=== PATIENT | male | born 1940 | race African-American/Black ===

== ENCOUNTER 2017-12-04 20:51 | Inpatient (IN) | payer MEDICARE, MEDICAID ==
[~2017-12-04] VITALS: Ht 182.9 cm; Wt 87.0 kg
[2017-12-04 20:51] VITALS: O2SAT 97
[~2017-12-04 20:51] MED LIST: ASPI1TAB7 PO; ATOR40TA PO; DILT120C9 PO; FURO20 PO; GLUC1KIT IM; GLUC40GE PO; HUMSS SQ; METO25 PO; QUET100 PO; SERT-132 PO; TAMS0.4C67 PO; TRAZ50TA4 PO; TYLE500T PO
[2017-12-04 20:57] VITALS: PULSE 81
[2017-12-04 21:03] VITALS: BP 143/67; PULSE 69; RESP 26; TEMP 97.8; O2SAT 98
[2017-12-04] MEDS ORDERED: SODIUM CHLORIDE 0.9% FLUSH 10 ML FLUSH IVF PRN (21:15)
--- NOTE | 2017-12-04 21:24 | RADRPT ---
EXAM DATE/TIME: 12/04/2017 21:19 [place] COMPARISON: No previous studies available for comparison. INDICATIONS : Short of breath MEDICAL HISTORY : Hypertension. Dementia. CVA. SURGICAL HISTORY : CABG. ENCOUNTER: Initial ACUITY: 1 day PAIN SCORE: 0/10 LOCATION: chest FINDINGS: Mild bibasilar consolidation and small effusions noted. No pneumothorax. Heart size stable, upper [place] its of normal. Median sternotomy and CABG changes are again noted. CONCLUSION: Mild consolidation and small effusions of both bases. Alexander Bundy MD on December 04, 2017 at 21:21 Board Certified Radiologist. This report was verified electronically.
[2017-12-04] MEDS ORDERED: LANTUS2P SQ (21:30)
[2017-12-04] MEDS ORDERED: SERT-132 PO (21:30)
[2017-12-04] MEDS ORDERED: OMEP40CA2 PO (21:30)
[2017-12-04] MEDS ORDERED: BISC10SU RECTAL (21:30)
[2017-12-04] MEDS ORDERED: MILKSUS PO (21:30)
[2017-12-04] MEDS ORDERED: TRAM50TA PO (21:30)
[2017-12-04] MEDS ORDERED: TAMS0.4C4 PO (21:30)
[2017-12-04] MEDS ORDERED: GLUC1KIT IM (21:30)
[2017-12-04] MEDS ORDERED: SENN8.6T8 PO (21:30)
[2017-12-04] MEDS ORDERED: FERR325T18 PO (21:30)
[2017-12-04] MEDS ORDERED: D 101000 PO (21:30)
[2017-12-04] MEDS ORDERED: IPRASOL INH ×2 (21:30)
[2017-12-04] MEDS ORDERED: CYAN100025 SL (21:30)
[2017-12-04] MEDS ORDERED: VITA500T83 PO (21:30)
[2017-12-04] MEDS ORDERED: TYLE325T PO (21:30)
[2017-12-04] MEDS ORDERED: CALCIUM TABLET PO (21:30)
[2017-12-04] MEDS ORDERED: AMLO10TA2 PO (21:30)
[2017-12-04] MEDS ORDERED: LISI10TA3 PO (21:30)
[2017-12-04] MEDS ORDERED: ATOR40TA16 PO (21:30)
[2017-12-04] MEDS ORDERED: POTA10CA PO (21:30)
[2017-12-04] MEDS ORDERED: MEMA1TAB2 PO (21:30)
[2017-12-04] MEDS ORDERED: NITR1SUB3 SL (21:30)
[2017-12-04] MEDS ORDERED: CALC0.25 PO (21:30)
[2017-12-04] MEDS ORDERED: GLUC40GE PO (21:30)
[2017-12-04] MEDS ORDERED: LEVEMIR SQ (21:30)
[2017-12-04] MEDS ORDERED: NITROGLYCERIN 2% OINT 1 GM PACKET TOPICAL ONE (21:30)
[2017-12-04] MEDS ORDERED: ASPI81CH6 CHEW (21:30)
[2017-12-04] MEDS ORDERED: [UNRECOGNIZED DRUG - CODE] SQ (21:30)
[2017-12-04] MEDS ORDERED: ONDA4SYR IM (21:30)
[2017-12-04] MEDS ORDERED: METO25TA3 PO (21:30)
[2017-12-04] MEDS ORDERED: FURO1TAB60 PO (21:30)
[2017-12-04 22:28] LABS: AUTOMATED NEUTROPHIL # 3.6 TH/MM3 (1.8-7.7); BASOPHIL % 0.8 % (0.0-2.0); EOSINOPHIL # 0.1 TH/MM3 (0-0.4); EOSINOPHIL % 2.3 % (0.0-4.0); HEMATOCRIT 25.5 % (39.0-51.0); HEMOGLOBIN 8.1 GM/DL (13.0-17.0); LYMPH % 17.7 % (9.0-44.0); LYMPHOCYTE # 0.9 TH/MM3 (1.0-4.8); MEAN CELL VOLUME 100.1 FL (80.0-100.0); MEAN PLATELET VOLUME 9.7 FL (7.0-11.0); MONO % 8.9 % (0.0-8.0); MONOCYTE # 0.5 TH/MM3 (0-0.9); NEUT % 70.3 % (16.0-70.0); PLATELET COUNT 127 TH/MM3 (150-450); RED BLOOD COUNT 2.54 MIL/MM3 (4.50-5.90); RED CELL DISTRIBUTION WIDTH 18.3 % (11.6-17.2); WHITE BLOOD COUNT 5.1 TH/MM3 (4.0-11.0)
[2017-12-04 22:31] LABS: ALBUMIN 3.1 GM/DL (3.4-5.0); ALT (GPT) 46 U/L (12-78); AST (GOT) 32 U/L (15-37); BICARBONATE 26.9 MEQ/L (21.0-32.0); BLOOD UREA NITROGEN 54 MG/DL (7-18); CALCIUM 8.3 MG/DL (8.5-10.1); CHLORIDE 111 MEQ/L (98-107); CREATININE 2.66 MG/DL (0.60-1.30); GLOMERULAR FILTRATION RATE 29 ML/MIN (>89); GLUCOSE,RANDOM 216 MG/DL (74-106); SODIUM (NA) 145 MEQ/L (136-145)
[2017-12-04 22:34] LABS: INTERNATIONAL NORMALIZED RATIO 1.3 RATIO; PROTHROMBIN TIME - PATIENT 12.9 SEC (9.8-11.6)
[2017-12-04 22:35] LABS: ALKALINE PHOSPHATASE 205 U/L (45-117); TOTAL BILIRUBIN ADULT 0.3 MG/DL (0.2-1.0); TOTAL PROTEIN 7.1 GM/DL (6.4-8.2); TROPONIN I 0.03 NG/ML (0.02-0.05)
[2017-12-04 23:00] VITALS: BP 155/70; PULSE 66; RESP 16; O2SAT 96
--- NOTE | 2017-12-04 23:17 | PD ---
HPI . Respiratory symptoms Chief Complaint: Respiratory Distress Time Seen by Provider: 21:09 Travel History International Travel<30 days: No Contact w/Intl Traveler<30days: No Traveled to known affect area: No History of Present Illness HPI 77-year-old male history of CHF presents via EMS secondary to complaints of severe shortness of breath, dyspnea, orthopnea with markedly peripheral edema and upper and lower extremities. Patient received nitroglycerin sublingual spray, Lasix 100 mg IV push, and CPAP assisted respiratory device en route. Patient had oxygen saturation approximately 86-80% on room air at household, patient 96% at presentation and much more comfortable as per EMS. Patient currently has no complaints. Limited historian. History of chronic renal insufficiency PFSH Past Medical History Narrative Medical Past medical history reviewed Hx Anticoagulant Therapy: Yes Arthritis: Yes (BACK) Asthma: No Autoimmune Disease: No Blood Disorders: Yes Anxiety: No Depression: Yes Heart Rhythm Problems: No Cancer: Yes (prostate cancer) Cardiac Catheterization: Yes Cardiovascular Problems: Yes High Cholesterol: Yes Chemotherapy: No Chest Pain: Yes Congestive Heart Failure: No COPD: No Cerebrovascular Accident: Yes Coronary Artery Disease: Yes Diabetes: Yes Diminished Hearing: Yes (GLASSES) Endocrine: Yes GERD: No Glaucoma: No Genitourinary: No Headaches: No Hepatitis: No Hiatal Hernia: No Hypertension: Yes Immune Disorder: No Implanted Vascular Access Dvce: No Kidney Stones: Yes Neurologic: Yes (stroke, unsure of when) Psychiatric: No Reproductive: No Respiratory: No Integumentary: Yes (MULTIPLE ABRASIONS FROM FREQ FALLS) Immunizations Current: Yes Migraines: No Myocardial Infarction: Yes Radiation Therapy: No Renal Failure: No Seizures: No Sickle Cell Disease: No Sleep Apnea: No Thyroid Disease: No Ulcer: Yes (BLEEDING GASTRIC ULCER) PNEUMOCCOCAL Vaccine (Year): 1 Past Surgical History Abdominal Surgery: No AICD: No Appendectomy: No Arteriovenous Shunt: No Cardiac Surgery: No Cholecystectomy: No Coronary Artery Bypass Graft: Yes (5 VESSELS 2006) Ear Surgery: No Endocrine Surgery: No Eye Surgery: Yes (CATARACTS) Genitourinary Surgery: No Gynecologic Surgery: No Insulin Pump: No Joint Replacement: No Neurologic Surgery: No Oral Surgery: No Pacemaker: No Thoracic Surgery: Yes (CABG 2006) Social History Alcohol Use: No (UNABLE TO ASSESS) Tobacco Use: Yes ( 1/2 PPD) Substance Use: No Allergies-Medications (Allergen,Severity, Reaction): Coded Allergies: No Known Allergies (Verified , 06/14/16) Reported Meds & Prescriptions Reported Meds & Active Scripts Active Reported Ondansetron 4 mg/2 ml Isecure (Ondansetron HCl/Pf) 4 Mg/2 Ml Syringe 4 Mg IM Q8HR PRN D 1000 (Cholecalciferol) 1,000 Unit Cap 1,000 Unit PO DAILY Vitamin C ER (Ascorbic Acid) 500 Mg Brooks 500 Mg PO DAILY Tramadol (Tramadol HCl) 50 Mg Tab 50 Mg PO Q4H PRN Tamsulosin (Tamsulosin HCl) 0.4 Mg Cap 0.4 Mg PO HS Sertraline (Sertraline HCl) 50 Mg Tab 50 Mg PO DAILY Senna S (Sennosides-Docusate Sodium) 8.6-50 Mg Tab 2 Tab PO BID PRN Potassium Chloride ER (Potassium Chloride) 10 Meq Cap 10 Meq PO DAILY Omeprazole 40 Mg Cap 40 Mg PO DAILY Nitroglycerin SL (Nitroglycerin) 0.4 Mg Subl 0.4 Mg SL DIRECTED PRN ONE TABLET UNDER THE TONGUE NEEDED FOR CHEST PAIN, MAY REPEAT EVERY FIVE MINUTES FOR A TOTAL OF 3 DOSES OR CALL 911 IF NO RELIEF Milk of Magnesia Liq (Magnesium Hydroxide) 400 Mg/5 Ml Susp 30 Ml PO Q6H PRN Metoprolol Tartrate 25 Mg Tab 25 Mg PO BID Memantine 10 Mg Tab 10 Mg PO BID Lisinopril 10 Mg Tab 10 Mg PO DAILY Levemir Inj (Insulin Detemir) 1,000 unit/ 10 ML Vial 15 Units SQ DAILY Do not mix with any other Insulin. Lasix (Furosemide) 40 Mg Tab 40 Mg PO DAILY Lantus Inj (Insulin Glargine) 1,000 Unit/10 Ml Vial 8 Units SQ HS Glucose Gel (Dextrose) 40 % Gel 1 Tube PO DIRECTED PRN Glucagon Emergency Inj Kit (Glucagon (Rdna) Inj Kit) 1 Mg Kit 1 Mg IM ONCE PRN Ferrous Sulfate 325 Mg (65 Mg Iron) Tablet 325 Mg PO DAILY Duoneb (Ipratropium-Albuterol Neb) 0.5-2.5 Mg/3 Ml Neb 1 Nebule INH HS Duoneb (Ipratropium-Albuterol Neb) 0.5-2.5 Mg/3 Ml Neb 1 Nebule INH Q6HR NEB PRN [Calcium Tablet] 1,200 Mg PO DAILY Calcitriol 0.25 Mcg Cap 0.25 Mcg PO MWF Biscolax Supp (Bisacodyl) 10 Mg Supp 10 Mg RECTAL DAILY PRN B-12 (Cyanocobalamin) 1,000 Mcg Subl 1,000 Mcg SL DAILY Atorvastatin (Atorvastatin Calcium) 40 Mg Tab 40 Mg PO HS Aspirin Low Dose (Aspirin) 81 Mg Chew 81 Mg CHEW DAILY Aranesp (Albumin Free) Inj (Darbepoetin Xavier Inj) 40 Mcg/0.4 Ml Inj 40 Mcg SQ MONTHLY Amlodipine (Amlodipine Besylate) 10 Mg Tab 10 Mg PO DAILY Tylenol (Acetaminophen) 325 Mg Tab 650 Mg PO Q4H PRN Narrative Medication Allergies and medications reviewed Review of Systems Except as stated in HPI: all other systems reviewed are Neg General / Constitutional: No: Fever Eyes: No: Visual changes HENT: No: Headaches Cardiovascular: No: Chest Pain or Discomfort Respiratory: Positive: Shortness of Breath, Orthopnea Gastrointestinal: No: Abdominal Pain Genitourinary: No: Dysuria Musculoskeletal: Positive: Edema, No: Pain Skin: No Rash Neurologic: No: Weakness Psychiatric: No: Depression Endocrine: No: Polydipsia Hematologic/Lymphatic: No: Easy Bruising Physical Exam Narrative GENERAL: Awake alert oriented 3 no acute distress color is normal no diaphoresis cyanosis or pallor. Patient currently with CPAP device tolerating well SKIN: Warm and dry. Color is normal no diaphoresis cyanosis or pallor HEAD: Atraumatic. Normocephalic. EYES: Pupils equal and round. No scleral icterus. No injection or drainage. ENT: No nasal bleeding or discharge. Mucous membranes pink and moist. NECK: Trachea midline. No JVD. Supple full range of motion CARDIOVASCULAR: Regular rate and rhythm. No murmurs or gallops. Distant heart sounds secondary to body habitus RESPIRATORY: No accessory muscle use. Clear to auscultation. Breath sounds equal bilaterally. GASTROINTESTINAL: Abdomen soft, non-tender, nondistended. Hepatic and splenic margins not palpable. MUSCULOSKELETAL: Extremities without clubbing, cyanosis. Marked peripheral edema upper and lower extremities. No obvious deformities. NEUROLOGICAL: Awake and alert. No obvious focal deficits PSYCHIATRIC: Appropriate mood and affect; insight and judgment normal. Data Data Last Documented VS Vital Signs Date Time Temp Pulse Resp B/P (MAP) Pulse Ox O2 Delivery O2 Flow Rate FiO2 2/8/18 21:42 99 BiPAP 12/04/17 21:03 97.8 69 26 143/67 (92) 12/04/17 20:51 35 Orders Orders Complete Blood Count With Diff (12/04/17 21:09) Comprehensive Metabolic Panel (12/04/17 21:09) B-Type Natriuretic Peptide (12/04/17 21:09) Act Partial Throm Time (Ptt) (12/04/17 21:09) Prothrombin Time / Inr (Pt) (12/04/17 21:09) Magnesium (Mg) (12/04/17 21:09) Troponin I (12/04/17 21:09) Urinalysis - C+S If Indicated (12/04/17 21:09) Influenzae A/B Antigen (12/04/17 21:09) Iv Access Insert/Monitor (12/04/17 21:09) Electrocardiogram (12/04/17 21:09) Ecg Monitoring (12/04/17 21:09) Oximetry (12/04/17 21:09) Oxygen Administration (12/04/17 21:09) Chest, Single Ap (12/04/17 21:09) Sodium Chloride 0.9% Flush (Ns Flush) (12/04/17 21:15) Nitroglycerin 2% Oint (Nitroglycerin 2% (12/04/17 21:30) Resp Bipap / Cpap Non Invas Vt (12/04/17 ) (Hub Use Only)Inp Phy Cons/Ref (12/04/17 ) Arterial Blood Gas (Abg) (12/04/17 ) Labs Laboratory Tests Test 12/04/17 21:30 12/04/17 23:59 White Blood Count 5.1 TH/MM3 Red Blood Count 2.54 MIL/MM3 Hemoglobin 8.1 GM/DL Hematocrit 25.5 % Mean Corpuscular Volume 100.1 FL Mean Corpuscular Hemoglobin 32.0 PG Mean Corpuscular Hemoglobin Concent 32.0 % Red Cell Distribution Width 18.3 % Platelet Count 127 TH/MM3 Mean Platelet Volume 9.7 FL Neutrophils (%) (Auto) 70.3 % Lymphocytes (%) (Auto) 17.7 % Monocytes (%) (Auto) 8.9 % Eosinophils (%) (Auto) 2.3 % Basophils (%) (Auto) 0.8 % Neutrophils # (Auto) 3.6 TH/MM3 Lymphocytes # (Auto) 0.9 TH/MM3 Monocytes # (Auto) 0.5 TH/MM3 Eosinophils # (Auto) 0.1 TH/MM3 Basophils # (Auto) 0.0 TH/MM3 CBC Comment DIFF FINAL Differential Comment Prothrombin Time 12.9 SEC Prothromb Time International Ratio 1.3 RATIO Activated Partial Thromboplast Time 26.6 SEC Blood Urea Nitrogen 54 MG/DL Creatinine 2.66 MG/DL Random Glucose 216 MG/DL Total Protein 7.1 GM/DL Albumin 3.1 GM/DL Calcium Level 8.3 MG/DL Magnesium Level 2.0 MG/DL Alkaline Phosphatase 205 U/L Aspartate Amino Transf (AST/SGOT) 32 U/L Alanine Aminotransferase (ALT/SGPT) 46 U/L Total Bilirubin 0.3 MG/DL Sodium Level 145 MEQ/L Potassium Level 4.6 MEQ/L Chloride Level 111 MEQ/L Carbon Dioxide Level 26.9 MEQ/L Anion Gap 7 MEQ/L Estimat Glomerular Filtration Rate 29 ML/MIN Troponin I 0.03 NG/ML B-Type Natriuretic Peptide 601 PG/ML Blood Gas Puncture Site RT RADIAL Blood Gas Patient Temperature 98.6 Blood Gas HCO3 24 mmol/L Blood Gas Base Excess -0.9 mmol/L Blood Gas Oxygen Saturation 90 % Arterial Blood pH 7.35 Arterial Blood Partial Pressure CO2 45 mmHg Arterial Blood Partial Pressure O2 63 mmHG Arterial Blood Oxygen Content 9.7 Vol % Arterial Blood Carboxyhemoglobin 2.1 % Arterial Blood Methemoglobin 0.6 % Blood Gas Hemoglobin 7.6 G/DL Oxygen Delivery Device NASAL CANNULA Blood Gas Liter Flow 2 L/M [facility] Medical Decision Making Medical Screen Exam Complete: Yes Emergency Medical Condition: Yes Medical Record Reviewed: Yes Differential Diagnosis CHF, peripheral edema, acute pulmonary edema Narrative Course Patient has marked improvement from presentation. EKG sinus rhythm 68 bpm, T-wave inversions in limb leads 1 to aVL flattening in limb leads 3 and aVF. T-wave inversions in V4 5 and 6 precordium Chest x-ray bilateral pleural effusions right worse versus left, mild cardiomegaly Laboratory examinations reviewed, patient has normal troponin, moderately elevated BNP consistent with patient's presentation. History of chronic renal insufficiency, with slightly elevated creatinine over baseline at 2.66 Diagnosis Primary Impression: Congestive heart failure Qualified Codes: I50.9 - Heart failure, unspecified Additional Impression: Renal insufficiency Admitting Information Admitting Physician Requests: Observation Germán Barajas MD Dec 04, 2017 23:17
[2017-12-05] VITALS (10 sets, daily range): BP systolic 118–187; BP diastolic 55–81; PULSE 62–85; RESP 16–18; TEMP 97.7–98.1; O2SAT 93–98
[2017-12-05] MEDS ORDERED: GLUCAGON 1 MG/ML VIAL OTHER PRN (01:00)
[2017-12-05] MEDS ORDERED: MAGNESIUM HYDROXIDE SUSP 30 ML CUP PO PRN (01:00)
[2017-12-05] MEDS ORDERED: NALOXONE HCL 0.4 MG/ML AMP IV PUSH PRN (01:00)
[2017-12-05] MEDS ORDERED: LACTULOSE SYRUP 20 GM/30 ML CUP PO PRN (01:00)
[2017-12-05] MEDS ORDERED: ACETAMINOPHEN 325 MG TAB PO PRN (01:00)
[2017-12-05] MEDS ORDERED: ONDANSETRON HCL 4 MG/2 ML VIAL IVP PRN (01:00)
[2017-12-05] MEDS ORDERED: BISACODYL 10 MG SUPP RECTAL PRN (01:00)
[2017-12-05] MEDS ORDERED: DEXTROSE 50% IN WATER 50 ML VIAL(D50) IV PUSH PRN (01:00)
[2017-12-05] MEDS ORDERED: SENNOSIDES 8.6 MG TAB PO PRN (01:00)
--- NOTE | 2017-12-05 02:37 | HHI.HP ---
HPI Service [facility] Primary Care Physician Mervin Verde M.D. Admission Diagnosis CHF Diagnoses: (1) Congestive heart failure Chief Complaint: shortness of breath Travel History International Travel<30 Days: No Contact w/Intl Traveler <30 Da: No Traveled to Known Affected Are: No History of Present Illness Mr. Diego is a 77 year-old male resident of [facility] with a history of Type 2 DM, COPD, CHF, CVA, dementia, [place], CAD, Hyperlipidemia, Hypertension, bleeding gastric ulcer, prostate CA, nephrolithiasis, and arthritis who presented to the ER on 12/04/17 for evaluation of severe shortness of breath and edema. CXR in ED confirmed CHF and the patient is admitted for management. The patient is seen in the ER. He is extremely hard of hearing. He states he had severe shortness of breath that is now relieved since receiving treatment in the ER. CXR shows mild consolidation and small effusions of both bases. BNP 601. He was initially treated with Bi-Pap and now has oxygen saturation of 96% on 3 liters of supplemental oxygen via nasal cannula. Review of Systems Except as stated in HPI: all other systems reviewed are Neg Past Family Social History Past Medical History Type 2 DM COPD CHF CVA Dementia [place] CAD Hyperlipidemia Hypertension bleeding gastric ulcer prostate CA nephrolithiasis arthritis . Past Surgical History CABG x 5 2006 Back surgery Cataracts Left shoulder surgery . Reported Medications Reported Meds & Active Scripts Active Reported Ondansetron 4 mg/2 ml Isecure (Ondansetron HCl/Pf) 4 Mg/2 Ml Syringe 4 Mg IM Q8HR PRN D 1000 (Cholecalciferol) 1,000 Unit Cap 1,000 Unit PO DAILY Vitamin C ER (Ascorbic Acid) 500 Mg Brooks 500 Mg PO DAILY Tramadol (Tramadol HCl) 50 Mg Tab 50 Mg PO Q4H PRN Tamsulosin (Tamsulosin HCl) 0.4 Mg Cap 0.4 Mg PO HS Sertraline (Sertraline HCl) 50 Mg Tab 50 Mg PO DAILY Senna S (Sennosides-Docusate Sodium) 8.6-50 Mg Tab 2 Tab PO BID PRN Potassium Chloride ER (Potassium Chloride) 10 Meq Cap 10 Meq PO DAILY Omeprazole 40 Mg Cap 40 Mg PO DAILY Nitroglycerin SL (Nitroglycerin) 0.4 Mg Subl 0.4 Mg SL DIRECTED PRN ONE TABLET UNDER THE TONGUE NEEDED FOR CHEST PAIN, MAY REPEAT EVERY FIVE MINUTES FOR A TOTAL OF 3 DOSES OR CALL 911 IF NO RELIEF Milk of Magnesia Liq (Magnesium Hydroxide) 400 Mg/5 Ml Susp 30 Ml PO Q6H PRN Metoprolol Tartrate 25 Mg Tab 25 Mg PO BID Memantine 10 Mg Tab 10 Mg PO BID Lisinopril 10 Mg Tab 10 Mg PO DAILY Levemir Inj (Insulin Detemir) 1,000 unit/ 10 ML Vial 15 Units SQ DAILY Do not mix with any other Insulin. Lasix (Furosemide) 40 Mg Tab 40 Mg PO DAILY Lantus Inj (Insulin Glargine) 1,000 Unit/10 Ml Vial 8 Units SQ HS Glucose Gel (Dextrose) 40 % Gel 1 Tube PO DIRECTED PRN Glucagon Emergency Inj Kit (Glucagon (Rdna) Inj Kit) 1 Mg Kit 1 Mg IM ONCE PRN Ferrous Sulfate 325 Mg (65 Mg Iron) Tablet 325 Mg PO DAILY Duoneb (Ipratropium-Albuterol Neb) 0.5-2.5 Mg/3 Ml Neb 1 Nebule INH HS Duoneb (Ipratropium-Albuterol Neb) 0.5-2.5 Mg/3 Ml Neb 1 Nebule INH Q6HR NEB PRN [Calcium Tablet] 1,200 Mg PO DAILY Calcitriol 0.25 Mcg Cap 0.25 Mcg PO MWF Biscolax Supp (Bisacodyl) 10 Mg Supp 10 Mg RECTAL DAILY PRN B-12 (Cyanocobalamin) 1,000 Mcg Subl 1,000 Mcg SL DAILY Atorvastatin (Atorvastatin Calcium) 40 Mg Tab 40 Mg PO HS Aspirin Low Dose (Aspirin) 81 Mg Chew 81 Mg CHEW DAILY Aranesp (Albumin Free) Inj (Darbepoetin Xavier Inj) 40 Mcg/0.4 Ml Inj 40 Mcg SQ MONTHLY Amlodipine (Amlodipine Besylate) 10 Mg Tab 10 Mg PO DAILY Tylenol (Acetaminophen) 325 Mg Tab 650 Mg PO Q4H PRN . Allergies: Coded Allergies: No Known Allergies (Verified , 06/14/16) Family History Family history is positive for DM, HTN and heart disease. . Social History Tobacco: Previous smoker Alcohol: None known Illicit Drugs: None known . Physical Exam Vital Signs Vital Signs Date Time Temp Pulse Resp B/P (MAP) Pulse Ox O2 Delivery O2 Flow Rate FiO2 12/05/17 02:11 Nasal Cannula 3.00 12/05/17 01:48 97.9 68 17 165/72 (103) 96 12/05/17 01:40 12/05/17 00:49 65 18 157/73 (101) 97 Nasal Cannula 2.00 12/04/17 23:00 66 16 155/70 (98) 96 Nasal Cannula 2.00 12/04/17 21:42 99 BiPAP 12/04/17 21:03 97.8 69 26 143/67 (92) 98 BiPAP 12/04/17 21:01 70 26 95 BiPAP 12/04/17 20:57 81 12/04/17 20:51 97 35 Physical Exam GENERAL: This is an extremely ute elderly male patient, in no apparent distress. SKIN: No rashes. Cool and dry. HEAD: Atraumatic. Normocephalic. EYES: No injection or drainage. ENT: Nose without bleeding, purulent drainage. NECK: Trachea midline. No JVD. CARDIOVASCULAR: Regular rate and rhythm without murmurs, gallops, or rubs. RESPIRATORY: Breath sounds equal bilaterally; diminished at bilateral bases. No wheezes, rales, or rhonchi. GASTROINTESTINAL: Abdomen soft, non-tender, nondistended. No guarding. MUSCULOSKELETAL: Extremities without clubbing or cyanosis. +2 peripheral edema. No calf tenderness. NEUROLOGICAL: Awake and alert. Motor and sensory grossly within normal limits. Normal speech. . Laboratory Laboratory Tests Test 12/04/17 21:30 12/04/17 23:59 White Blood Count 5.1 Red Blood Count 2.54 Hemoglobin 8.1 Hematocrit 25.5 Mean Corpuscular Volume 100.1 Mean Corpuscular Hemoglobin 32.0 Mean Corpuscular Hemoglobin Concent 32.0 Red Cell Distribution Width 18.3 Platelet Count 127 Mean Platelet Volume 9.7 Neutrophils (%) (Auto) 70.3 Lymphocytes (%) (Auto) 17.7 Monocytes (%) (Auto) 8.9 Eosinophils (%) (Auto) 2.3 Basophils (%) (Auto) 0.8 Neutrophils # (Auto) 3.6 Lymphocytes # (Auto) 0.9 Monocytes # (Auto) 0.5 Eosinophils # (Auto) 0.1 Basophils # (Auto) 0.0 CBC Comment DIFF FINAL Differential Comment Prothrombin Time 12.9 Prothromb Time International Ratio 1.3 Activated Partial Thromboplast Time 26.6 Blood Urea Nitrogen 54 Creatinine 2.66 Random Glucose 216 Total Protein 7.1 Albumin 3.1 Calcium Level 8.3 Magnesium Level 2.0 Alkaline Phosphatase 205 Aspartate Amino Transf (AST/SGOT) 32 Alanine Aminotransferase (ALT/SGPT) 46 Total Bilirubin 0.3 Sodium Level 145 Potassium Level 4.6 Chloride Level 111 Carbon Dioxide Level 26.9 Anion Gap 7 Estimat Glomerular Filtration Rate 29 Troponin I 0.03 B-Type Natriuretic Peptide 601 Blood Gas Puncture Site RT RADIAL Blood Gas Patient Temperature 98.6 Blood Gas HCO3 24 Blood Gas Base Excess -0.9 Blood Gas Oxygen Saturation 90 Arterial Blood pH 7.35 Arterial Blood Partial Pressure CO2 45 Arterial Blood Partial Pressure O2 63 Arterial Blood Oxygen Content 9.7 Arterial Blood Carboxyhemoglobin 2.1 Arterial Blood Methemoglobin 0.6 Blood Gas Hemoglobin 7.6 Oxygen Delivery Device NASAL CANNULA Blood Gas Liter Flow 2 Date/Time Source Procedure Growth Status 12/04/17 21:30 Nasal Washing Influenza Types A,B Antigen (LUIS) - Final NEGATIVE FOR FLU A AND B ANTIGEN.... Complete Result Diagram: 12/04/17212912/04/172129 Imaging Last Impressions Chest X-Ray 12/04/172108 Signed Impressions: Service Date/Time: November 21:19 - CONCLUSION: Mild consolidation and small effusions of both bases. MD Jose Zhangi VTE Risk Assessment Caprini VTE Risk Assessment: Mod/High Risk (score >= 2) Caprini Risk Assessment Model Point Value = 1 Point Value = 2 Point Value = 3 Point Value = 5 Age 41-60 Minor surgery BMI > 25 kg/m2 Swollen legs Varicose veins or History of unexplained or recurrent spontaneous Oral contraceptives or hormone replacement Sepsis (< 1 month) Serious lung disease, including pneumonia (< 1 month) Abnormal pulmonary function Acute myocardial infarction Congestive heart failure (< 1 month) History of inflammatory bowel disease Medical patient at bed rest Age 61-74 Arthroscopic surgery Major open surgery (> 45 min) Laparoscopic surgery (> 45 min) Malignancy Confined to bed (> 72 hours) Immobilizing plaster cast Central venous access Age >= 75 History of VTE Family history of VTE Factor V Leiden Prothrombin [id number] Lupus anticoagulant Anticardiolipin antibodies Elevated serum homocysteine Heparin-induced thrombocytopenia Other congenital or acquired thrombophilia Stroke (< 1 month) Elective arthroplasty Hip, pelvis, or leg fracture Acute spinal cord injury (< 1 month) Prophylaxis Regimen Total Risk Factor Score Risk Level Prophylaxis Regimen 0-1 Low Early ambulation 2 Moderate Order ONE of the following: *Sequential Compression Device (SCD) *Heparin 5000 units SQ BID 3-4 Higher Order ONE of the following medications: *Heparin 5000 units SQ TID *Enoxaparin/Lovenox 40 mg SQ daily (WT < 150 kg, CrCl > 30 mL/min) *Enoxaparin/Lovenox 30 mg SQ daily (WT < 150 kg, CrCl > 10-29 mL/min) *Enoxaparin/Lovenox 30 mg SQ BID (WT < 150 kg, CrCl > 30 mL/min) AND/OR *Sequential Compression Device (SCD) 5 or more Highest Order ONE of the following medications: *Heparin 5000 units SQ TID (Preferred with Epidurals) *Enoxaparin/Lovenox 40 mg SQ daily (WT < 150 kg, CrCl > 30 mL/min) *Enoxaparin/Lovenox 30 mg SQ daily (WT < 150 kg, CrCl > 10-29 mL/min) *Enoxaparin/Lovenox 30 mg SQ BID (WT < 150 kg, CrCl > 30 mL/min) AND *Sequential Compression Device (SCD) Assessment and Plan Problem List: (1) Congestive heart failure ICD Code: I50.9 - Heart failure, unspecified Status: Acute Assessment and Plan Mr. Diego is a 77 year-old male resident of [facility] who presented to the ER on 12/04/17 for evaluation of severe shortness of breath and edema. CXR in ED confirmed CHF and the patient is admitted for management. Acute CHF - CXR shows mild consolidation and small effusions of both bases; BNP 601. - Lasix 40 mg IV BID - continuous cardiac telemetry to monitor for arrhythmia - initially required BiPap - now on 3 liters nasal cannula and pulse oximetry 96 % - supplemental oxygen titrated to maintain oxygen saturation > 92% Acute on chronic renal insufficiency - BUN 54, Creatinine 2.66, and eGFR 29 on admission (was BUN 21, Creatinine 1.62 , and egfr 51 on 07/03/16) - repeat labs in a.m. and follow trends - avoid nephrotoxins - consider nephrology consultation COPD - Duonebulizer q6h ATC and q4h PRN shortness of breath/wheezing - supplemental oxygen as above Type 2 diabetes mellitus - accuchecks AC and HS with low dose Novolog sliding scale coverage - monitor trends in blood glucose and adjust treatment accordingly - hold home basal insulin; resume pending blood glucose trends - PRN hypoglycemia treatment protocol ordered Hypertension - resume home antihypertensives - monitor blood pressure readings and adjust treatment if indicated Anemia and thrombocytopenia - no recent labs for comparison (was 11.2 and 204, 000 respectively on 07/01/16) - Hemoglobin 8.1 and platelet count 127,000 on admission; will repeat in a.m. and transfuse if needed - consider hematology consultation pending repeat blood work results DVT prophylaxis - Heparin 5000 units subq q8h Discussed Condition With RN and Dr. Moreno . Problem Qualifiers (1) Congestive heart failure: Qualified Codes: I50.9 - Heart failure, unspecified Julissa Pruitt Dec 05, 2017 02:37
[2017-12-05] MEDS: RESP: ALBUTEROL 2.5 MG/IPRATROPIUM 0.5 MG NEB (SCH) NEB ×4 (02:43→20:58)
[2017-12-05] MEDS: HEPARIN SODIUM - SQ 10,000 UNITS/ML VIAL SQ SCH ×4 (05:50→21:59)
[2017-12-05] MEDS: INSULIN ASPART SUPPLEMENTAL SCALE SQ SCH ×4 (08:21→21:52)
[2017-12-05] MEDS: MEMANTINE HCL 10 MG TAB PO SCH ×2 (09:27→21:41)
[2017-12-05] MEDS: SERTRALINE HCL 50 MG TAB PO SCH (09:27)
[2017-12-05] MEDS: PANTOPRAZOLE SOD 40 MG DELAYED RELEASE TAB PO SCH (09:27)
[2017-12-05] MEDS: ASPIRIN 81 MG CHEW TAB CHEW SCH (09:27)
[2017-12-05] MEDS: LISINOPRIL 10 MG TAB PO SCH (09:27)
[2017-12-05] MEDS: DOCUSATE SODIUM 50 MG/SENNA 8.6 MG TAB PO SCH ×2 (09:27→21:41)
[2017-12-05] MEDS: METOPROLOL TARTRATE 25 MG TAB PO SCH ×2 (09:27→21:40)
[2017-12-05] MEDS: SODIUM CHLORIDE 0.9% FLUSH 10 ML FLUSH IV FLUSH SCH ×2 (09:27→21:41)
[2017-12-05] MEDS: FUROSEMIDE 40 MG/4 ML VIAL IV PUSH SCH ×2 (09:28→17:41)
--- NOTE | 2017-12-05 14:13 | HHI.PR ---
Subjective Remarks Mr. Diego is a 77 year-old male resident of [facility] with a history of Type 2 DM, COPD, CHF, CVA, dementia, [place], CAD, Hyperlipidemia, Hypertension, bleeding gastric ulcer, prostate CA, nephrolithiasis, and arthritis who presented to the ER on 12/04/17 for evaluation of severe shortness of breath and edema. CXR in ED confirmed CHF and the patient is admitted for management. The patient is seen in the ER. He is extremely hard of hearing. He states he had severe shortness of breath that is now relieved since receiving treatment in the ER. CXR shows mild consolidation and small effusions of both bases. BNP 601. He was initially treated with Bi-Pap and now has oxygen saturation of 96% on 3 liters of supplemental oxygen via nasal cannula. NO CURRENT COMPLAINTS DW RN AND PT CONTINUE TO DIURESE AM LABS NEEDS PT AND OT Objective Vitals Vital Signs Date Time Temp Pulse Resp B/P (MAP) Pulse Ox O2 Delivery O2 Flow Rate FiO2 12/05/17 13:35 97.7 67 18 118/55 (76) 94 12/05/17 11:42 62 12/05/17 10:33 98 Nasal Cannula 3.00 12/05/17 08:34 97.9 73 16 153/71 (98) 98 12/05/17 07:52 Nasal Cannula 3.00 12/05/17 07:39 73 12/05/17 02:45 Nasal Cannula 3.00 12/05/17 02:11 Nasal Cannula 3.00 12/05/17 01:48 97.9 68 17 165/72 (103) 96 12/05/17 01:40 12/05/17 00:49 65 18 157/73 (101) 97 Nasal Cannula 2.00 12/04/17 23:00 66 16 155/70 (98) 96 Nasal Cannula 2.00 12/04/17 21:42 99 BiPAP 12/04/17 21:03 97.8 69 26 143/67 (92) 98 BiPAP 12/04/17 21:01 70 26 95 BiPAP 12/04/17 20:57 81 12/04/17 20:51 97 35 I/O 12/04/17 12/04/17 12/04/17 12/05/17 12/05/17 12/05/17 07:00 15:00 23:00 07:00 15:00 23:00 Intake Total 480 ml Balance 480 ml Intake Oral 480 ml # Voids 1 Result Diagram: 12/04/17212912/04/172129 Other Results Laboratory Tests Test 12/04/17 21:30 12/04/17 23:59 White Blood Count 5.1 TH/MM3 Red Blood Count 2.54 MIL/MM3 Hemoglobin 8.1 GM/DL Hematocrit 25.5 % Mean Corpuscular Volume 100.1 FL Mean Corpuscular Hemoglobin 32.0 PG Mean Corpuscular Hemoglobin Concent 32.0 % Red Cell Distribution Width 18.3 % Platelet Count 127 TH/MM3 Mean Platelet Volume 9.7 FL Neutrophils (%) (Auto) 70.3 % Lymphocytes (%) (Auto) 17.7 % Monocytes (%) (Auto) 8.9 % Eosinophils (%) (Auto) 2.3 % Basophils (%) (Auto) 0.8 % Neutrophils # (Auto) 3.6 TH/MM3 Lymphocytes # (Auto) 0.9 TH/MM3 Monocytes # (Auto) 0.5 TH/MM3 Eosinophils # (Auto) 0.1 TH/MM3 Basophils # (Auto) 0.0 TH/MM3 CBC Comment DIFF FINAL Differential Comment Prothrombin Time 12.9 SEC Prothromb Time International Ratio 1.3 RATIO Activated Partial Thromboplast Time 26.6 SEC Blood Urea Nitrogen 54 MG/DL Creatinine 2.66 MG/DL Random Glucose 216 MG/DL Total Protein 7.1 GM/DL Albumin 3.1 GM/DL Calcium Level 8.3 MG/DL Magnesium Level 2.0 MG/DL Alkaline Phosphatase 205 U/L Aspartate Amino Transf (AST/SGOT) 32 U/L Alanine Aminotransferase (ALT/SGPT) 46 U/L Total Bilirubin 0.3 MG/DL Sodium Level 145 MEQ/L Potassium Level 4.6 MEQ/L Chloride Level 111 MEQ/L Carbon Dioxide Level 26.9 MEQ/L Anion Gap 7 MEQ/L Estimat Glomerular Filtration Rate 29 ML/MIN Troponin I 0.03 NG/ML B-Type Natriuretic Peptide 601 PG/ML Blood Gas Puncture Site RT RADIAL Blood Gas Patient Temperature 98.6 Blood Gas HCO3 24 mmol/L Blood Gas Base Excess -0.9 mmol/L Blood Gas Oxygen Saturation 90 % Arterial Blood pH 7.35 Arterial Blood Partial Pressure CO2 45 mmHg Arterial Blood Partial Pressure O2 63 mmHG Arterial Blood Oxygen Content 9.7 Vol % Arterial Blood Carboxyhemoglobin 2.1 % Arterial Blood Methemoglobin 0.6 % Blood Gas Hemoglobin 7.6 G/DL Oxygen Delivery Device NASAL CANNULA Blood Gas Liter Flow 2 L/M Imaging Last Impressions Chest X-Ray 12/04/172108 Signed Impressions: Service Date/Time: November 21:19 - CONCLUSION: Mild consolidation and small effusions of both bases. Alexander Bundy MD Objective Remarks GENERAL: Arousable talkative and somewhat cooperative SKIN: Warm and dry. HEAD: Atraumatic. Normocephalic. EYES: Pupils equal and round. No scleral icterus. No injection or drainage. EOMI ENT: No nasal bleeding or discharge. Mucous membranes pink and moist. Tongue is midline NECK: Trachea midline. No JVD. Supple CARDIOVASCULAR: Regular rate and rhythm. S1 and S2 no S3 or S4 RESPIRATORY: No accessory muscle use. Clear to auscultation. Breath sounds equal bilaterally. GASTROINTESTINAL: Abdomen soft, non-tender, nondistended. Hepatic and splenic margins not palpable. MUSCULOSKELETAL: Extremities without clubbing, cyanosis No obvious deformities. Swelling and edema bilateral lower extremities +2 NEUROLOGICAL: Awake and alert. No obvious cranial nerve deficits. Motor grossly within normal limits. 4 out of 5 muscle strength in the arms and legs. Normal speech. PSYCHIATRIC: INAppropriate mood and affect; insight and judgment ABnormal. Procedures NONE Medications and IVs Current Medications Sodium Chloride (NS Flush) 2 ml UNSCH PRN IVF FLUSH AFTER USING IV ACCESS; Start 12/04/17 at 21:15 Nitroglycerin (Nitroglycerin 2% Oint) 1 inch ONCE ONCE TOPICAL Last administered on 12/04/17at 21:41; Start 12/04/17 at 21:30; Stop 12/04/17 at 21:31; Status DC Sodium Chloride (NS Flush) 2 ml UNSCH PRN IV FLUSH FLUSH AFTER USING IV ACCESS ; Start 12/05/17 at 01:00 Sodium Chloride (NS Flush) 2 ml BID IV FLUSH Last administered on 12/05/17at 09: 27; Start 12/05/17 at 09:00 Acetaminophen (Tylenol) 650 mg Q4H PRN PO TEMP > 100.4; Start 12/05/17 at 01:00 Ondansetron HCl (Zofran Inj) 4 mg Q6H PRN IVP NAUSEA OR VOMITING; Start at 01:00 Heparin Sodium (Porcine) (Heparin Inj) 5,000 units Q8H SQ Last administered on 12/05/17at 14:02; Start 12/05/17 at 06:00 Naloxone HCl (Narcan Inj) 0.4 mg UNSCH PRN IV PUSH SEE LABEL COMMENTS; Start at 01:00 Senna/Docusate Sodium (Rebeca-Colace) 1 tab BID PO Last administered on 12/05/17at 09:27; Start 12/05/17 at 09:00 Magnesium Hydroxide (Milk Of Magnesia Liq) 30 ml Q12H PRN PO Mild constipation ; Start 12/05/17 at 01:00 Sennosides (Senokot) 17.2 mg Q12H PRN PO Moderate constipation; Start 12/05/17 at 01:00 Bisacodyl (Dulcolax Supp) 10 mg DAILY PRN RECTAL SEVERE CONSITIPATION; Start at 01:00 Lactulose (Lactulose Liq) 30 ml DAILY PRN PO SEVERE CONSITIPATION; Start at 01:00 Furosemide (Lasix Inj) 40 mg BID@18 IV PUSH Last administered on 12/05/17at 09 :28; Start 12/05/17 at 09:00 Amlodipine Besylate (Norvasc) 10 mg DAILY PO Last administered on 12/05/17 09: 27; Start 12/05/17 at 09:00 Aspirin (Aspirin Chew) 81 mg DAILY CHEW Last administered on 12/05/17at 09:27; Start 12/05/17 at 09:00 Atorvastatin Calcium (Lipitor) 40 mg HS PO ; Start 12/05/17 at 21:00 Lisinopril (Prinivil) 10 mg DAILY PO Last administered on 12/05/17 09:27; Start 12/05/17 at 09:00 Memantine (Namenda) 10 mg BID PO Last administered on 12/05/17 09:27; Start 12/05/17 at 09:00 Metoprolol Tartrate (Lopressor) 25 mg BID PO Last administered on 12/05/17at 09: 27; Start 12/05/17 at 09:00 Sertraline HCl (Zoloft) 50 mg DAILY PO Last administered on 12/05/17at 09:27; Start 12/05/17 at 09:00 Tamsulosin HCl (Flomax) 0.4 mg HS PO ; Start 12/05/17 at 21:00 Pantoprazole Sodium (Protonix) 40 mg DAILY PO Last administered on 12/05/17at 09: 27; Start 12/05/17 at 09:00 Dextrose (D50w (Vial) Inj) 50 ml UNSCH PRN IV PUSH HYPOGLYCEMIA-SEE COMMENTS; Start 12/05/17 at 01:00 Glucagon (Glucagon Inj) 1 mg UNSCH PRN OTHER HYPOGLYCEMIA-SEE COMMENTS; Start 12/05/17 at 01:00 Insulin Aspart (NovoLOG SUPPLEMENTAL SCALE) 1 ACHS SLIDING SCALE SQ ; Start 12/05/17 at 08:00 Albuterol/ Ipratropium (Duoneb Neb) 1 ampule Q6HR NEB NEB Last administered on 12/05/17at 10:31; Start 12/05/17 at 04:00 Albuterol/ Ipratropium (Duoneb Neb) 1 ampule Q4HR NEB PRN NEB SOB/WHEEZING; Start 12/05/17 at 01:00 A/P Problem List: (1) Congestive heart failure ICD Code: I50.9 - Heart failure, unspecified Status: Acute Assessment and Plan Mr. Diego is a 77 year-old male resident of [facility] who presented to the ER on 12/04/17 for evaluation of severe shortness of breath and edema. CXR in ED confirmed CHF and the patient is admitted for management. Acute CHF - CXR shows mild consolidation and small effusions of both bases; BNP 601. - Lasix 40 mg IV BID - continuous cardiac telemetry to monitor for arrhythmia - initially required BiPap - now on 3 liters nasal cannula and pulse oximetry 96 % - supplemental oxygen titrated to maintain oxygen saturation > 92% Acute on chronic renal insufficiency - BUN 54, Creatinine 2.66, and eGFR 29 on admission (was BUN 21, Creatinine 1.62 , and egfr 51 on 07/03/16) - repeat labs in a.m. and follow trends - avoid nephrotoxins - consider nephrology consultation COPD - Duonebulizer q6h ATC and q4h PRN shortness of breath/wheezing - supplemental oxygen as above Type 2 diabetes mellitus - accuchecks AC and HS with low dose Novolog sliding scale coverage - monitor trends in blood glucose and adjust treatment accordingly - hold home basal insulin; resume pending blood glucose trends - PRN hypoglycemia treatment protocol ordered Hypertension - resume home antihypertensives - monitor blood pressure readings and adjust treatment if indicated Anemia and thrombocytopenia - no recent labs for comparison (was 11.2 and 204, 000 respectively on 07/01/16) - Hemoglobin 8.1 and platelet count 127,000 on admission; will repeat in a.m. and transfuse if needed - consider hematology consultation pending repeat blood work results CHECK BLOOD WORK DVT prophylaxis - Heparin 5000 units subq q8h CONTINUE TO DIURESE ALEKS RN AND PATIENT AM LABS PT AND OT Discharge Planning CONTINUE TO DIURESE Problem Qualifiers (1) Congestive heart failure: Qualified Codes: I50.9 - Heart failure, unspecified Mukund Ford DO Dec 05, 2017 14:13
--- NOTE | 2017-12-05 14:28 | EKG ---
Date Performed: 12/04/2017 Time Performed: 21:02:58 PTAGE: 77 years EKG: Sinus rhythm ST DEVIATION AND MODERATE T-WAVE ABNORMALITY, CONSIDER LATERAL ISCHEMIA ST DEVIATION AND MODERATE T- WAVE ABNORMALITY, CONSIDER INFERIOR ISCHEMIA ABNORMAL ECG Compared to PREVIOUS TRACING , the patient no longer meets selected cardiographic criteria for LVH. T here has been some variation in the diffuse T-wave changes but no other significant serial change. [place] EVIOUS TRACIN06/16/2016 16.00 DOCTOR: Margaret Frederick Interpretating Date/Time 12/05/2017 14:26:15
[2017-12-05] MEDS: SODIUM CHLORIDE 0.9% FLUSH 10 ML FLUSH IV FLUSH PRN (17:41)
[2017-12-05] MEDS: TAMSULOSIN HCL 0.4 MG CAP PO SCH (21:40)
[2017-12-05] MEDS: ATORVASTATIN 40 MG TAB PO SCH (21:41)
[2017-12-06] VITALS (13 sets, daily range): BP systolic 140–173; BP diastolic 60–87; PULSE 56–89; RESP 18–20; TEMP 96.7–99.2; O2SAT 91–100
[2017-12-06] MEDS: RESP: ALBUTEROL 2.5 MG/IPRATROPIUM 0.5 MG NEB (SCH) NEB ×4 (03:07→20:20)
[2017-12-06] MEDS: HEPARIN SODIUM - SQ 10,000 UNITS/ML VIAL SQ SCH ×3 (06:00→23:08)
[2017-12-06] MEDS: INSULIN ASPART SUPPLEMENTAL SCALE SQ SCH ×4 (08:00→21:00)
[2017-12-06 08:22] LABS: AUTOMATED NEUTROPHIL # 3.3 TH/MM3 (1.8-7.7); BASOPHIL % 0.8 % (0.0-2.0); EOSINOPHIL # 0.1 TH/MM3 (0-0.4); EOSINOPHIL % 2.6 % (0.0-4.0); HEMATOCRIT 25.6 % (39.0-51.0); HEMOGLOBIN 8.2 GM/DL (13.0-17.0); LYMPH % 17.9 % (9.0-44.0); LYMPHOCYTE # 0.8 TH/MM3 (1.0-4.8); MEAN CELL VOLUME 98.6 FL (80.0-100.0); MEAN CORPUSCULAR HEMOGLOBIN 31.5 PG (27.0-34.0); MEAN PLATELET VOLUME 9.9 FL (7.0-11.0); MONO % 9.3 % (0.0-8.0); MONOCYTE # 0.4 TH/MM3 (0-0.9); NEUT % 69.4 % (16.0-70.0); PLATELET COUNT 135 TH/MM3 (150-450); RED CELL DISTRIBUTION WIDTH 17.7 % (11.6-17.2); WHITE BLOOD COUNT 4.7 TH/MM3 (4.0-11.0)
[2017-12-06 08:39] LABS: ALBUMIN 3.2 GM/DL (3.4-5.0); ALT (GPT) 38 U/L (12-78); AST (GOT) 21 U/L (15-37); BICARBONATE 26.2 MEQ/L (21.0-32.0); BLOOD UREA NITROGEN 54 MG/DL (7-18); CALCIUM 8.9 MG/DL (8.5-10.1); CHLORIDE 107 MEQ/L (98-107); CREATININE 2.58 MG/DL (0.60-1.30); GLOMERULAR FILTRATION RATE 30 ML/MIN (>89); GLUCOSE,RANDOM 98 MG/DL (74-106); MAGNESIUM 1.8 MG/DL (1.5-2.5); PHOSPHORUS 2.9 MG/DL (2.5-4.9); SODIUM (NA) 141 MEQ/L (136-145)
[2017-12-06 08:47] LABS: ALKALINE PHOSPHATASE 198 U/L (45-117); TOTAL BILIRUBIN ADULT 0.5 MG/DL (0.2-1.0); TOTAL PROTEIN 7.2 GM/DL (6.4-8.2)
[2017-12-06] MEDS: FERROUS SULFATE 325 MG (65 MG ELEMENTAL IRON) TAB PO SCH (09:00)
[2017-12-06] MEDS: LISINOPRIL 10 MG TAB PO SCH (09:00)
[2017-12-06] MEDS: METOPROLOL TARTRATE 25 MG TAB PO SCH ×2 (09:00→23:07)
[2017-12-06] MEDS: SERTRALINE HCL 50 MG TAB PO SCH (09:00)
[2017-12-06] MEDS: PANTOPRAZOLE SOD 40 MG DELAYED RELEASE TAB PO SCH (09:00)
[2017-12-06] MEDS: MEMANTINE HCL 10 MG TAB PO SCH ×2 (09:00→23:07)
[2017-12-06] MEDS: DOCUSATE SODIUM 50 MG/SENNA 8.6 MG TAB PO SCH ×2 (09:00→23:07)
[2017-12-06] MEDS: ASPIRIN 81 MG CHEW TAB CHEW SCH (09:00)
[2017-12-06] MEDS: FUROSEMIDE 40 MG/4 ML VIAL IV PUSH SCH ×2 (10:11→17:30)
[2017-12-06] MEDS: SODIUM CHLORIDE 0.9% FLUSH 10 ML FLUSH IV FLUSH SCH ×2 (10:15→23:06)
--- NOTE | 2017-12-06 14:41 | HHI.PR ---
Subjective Remarks Mr. Diego is a 77 year-old male resident of [facility] with a history of Type 2 DM, COPD, CHF, CVA, dementia, [place], CAD, Hyperlipidemia, Hypertension, bleeding gastric ulcer, prostate CA, nephrolithiasis, and arthritis who presented to the ER on 12/04/17 for evaluation of severe shortness of breath and edema. CXR in ED confirmed CHF and the patient is admitted for management. The patient is seen in the ER. He is extremely hard of hearing. He states he had severe shortness of breath that is now relieved since receiving treatment in the ER. CXR shows mild consolidation and small effusions of both bases. BNP 601. He was initially treated with Bi-Pap and now has oxygen saturation of 96% on 3 liters of supplemental oxygen via nasal cannula. NO CURRENT COMPLAINTS DW RN AND PT CONTINUE TO DIURESE AM LABS NEEDS PT AND OT 2-10 PATIENT NOT WANTING TO EAT MUCH PER SISTER HE DOES THIS HE WILL TAKE VANILLA GLUCERNA PER HER DW RN PATIENT NOT TALKATIVE AT THIS TIME NONVERBAL FAMILY STATES HE DOES THIS- NOT ABNORMAL FOR HIM Objective Vitals Vital Signs Date Time Temp Pulse Resp B/P (MAP) Pulse Ox O2 Delivery O2 Flow Rate FiO2 12/06/17 12:18 99.2 68 20 148/68 (94) 98 12/06/17 10:03 100 Nasal Cannula 3.00 12/06/17 09:01 98.9 78 20 143/76 (98) 100 12/06/17 07:46 97 Nasal Cannula 3.00 12/06/17 04:00 98.9 89 18 164/87 (112) 96 12/06/17 04:00 62 12/06/17 00:10 56 12/05/17 21:00 Nasal Cannula 3.00 12/05/17 20:00 Nasal Cannula 3.00 12/05/17 20:00 64 12/05/17 20:00 98.0 85 18 187/81 (116) 95 12/05/17 17:31 98.1 65 18 130/66 (87) 94 12/05/17 16:30 66 I/O 12/05/17 12/05/17 12/05/17 12/06/17 12/06/17 12/06/17 07:00 15:00 23:00 07:00 15:00 23:00 Intake Total 480 ml Balance 480 ml Intake Oral 480 ml # Voids 1 1 Result Diagram: 12/06/17 0736 12/06/17 0756 Other Results Laboratory Tests Test 12/04/17 21:30 12/04/17 23:59 12/06/17 07:36 12/06/17 07:56 White Blood Count 5.1 TH/MM3 4.7 TH/MM3 Red Blood Count 2.54 MIL/MM3 2.60 MIL/MM3 Hemoglobin 8.1 GM/DL 8.2 GM/DL Hematocrit 25.5 % 25.6 % Mean Corpuscular Volume 100.1 FL 98.6 FL Mean Corpuscular Hemoglobin 32.0 PG 31.5 PG Mean Corpuscular Hemoglobin Concent 32.0 % 32.0 % Red Cell Distribution Width 18.3 % 17.7 % Platelet Count 127 TH/MM3 135 TH/MM3 Mean Platelet Volume 9.7 FL 9.9 FL Neutrophils (%) (Auto) 70.3 % 69.4 % Lymphocytes (%) (Auto) 17.7 % 17.9 % Monocytes (%) (Auto) 8.9 % 9.3 % Eosinophils (%) (Auto) 2.3 % 2.6 % Basophils (%) (Auto) 0.8 % 0.8 % Neutrophils # (Auto) 3.6 TH/MM3 3.3 TH/MM3 Lymphocytes # (Auto) 0.9 TH/MM3 0.8 TH/MM3 Monocytes # (Auto) 0.5 TH/MM3 0.4 TH/MM3 Eosinophils # (Auto) 0.1 TH/MM3 0.1 TH/MM3 Basophils # (Auto) 0.0 TH/MM3 0.0 TH/MM3 CBC Comment DIFF FINAL DIFF FINAL Differential Comment Prothrombin Time 12.9 SEC Prothromb Time International Ratio 1.3 RATIO Activated Partial Thromboplast Time 26.6 SEC Blood Urea Nitrogen 54 MG/DL 54 MG/DL Creatinine 2.66 MG/DL 2.58 MG/DL Random Glucose 216 MG/DL 98 MG/DL Total Protein 7.1 GM/DL 7.2 GM/DL Albumin 3.1 GM/DL 3.2 GM/DL Calcium Level 8.3 MG/DL 8.9 MG/DL Magnesium Level 2.0 MG/DL 1.8 MG/DL Alkaline Phosphatase 205 U/L 198 U/L Aspartate Amino Transf (AST/SGOT) 32 U/L 21 U/L Alanine Aminotransferase (ALT/SGPT) 46 U/L 38 U/L Total Bilirubin 0.3 MG/DL 0.5 MG/DL Sodium Level 145 MEQ/L 141 MEQ/L Potassium Level 4.6 MEQ/L 4.0 MEQ/L Chloride Level 111 MEQ/L 107 MEQ/L Carbon Dioxide Level 26.9 MEQ/L 26.2 MEQ/L Anion Gap 7 MEQ/L 8 MEQ/L Estimat Glomerular Filtration Rate 29 ML/MIN 30 ML/MIN Troponin I 0.03 NG/ML B-Type Natriuretic Peptide 601 PG/ML Blood Gas Puncture Site RT RADIAL Blood Gas Patient Temperature 98.6 Blood Gas HCO3 24 mmol/L Blood Gas Base Excess -0.9 mmol/L Blood Gas Oxygen Saturation 90 % Arterial Blood pH 7.35 Arterial Blood Partial Pressure CO2 45 mmHg Arterial Blood Partial Pressure O2 63 mmHG Arterial Blood Oxygen Content 9.7 Vol % Arterial Blood Carboxyhemoglobin 2.1 % Arterial Blood Methemoglobin 0.6 % Blood Gas Hemoglobin 7.6 G/DL Oxygen Delivery Device NASAL CANNULA Blood Gas Liter Flow 2 L/M Phosphorus Level 2.9 MG/DL Free Thyroxine 0.90 NG/DL Thyroid Stimulating Hormone 3rd Gen 1.330 uIU/ML Imaging Last Impressions Chest X-Ray 12/04/172108 Signed Impressions: Service Date/Time: November 21:19 - CONCLUSION: Mild consolidation and small effusions of both bases. Alexander Bundy MD Objective Remarks GENERAL: Arousable talkative and somewhat cooperative SKIN: Warm and dry. HEAD: Atraumatic. Normocephalic. EYES: Pupils equal and round. No scleral icterus. No injection or drainage. EOMI ENT: No nasal bleeding or discharge. Mucous membranes pink and moist. Tongue is midline NECK: Trachea midline. No JVD. Supple CARDIOVASCULAR: Regular rate and rhythm. S1 and S2 no S3 or S4 RESPIRATORY: No accessory muscle use. Clear to auscultation. Breath sounds equal bilaterally. GASTROINTESTINAL: Abdomen soft, non-tender, nondistended. Hepatic and splenic margins not palpable. MUSCULOSKELETAL: Extremities without clubbing, cyanosis No obvious deformities. Swelling and edema bilateral lower extremities +2 NEUROLOGICAL: Awake and alert. No obvious cranial nerve deficits. Motor grossly within normal limits. 4 out of 5 muscle strength in the arms and legs. Normal speech. PSYCHIATRIC: INAppropriate mood and affect; insight and judgment ABnormal. Procedures NONE Medications and IVs Current Medications Sodium Chloride (NS Flush) 2 ml UNSCH PRN IVF FLUSH AFTER USING IV ACCESS; Start 12/04/17 at 21:15; Stop 12/05/17 at 14:21; Status DC Nitroglycerin (Nitroglycerin 2% Oint) 1 inch ONCE ONCE TOPICAL Last administered on 12/04/17at 21:41; Start 12/04/17 at 21:30; Stop 12/04/17 at 21:31; Status DC Sodium Chloride (NS Flush) 2 ml UNSCH PRN IV FLUSH FLUSH AFTER USING IV ACCESS Last administered on 12/05/17at 17:41; Start 12/05/17 at 01:00 Sodium Chloride (NS Flush) 2 ml BID IV FLUSH Last administered on 12/06/17at 10: 15; Start 12/05/17 at 09:00 Acetaminophen (Tylenol) 650 mg Q4H PRN PO TEMP > 100.4; Start 12/05/17 at 01:00 Ondansetron HCl (Zofran Inj) 4 mg Q6H PRN IVP NAUSEA OR VOMITING; Start at 01:00 Heparin Sodium (Porcine) (Heparin Inj) 5,000 units Q8H SQ Last administered on 12/05/17at 14:02; Start 12/05/17 at 06:00 Naloxone HCl (Narcan Inj) 0.4 mg UNSCH PRN IV PUSH SEE LABEL COMMENTS; Start at 01:00 Senna/Docusate Sodium (Rebeca-Colace) 1 tab BID PO Last administered on 12/05/17at 21:41; Start 12/05/17 at 09:00 Magnesium Hydroxide (Milk Of Magnesia Liq) 30 ml Q12H PRN PO Mild constipation ; Start 12/05/17 at 01:00 Sennosides (Senokot) 17.2 mg Q12H PRN PO Moderate constipation; Start 12/05/17 at 01:00 Bisacodyl (Dulcolax Supp) 10 mg DAILY PRN RECTAL SEVERE CONSITIPATION; Start at 01:00 Lactulose (Lactulose Liq) 30 ml DAILY PRN PO SEVERE CONSITIPATION; Start at 01:00 Furosemide (Lasix Inj) 40 mg BID@18 IV PUSH Last administered on 12/06/17 10:11; Start 12/05/17 at 09:00 Amlodipine Besylate (Norvasc) 10 mg DAILY PO Last administered on 12/05/17at 09: 27; Start 12/05/17 at 09:00 Aspirin (Aspirin Chew) 81 mg DAILY CHEW Last administered on 12/05/17 09:27; Start 12/05/17 at 09:00 Atorvastatin Calcium (Lipitor) 40 mg HS PO Last administered on 12/05/17 21:41 ; Start 12/05/17 at 21:00 Lisinopril (Prinivil) 10 mg DAILY PO Last administered on 12/05/17 09:27; Start 12/05/17 at 09:00 Memantine (Namenda) 10 mg BID PO Last administered on 12/05/17 21:41; Start 12/05/17 at 09:00 Metoprolol Tartrate (Lopressor) 25 mg BID PO Last administered on 12/05/17 21: 40; Start 12/05/17 at 09:00 Sertraline HCl (Zoloft) 50 mg DAILY PO Last administered on 12/05/17 09:27; Start 12/05/17 at 09:00 Tamsulosin HCl (Flomax) 0.4 mg HS PO Last administered on 12/05/17 21:40; Start 12/05/17 at 21:00 Pantoprazole Sodium (Protonix) 40 mg DAILY PO Last administered on 12/05/17 09: 27; Start 12/05/17 at 09:00 Dextrose (D50w (Vial) Inj) 50 ml UNSCH PRN IV PUSH HYPOGLYCEMIA-SEE COMMENTS; Start 12/05/17 at 01:00 Glucagon (Glucagon Inj) 1 mg UNSCH PRN OTHER HYPOGLYCEMIA-SEE COMMENTS; Start 12/05/17 at 01:00 Insulin Aspart (NovoLOG SUPPLEMENTAL SCALE) 1 ACHS SLIDING SCALE SQ Last administered on 12/05/17at 21:52; Start 12/05/17 at 08:00 Albuterol/ Ipratropium (Duoneb Neb) 1 ampule Q6HR NEB NEB Last administered on 12/06/17at 07:44; Start 12/05/17 at 04:00 Albuterol/ Ipratropium (Duoneb Neb) 1 ampule Q4HR NEB PRN NEB SOB/WHEEZING; Start 12/05/17 at 01:00 Ferrous Sulfate (Ferrous Sulfate) 325 mg DAILY PO ; Start 12/06/17 at 09:00 A/P Problem List: (1) Congestive heart failure ICD Code: I50.9 - Heart failure, unspecified Status: Acute Assessment and Plan Mr. Diego is a 77 year-old male resident of [facility] who presented to the ER on 12/04/17 for evaluation of severe shortness of breath and edema. CXR in ED confirmed CHF and the patient is admitted for management. Acute CHF - CXR shows mild consolidation and small effusions of both bases; BNP 601. - Lasix 40 mg IV BID - continuous cardiac telemetry to monitor for arrhythmia - initially required BiPap - now on 3 liters nasal cannula and pulse oximetry 96 % - supplemental oxygen titrated to maintain oxygen saturation > 92% Acute on chronic renal insufficiency - BUN 54, Creatinine 2.66, and eGFR 29 on admission (was BUN 21, Creatinine 1.62 , and egfr 51 on 07/03/16) - repeat labs in a.m. and follow trends - avoid nephrotoxins - consider nephrology consultation COPD - Duonebulizer q6h ATC and q4h PRN shortness of breath/wheezing - supplemental oxygen as above Type 2 diabetes mellitus - accuchecks AC and HS with low dose Novolog sliding scale coverage - monitor trends in blood glucose and adjust treatment accordingly - hold home basal insulin; resume pending blood glucose trends - PRN hypoglycemia treatment protocol ordered Hypertension - resume home antihypertensives - monitor blood pressure readings and adjust treatment if indicated Anemia and thrombocytopenia - no recent labs for comparison (was 11.2 and 204, 000 respectively on 07/01/16) - Hemoglobin 8.1 and platelet count 127,000 on admission; will repeat in a.m. and transfuse if needed - consider hematology consultation pending repeat blood work results CHECK BLOOD WORK CHRONIC DEMENTIA- MONITOR PCM- POOR ORAL INTAKE GIVE GLUCERNA DVT prophylaxis - Heparin 5000 units subq q8h CONTINUE TO DIURESE ALEKS RN AND PATIENT AM LABS PT AND OT GLUCERNA 1 BOTTLE TID Discharge Planning CONTINUE TO DIURESE Problem Qualifiers (1) Congestive heart failure: Qualified Codes: I50.9 - Heart failure, unspecified Mukund Ford DO Dec 06, 2017 14:41
[2017-12-06] MEDS: TAMSULOSIN HCL 0.4 MG CAP PO SCH (23:07)
[2017-12-06] MEDS: ATORVASTATIN 40 MG TAB PO SCH (23:08)
[2017-12-07] VITALS (16 sets, daily range): BP systolic 137–190; BP diastolic 65–82; PULSE 63–87; RESP 18–20; TEMP 97.2–99.8; O2SAT 87–99
[2017-12-07] MEDS ORDERED: FUROSEMIDE 40 MG/4 ML VIAL IV PUSH ONE (00:30)
[2017-12-07] MEDS: RESP: ALBUTEROL 2.5 MG/IPRATROPIUM 0.5 MG NEB (PRN) NEB (00:32)
--- NOTE | 2017-12-07 01:04 | RADRPT ---
EXAM DATE/TIME: 12/07/2017 00:37 [place] COMPARISON: No previous studies available for comparison. INDICATIONS : Low O2 Sats, Shortness of breath MEDICAL HISTORY : Hypertension. Dementia. CVA. SURGICAL HISTORY : CABG. ENCOUNTER: Subsequent ACUITY: 3 days PAIN SCORE: Non-responsive. LOCATION: Bilateral chest FINDINGS: A single view of the chest demonstrates cardiomegaly. Mild edema pattern. Elevated right hemidiaphrag m. Previous sternotomy and CABG. No pneumothorax. CONCLUSION: 1. Cardiomegaly with mild pulmonary edema pattern most characteristic of mild congestive heart failtony Caputo MD on December 07, 2017 at 1:01 Board Certified Radiologist. This report was verified electronically.
[2017-12-07] MEDS: RESP: ALBUTEROL 2.5 MG/IPRATROPIUM 0.5 MG NEB (SCH) NEB ×4 (03:43→19:45)
[2017-12-07] MEDS: HEPARIN SODIUM - SQ 10,000 UNITS/ML VIAL SQ SCH ×3 (05:37→21:50)
[2017-12-07] MEDS: INSULIN ASPART SUPPLEMENTAL SCALE SQ SCH ×4 (08:00→21:50)
[2017-12-07 08:59] LABS: AUTOMATED NEUTROPHIL # 3.3 TH/MM3 (1.8-7.7); BASOPHIL % 0.9 % (0.0-2.0); EOSINOPHIL # 0.1 TH/MM3 (0-0.4); EOSINOPHIL % 2.1 % (0.0-4.0); HEMATOCRIT 25.1 % (39.0-51.0); HEMOGLOBIN 8.1 GM/DL (13.0-17.0); LYMPHOCYTE # 0.7 TH/MM3 (1.0-4.8); MEAN CELL VOLUME 98.8 FL (80.0-100.0); MEAN CORPUSCULAR HEMOGLOBIN 31.9 PG (27.0-34.0); MEAN CORPUSCULAR HGB CONC 32.3 % (32.0-36.0); MEAN PLATELET VOLUME 9.6 FL (7.0-11.0); MONO % 7.8 % (0.0-8.0); MONOCYTE # 0.3 TH/MM3 (0-0.9); NEUT % 74.2 % (16.0-70.0); PLATELET COUNT 118 TH/MM3 (150-450); RED BLOOD COUNT 2.53 MIL/MM3 (4.50-5.90); RED CELL DISTRIBUTION WIDTH 17.7 % (11.6-17.2); WHITE BLOOD COUNT 4.4 TH/MM3 (4.0-11.0)
[2017-12-07 09:18] LABS: ALBUMIN 3.1 GM/DL (3.4-5.0); AST (GOT) 17 U/L (15-37); BICARBONATE 27.1 MEQ/L (21.0-32.0); BLOOD UREA NITROGEN 53 MG/DL (7-18); CALCIUM 8.9 MG/DL (8.5-10.1); CHLORIDE 106 MEQ/L (98-107); CREATININE 2.42 MG/DL (0.60-1.30); GLOMERULAR FILTRATION RATE 32 ML/MIN (>89); GLUCOSE,RANDOM 106 MG/DL (74-106); MAGNESIUM 1.8 MG/DL (1.5-2.5); SODIUM (NA) 141 MEQ/L (136-145)
[2017-12-07 09:22] LABS: ALKALINE PHOSPHATASE 187 U/L (45-117); ALT (GPT) 29 U/L (12-78); PHOSPHORUS 3.4 MG/DL (2.5-4.9); TOTAL BILIRUBIN ADULT 0.5 MG/DL (0.2-1.0); TOTAL PROTEIN 6.8 GM/DL (6.4-8.2)
[2017-12-07] MEDS: PANTOPRAZOLE SOD 40 MG DELAYED RELEASE TAB PO SCH (10:32)
[2017-12-07] MEDS: ASPIRIN 81 MG CHEW TAB CHEW SCH (10:32)
[2017-12-07] MEDS: DOCUSATE SODIUM 50 MG/SENNA 8.6 MG TAB PO SCH ×2 (10:33→21:49)
[2017-12-07] MEDS: MEMANTINE HCL 10 MG TAB PO SCH ×2 (10:33→21:49)
[2017-12-07] MEDS: METOPROLOL TARTRATE 25 MG TAB PO SCH ×2 (10:33→21:49)
[2017-12-07] MEDS: LISINOPRIL 10 MG TAB PO SCH (10:33)
[2017-12-07] MEDS: FERROUS SULFATE 325 MG (65 MG ELEMENTAL IRON) TAB PO SCH (10:33)
[2017-12-07] MEDS: SERTRALINE HCL 50 MG TAB PO SCH (10:33)
[2017-12-07] MEDS: SODIUM CHLORIDE 0.9% FLUSH 10 ML FLUSH IV FLUSH SCH ×2 (10:34→21:47)
[2017-12-07] MEDS: FUROSEMIDE 40 MG/4 ML VIAL IV PUSH SCH ×2 (10:34→17:29)
[2017-12-07] MEDS ORDERED: ONDANSETRON HCL 4 MG/2 ML VIAL IVP PRN (11:45)
[2017-12-07] MEDS ORDERED: MORPHINE SULFATE 2 MG/ML INJ IV PUSH PRN (11:45)
[2017-12-07] MEDS ORDERED: SENNOSIDES 8.6 MG TAB PO PRN (11:45)
[2017-12-07] MEDS ORDERED: MORPHINE SULFATE 4 MG/ML INJ IV PUSH PRN (11:45)
[2017-12-07] MEDS ORDERED: LACTULOSE SYRUP 20 GM/30 ML CUP PO PRN (11:45)
[2017-12-07] MEDS ORDERED: ACETAMINOPHEN 325 MG TAB PO PRN ×2 (11:45)
[2017-12-07] MEDS ORDERED: oxyCODONE/ACETAMINOPHEN 10 MG/325 MG TAB PO PRN (11:45)
[2017-12-07] MEDS ORDERED: BISACODYL 10 MG SUPP RECTAL PRN (11:45)
[2017-12-07] MEDS ORDERED: NALOXONE HCL 0.4 MG/ML AMP IV PUSH PRN (11:45)
[2017-12-07] MEDS ORDERED: MAGNESIUM HYDROXIDE SUSP 30 ML CUP PO PRN (11:45)
[2017-12-07 13:04] LABS: HEMOGLOBIN A1C 6.4 % (4.3-6.0)
--- NOTE | 2017-12-07 14:17 | HHI.PR ---
Subjective Remarks Mr. Diego is a 77 year-old male resident of [facility] with a history of Type 2 DM, COPD, CHF, CVA, dementia, CT, CAD, Hyperlipidemia, Hypertension, bleeding gastric ulcer, prostate CA, nephrolithiasis, and arthritis who presented to the ER on 12/04/17 for evaluation of severe shortness of breath and edema. CXR in ED confirmed CHF and the patient is admitted for management. The patient is seen in the ER. He is extremely hard of hearing. He states he had severe shortness of breath that is now relieved since receiving treatment in the ER. CXR shows mild consolidation and small effusions of both bases. BNP 601. He was initially treated with Bi-Pap and now has oxygen saturation of 96% on 3 liters of supplemental oxygen via nasal cannula. NO CURRENT COMPLAINTS DW RN AND PT CONTINUE TO DIURESE AM LABS NEEDS PT AND OT 2-10 PATIENT NOT WANTING TO EAT MUCH PER SISTER HE DOES THIS HE WILL TAKE VANILLA GLUCERNA PER HER DW RN PATIENT NOT TALKATIVE AT THIS TIME NONVERBAL FAMILY STATES HE DOES THIS- NOT ABNORMAL FOR HIM 2-11 MORE ALERT TODAY EVEN TALKED TO ME BUT STILL WITH POOR ORAL INTAKE NO CURRENT COMPLAINTS WILL GO BACK TO SNF [facility] [place] [facility] IN NEXT 24-48 HOURS Objective Vitals Vital Signs Date Time Temp Pulse Resp B/P (MAP) Pulse Ox O2 Delivery O2 Flow Rate FiO2 12/07/17 12:10 98.2 72 20 176/80 (112) 98 12/07/17 11:31 99 Simple Mask 6.00 12/07/17 08:24 99.8 70 20 190/82 (118) 95 12/07/17 04:09 97.2 67 18 137/65 (89) 94 12/07/17 04:01 69 12/07/17 04:00 66 12/07/17 01:51 99 Nasal Cannula 6.00 12/07/17 01:19 156/73 (100) 12/07/17 00:30 18 92 12/07/17 00:20 18 87 12/07/17 00:20 92 Nasal Cannula 4.00 12/07/17 00:20 87 12/07/17 00:05 63 12/06/17 23:37 96.7 72 18 173/78 (109) 91 12/06/17 23:07 72 12/06/17 20:25 97.0 69 18 171/78 (109) 99 12/06/17 20:23 96 Nasal Cannula 3.00 12/06/17 20:09 65 12/06/17 18:30 98 Nasal Cannula 3.00 12/06/17 15:57 98.6 62 18 140/60 (86) 98 I/O 12/06/17 12/06/17 12/06/17 12/07/17 12/07/17 12/07/17 07:00 15:00 23:00 07:00 15:00 23:00 Intake Total 250 ml Balance 250 ml Intake Oral 250 ml # Voids 6 Result Diagram: 12/07/17 0820 12/07/17 0820 Other Results Laboratory Tests Test 12/04/17 21:30 12/04/17 23:59 12/06/17 07:36 12/06/17 07:56 White Blood Count 5.1 TH/MM3 4.7 TH/MM3 Red Blood Count 2.54 MIL/MM3 2.60 MIL/MM3 Hemoglobin 8.1 GM/DL 8.2 GM/DL Hematocrit 25.5 % 25.6 % Mean Corpuscular Volume 100.1 FL 98.6 FL Mean Corpuscular Hemoglobin 32.0 PG 31.5 PG Mean Corpuscular Hemoglobin Concent 32.0 % 32.0 % Red Cell Distribution Width 18.3 % 17.7 % Platelet Count 127 TH/MM3 135 TH/MM3 Mean Platelet Volume 9.7 FL 9.9 FL Neutrophils (%) (Auto) 70.3 % 69.4 % Lymphocytes (%) (Auto) 17.7 % 17.9 % Monocytes (%) (Auto) 8.9 % 9.3 % Eosinophils (%) (Auto) 2.3 % 2.6 % Basophils (%) (Auto) 0.8 % 0.8 % Neutrophils # (Auto) 3.6 TH/MM3 3.3 TH/MM3 Lymphocytes # (Auto) 0.9 TH/MM3 0.8 TH/MM3 Monocytes # (Auto) 0.5 TH/MM3 0.4 TH/MM3 Eosinophils # (Auto) 0.1 TH/MM3 0.1 TH/MM3 Basophils # (Auto) 0.0 TH/MM3 0.0 TH/MM3 CBC Comment DIFF FINAL DIFF FINAL Differential Comment Prothrombin Time 12.9 SEC Prothromb Time International Ratio 1.3 RATIO Activated Partial Thromboplast Time 26.6 SEC Blood Urea Nitrogen 54 MG/DL 54 MG/DL Creatinine 2.66 MG/DL 2.58 MG/DL Random Glucose 216 MG/DL 98 MG/DL Total Protein 7.1 GM/DL 7.2 GM/DL Albumin 3.1 GM/DL 3.2 GM/DL Calcium Level 8.3 MG/DL 8.9 MG/DL Magnesium Level 2.0 MG/DL 1.8 MG/DL Alkaline Phosphatase 205 U/L 198 U/L Aspartate Amino Transf (AST/SGOT) 32 U/L 21 U/L Alanine Aminotransferase (ALT/SGPT) 46 U/L 38 U/L Total Bilirubin 0.3 MG/DL 0.5 MG/DL Sodium Level 145 MEQ/L 141 MEQ/L Potassium Level 4.6 MEQ/L 4.0 MEQ/L Chloride Level 111 MEQ/L 107 MEQ/L Carbon Dioxide Level 26.9 MEQ/L 26.2 MEQ/L Anion Gap 7 MEQ/L 8 MEQ/L Estimat Glomerular Filtration Rate 29 ML/MIN 30 ML/MIN Troponin I 0.03 NG/ML B-Type Natriuretic Peptide 601 PG/ML 288 PG/ML Blood Gas Puncture Site RT RADIAL Blood Gas Patient Temperature 98.6 Blood Gas HCO3 24 mmol/L Blood Gas Base Excess -0.9 mmol/L Blood Gas Oxygen Saturation 90 % Arterial Blood pH 7.35 Arterial Blood Partial Pressure CO2 45 mmHg Arterial Blood Partial Pressure O2 63 mmHG Arterial Blood Oxygen Content 9.7 Vol % Arterial Blood Carboxyhemoglobin 2.1 % Arterial Blood Methemoglobin 0.6 % Blood Gas Hemoglobin 7.6 G/DL Oxygen Delivery Device NASAL CANNULA Blood Gas Liter Flow 2 L/M Phosphorus Level 2.9 MG/DL Free Thyroxine 0.90 NG/DL Thyroid Stimulating Hormone 3rd Gen 1.330 uIU/ML Test 12/07/17 00:43 12/07/17 08:20 Blood Gas Puncture Site RT RADIAL Blood Gas Patient Temperature 98.6 Blood Gas HCO3 26 mmol/L Blood Gas Base Excess 1.6 mmol/L Blood Gas Oxygen Saturation 86 % Arterial Blood pH 7.38 Arterial Blood Partial Pressure CO2 45 mmHg Arterial Blood Partial Pressure O2 53 mmHG Arterial Blood Oxygen Content 9.2 Vol % Arterial Blood Carboxyhemoglobin 2.2 % Arterial Blood Methemoglobin 0.6 % Blood Gas Hemoglobin 7.6 G/DL Oxygen Delivery Device NASAL CANNULA Blood Gas Liter Flow 4 L/M White Blood Count 4.4 TH/MM3 Red Blood Count 2.53 MIL/MM3 Hemoglobin 8.1 GM/DL Hematocrit 25.1 % Mean Corpuscular Volume 98.8 FL Mean Corpuscular Hemoglobin 31.9 PG Mean Corpuscular Hemoglobin Concent 32.3 % Red Cell Distribution Width 17.7 % Platelet Count 118 TH/MM3 Mean Platelet Volume 9.6 FL Neutrophils (%) (Auto) 74.2 % Lymphocytes (%) (Auto) 15.0 % Monocytes (%) (Auto) 7.8 % Eosinophils (%) (Auto) 2.1 % Basophils (%) (Auto) 0.9 % Neutrophils # (Auto) 3.3 TH/MM3 Lymphocytes # (Auto) 0.7 TH/MM3 Monocytes # (Auto) 0.3 TH/MM3 Eosinophils # (Auto) 0.1 TH/MM3 Basophils # (Auto) 0.0 TH/MM3 CBC Comment DIFF FINAL Differential Comment Blood Urea Nitrogen 53 MG/DL Creatinine 2.42 MG/DL Random Glucose 106 MG/DL Total Protein 6.8 GM/DL Albumin 3.1 GM/DL Calcium Level 8.9 MG/DL Phosphorus Level 3.4 MG/DL Magnesium Level 1.8 MG/DL Alkaline Phosphatase 187 U/L Aspartate Amino Transf (AST/SGOT) 17 U/L Alanine Aminotransferase (ALT/SGPT) 29 U/L Total Bilirubin 0.5 MG/DL Sodium Level 141 MEQ/L Potassium Level 4.0 MEQ/L Chloride Level 106 MEQ/L Carbon Dioxide Level 27.1 MEQ/L Anion Gap 8 MEQ/L Estimat Glomerular Filtration Rate 32 ML/MIN Hemoglobin A1c 6.4 % Imaging Last Impressions Chest X-Ray 12/07/17 0000 Signed Impressions: Service Date/Time: Thursday, December 07, 2017 00:37 - CONCLUSION: 1. Cardiomegaly with mild pulmonary edema pattern most characteristic of mild congestive heart failure. Tay Caputo MD Objective Remarks GENERAL: Arousable talkative and somewhat cooperative SKIN: Warm and dry. HEAD: Atraumatic. Normocephalic. EYES: Pupils equal and round. No scleral icterus. No injection or drainage. EOMI ENT: No nasal bleeding or discharge. Mucous membranes pink and moist. Tongue is midline VERY HARD OF HEARING NECK: Trachea midline. No JVD. Supple CARDIOVASCULAR: Regular rate and rhythm. S1 and S2 no S3 or S4 RESPIRATORY: No accessory muscle use. Clear to auscultation. Breath sounds equal bilaterally. GASTROINTESTINAL: Abdomen soft, non-tender, nondistended. Hepatic and splenic margins not palpable. MUSCULOSKELETAL: Extremities without clubbing, cyanosis No obvious deformities. Swelling and edema bilateral lower extremities +2 NEUROLOGICAL: Awake and alert. No obvious cranial nerve deficits. Motor grossly within normal limits. 4 out of 5 muscle strength in the arms and legs. Normal speech. PSYCHIATRIC: INAppropriate mood and affect; insight and judgment ABnormal. Procedures NONE Medications and IVs Current Medications Sodium Chloride (NS Flush) 2 ml UNSCH PRN IVF FLUSH AFTER USING IV ACCESS; Start 12/04/17 at 21:15; Stop 12/05/17 at 14:21; Status DC Nitroglycerin (Nitroglycerin 2% Oint) 1 inch ONCE ONCE TOPICAL Last administered on 12/04/17at 21:41; Start 12/04/17 at 21:30; Stop 12/04/17 at 21:31; Status DC Sodium Chloride (NS Flush) 2 ml UNSCH PRN IV FLUSH FLUSH AFTER USING IV ACCESS Last administered on 12/05/17at 17:41; Start 12/05/17 at 01:00 Sodium Chloride (NS Flush) 2 ml BID IV FLUSH Last administered on 12/07/17at 10: 34; Start 12/05/17 at 09:00 Acetaminophen (Tylenol) 650 mg Q4H PRN PO TEMP > 100.4; Start 12/05/17 at 01:00 ; Stop 12/07/17 at 11:53; Status DC Ondansetron HCl (Zofran Inj) 4 mg Q6H PRN IVP NAUSEA OR VOMITING; Start at 01:00; Stop 12/07/17 at 11:52; Status DC Heparin Sodium (Porcine) (Heparin Inj) 5,000 units Q8H SQ Last administered on 12/07/17at 05:37; Start 12/05/17 at 06:00 Naloxone HCl (Narcan Inj) 0.4 mg UNSCH PRN IV PUSH SEE LABEL COMMENTS; Start at 01:00; Stop 12/07/17 at 11:52; Status DC Senna/Docusate Sodium (Rebeca-Colace) 1 tab BID PO Last administered on at 10:33; Start 12/05/17 at 09:00; Stop 12/07/17 at 11:52; Status DC Magnesium Hydroxide (Milk Of Magnesia Liq) 30 ml Q12H PRN PO Mild constipation ; Start 12/05/17 at 01:00; Stop 12/07/17 at 11:52; Status DC Sennosides (Senokot) 17.2 mg Q12H PRN PO Moderate constipation; Start 12/05/17 at 01:00; Stop 12/07/17 at 11:52; Status DC Bisacodyl (Dulcolax Supp) 10 mg DAILY PRN RECTAL SEVERE CONSITIPATION; Start at 01:00; Stop 12/07/17 at 11:52; Status DC Lactulose (Lactulose Liq) 30 ml DAILY PRN PO SEVERE CONSITIPATION; Start at 01:00; Stop 12/07/17 at 11:52; Status DC Furosemide (Lasix Inj) 40 mg BID@ IV PUSH Last administered on 12/07/17at 10:34; Start 12/05/17 at 09:00 Amlodipine Besylate (Norvasc) 10 mg DAILY PO Last administered on 12/07/17at 10: 33; Start 12/05/17 at 09:00 Aspirin (Aspirin Chew) 81 mg DAILY CHEW Last administered on 12/07/17at 10:32; Start 12/05/17 at 09:00 Atorvastatin Calcium (Lipitor) 40 mg HS PO Last administered on 12/06/17at 23:08 ; Start 12/05/17 at 21:00 Lisinopril (Prinivil) 10 mg DAILY PO Last administered on 12/07/17at 10:33; Start 12/05/17 at 09:00 Memantine (Namenda) 10 mg BID PO Last administered on 12/07/17at 10:33; Start at 09:00 Metoprolol Tartrate (Lopressor) 25 mg BID PO Last administered on 12/07/17at 10: 33; Start 12/05/17 at 09:00 Sertraline HCl (Zoloft) 50 mg DAILY PO Last administered on 12/07/17at 10:33; Start 12/05/17 at 09:00 Tamsulosin HCl (Flomax) 0.4 mg HS PO Last administered on 12/06/17at 23:07; Start 12/05/17 at 21:00 Pantoprazole Sodium (Protonix) 40 mg DAILY PO Last administered on 12/07/17at 10 :32; Start 12/05/17 at 09:00 Dextrose (D50w (Vial) Inj) 50 ml UNSCH PRN IV PUSH HYPOGLYCEMIA-SEE COMMENTS; Start 12/05/17 at 01:00 Glucagon (Glucagon Inj) 1 mg UNSCH PRN OTHER HYPOGLYCEMIA-SEE COMMENTS; Start 12/05/17 at 01:00 Insulin Aspart (NovoLOG SUPPLEMENTAL SCALE) 1 ACHS SLIDING SCALE SQ Last administered on 12/07/17at 13:25; Start 12/05/17 at 08:00 Albuterol/ Ipratropium (Duoneb Neb) 1 ampule Q6HR NEB NEB Last administered on 12/07/17at 10:17; Start 12/05/17 at 04:00 Albuterol/ Ipratropium (Duoneb Neb) 1 ampule Q4HR NEB PRN NEB SOB/WHEEZING Last administered on 12/07/17at 00:32; Start 12/05/17 at 01:00 Ferrous Sulfate (Ferrous Sulfate) 325 mg DAILY PO Last administered on at 10:33; Start 12/06/17 at 09:00 Furosemide (Lasix Inj) 40 mg ONCE ONCE IV PUSH Last administered on 12/07/17at 00:45; Start 12/07/17 at 00:30; Stop 12/07/17 at 00:31; Status DC Acetaminophen (Tylenol) 650 mg Q4H PRN PO TEMP > 100.4; Start 12/07/17 at 11:45 Ondansetron HCl (Zofran Inj) 4 mg Q6H PRN IVP NAUSEA OR VOMITING; Start at 11:45 Acetaminophen (Tylenol) 650 mg Q6H PRN PO PAIN SCALE 1 TO 2 Last administered on 12/07/17at 11:50; Start 12/07/17 at 11:45 Oxycodone/ Acetaminophen (Percocet 5-325 Mg) 1 tab Q6H PRN PO PAIN SCALE 3 TO 5; Start 12/07/17 at 11:45 Oxycodone/ Acetaminophen (Percocet 10-325 Mg) 1 tab Q6H PRN PO PAIN SCALE 6 TO 10; Start 12/07/17 at 11:45 Morphine Sulfate (Morphine Inj) 2 mg Q3H PRN IV PUSH Pain 3-5; if unable to take PO; Start 12/07/17 at 11:45 Morphine Sulfate (Morphine Inj) 4 mg Q3H PRN IV PUSH Pain 6-10;if unable to take PO; Start 12/07/17 at 11:45 Naloxone HCl (Narcan Inj) 0.4 mg UNSCH PRN IV PUSH SEE LABEL COMMENTS; Start at 11:45 Senna/Docusate Sodium (Rebeca-Colace) 1 tab BID PO ; Start 12/07/17 at 21:00 Magnesium Hydroxide (Milk Of Magnesia Liq) 30 ml Q12H PRN PO Mild constipation ; Start 12/07/17 at 11:45 Sennosides (Senokot) 17.2 mg Q12H PRN PO Moderate constipation; Start 12/07/17 at 11:45 Bisacodyl (Dulcolax Supp) 10 mg DAILY PRN RECTAL SEVERE CONSITIPATION; Start at 11:45 Lactulose (Lactulose Liq) 30 ml DAILY PRN PO SEVERE CONSITIPATION; Start at 11:45 A/P Problem List: (1) Congestive heart failure ICD Code: I50.9 - Heart failure, unspecified Status: Acute Assessment and Plan Mr. Diego is a 77 year-old male resident of [facility] who presented to the ER on 12/04/17 for evaluation of severe shortness of breath and edema. CXR in ED confirmed CHF and the patient is admitted for management. Acute CHF - CXR shows mild consolidation and small effusions of both bases; BNP 601. - Lasix 40 mg IV BID - continuous cardiac telemetry to monitor for arrhythmia - initially required BiPap - now on 3 liters nasal cannula and pulse oximetry 96 % - supplemental oxygen titrated to maintain oxygen saturation > 92% Acute on chronic renal insufficiency - Creatinine 2.42 - repeat labs in a.m. and follow trends - avoid nephrotoxins - ON IV LASIX COPD - Duonebulizer q6h ATC and q4h PRN shortness of breath/wheezing - supplemental oxygen as above Type 2 diabetes mellitus - accuchecks AC and HS with low dose Novolog sliding scale coverage - monitor trends in blood glucose and adjust treatment accordingly - hold home basal insulin; resume pending blood glucose trends - PRN hypoglycemia treatment protocol ordered Hypertension - resume home antihypertensives - monitor blood pressure readings and adjust treatment if indicated Anemia and thrombocytopenia - no recent labs for comparison (was 11.2 and 204, 000 respectively on 07/01/16) - Hemoglobin 8.1 and platelet count 127,000 on admission; will repeat in a.m. and transfuse if needed - consider hematology consultation pending repeat blood work results CHECK BLOOD WORK CHRONIC DEMENTIA- MONITOR PCM- POOR ORAL INTAKE GIVE GLUCERNA DVT prophylaxis - Heparin 5000 units subq q8h CONTINUE TO DIURESE ALEKS RN AND PATIENT AM LABS PT AND OT GLUCERNA 1 BOTTLE TID Discharge Planning CONTINUE TO DIURESE AM LABS Problem Qualifiers (1) Congestive heart failure: Qualified Codes: I50.9 - Heart failure, unspecified Mukund Ford DO Dec 07, 2017 14:17
[2017-12-07] MEDS: TAMSULOSIN HCL 0.4 MG CAP PO SCH (21:48)
[2017-12-07] MEDS: ATORVASTATIN 40 MG TAB PO SCH (22:35)
[2017-12-08] VITALS (11 sets, daily range): BP systolic 129–180; BP diastolic 62–79; PULSE 63–73; RESP 16–20; TEMP 96.1–98.2; O2SAT 92–100
[2017-12-08] MEDS: RESP: ALBUTEROL 2.5 MG/IPRATROPIUM 0.5 MG NEB (SCH) NEB ×3 (03:06→21:06)
[2017-12-08] MEDS: HEPARIN SODIUM - SQ 10,000 UNITS/ML VIAL SQ SCH ×3 (07:06→21:27)
[2017-12-08] MEDS: INSULIN ASPART SUPPLEMENTAL SCALE SQ SCH ×4 (08:00→21:35)
[2017-12-08] MEDS: DOCUSATE SODIUM 50 MG/SENNA 8.6 MG TAB PO SCH ×2 (08:03→21:27)
[2017-12-08] MEDS: MEMANTINE HCL 10 MG TAB PO SCH ×2 (08:03→21:27)
[2017-12-08] MEDS: LISINOPRIL 10 MG TAB PO SCH (08:03)
[2017-12-08] MEDS: METOPROLOL TARTRATE 25 MG TAB PO SCH ×2 (08:04→21:27)
[2017-12-08] MEDS: ASPIRIN 81 MG CHEW TAB CHEW SCH (08:04)
[2017-12-08] MEDS: PANTOPRAZOLE SOD 40 MG DELAYED RELEASE TAB PO SCH (08:04)
[2017-12-08] MEDS: FUROSEMIDE 40 MG/4 ML VIAL IV PUSH SCH ×2 (08:04→17:52)
[2017-12-08] MEDS: SODIUM CHLORIDE 0.9% FLUSH 10 ML FLUSH IV FLUSH SCH ×2 (08:04→21:27)
[2017-12-08] MEDS: FERROUS SULFATE 325 MG (65 MG ELEMENTAL IRON) TAB PO SCH (08:04)
[2017-12-08] MEDS: SERTRALINE HCL 50 MG TAB PO SCH (08:04)
[2017-12-08] MEDS ORDERED: CALCTAB94 PO (11:06)
[2017-12-08 12:22] LABS: AUTOMATED NEUTROPHIL # 3.8 TH/MM3 (1.8-7.7); BASOPHIL % 0.8 % (0.0-2.0); EOSINOPHIL # 0.1 TH/MM3 (0-0.4); EOSINOPHIL % 2.3 % (0.0-4.0); HEMATOCRIT 25.5 % (39.0-51.0); HEMOGLOBIN 8.2 GM/DL (13.0-17.0); LYMPHOCYTE # 0.8 TH/MM3 (1.0-4.8); MEAN CELL VOLUME 98.6 FL (80.0-100.0); MEAN CORPUSCULAR HEMOGLOBIN 31.5 PG (27.0-34.0); MEAN PLATELET VOLUME 9.4 FL (7.0-11.0); MONO % 8.1 % (0.0-8.0); MONOCYTE # 0.4 TH/MM3 (0-0.9); NEUT % 72.8 % (16.0-70.0); PLATELET COUNT 120 TH/MM3 (150-450); RED BLOOD COUNT 2.59 MIL/MM3 (4.50-5.90); RED CELL DISTRIBUTION WIDTH 17.7 % (11.6-17.2); WHITE BLOOD COUNT 5.2 TH/MM3 (4.0-11.0)
[2017-12-08 12:53] LABS: ALBUMIN 3.3 GM/DL (3.4-5.0); ALT (GPT) 37 U/L (12-78); AST (GOT) 25 U/L (15-37); BICARBONATE 29.9 MEQ/L (21.0-32.0); BLOOD UREA NITROGEN 50 MG/DL (7-18); CALCIUM 8.6 MG/DL (8.5-10.1); CHLORIDE 103 MEQ/L (98-107); CREATININE 2.58 MG/DL (0.60-1.30); GLOMERULAR FILTRATION RATE 30 ML/MIN (>89); GLUCOSE,RANDOM 128 MG/DL (74-106); MAGNESIUM 1.9 MG/DL (1.5-2.5); SODIUM (NA) 141 MEQ/L (136-145)
[2017-12-08 12:55] LABS: ALKALINE PHOSPHATASE 202 U/L (45-117); TOTAL BILIRUBIN ADULT 0.5 MG/DL (0.2-1.0); TOTAL PROTEIN 7.3 GM/DL (6.4-8.2)
--- NOTE | 2017-12-08 14:24 | HHI.PR ---
Subjective Remarks Mr. Diego is a 77 year-old male resident of [facility] with a history of Type 2 DM, COPD, CHF, CVA, dementia, NM, CAD, Hyperlipidemia, Hypertension, bleeding gastric ulcer, prostate CA, nephrolithiasis, and arthritis who presented to the ER on 12/04/17 for evaluation of severe shortness of breath and edema. CXR in ED confirmed CHF and the patient is admitted for management. The patient is seen in the ER. He is extremely hard of hearing. He states he had severe shortness of breath that is now relieved since receiving treatment in the ER. CXR shows mild consolidation and small effusions of both bases. BNP 601. He was initially treated with Bi-Pap and now has oxygen saturation of 96% on 3 liters of supplemental oxygen via nasal cannula. NO CURRENT COMPLAINTS DW RN AND PT CONTINUE TO DIURESE AM LABS NEEDS PT AND OT 2-10 PATIENT NOT WANTING TO EAT MUCH PER SISTER HE DOES THIS HE WILL TAKE VANILLA GLUCERNA PER HER DW RN PATIENT NOT TALKATIVE AT THIS TIME NONVERBAL FAMILY STATES HE DOES THIS- NOT ABNORMAL FOR HIM 2- MORE ALERT TODAY EVEN TALKED TO ME BUT STILL WITH POOR ORAL INTAKE NO CURRENT COMPLAINTS WILL GO BACK TO SNF AT [place] [facility] [place] IN NEXT 24-48 HOURS 12/08 discussed with daughter at bedside. Still with confusion, however improving every day. Talks to me, says he feels all right. Objective Vital Signs Date Time Temp Pulse Resp B/P (MAP) Pulse Ox O2 Delivery O2 Flow Rate FiO2 12/08/17 12:00 97.5 69 20 129/62 (84) 92 12/08/17 11:13 98 Nasal Cannula 3.00 12/08/17 08:00 Nasal Cannula 3.00 35 12/08/17 08:00 98.1 72 20 162/72 (102) 94 12/08/17 08:00 66 12/08/17 04:33 97.3 68 18 148/68 (94) 94 12/08/17 04:10 68 12/08/17 00:30 96.1 64 16 136/64 (88) 96 12/08/17 00:05 63 12/07/17 21:46 71 18 94 12/07/17 20:29 98.8 72 18 162/72 (102) 96 12/07/17 20:07 71 12/07/17 19:46 93 Nasal Cannula 3.00 12/07/17 19:30 96 Nasal Cannula 3.00 12/07/17 16:26 98.2 70 18 162/80 (107) 98 I/O 12/07/17 12/07/17 12/07/17 12/08/17 12/08/17 12/08/17 07:00 15:00 23:00 07:00 15:00 23:00 Output Total 475 ml Balance -475 ml Output Urine Total 475 ml # Voids 5 1 # Bowel Movements 1 Result Diagram: 12/08/17 1035 12/08/17 1035 Objective Remarks GENERAL: Patient sitting up in bed. Arousable to tactile stimulation. Disoriented. Answers that he is doing all right SKIN: Warm and dry. HEAD: Normocephalic. EYES: No scleral icterus. No injection or drainage. NECK: Supple, trachea midline. Positive JVD CARDIOVASCULAR: Regular rate and rhythm without murmurs, gallops, or rubs. RESPIRATORY: Breath sounds equal bilaterally. No accessory muscle use. GASTROINTESTINAL: Abdomen soft, non-tender, nondistended. MUSCULOSKELETAL: No cyanosis. [place] edema bilateral hips. BACK: Nontender without obvious deformity. No CVA tenderness. A/P Assessment and Plan Mr. Diego is a 77 year-old male resident of [facility] who presented to the ER on 12/04/17 for evaluation of severe shortness of breath and edema. CXR in ED confirmed CHF and the patient is admitted for management. //Acute CHF - CXR shows mild consolidation and small effusions of both bases; BNP 601. - Lasix 40 mg IV BID - continuous cardiac telemetry to monitor for arrhythmia - initially required BiPap - now on 3 liters nasal cannula and pulse oximetry 96 % - supplemental oxygen titrated to maintain oxygen saturation > 92% = Still with significant 3+ edema in bilateral hips. We will add Diuril, start fluid restrictions. Order workup for acute kidney injury. //Acute on chronic renal insufficiency - Creatinine 2.42 - repeat labs in a.m. and follow trends - avoid nephrotoxins - ON IV LASIX -Creatinine still elevated. Significant bilateral woody dependent edema. Recheck BNP. Check renal ultrasound. Consult nephrology. //COPD - Duonebulizer q6h ATC and q4h PRN shortness of breath/wheezing - supplemental oxygen as above //Type 2 diabetes mellitus - accuchecks AC and HS with low dose Novolog sliding scale coverage - monitor trends in blood glucose and adjust treatment accordingly - hold home basal insulin; resume pending blood glucose trends - PRN hypoglycemia treatment protocol ordered //Hypertension - resume home antihypertensives - monitor blood pressure readings and adjust treatment if indicated //Anemia and thrombocytopenia - no recent labs for comparison (was 11.2 and 204, 000 respectively on 07/01/16) - Hemoglobin 8.1 and platelet count 127,000 on admission; will repeat in a.m. and transfuse if needed - consider hematology consultation pending repeat blood work results = Hemoglobin still 8.1. No signs of bleeding. Continue to monitor. CHRONIC DEMENTIA- MONITOR PCM- POOR ORAL INTAKE GIVE GLUCERNA DVT prophylaxis - Heparin 5000 units subq q8h CONTINUE TO NATACHA FINK RN AND PATIENT AM LABS PT AND OT GLUCERNA 1 BOTTLE TID Discharge Planning Discharge to SNF within the next 24-48 hours pending improvement El Blanca MD Dec 08, 2017 14:24
[2017-12-08] MEDS: CHLOROTHIAZIDE 250 MG TAB PO SCH (15:27)
--- NOTE | 2017-12-08 16:09 | PD.CONS ---
HPI Service Nephrology Consult Requested By Dr Blanca Reason for Consult ALISSON Primary Care Physician Mervin Verde M.D. History of Present Illness Patient is a 77 year-old male resident of [facility] with a history of Type 2 DM, COPD, CHF, CVA, dementia, PR, CAD, Hyperlipidemia, Hypertension, bleeding gastric ulcer, prostate CA, nephrolithiasis, and arthritis who presented to the ER on 12/04/17 for evaluation of severe shortness of breath and edema. Consulted today for ALISSON with creatinine level of 2.58 with a GFR of 30 ml/min. On 07/03/16 GFR was noted to be 51 ml/min. (Madisyn Mehta) Review of Systems ROS Limitations: Unresponsive (Madisyn Mehta) Past Family Social History Allergies: Coded Allergies: No Known Allergies (Verified , 06/14/16) Past Medical History Type 2 DM COPD CHF CVA Dementia PR CAD Hyperlipidemia Hypertension bleeding gastric ulcer prostate CA nephrolithiasis arthritis Past Surgical History CABG x 5 2006 Back surgery Cataracts Left shoulder surgery Active Ordered Medications Current Medications Medications (Trade) Dose Ordered Sig/Martha Route Start Time Stop Time Status Last Admin (NS Flush) 2 ml UNSCH PRN IV FLUSH 12/05/17 01:00 12/05/17 17:41 (NS Flush) 2 ml BID IV FLUSH 12/05/17 09:00 12/08/17 08:04 (Heparin Inj) 5,000 units Q8H SQ 12/05/17 06:00 12/08/17 15:27 (Lasix Inj) 40 mg BID@ IV PUSH 12/05/17 09:00 12/08/17 08:04 (Norvasc) 10 mg DAILY PO 12/05/17 09:00 12/08/17 08:04 (Aspirin Chew) 81 mg DAILY CHEW 12/05/17 09:00 12/08/17 08:04 (Lipitor) 40 mg HS PO 12/05/17 21:00 12/07/17 22:35 (Prinivil) 10 mg DAILY PO 12/05/17 09:00 Future Hold 12/08/17 08:03 (Namenda) 10 mg BID PO 12/05/17 09:00 12/08/17 08:03 (Lopressor) 25 mg BID PO 12/05/17 09:00 12/08/17 08:04 (Zoloft) 50 mg DAILY PO 12/05/17 09:00 12/08/17 08:04 (Flomax) 0.4 mg HS PO 12/05/17 21:00 12/07/17 21:48 (Protonix) 40 mg DAILY PO 12/05/17 09:00 12/08/17 08:04 (D50w (Vial) Inj) 50 ml UNSCH PRN IV PUSH 12/05/17 01:00 (Glucagon Inj) 1 mg UNSCH PRN OTHER 12/05/17 01:00 (NovoLOG SUPPLEMENTAL SCALE) 1 ACHS SLIDING SCALE SQ 12/05/17 08:00 12/08/17 12:00 (Duoneb Neb) 1 ampule Q6HR NEB NEB 12/05/17 04:00 12/08/17 11:11 (Duoneb Neb) 1 ampule Q4HR NEB PRN NEB 12/05/17 01:00 12/07/17 00:32 (Ferrous Sulfate) 325 mg DAILY PO 12/06/17 09:00 12/08/17 08:04 (Tylenol) 650 mg Q4H PRN PO 12/07/17 11:45 (Zofran Inj) 4 mg Q6H PRN IVP 12/07/17 11:45 (Tylenol) 650 mg Q6H PRN PO 12/07/17 11:45 12/07/17 11:50 (Percocet 5-325 Mg) 1 tab Q6H PRN PO 12/07/17 11:45 (Percocet 10-325 Mg) 1 tab Q6H PRN PO 12/07/17 11:45 (Morphine Inj) 2 mg Q3H PRN IV PUSH 12/07/17 11:45 (Morphine Inj) 4 mg Q3H PRN IV PUSH 12/07/17 11:45 (Narcan Inj) 0.4 mg UNSCH PRN IV PUSH 12/07/17 11:45 (Rebeca-Colace) 1 tab BID PO 12/07/17 21:00 12/08/17 08:03 (Milk Of Magnesia Liq) 30 ml Q12H PRN PO 12/07/17 11:45 (Senokot) 17.2 mg Q12H PRN PO 12/07/17 11:45 (Dulcolax Supp) 10 mg DAILY PRN RECTAL 12/07/17 11:45 (Lactulose Liq) 30 ml DAILY PRN PO 12/07/17 11:45 (Diuril) 250 mg DAILY PO 12/08/17 14:00 12/08/17 15:27 Social History Lives at [facility] (Madisyn Mehta [facility]) Physical Exam Vital Signs Vital Signs Date Time Temp Pulse Resp B/P (MAP) Pulse Ox O2 Delivery O2 Flow Rate FiO2 12/08/17 12:00 97.5 69 20 129/62 (84) 92 12/08/17 11:13 98 Nasal Cannula 3.00 12/08/17 08:00 Nasal Cannula 3.00 35 12/08/17 08:00 98.1 72 20 162/72 (102) 94 12/08/17 08:00 66 12/08/17 04:33 97.3 68 18 148/68 (94) 94 12/08/17 04:10 68 12/08/17 00:30 96.1 64 16 136/64 (88) 96 12/08/17 00:05 63 12/07/17 21:46 71 18 94 12/07/17 20:29 98.8 72 18 162/72 (102) 96 12/07/17 20:07 71 12/07/17 19:46 93 Nasal Cannula 3.00 12/07/17 19:30 96 Nasal Cannula 3.00 12/07/17 16:26 98.2 70 18 162/80 (107) 98 Physical Exam GENERAL: This is an extremely [place] elderly male patient, in no apparent distress. SKIN: No rashes. Cool and dry. HEAD: Atraumatic. Normocephalic. EYES: No injection or drainage. ENT: Nose without bleeding, purulent drainage. NECK: Trachea midline. No JVD. CARDIOVASCULAR: Regular rate and rhythm without murmurs, gallops, or rubs. RESPIRATORY: Breath sounds equal bilaterally; diminished at bilateral bases. No wheezes, rales, or rhonchi. GASTROINTESTINAL: Abdomen soft, non-tender, nondistended. No guarding. MUSCULOSKELETAL: Extremities without clubbing or cyanosis. Mild peripheral edema. No calf tenderness. NEUROLOGICAL: Awake and alert. Motor and sensory grossly within normal limits. Normal speech. . Laboratory Laboratory Tests Test 12/08/17 10:35 White Blood Count 5.2 Red Blood Count 2.59 Hemoglobin 8.2 Hematocrit 25.5 Mean Corpuscular Volume 98.6 Mean Corpuscular Hemoglobin 31.5 Mean Corpuscular Hemoglobin Concent 32.0 Red Cell Distribution Width 17.7 Platelet Count 120 Mean Platelet Volume 9.4 Neutrophils (%) (Auto) 72.8 Lymphocytes (%) (Auto) 16.0 Monocytes (%) (Auto) 8.1 Eosinophils (%) (Auto) 2.3 Basophils (%) (Auto) 0.8 Neutrophils # (Auto) 3.8 Lymphocytes # (Auto) 0.8 Monocytes # (Auto) 0.4 Eosinophils # (Auto) 0.1 Basophils # (Auto) 0.0 CBC Comment DIFF FINAL Differential Comment Blood Urea Nitrogen 50 Creatinine 2.58 Random Glucose 128 Total Protein 7.3 Albumin 3.3 Calcium Level 8.6 Phosphorus Level 3.0 Magnesium Level 1.9 Alkaline Phosphatase 202 Aspartate Amino Transf (AST/SGOT) 25 Alanine Aminotransferase (ALT/SGPT) 37 Total Bilirubin 0.5 Sodium Level 141 Potassium Level 4.1 Chloride Level 103 Carbon Dioxide Level 29.9 Anion Gap 8 Estimat Glomerular Filtration Rate 30 B-Type Natriuretic Peptide 712 Date/Time Source Procedure Growth Status 12/04/17 21:30 Nasal Washing Influenza Types A,B Antigen (LUIS) - Final NEGATIVE FOR FLU A AND B ANTIGEN.... Complete (Madisyn Mehta) Result Diagram: 12/08/17 1035 12/08/17 1035 Imaging Last Impressions Chest X-Ray 12/07/17 0000 Signed Impressions: Service Date/Time: Thursday, December 07, 2017 00:37 - CONCLUSION: 1. Cardiomegaly with mild pulmonary edema pattern most characteristic of mild congestive heart failure. Tay Caputo MD (Madisyn Mehta) Assessment and Plan Problem List: (1) ALISSON (acute kidney injury) ICD Codes: N17.9 - Acute kidney failure, unspecified Plan: ALISSON on CKD may be related to poor PO intake. CKD stage 3 with GFR on 07/03/16 51 ml/min most likely related to diabetic nephropathy and HTN Creatinine at 2.58 with a GFR of 30 ml/min Potassium and phosphorus WNL Plan Renal US pending Maintain strict I+O Continue lasix Urinalysis is pending UA sodium and creatinine pending. Anemia most likely chronic disease on Aranesp monthly and iron replacement will order anemia panel (2) Anemia ICD Codes: D64.9 - Anemia, unspecified Plan: HGB 8.2 Continue Aranesp Anemia panel ordered (3) Diabetes Mellitus Plan: Maintain BS between 140mg/dl to 180 mg/dl On insulin (4) Hypertension Plan: Well controlled continue same (5) Congestive heart failure ICD Codes: I50.9 - Heart failure, unspecified Status: Acute (Madisyn Mehta) Problem List: (1) ALISSON (acute kidney injury) ICD Codes: N17.9 - Acute kidney failure, unspecified Plan: ALISSON on CKD may be related to poor PO intake. CKD stage 3 with GFR on 07/03/16 51 ml/min most likely related to diabetic nephropathy and HTN Creatinine at 2.58 with a GFR of 30 ml/min Potassium and phosphorus WNL Plan Renal US pending Maintain strict I+O Continue lasix Urinalysis is pending UA sodium and creatinine pending. Anemia most likely chronic disease on Aranesp monthly and iron replacement will order anemia panel. Patient seen and examined, agree with above. Follow urine out put and BMP. (2) Anemia ICD Codes: D64.9 - Anemia, unspecified Plan: HGB 8.2 Continue Aranesp Anemia panel ordered (3) Diabetes Mellitus Plan: Maintain BS between 140mg/dl to 180 mg/dl On insulin (4) Hypertension Plan: Well controlled continue same (5) Congestive heart failure ICD Codes: I50.9 - Heart failure, unspecified Status: Acute (Olegario Brush MD) Problem Qualifiers (1) Congestive heart failure: Qualified Codes: I50.9 - Heart failure, unspecified Madisyn Mehta Dec 08, 2017 16:09 Olegario Brush MD Dec 08, 2017 19:21
--- NOTE | 2017-12-08 17:18 | RADRPT ---
EXAM DATE/TIME: 12/08/2017 14:50 [place] COMPARISON: No previous studies available for comparison. EXTERNAL COMPARISON : [facility], CT ABDOMEN & PELVIS W/CONTRAST, August 13, 2013 INDICATIONS : Increased BUN/creatinine. MEDICAL HISTORY : Hypercholesterolemia. Myocardial infarction. Carcinoma, prostate. CVA. Dementia. Coronary artery dise ase. Hyperlipidemia. Chest pain. HTN. Bleeding gastric ulcer. Renal calculi. Arthritis. Diabetes. Dep ression. Anticoagulant therapy, Heparin. SURGICAL HISTORY : Cataract surgery. CABG. Cardiac cath. Back surgery. Left shoulder surgery. ENCOUNTER: Initial ACUITY: 1 day PAIN SCORE: Nonresponsive. LOCATION: Bilateral flank MEASUREMENTS: RIGHT KIDNEY: 9.9 x 6.2 x 4.9 cm LEFT KIDNEY: 9.8 x 4.5 x 4.9 cm FINDINGS: RIGHT KIDNEY: Renal cortex is normal in thickness and echotexture. No hydronephrosis, stone, or mass. LEFT KIDNEY: Renal cortex is normal in thickness and echotexture. No hydronephrosis, stone, or mass. BLADDER: Within normal limits given the degree of distension. MISCELLANEOUS: Small amount of ascites along the hepatic convexity. CONCLUSION: 1. Small amount of ascites along the hepatic convexity. 2. Otherwise, kidneys and bladder are sonographically normal. Elia Villafuerte MD on December 08, 2017 at 17:14 Board Certified Radiologist. This report was verified electronically.
[2017-12-08 17:58] LABS: BACTERIA, URINE RARE /hpf; BILIRUBIN, URINE NEG (NEG); BLOOD, URINE LARGE (NEG); GLUCOSE,URINE NEG (NEG); KETONE, URINE NEG (NEG); MUCUS URINE FEW /lpf (OCC); NITRITE,URINE NEG (NEG); SQUAMOUS EPITHELIAL CELL URINE <1 /hpf (0-5); URINE COLOR YELLOW (YELLW/STRAW); URINE LEUKOCYTE ESTERASE LARGE (NEG); WHITE BLOOD CELL CLUMPS FEW
[2017-12-08] MEDS: TAMSULOSIN HCL 0.4 MG CAP PO SCH (21:27)
[2017-12-08] MEDS: ATORVASTATIN 40 MG TAB PO SCH (21:27)
[2017-12-09] VITALS (10 sets, daily range): BP systolic 135–174; BP diastolic 65–87; PULSE 64–77; RESP 18–20; TEMP 97–98.7; O2SAT 92–99
[2017-12-09] MEDS: RESP: ALBUTEROL 2.5 MG/IPRATROPIUM 0.5 MG NEB (SCH) NEB (03:40)
[2017-12-09] MEDS: HEPARIN SODIUM - SQ 10,000 UNITS/ML VIAL SQ SCH ×3 (05:18→22:23)
[2017-12-09] MEDS: INSULIN ASPART SUPPLEMENTAL SCALE SQ SCH ×4 (08:00→22:33)
[2017-12-09] MEDS: PANTOPRAZOLE SOD 40 MG DELAYED RELEASE TAB PO SCH (08:23)
[2017-12-09] MEDS: METOPROLOL TARTRATE 25 MG TAB PO SCH (08:23)
[2017-12-09] MEDS: MEMANTINE HCL 10 MG TAB PO SCH ×2 (08:23→22:19)
[2017-12-09] MEDS: FERROUS SULFATE 325 MG (65 MG ELEMENTAL IRON) TAB PO SCH (08:23)
[2017-12-09] MEDS: ASPIRIN 81 MG CHEW TAB CHEW SCH (08:23)
[2017-12-09] MEDS: SERTRALINE HCL 50 MG TAB PO SCH (08:23)
[2017-12-09] MEDS: DOCUSATE SODIUM 50 MG/SENNA 8.6 MG TAB PO SCH ×2 (08:23→22:19)
[2017-12-09] MEDS: CHLOROTHIAZIDE 250 MG TAB PO SCH (08:23)
[2017-12-09] MEDS: SODIUM CHLORIDE 0.9% FLUSH 10 ML FLUSH IV FLUSH SCH ×2 (08:24→22:33)
[2017-12-09] MEDS: FUROSEMIDE 40 MG/4 ML VIAL IV PUSH SCH ×2 (08:24→17:18)
--- NOTE | 2017-12-09 09:13 | HHI.NPPN ---
Subjective General Problems: Anemia Renal Failure: Chronic, Acute, Stage III History of Present Illness Patient is a 77 year-old male resident of [facility] with a history of Type 2 DM, COPD, CHF, CVA, dementia, SC, CAD, Hyperlipidemia, Hypertension, bleeding gastric ulcer, prostate CA, nephrolithiasis, and arthritis who presented to the ER on 12/04/17 for evaluation of severe shortness of breath and edema. Consulted today for ALISSON with creatinine level of 2.58 with a GFR of 30 ml/min. On 07/03/16 GFR was noted to be 51 ml/min. Additional Remarks Patient is more verbal today however difficult to understand. No SOB noted. Mild lower extremity edema (Madisyn Mehta) Objective Data Data Vital Signs Date Time Temp Pulse Resp B/P (MAP) Pulse Ox O2 Delivery O2 Flow Rate FiO2 12/09/17 08:53 97.0 76 20 174/77 (109) 92 12/09/17 04:03 97.7 69 20 166/74 (104) 99 12/09/17 03:03 77 12/09/17 00:10 98.7 67 20 135/67 (89) 95 12/08/17 21:30 100 Nasal Cannula 3.00 12/08/17 21:12 98.2 73 16 180/79 (112) 100 12/08/17 21:08 92 Nasal Cannula 3.00 12/08/17 16:00 98.1 70 20 142/70 (94) 92 12/08/17 15:00 67 12/08/17 12:00 97.5 69 20 129/62 (84) 92 12/08/17 11:13 98 Nasal Cannula 3.00 (Madisyn Mehta) -: 12/08/17 1035 12/08/17 1035 Microbiology 12/08/17 Urine Culture, Received Pending (Madisyn Mehta) Physical Exam General Appearance: No Acute Distress, Comfortable (Madisyn Mehta) Eyes Eye Exam: Pupils Equal (Madisyn Mehta) Pulmonary Resp Exam: Breath Sounds Equal, No Distress, Decreased Bases (Madisyn Mehta) Cardiology CV Exam: Normal Sinus Rhythm (Madisyn Mehta) Gastrointestinal/Abdomen GI Exam: Soft, Non-Tender, Bowel Sounds Present (Madisyn Mehta) Genitourinary Exam: Flank Non-Tender (Madisyn Mehta) Integumentary Skin Exam: Clear, Warm, Lesion(s) (Madisyn Mehta) Extremeties Extremities Exam: Trace Edema (Madisyn Mehta) Neurologic Neuro Exam: Awake (Madisyn Mehta) Assessment/Plan Problem List: (1) ALISSON (acute kidney injury) ICD Codes: N17.9 - Acute kidney failure, unspecified Plan: ALISSON on CKD may be related to poor PO intake. CKD stage 3 with GFR on 07/03/16 51 ml/min most likely related to diabetic nephropathy and HTN Renal US: . Small amount of ascites along the hepatic convexity otherwise, kidneys and bladder are sonographically normal. Trace proteinuria and blood noted in UA Plan Maintain strict I+O Non oliguric Continue lasix Urinalysis abnormal culture is pending UA sodium and creatinine pending. Anemia most likely chronic disease on Aranesp monthly and iron replacement, anemia panel pending Hypertensive TAM on hold will increase metoprolol Follow urine out put and BMP. (2) Anemia ICD Codes: D64.9 - Anemia, unspecified Plan: Continue Aranesp Anemia panel pending (3) Diabetes Mellitus Plan: Maintain BS between 140mg/dl to 180 mg/dl On insulin (4) Hypertension Plan: Well controlled continue same (5) Congestive heart failure ICD Codes: I50.9 - Heart failure, unspecified Status: Acute (Madisyn Mehta) Problem List: (1) ALISSON (acute kidney injury) ICD Codes: N17.9 - Acute kidney failure, unspecified Plan: ALISSON on CKD may be related to poor PO intake. CKD stage 3 with GFR on 07/03/16 51 ml/min most likely related to diabetic nephropathy and HTN Renal US: . Small amount of ascites along the hepatic convexity otherwise, kidneys and bladder are sonographically normal. Trace proteinuria and blood noted in UA Plan Maintain strict I+O Non oliguric Continue lasix Urinalysis abnormal culture is pending UA sodium and creatinine pending. Anemia most likely chronic disease on Aranesp monthly and iron replacement, anemia panel pending Hypertensive TAM on hold will increase metoprolol Follow urine out put and BMP. Patient seen and examined, agree with above. (2) Anemia ICD Codes: D64.9 - Anemia, unspecified Plan: Continue [facility] Anemia panel pending (3) Diabetes Mellitus Plan: Maintain BS between 140mg/dl to 180 mg/dl On insulin (4) Hypertension Plan: Well controlled continue same (5) Congestive heart failure ICD Codes: I50.9 - Heart failure, unspecified Status: Acute (Olegario Brush MD) Problem Qualifiers (1) Congestive heart failure: Qualified Codes: I50.9 - Heart failure, unspecified Madisyn Mehta Dec 09, 2017 09:13 Olegario Brush MD Dec 09, 2017 19:06
[2017-12-09 09:20] LABS: AUTOMATED NEUTROPHIL # 3.5 TH/MM3 (1.8-7.7); BASOPHIL % 0.6 % (0.0-2.0); EOSINOPHIL # 0.1 TH/MM3 (0-0.4); EOSINOPHIL % 1.5 % (0.0-4.0); HEMOGLOBIN 7.9 GM/DL (13.0-17.0); LYMPHOCYTE # 0.9 TH/MM3 (1.0-4.8); MEAN CELL VOLUME 97.7 FL (80.0-100.0); MEAN CORPUSCULAR HEMOGLOBIN 31.9 PG (27.0-34.0); MEAN CORPUSCULAR HGB CONC 32.7 % (32.0-36.0); MEAN PLATELET VOLUME 9.3 FL (7.0-11.0); MONO % 9.7 % (0.0-8.0); MONOCYTE # 0.5 TH/MM3 (0-0.9); NEUT % 70.2 % (16.0-70.0); PLATELET COUNT 116 TH/MM3 (150-450); RED BLOOD COUNT 2.46 MIL/MM3 (4.50-5.90); RED CELL DISTRIBUTION WIDTH 17.9 % (11.6-17.2)
[2017-12-09 09:54] LABS: ALBUMIN 3.3 GM/DL (3.4-5.0); BICARBONATE 28.6 MEQ/L (21.0-32.0); BLOOD UREA NITROGEN 56 MG/DL (7-18); CALCIUM 8.9 MG/DL (8.5-10.1); CHLORIDE 104 MEQ/L (98-107); CREATININE 2.74 MG/DL (0.60-1.30); GLOMERULAR FILTRATION RATE 28 ML/MIN (>89); GLUCOSE,RANDOM 138 MG/DL (74-106); SODIUM (NA) 140 MEQ/L (136-145)
[2017-12-09 10:00] LABS: % SATURATION IRON PROFILE 15.9 % (20-50); FERRITIN 170 NG/ML (26-388); IRON (FE) 45 MCG/DL (65-175); PHOSPHORUS 2.8 MG/DL (2.5-4.9); TOTAL IRON BINDING CAPACITY 283 MCG/DL (250-450)
--- NOTE | 2017-12-09 13:20 | HHI.PR ---
Subjective Remarks Mr. Diego is a 77 year-old male resident of [facility] [place] with a history of Type 2 DM, COPD, CHF, CVA, dementia, MS, CAD, Hyperlipidemia, Hypertension, bleeding gastric ulcer, prostate CA, nephrolithiasis, and arthritis who presented to the ER on 12/04/17 for evaluation of severe shortness of breath and edema. CXR in ED confirmed CHF and the patient is admitted for management. The patient is seen in the ER. He is extremely hard of hearing. He states he had severe shortness of breath that is now relieved since receiving treatment in the ER. CXR shows mild consolidation and small effusions of both bases. BNP 601. He was initially treated with Bi-Pap and now has oxygen saturation of 96% on 3 liters of supplemental oxygen via nasal cannula. NO CURRENT COMPLAINTS DW RN AND PT CONTINUE TO DIURESE AM LABS NEEDS PT AND OT 2- PATIENT NOT WANTING TO EAT MUCH PER SISTER HE DOES THIS HE WILL TAKE VANILLA GLUCERNA PER HER DW RN PATIENT NOT TALKATIVE AT THIS TIME NONVERBAL FAMILY STATES HE DOES THIS- NOT ABNORMAL FOR HIM 2- MORE ALERT TODAY EVEN TALKED TO ME BUT STILL WITH POOR ORAL INTAKE NO CURRENT COMPLAINTS WILL GO BACK TO SNF [facility] IN NEXT 24-48 HOURS 12/08 discussed with daughter at bedside. Still with confusion, however improving every day. Talks to me, says he feels all right. 12/09: Patient seen this morning around 9:30 AM. Says he is feeling all right. Denies any chest pain or shortness of breath. Discussed with nursing. Still significant edema. Objective Vital Signs Date Time Temp Pulse Resp B/P (MAP) Pulse Ox O2 Delivery O2 Flow Rate FiO2 12/09/17 11:54 97.5 64 20 137/65 (89) 92 12/09/17 08:53 97.0 76 20 174/77 (109) 92 12/09/17 04:03 97.7 69 20 166/74 (104) 99 12/09/17 03:03 77 12/09/17 00:10 98.7 67 20 135/67 (89) 95 12/08/17 21:30 100 Nasal Cannula 3.00 12/08/17 21:12 98.2 73 16 180/79 (112) 100 12/08/17 21:08 92 Nasal Cannula 3.00 12/08/17 16:00 98.1 70 20 142/70 (94) 92 12/08/17 15:00 67 I/O 12/08/17 12/08/17 12/08/17 12/09/17 12/09/17 12/09/17 07:00 15:00 23:00 07:00 15:00 23:00 Intake Total 1350 ml 400 ml Output Total 475 ml 300 ml Balance -475 ml 1050 ml 400 ml Intake Oral 1350 ml 400 ml Output Urine Total 475 ml 300 ml # Voids 1 2 1 Result Diagram: 12/09/17 0800 12/09/17 0800 Objective Remarks GENERAL: Patient sitting up in bed. Arousable to tactile stimulation. Disoriented. Answers that he is doing all right SKIN: Warm and dry. HEAD: Normocephalic. EYES: No scleral icterus. No injection or drainage. NECK: Supple, trachea midline. Positive JVD CARDIOVASCULAR: Regular rate and rhythm without murmurs, gallops, or rubs. RESPIRATORY: Breath sounds equal bilaterally. No accessory muscle use. GASTROINTESTINAL: Abdomen soft, non-tender, nondistended. MUSCULOSKELETAL: No cyanosis. [place] edema bilateral hips. BACK: Nontender without obvious deformity. No CVA tenderness. A/P Assessment and Plan Mr. Diego is a 77 year-old male resident of [facility] who presented to the ER on 12/04/17 for evaluation of severe shortness of breath and edema. CXR in ED confirmed CHF and the patient is admitted for management. //Acute CHF - CXR shows mild consolidation and small effusions of both bases; BNP 601. - Lasix 40 mg IV BID - continuous cardiac telemetry to monitor for arrhythmia - initially required BiPap - now on 3 liters nasal cannula and pulse oximetry 96 % - supplemental oxygen titrated to maintain oxygen saturation > 92% = Still with significant 3+ edema in bilateral hips. We will add Diuril, start fluid restrictions. Order workup for acute kidney injury. = 12/09. Still with significant edema bilateral hips. Continue strict intake and output. Continue diuretics. Follow-up echocardiogram. //Acute on chronic renal insufficiency - Creatinine 2.42 - repeat labs in a.m. and follow trends - avoid nephrotoxins - ON IV LASIX -Creatinine still elevated. Significant bilateral woody dependent edema. Recheck BNP. Check renal ultrasound. Consult nephrology. = 2. Likely cardiorenal syndrome. Follow-up echocardiogram. Continue diuresis. Creatinine 2.7, worsened from 2.6 yesterday. Appreciate nephrology assistance. //COPD - Duonebulizer q6h ATC and q4h PRN shortness of breath/wheezing - supplemental oxygen as above //Type 2 diabetes mellitus - accuchecks AC and HS with low dose Novolog sliding scale coverage - monitor trends in blood glucose and adjust treatment accordingly - hold home basal insulin; resume pending blood glucose trends - PRN hypoglycemia treatment protocol ordered //Hypertension - resume home antihypertensives - monitor blood pressure readings and adjust treatment if indicated //Anemia and thrombocytopenia - no recent labs for comparison (was 11.2 and 204, 000 respectively on 07/01/16) - Hemoglobin 8.1 and platelet count 127,000 on admission; will repeat in a.m. and transfuse if needed - consider hematology consultation pending repeat blood work results = Hemoglobin still 8.1. No signs of bleeding. Continue to monitor. = 12/09. Hemoglobin 7.9. Still no signs of bleeding. Order reticulocyte count , urethral Jeanette level. CHRONIC DEMENTIA- MONITOR PCM- POOR ORAL INTAKE GIVE GLUCERNA DVT prophylaxis - Heparin 5000 units subq q8h CONTINUE TO NATACHA FINK RN AND PATIENT AM LABS PT AND OT GLUCERNA 1 BOTTLE TID Discharge Planning Worsening creatinine. Pending nephrology clearance Hematology consult pending To SNF when stable. El Blanca MD Dec 09, 2017 13:20
--- NOTE | 2017-12-09 14:20 | ECHRPT ---
Indication: cardiomyopathy CONCLUSIONS Normal left ventricular size. Mild concentric left ventricular hypertrophy. The left ventricular systolic function is normal with an estimated ejection fraction in the range of 60-65%. No regional wall motion abnormalities are present. Upper normal right ventricular size with low normal right ventricular systolic function. Structurally normal mitral valve. Trace mitral valve regurgitation. Structurally normal tricuspid valve. There is mild tricuspid valve regurgitation. The estimated pulmonary arterial pressure is 53 mmHg. BP: / HR: Rhythm: MEASUREMENTS (Male / Female) Normal Values Technical Quality:Good 2D ECHO LV Diastolic Diameter PLAX 4.3 cm 4.2 - 5.9 / 3.9 - 5.3 cm LV Systolic Diameter PLAX 3.8 cm IVS Diastolic Thickness 1.8 cm 0.6 - 1.0 / 0.6 - 0.9 cm LVPW Diastolic Thickness 1.4 cm 0.6 - 1.0 / 0.6 - 0.9 cm LV Relative Wall Thickness 0.7 RV Internal Dim ED PLAX 3.4 cm M-MODE Aortic Root Diameter MM 3.8 cm LA Systolic Diameter MM 3.6 cm LA Ao Ratio MM 0.9 AV Cusp Separation MM 2.3 cm DOPPLER LV E' Lateral Velocity 7.4 cm/s LV E' Septal Velocity 6.9 cm/s TR Peak Velocity 328.0 cm/s TR Peak Gradient 43.0 mmHg Right Atrial Pressure 10.0 mmHg Pulmonary Artery Systolic Pressu 53.0 mmHg Right Ventricular Systolic Press 53.0 mmHg FINDINGS LEFT VENTRICLE Normal left ventricular size. Mild concentric left ventricular hypertrophy. The left ventricular systolic function is normal with an estimated ejection fraction in the range of 60-65%. No regional wall motion abnormalities are present. RIGHT VENTRICLE Upper normal right ventricular size with low normal systolic function. LEFT ATRIUM The left atrial size is normal. RIGHT ATRIUM The right atrial size is normal. ATRIAL SEPTUM Normal atrial septal thickness without atrial level shunting by limited color doppler interrogation. AORTA The aortic root and proximal ascending aorta are normal in size on limited imaging. MITRAL VALVE Structurally normal mitral valve. Trace mitral valve regurgitation. AORTIC VALVE Trileaflet aortic valve. No aortic valve stenosis or regurgitation. TRICUSPID VALVE Structurally normal tricuspid valve. There is mild tricuspid valve regurgitation. The estimated pulmonary arterial pressure is 53 mmHg. PULMONARY VALVE No pulmonary valve regurgitation or stenosis. VESSELS The inferior vena cava is normal in size. PERICARDIUM No pericardial effusion. Paxton Amezcua MD (Electronically Signed) Final Date:09 December 2017 14:20
[2017-12-09 15:24] LABS: RETIC # 39.9 MIL/L (20.0-150.0); RETIC % 1.6 % (0.4-3.0)
[2017-12-09] MEDS: METOPROLOL TARTRATE 50 MG TAB PO SCH (22:18)
[2017-12-09] MEDS: TAMSULOSIN HCL 0.4 MG CAP PO SCH (22:19)
[2017-12-09] MEDS: ATORVASTATIN 40 MG TAB PO SCH (22:19)
[2017-12-10] VITALS (15 sets, daily range): BP systolic 113–156; BP diastolic 57–76; PULSE 53–67; RESP 16–21; TEMP 97.3–98.1; O2SAT 91–99
[2017-12-10] MEDS: HEPARIN SODIUM - SQ 10,000 UNITS/ML VIAL SQ SCH ×3 (06:45→21:34)
--- NOTE | 2017-12-10 07:39 | MB ---
cc: EDA JOSEPHIS DATE OF CONSULTATION 12/09/2017 DATE OF 1940 REASON FOR CONSULTATION Patient with anemia, thrombocytopenia and a history of chronic kidney disease. HISTORY OF PRESENT ILLNESS This is a 77-year-old male who lives in a [facility]. He has a complex medical history. He has multiple ongoing medical issues. He has a diagnosis of type 2 diabetes, congestive heart failure, history of dementia, history of stroke, hyperlipidemia, hypertension, gastroesophageal reflux disease. He is unresponsive. I made numerous attempts to speak with the patient, however, he would not open his eyes. He was moaning and according to nurse, the patient is noncommunicative and at his baseline. He was admitted to the emergency room with dyspnea and lower extremity edema. He was found to have acute on chronic CHF and he is currently being medically managed. He has a history of chronic renal insufficiency. Nephrology has been seeing this patient. Per their notes, it appears that he has been receiving Aranesp and has been on iron replacement in the past. On admission, the patient was found to have a platelet count of 127,000. Upon review of records, it appears that the patient has had a history of low grade thrombocytopenia dating back to at least 2012. His platelet count was recorded at 133,000 on 08/16/2013. On this admission, his platelet count has fluctuated between 116,000 and 135,000. I have been consulted to assess anemia in this chronically ill patient. The patient has not had any apparent GI bleeding. He has not had a stool hemoccult on this admission. There is no evidence of any petechiae or bruising. REVIEW OF SYSTEMS A comprehensive review of systems could not be completed due to the patient's mental status. PAST MEDICAL HISTORY 1. Type 2 diabetes 2. COPD 3. CHF 4. Stroke 5. Dementia 6. History of CAD and [place]. 7. Hyperlipidemia 8. Hypertension 9. Gastric ulcers 10. Prostate cancer 11. History of nephrolithiasis. 12. Arthritis PAST SURGICAL HISTORY 1. CABG x5 in 2006. 2. History of back surgery. 3. Cataract 4. Left shoulder surgery. FAMILY HISTORY The family history could not be obtained due to the patient's mental status. SOCIAL HISTORY Review of records shows that he is a past smoker. MEDICATIONS 1. Metoprolol 50 mg p.o. b.i.d. 2. Chlorothiazide 250 mg p.o. daily 3. Zofran 4 mg IV q.6 h p.r.n. 4. Percocet 5/225 p.o. q.6 h p.r.n. 5. Milk of magnesia p.r.n. 6. Bisacodyl p.r.n. 7. Lactulose p.r.n. 8. Ferrous sulfate 325 mg p.o. daily 9. Atorvastatin 40 mg p.o. q.h.s. 10. Flomax 0.4 mg p.o. q.h.s. 11. Lasix 40 mg b.i.d. 12. Norvasc 10 mg p.o. daily 13. Aspirin 81 mg daily 14. Namenda 10 mg p.o. b.i.d. 15. Zoloft 50 mg p.o. daily 16. Pantoprazole 40 mg p.o. daily 17. DuoNebs p.r.n. ALLERGIES NO KNOWN DRUG ALLERGIES. PHYSICAL EXAMINATION VITAL SIGNS: Blood pressure is 138/68, pulse in the 60s, temperature 97.1, O2 sats are 94% on room air. GENERAL: This is a chronically ill-appearing male who is non-communicative. He does not open his eyes. He is asleep. Many attempts to wake him up were unsuccessful. According to the nurse, this is the patient's baseline. He occasionally wakes up, but it is unclear how much verbal he is at baseline. HEENT: Pupils are equal, round, reactive to light. EOMI. No oral thrush. No oral lesions. NECK: Supple. No JVD, no bruits. No lymphadenopathy. CHEST: Clear to auscultation bilaterally. CARDIAC: S1-S2 regular rate and rhythm. ABDOMEN: Soft, distended. Bowel sounds are decreased. No rebound or guarding. EXTREMITIES: Without any edema, erythema or cyanosis. SKIN: Without any petechiae, lesion, or bruising. NEUROLOGIC: No focal deficits. PSYCHIATRIC: Unable to be assessed. SKIN: Without any petechiae, lesion, or bruises. No lymphadenopathy on exam. LABORATORY DATA WBC 5.1, hemoglobin 7.9, MCV 97.7, platelet count is 116. Serum chemistries show a sodium of 140, potassium 4.5, BUN is 56, creatinine 2.74, calcium is 8.9. Iron is 45, TIBC 283, percent saturation is 15.9, ferritin is 170, AST is 25, ALT 37, alk phos is 202. BNP is 712, albumin is 3.3. Coags show a PT of 12.9, INR is 1.3, PTT 26.6. IMAGING STUDIES Ultrasound shows a small amount of ascites along the hepatic convexity. Kidneys and bladder were normal. Chest x-ray was reviewed. There is cardiomegaly with pulmonary edema and findings of mild congestive heart failure. ASSESSMENT/PLAN This is a 77-year-old male who is chronically ill. He is a resident of a [facility]. He has multiple medical problems as stated above, including diabetes, hypertension, chronic kidney disease, coronary artery disease, history of CVA, dementia. I am being asked to evaluate this patient's anemia and thrombocytopenia. 1. Normocytic anemia in a chronically ill patient with a background of chronic kidney disease. He has been receiving Aranesp injections according to a nephrology note. Apparently these have been given to him outpatient. He appears to be iron deficient. His iron levels are not optimized. To maximize the effect of Epogen therapy, I would recommend giving him iron infusions. We need to check B12 and folate lab pulls. Check thyroid functions. I do not see a stool hemoccult. We should obtain this to make sure there is no source of GI bleeding that may be causing anemia. For completeness sake, I will check a serum protein electrophoresis. We will also check a hepatitis panel. Check HIV status. 2. Thrombocytopenia which appears to be chronic at least dating back to 2012. We will complete the workup as stated above. 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 We can check an abdominal ultrasound to evaluate for splenomegaly. Hepatitis panel as stated above. Check B12 and folate levels as stated above. 3. Acute on chronic kidney disease currently being managed by nephrology. Thank you for allowing me to participate in the care of this patient. I will continue to follow this patient along. MD JONATHON La/FALGUNI /11:16 PM /6:55 AM
[2017-12-10 07:58] LABS: AUTOMATED NEUTROPHIL # 3.2 TH/MM3 (1.8-7.7); BASOPHIL % 0.8 % (0.0-2.0); EOSINOPHIL # 0.1 TH/MM3 (0-0.4); EOSINOPHIL % 2.3 % (0.0-4.0); HEMATOCRIT 23.4 % (39.0-51.0); HEMOGLOBIN 7.5 GM/DL (13.0-17.0); LYMPH % 15.7 % (9.0-44.0); LYMPHOCYTE # 0.7 TH/MM3 (1.0-4.8); MEAN CELL VOLUME 97.6 FL (80.0-100.0); MEAN CORPUSCULAR HEMOGLOBIN 31.5 PG (27.0-34.0); MEAN CORPUSCULAR HGB CONC 32.3 % (32.0-36.0); MEAN PLATELET VOLUME 9.4 FL (7.0-11.0); MONO % 8.6 % (0.0-8.0); MONOCYTE # 0.4 TH/MM3 (0-0.9); NEUT % 72.6 % (16.0-70.0); PLATELET COUNT 113 TH/MM3 (150-450); RED CELL DISTRIBUTION WIDTH 17.4 % (11.6-17.2); WHITE BLOOD COUNT 4.4 TH/MM3 (4.0-11.0)
[2017-12-10] MEDS: INSULIN ASPART SUPPLEMENTAL SCALE SQ SCH ×4 (08:00→21:00)
[2017-12-10] MEDS: SODIUM CHLORIDE 0.9% FLUSH 10 ML FLUSH IV FLUSH SCH ×2 (08:19→21:34)
[2017-12-10] MEDS: SERTRALINE HCL 50 MG TAB PO SCH (08:20)
[2017-12-10] MEDS: DOCUSATE SODIUM 50 MG/SENNA 8.6 MG TAB PO SCH ×2 (08:20→21:34)
[2017-12-10] MEDS: ASPIRIN 81 MG CHEW TAB CHEW SCH (08:20)
[2017-12-10] MEDS: FERROUS SULFATE 325 MG (65 MG ELEMENTAL IRON) TAB PO SCH (08:20)
[2017-12-10] MEDS: FUROSEMIDE 40 MG/4 ML VIAL IV PUSH SCH ×2 (08:20→17:09)
[2017-12-10] MEDS: METOPROLOL TARTRATE 50 MG TAB PO SCH ×2 (08:20→21:33)
[2017-12-10] MEDS: PANTOPRAZOLE SOD 40 MG DELAYED RELEASE TAB PO SCH (08:20)
[2017-12-10 08:25] LABS: ALBUMIN 3.2 GM/DL (3.4-5.0); BICARBONATE 30.4 MEQ/L (21.0-32.0); CALCIUM 8.5 MG/DL (8.5-10.1); CREATININE 2.55 MG/DL (0.60-1.30); MAGNESIUM 1.9 MG/DL (1.5-2.5); PHOSPHORUS 3.1 MG/DL (2.5-4.9)
[2017-12-10] MEDS: CHLOROTHIAZIDE 250 MG TAB PO SCH (09:16)
[2017-12-10] MEDS: MEMANTINE HCL 10 MG TAB PO SCH ×2 (09:16→21:33)
[2017-12-10] MEDS: IRON SUCROSE INJ 200 MG in SODIUM CHLORIDE 0.9% INJ 100 ML IV SCH (09:21)
[2017-12-10 10:23] LABS: HEPATITIS B CORE AB IGM NEGATIVE (NEGATIVE)
[2017-12-10] MEDS: oxyCODONE/ACETAMINOPHEN 5 MG/325 MG TAB PO PRN ×2 (13:47→21:40)
--- NOTE | 2017-12-10 14:30 | HHI.PR ---
Subjective Remarks Follow up Acute CHF exacerbation/acute on chronic kidney disease 12/10/17-patient seen and examined, denies any chest pain or shortness of breath urine H&H although low but stable. He denies any bleeding. Objective Vitals Vital Signs Date Time Temp Pulse Resp B/P (MAP) Pulse Ox O2 Delivery O2 Flow Rate FiO2 12/10/17 12:13 97.6 66 21 156/73 (100) 95 12/10/17 10:07 95 Nasal Cannula 3.00 12/10/17 08:09 97.4 59 20 137/67 (90) 95 12/10/17 08:00 Nasal Cannula 3.00 12/10/17 07:54 57 12/10/17 04:01 56 12/10/17 04:00 97.7 56 16 138/71 (93) 91 12/10/17 00:04 53 12/10/17 00:00 Nasal Cannula 3.00 12/10/17 00:00 97.7 56 21 120/76 (91) 95 12/09/17 20:50 97.5 64 19 160/87 (111) 96 12/09/17 20:18 98.5 64 18 170/77 (108) 97 12/09/17 16:37 97.1 65 20 138/68 (91) 94 12/09/17 15:00 66 I/O 12/09/17 12/09/17 12/09/17 12/10/17 12/10/17 12/10/17 07:00 15:00 23:00 07:00 15:00 23:00 Intake Total 400 ml 500 ml 200 ml Balance 400 ml 500 ml 200 ml Intake Oral 400 ml 500 ml 200 ml # Voids 1 4 # Bowel Movements 1 Result Diagram: 12/10/17 0711 12/10/17 0711 Imaging Last Impressions Renal Ultrasound 12/08/17 0000 Signed Impressions: Service Date/Time: Friday, December 08, 2017 14:50 - CONCLUSION: 1. Small amount of ascites along the hepatic convexity. 2. Otherwise, kidneys and bladder are sonographically normal. Elia Villafuerte MD Chest X-Ray 12/07/17 0000 Signed Impressions: Service Date/Time: Thursday, December 07, 2017 00:37 - CONCLUSION: 1. Cardiomegaly with mild pulmonary edema pattern most characteristic of mild congestive heart failure. Tay Caputo MD Objective Remarks GENERAL: NAD SKIN: Warm and dry. HEAD: Normocephalic. EYES: No scleral icterus. No injection or drainage. NECK: Supple, trachea midline. No JVD or lymphadenopathy. CARDIOVASCULAR: Regular rate and rhythm without murmurs, gallops, or rubs. RESPIRATORY: Breath sounds equal bilaterally. No accessory muscle use. GASTROINTESTINAL: Abdomen soft, non-tender, nondistended. MUSCULOSKELETAL: No cyanosis, or edema. BACK: Nontender without obvious deformity. No CVA tenderness. Procedures NONE A/P Problem List: (1) Congestive heart failure ICD Code: I50.9 - Heart failure, unspecified Status: Acute Assessment and Plan 77-year-old man with Acute CHF - CXR shows mild consolidation and small effusions of both bases; BNP 601. - Lasix 40 mg IV BID, Diuril, start fluid restrictions. -Follow-up echocardiogram. Acute on chronic renal insufficiency - avoid nephrotoxins - ON IV LASIX - Appreciate nephrology assistance. COPD - Duo nebulizer q6h ATC and q4h PRN shortness of breath/wheezing - supplemental oxygen as above Type 2 diabetes mellitus - accu checks AC and HS with low dose Novolog sliding scale coverage - monitor trends in blood glucose and adjust treatment accordingly - hold home basal insulin; resume pending blood glucose trends Hypertension - continue home antihypertensives Anemia and thrombocytopenia - no recent labs for comparison (was 11.2 and 204, 000 respectively on 07/01/16) Appreciate input from hematology CHRONIC DEMENTIA- MONITOR PCM- POOR ORAL INTAKE GIVE GLUCERNA DVT prophylaxis - Heparin 5000 units subq q8h Problem Qualifiers (1) Congestive heart failure: Qualified Codes: I50.9 - Heart failure, unspecified Cal Cabrera MD Dec 10, 2017 14:30
[2017-12-10] MEDS: TAMSULOSIN HCL 0.4 MG CAP PO SCH (21:33)
[2017-12-10] MEDS: ATORVASTATIN 40 MG TAB PO SCH (21:34)
[2017-12-10 21:58] LABS: ALB/GLOB RATIO (SPE) 1.3 (1.39-2.23)
--- NOTE | 2017-12-10 22:48 | PD.ONC.PN ---
Subjective Subjective Remarks remains non-verbal and barely opens his eyes no acute issues overnight Objective Data Date Time Temp Pulse Resp B/P (MAP) Pulse Ox O2 Delivery O2 Flow Rate FiO2 12/10/17 22:04 95 Nasal Cannula 3.00 12/10/17 20:00 97.8 60 18 121/74 (90) 95 12/10/17 16:13 97.3 54 20 120/57 (78) 99 12/10/17 15:50 53 12/10/17 12:13 97.6 66 21 156/73 (100) 95 12/10/17 11:58 67 12/10/17 10:07 95 Nasal Cannula 3.00 12/10/17 08:09 97.4 59 20 137/67 (90) 95 12/10/17 08:00 Nasal Cannula 3.00 12/10/17 07:54 57 12/10/17 04:01 56 12/10/17 04:00 97.7 56 16 138/71 (93) 91 12/10/17 00:04 53 12/10/17 00:00 Nasal Cannula 3.00 12/10/17 00:00 97.7 56 21 120/76 (91) 95 12/10/17 12/10/17 12/10/17 07:00 15:00 23:00 Intake Total 200 ml 600 ml Balance 200 ml 600 ml Result Diagram: 12/10/1771012/10/17 0711 Laboratory Results Laboratory Tests Test 12/10/17 06:15 12/10/17 07:11 White Blood Count 4.4 TH/MM3 Red Blood Count 2.40 MIL/MM3 Hemoglobin 7.5 GM/DL Hematocrit 23.4 % Mean Corpuscular Volume 97.6 FL Mean Corpuscular Hemoglobin 31.5 PG Mean Corpuscular Hemoglobin Concent 32.3 % Red Cell Distribution Width 17.4 % Platelet Count 113 TH/MM3 Mean Platelet Volume 9.4 FL Neutrophils (%) (Auto) 72.6 % Lymphocytes (%) (Auto) 15.7 % Monocytes (%) (Auto) 8.6 % Eosinophils (%) (Auto) 2.3 % Basophils (%) (Auto) 0.8 % Neutrophils # (Auto) 3.2 TH/MM3 Lymphocytes # (Auto) 0.7 TH/MM3 Monocytes # (Auto) 0.4 TH/MM3 Eosinophils # (Auto) 0.1 TH/MM3 Basophils # (Auto) 0.0 TH/MM3 CBC Comment DIFF FINAL Differential Comment Haptoglobin 197 MG/DL Fibrinogen 323 mg/dL Blood Urea Nitrogen 54 MG/DL Creatinine 2.55 MG/DL Random Glucose 127 MG/DL Albumin 3.2 GM/DL Calcium Level 8.5 MG/DL Phosphorus Level 3.1 MG/DL Magnesium Level 1.9 MG/DL Sodium Level 139 MEQ/L Potassium Level 3.6 MEQ/L Chloride Level 102 MEQ/L Carbon Dioxide Level 30.4 MEQ/L Anion Gap 7 MEQ/L Estimat Glomerular Filtration Rate 30 ML/MIN Lactate Dehydrogenase 241 U/L Total Protein 7.0 GM/DL Albumin/Globulin Ratio 1.30 Ztsik-0-Hevvlwaiu 0.25 GM/DL Stgdd-5-Smtpxfiyy 0.88 GM/DL Beta Globulins 0.76 GM/DL Gamma Globulins 1.17 GM/DL Vitamin B12 Level 1154 PG/ML Hepatitis B Surface Antigen NEGATIVE Hepatitis B Core IgM Antibody NEGATIVE Hepatitis C Antibody NEGATIVE Culture Results Microbiology Date/Time Source Procedure Growth Status 12/08/17 17:18 Urine Clean Catch Urine Culture - Final 50-100,000 CFU/ML MIXED YOMI... Complete Administered Medications Medications (Trade) Dose Ordered Sig/Martha Route PRN Reason Start Time Stop Time Status Last Admin Dose Admin Sodium Chloride (NS Flush) 2 ml UNSCH PRN IV FLUSH FLUSH AFTER USING IV ACCESS 12/05/17 01:00 12/05/17 17:41 Sodium Chloride (NS Flush) 2 ml BID IV FLUSH 12/05/17 09:00 12/10/17 21:34 Heparin Sodium (Porcine) (Heparin Inj) 5,000 units Q8H SQ 12/05/17 06:00 12/10/17 21:34 Furosemide (Lasix Inj) 40 mg BID@ IV PUSH 12/05/17 09:00 12/10/17 17:09 Amlodipine Besylate (Norvasc) 10 mg DAILY PO 12/05/17 09:00 12/10/17 08:20 Aspirin (Aspirin Chew) 81 mg DAILY CHEW 12/05/17 09:00 12/10/17 08:20 Atorvastatin Calcium (Lipitor) 40 mg HS PO 12/05/17 21:00 12/10/17 21:34 Lisinopril (Prinivil) 10 mg DAILY PO 12/05/17 09:00 Future Hold 12/08/17 08:03 Memantine (Namenda) 10 mg BID PO 12/05/17 09:00 12/10/17 21:33 Sertraline HCl (Zoloft) 50 mg DAILY PO 12/05/17 09:00 12/10/17 08:20 Tamsulosin HCl (Flomax) 0.4 mg HS PO 12/05/17 21:00 12/10/17 21:33 Pantoprazole Sodium (Protonix) 40 mg DAILY PO 12/05/17 09:00 12/10/17 08:20 Insulin Aspart (NovoLOG SUPPLEMENTAL SCALE) 1 ACHS SLIDING SCALE SQ 12/05/17 08:00 12/10/17 17:09 Albuterol/ Ipratropium (Duoneb Neb) 1 ampule Q4HR NEB PRN NEB SOB/WHEEZING 12/05/17 01:00 12/07/17 00:32 Ferrous Sulfate (Ferrous Sulfate) 325 mg DAILY PO 12/06/17 09:00 12/10/17 08:20 Acetaminophen (Tylenol) 650 mg Q6H PRN PO PAIN SCALE 1 TO 2 12/07/17 11:45 12/07/17 11:50 Oxycodone/ Acetaminophen (Percocet 5-325 Mg) 1 tab Q6H PRN PO PAIN SCALE 3 TO 5 12/07/17 11:45 12/10/17 21:40 Senna/Docusate Sodium (Rebeca-Colace) 1 tab BID PO 12/07/17 21:00 12/10/17 21:34 Chlorothiazide (Diuril) 250 mg DAILY PO 12/08/17 14:00 12/10/17 09:16 Metoprolol Tartrate (Lopressor) 50 mg BID PO 12/09/17 21:00 12/10/17 21:33 Iron Sucrose 200 mg/Sodium Chloride 110 ml @ 110 mls/hr DAILY IV 12/10/17 09:00 12/12/17 09:59 12/10/17 09:21 Objective Remarks GENERAL: nad LYMPHATIC: No adenopathy. CARDIOVASCULAR: Regular rate and rhythm without murmurs. RESPIRATORY: Breath sounds equal bilaterally. No accessory muscle use. GASTROINTESTINAL: Abdomen soft, non-tender, nondistended. EXTREMITIES: No cyanosis, or edema. Assessment/Plan Problem List: (1) Thrombocytopenia ICD Codes: D69.6 - Thrombocytopenia, unspecified (2) CKD (chronic kidney disease) requiring chronic dialysis ICD Codes: N18.6 - End stage renal failure on dialysis; Z99.2 - Dependence on renal dialysis Status: Acute (3) Anemia ICD Codes: D64.9 - Anemia, unspecified Assessment 77-year-old male who is chronically ill. He is a resident of a group home facility. He has multiple medical problems as stated above, including diabetes , hypertension, chronic kidney disease, coronary artery disease, history of CVA , dementia. I am being asked to evaluate this patient's anemia and thrombocytopenia. 1. Normocytic anemia in a chronically ill patient with a background of chronic kidney disease. iron deficiency - continue iron infusions--will give Procrit once iron replaced - Hepatitis panel negative - no evidence of hemolysis - stool heme-occult negative 2. Thrombocytopenia which appears to be chronic at least dating back to 2012. ( EMR reviewed) - no evidence of DIC or TTP - could be due to chronic debility or mild chronic ITP 3. Acute on chronic kidney disease currently being managed by nephrology. Bryson Lay MD Dec 10, 2017 22:48
[2017-12-11] VITALS (11 sets, daily range): BP systolic 129–164; BP diastolic 60–79; PULSE 51–64; RESP 16–22; TEMP 97.1–98; O2SAT 88–95
[2017-12-11] MEDS: HEPARIN SODIUM - SQ 10,000 UNITS/ML VIAL SQ SCH ×3 (05:45→20:19)
[2017-12-11] MEDS: CHLOROTHIAZIDE 250 MG TAB PO SCH (08:58)
[2017-12-11] MEDS: MEMANTINE HCL 10 MG TAB PO SCH ×2 (08:58→20:18)
[2017-12-11] MEDS: SERTRALINE HCL 50 MG TAB PO SCH (08:58)
[2017-12-11] MEDS: DOCUSATE SODIUM 50 MG/SENNA 8.6 MG TAB PO SCH ×2 (08:58→20:18)
[2017-12-11] MEDS: FUROSEMIDE 40 MG/4 ML VIAL IV PUSH SCH ×2 (08:59→17:51)
[2017-12-11] MEDS: ASPIRIN 81 MG CHEW TAB CHEW SCH (08:59)
[2017-12-11] MEDS: METOPROLOL TARTRATE 50 MG TAB PO SCH ×2 (08:59→20:18)
[2017-12-11] MEDS: PANTOPRAZOLE SOD 40 MG DELAYED RELEASE TAB PO SCH (08:59)
[2017-12-11] MEDS: FERROUS SULFATE 325 MG (65 MG ELEMENTAL IRON) TAB PO SCH (08:59)
[2017-12-11] MEDS: SODIUM CHLORIDE 0.9% FLUSH 10 ML FLUSH IV FLUSH SCH ×2 (09:00→20:18)
[2017-12-11] MEDS: IRON SUCROSE INJ 200 MG in SODIUM CHLORIDE 0.9% INJ 100 ML IV SCH (09:40)
[2017-12-11] MEDS: INSULIN ASPART SUPPLEMENTAL SCALE SQ SCH ×4 (09:41→20:22)
--- NOTE | 2017-12-11 10:38 | HHI.NPPN ---
Subjective General Problems: Anemia Renal Failure: Chronic, Acute, Stage III History of Present Illness Patient is a 77 year-old male resident of [facility] with a history of Type 2 DM, COPD, CHF, CVA, dementia, [place], CAD, Hyperlipidemia, Hypertension, bleeding gastric ulcer, prostate CA, nephrolithiasis, and arthritis who presented to the ER on 12/04/17 for evaluation of severe shortness of breath and edema. Consulted today for ALISSON with creatinine level of 2.58 with a GFR of 30 ml/min. On 07/03/16 GFR was noted to be 51 ml/min. Additional Remarks Patient is resting comfortably. No SOB noted. (Madisyn Mehta) Objective Data Data Vital Signs Date Time Temp Pulse Resp B/P (MAP) Pulse Ox O2 Delivery O2 Flow Rate FiO2 12/11/17 09:41 95 Nasal Cannula 3.00 12/11/17 09:10 88 Nasal Cannula 5.00 12/11/17 08:00 97.3 61 16 158/72 (100) 88 12/11/17 04:01 52 12/11/17 04:00 98.0 54 22 129/60 (83) 94 12/11/17 04:00 Nasal Cannula 3.00 12/11/17 00:00 97.4 55 22 149/70 (96) 95 12/11/17 00:00 Nasal Cannula 3.00 12/10/17 23:52 53 12/10/17 22:04 95 Nasal Cannula 3.00 12/10/17 20:00 97.8 60 18 121/74 (90) 95 12/10/17 20:00 Nasal Cannula 3.00 12/10/17 19:45 56 12/10/17 16:13 97.3 54 20 120/57 (78) 99 12/10/17 15:50 53 12/10/17 12:13 97.6 66 21 156/73 (100) 95 12/10/17 11:58 67 (Madisyn Mehta) -: 12/10/17 0711 12/10/17 0711 Physical Exam General Appearance: No Acute Distress, Comfortable (Madisyn Mehta) Eyes Eye Exam: Pupils Equal (Madisyn Mehta) Pulmonary Resp Exam: Breath Sounds Equal, No Distress, Decreased Bases (Madisyn Mehta) Cardiology CV Exam: Normal Sinus Rhythm (Madisyn Mehta) Gastrointestinal/Abdomen GI Exam: Soft, Non-Tender, Bowel Sounds Present (Madisyn Mehta) Genitourinary Exam: Flank Non-Tender (Madisyn Mehta) Integumentary Skin Exam: Clear, Warm, Lesion(s) (Madisyn Mehta) Extremeties Extremities Exam: Trace Edema (Madisyn Mehta) Neurologic Neuro Exam: Awake (Madisyn Mehta) Assessment/Plan Problem List: (1) ALISSON (acute kidney injury) ICD Codes: N17.9 - Acute kidney failure, unspecified Plan: ALISSON on CKD may be related to poor PO intake. CKD stage 3 with GFR on 07/03/16 51 ml/min most likely related to diabetic nephropathy and HTN Renal US: . Small amount of ascites along the hepatic convexity otherwise, kidneys and bladder are sonographically normal. Trace proteinuria and blood noted in UA Creatinine at 2.55 from 2.74 Plan Maintain strict I+O Non oliguric Continue IV lasix Anemia most likely chronic disease on Aranesp monthly receiving IV iron replacement Hypertensive TAM on hold will increase metoprolol Follow urine out put and BMP. (2) Anemia ICD Codes: D64.9 - Anemia, unspecified Plan: Continue Aranesp hematology workup IV iron replacement (3) Diabetes Mellitus Plan: Maintain BS between 140mg/dl to 180 mg/dl On insulin (4) Hypertension Plan: Well controlled continue same (5) Congestive heart failure ICD Codes: I50.9 - Heart failure, unspecified Status: Acute (Madisyn Mehta) Problem List: (1) ALISSON (acute kidney injury) ICD Codes: N17.9 - Acute kidney failure, unspecified Plan: ALISSON on CKD may be related to poor PO intake. CKD stage 3 with GFR on 07/03/16 51 ml/min most likely related to diabetic nephropathy and HTN Renal US: . Small amount of ascites along the hepatic convexity otherwise, kidneys and bladder are sonographically normal. Trace proteinuria and blood noted in UA Creatinine at 2.55 from 2.74 Plan Maintain strict I+O Non oliguric Continue IV lasix Anemia most likely chronic disease on Aranesp monthly receiving IV iron replacement Hypertensive TAM on hold will increase metoprolol Follow urine out put and BMP. Patient seen and examined, agree with above. Continue Lasix, started eating better. (2) Anemia ICD Codes: D64.9 - Anemia, unspecified Plan: Continue Aranesp hematology workup IV iron replacement (3) Diabetes Mellitus Plan: Maintain BS between 140mg/dl to 180 mg/dl On insulin (4) Hypertension Plan: Well controlled continue same (5) Congestive heart failure ICD Codes: I50.9 - Heart failure, unspecified Status: Acute (Olegario Brush MD) Problem Qualifiers (1) Congestive heart failure: Qualified Codes: I50.9 - Heart failure, unspecified Madisyn Mehta Dec 11, 2017 10:38 Olegario Brush MD Dec 11, 2017 19:17
--- NOTE | 2017-12-11 12:07 | HHI.PR ---
Subjective Remarks Follow up Acute CHF exacerbation/acute on chronic kidney disease 12/10/17-patient seen and examined, denies any chest pain or shortness of breath urine H&H although low but stable. He denies any bleeding. 12/11/17-patient seen and examined, no acute event overnight. Denies any significant shortness of breath. Objective Vitals Vital Signs Date Time Temp Pulse Resp B/P (MAP) Pulse Ox O2 Delivery O2 Flow Rate FiO2 12/11/17 09:41 95 Nasal Cannula 3.00 12/11/17 09:10 88 Nasal Cannula 5.00 12/11/17 08:00 97.3 61 16 158/72 (100) 88 12/11/17 04:01 52 12/11/17 04:00 98.0 54 22 129/60 (83) 94 12/11/17 04:00 Nasal Cannula 3.00 12/11/17 00:00 97.4 55 22 149/70 (96) 95 12/11/17 00:00 Nasal Cannula 3.00 12/10/17 23:52 53 12/10/17 22:04 95 Nasal Cannula 3.00 12/10/17 20:00 97.8 60 18 121/74 (90) 95 12/10/17 20:00 Nasal Cannula 3.00 12/10/17 19:45 56 12/10/17 16:13 97.3 54 20 120/57 (78) 99 12/10/17 15:50 53 12/10/17 12:13 97.6 66 21 156/73 (100) 95 I/O 12/10/17 12/10/17 12/10/17 12/11/17 12/11/17 12/11/17 07:00 15:00 23:00 07:00 15:00 23:00 Intake Total 200 ml 600 ml Output Total 400 ml Balance 200 ml 600 ml -400 ml Intake Oral 200 ml 600 ml Output Urine Total 400 ml # Voids 4 3 # Bowel Movements 1 0 0 Result Diagram: 12/10/17 0711 12/10/17 0711 Objective Remarks GENERAL: NAD SKIN: Warm and dry. HEAD: Normocephalic. EYES: No scleral icterus. No injection or drainage. NECK: Supple, trachea midline. No JVD or lymphadenopathy. CARDIOVASCULAR: Regular rate and rhythm without murmurs, gallops, or rubs. RESPIRATORY: Breath sounds equal bilaterally. No accessory muscle use. GASTROINTESTINAL: Abdomen soft, non-tender, nondistended. MUSCULOSKELETAL: No cyanosis, or edema. BACK: Nontender without obvious deformity. No CVA tenderness. Procedures NONE A/P Problem List: (1) Congestive heart failure ICD Code: I50.9 - Heart failure, unspecified Status: Acute Assessment and Plan 77-year-old man with Acute CHF - CXR shows mild consolidation and small effusions of both bases; BNP 601. - Lasix 40 mg IV BID, Diuril on Hold -2-D echo with EF 60-65%. Acute on chronic renal insufficiency - avoid nephrotoxins - ON IV LASIX - Appreciate nephrology assistance. COPD - Duo nebulizer q6h ATC and q4h PRN shortness of breath/wheezing - supplemental oxygen as above Type 2 diabetes mellitus - accu checks AC and HS with low dose Novolog sliding scale coverage - monitor trends in blood glucose and adjust treatment accordingly - hold home basal insulin; resume pending blood glucose trends Hypertension - continue home antihypertensives however increase Lopressor Anemia and thrombocytopenia - no recent labs for comparison (was 11.2 and 204, 000 respectively on 07/01/16) Appreciate input from hematology Transfusing Venofer then follow by Stephanie CHRONIC DEMENTIA- MONITOR PCM- POOR ORAL INTAKE GIVE GLUCERNA DVT prophylaxis - Heparin 5000 units subq q8h Problem Qualifiers (1) Congestive heart failure: Qualified Codes: I50.9 - Heart failure, unspecified Cal Cabrera MD Dec 11, 2017 12:07
[2017-12-11] MEDS: TAMSULOSIN HCL 0.4 MG CAP PO SCH (20:18)
[2017-12-11] MEDS: ATORVASTATIN 40 MG TAB PO SCH (20:18)
--- NOTE | 2017-12-11 20:54 | PD.ONC.PN ---
Subjective Subjective Remarks opens his eyes. still non-verbal nods to questions getting iron infusions without any issues Objective Data Date Time Temp Pulse Resp B/P (MAP) Pulse Ox O2 Delivery O2 Flow Rate FiO2 12/11/17 20:23 Nasal Cannula 3.00 12/11/17 17:27 95 Nasal Cannula 5.00 12/11/17 16:00 97.1 56 18 155/72 (99) 93 12/11/17 12:00 97.5 51 20 164/79 (107) 95 12/11/17 11:42 59 12/11/17 11:42 51 12/11/17 09:41 95 Nasal Cannula 3.00 12/11/17 09:10 88 Nasal Cannula 5.00 12/11/17 08:00 97.3 61 16 158/72 (100) 88 12/11/17 04:01 52 12/11/17 04:00 98.0 54 22 129/60 (83) 94 12/11/17 04:00 Nasal Cannula 3.00 12/11/17 00:00 97.4 55 22 149/70 (96) 95 12/11/17 00:00 Nasal Cannula 3.00 12/10/17 23:52 53 12/10/17 22:04 95 Nasal Cannula 3.00 12/11/17 12/11/17 12/11/17 07:00 15:00 23:00 Intake Total 540 ml Output Total 400 ml 300 ml Balance -400 ml 240 ml Result Diagram: 12/10/17 0711 12/10/17 0711 Administered Medications Medications (Trade) Dose Ordered Sig/Martha Route PRN Reason Start Time Stop Time Status Last Admin Dose Admin Sodium Chloride (NS Flush) 2 ml UNSCH PRN IV FLUSH FLUSH AFTER USING IV ACCESS 12/05/17 01:00 12/05/17 17:41 Sodium Chloride (NS Flush) 2 ml BID IV FLUSH 12/05/17 09:00 12/11/17 20:18 Heparin Sodium (Porcine) (Heparin Inj) 5,000 units Q8H SQ 12/05/17 06:00 12/11/17 20:19 Furosemide (Lasix Inj) 40 mg BID@18 IV PUSH 12/05/17 09:00 12/11/17 17:51 Amlodipine Besylate (Norvasc) 10 mg DAILY PO 12/05/17 09:00 12/11/17 08:58 Aspirin (Aspirin Chew) 81 mg DAILY CHEW 12/05/17 09:00 12/11/17 08:59 Atorvastatin Calcium (Lipitor) 40 mg HS PO 12/05/17 21:00 12/11/17 20:18 Lisinopril (Prinivil) 10 mg DAILY PO 12/05/17 09:00 Future Hold 12/08/17 08:03 Memantine (Namenda) 10 mg BID PO 12/05/17 09:00 12/11/17 20:18 Sertraline HCl (Zoloft) 50 mg DAILY PO 12/05/17 09:00 12/11/17 08:58 Tamsulosin HCl (Flomax) 0.4 mg HS PO 12/05/17 21:00 12/11/17 20:18 Pantoprazole Sodium (Protonix) 40 mg DAILY PO 12/05/17 09:00 12/11/17 08:59 Insulin Aspart (NovoLOG SUPPLEMENTAL SCALE) 1 ACHS SLIDING SCALE SQ 12/05/17 08:00 12/11/17 20:22 Albuterol/ Ipratropium (Duoneb Neb) 1 ampule Q4HR NEB PRN NEB SOB/WHEEZING 12/05/17 01:00 12/07/17 00:32 Ferrous Sulfate (Ferrous Sulfate) 325 mg DAILY PO 12/06/17 09:00 12/11/17 08:59 Acetaminophen (Tylenol) 650 mg Q6H PRN PO PAIN SCALE 1 TO 2 12/07/17 11:45 12/07/17 11:50 Oxycodone/ Acetaminophen (Percocet 5-325 Mg) 1 tab Q6H PRN PO PAIN SCALE 3 TO 5 12/07/17 11:45 12/10/17 21:40 Senna/Docusate Sodium (Rebeca-Colace) 1 tab BID PO 12/07/17 21:00 12/11/17 20:18 Chlorothiazide (Diuril) 250 mg DAILY PO 12/08/17 14:00 12/11/17 08:58 Metoprolol Tartrate (Lopressor) 50 mg BID PO 12/09/17 21:00 12/11/17 20:18 Iron Sucrose 200 mg/Sodium Chloride 110 ml @ 110 mls/hr DAILY IV 2/14/18 09:00 12/12/17 09:59 12/11/17 09:40 Objective Remarks GENERAL: nad, chronically ill appearing SKIN: Warm and dry LYMPHATIC: No adenopathy. CARDIOVASCULAR: Regular rate and rhythm without murmurs. RESPIRATORY: Breath sounds equal bilaterally. No accessory muscle use. GASTROINTESTINAL: Abdomen soft, non-tender, nondistended. EXTREMITIES: No cyanosis, edematous Assessment/Plan Problem List: (1) Thrombocytopenia ICD Codes: D69.6 - Thrombocytopenia, unspecified (2) CKD (chronic kidney disease) requiring chronic dialysis ICD Codes: N18.6 - End stage renal failure on dialysis; Z99.2 - Dependence on renal dialysis Status: Acute (3) Anemia ICD Codes: D64.9 - Anemia, unspecified Assessment 77-year-old male who is chronically ill. [facility] is a [facility]. He has multiple medical problems as stated above, including diabetes , hypertension, chronic kidney disease, coronary artery disease, history of CVA , dementia. I am being asked to evaluate this patient's anemia and thrombocytopenia. 1. Normocytic anemia in a chronically ill patient with a background of chronic kidney disease and iron deficiency - continue iron infusions--will give Procrit once iron replaced - Hepatitis panel negative - no evidence of hemolysis - stool heme-occult negative 2. Thrombocytopenia which appears to be chronic at least dating back to 2012. ( EMR reviewed) - no evidence of DIC or TTP - could be due to chronic debility or mild chronic ITP 3. Acute on chronic kidney disease currently being managed by nephrology. Tolerating iron infusions Bryson Lay MD Dec 11, 2017 20:54
[2017-12-12] VITALS (9 sets, daily range): BP systolic 109–165; BP diastolic 55–74; PULSE 55–76; RESP 18–22; TEMP 97.3–98.4; O2SAT 92–100
[2017-12-12] MEDS: HEPARIN SODIUM - SQ 10,000 UNITS/ML VIAL SQ SCH ×3 (05:20→21:04)
[2017-12-12] MEDS: FERROUS SULFATE 325 MG (65 MG ELEMENTAL IRON) TAB PO SCH (09:20)
[2017-12-12] MEDS: SERTRALINE HCL 50 MG TAB PO SCH (09:20)
[2017-12-12] MEDS: SODIUM CHLORIDE 0.9% FLUSH 10 ML FLUSH IV FLUSH SCH ×2 (09:20→21:04)
[2017-12-12] MEDS: MEMANTINE HCL 10 MG TAB PO SCH ×2 (09:20→21:03)
[2017-12-12] MEDS: DOCUSATE SODIUM 50 MG/SENNA 8.6 MG TAB PO SCH ×2 (09:21→21:03)
[2017-12-12] MEDS: METOPROLOL TARTRATE 50 MG TAB PO SCH ×2 (09:21→21:03)
[2017-12-12] MEDS: PANTOPRAZOLE SOD 40 MG DELAYED RELEASE TAB PO SCH (09:21)
[2017-12-12] MEDS: ASPIRIN 81 MG CHEW TAB CHEW SCH (09:21)
[2017-12-12] MEDS: FUROSEMIDE 40 MG/4 ML VIAL IV PUSH SCH ×2 (09:22→17:18)
[2017-12-12] MEDS: IRON SUCROSE INJ 200 MG in SODIUM CHLORIDE 0.9% INJ 100 ML IV SCH (09:45)
[2017-12-12] MEDS: CHLOROTHIAZIDE 250 MG TAB PO SCH (09:45)
[2017-12-12] MEDS: INSULIN ASPART SUPPLEMENTAL SCALE SQ SCH ×4 (09:46→22:27)
--- NOTE | 2017-12-12 12:25 | HHI.PR ---
Subjective Remarks Follow up Acute CHF exacerbation/acute on chronic kidney disease 12/10/17-patient seen and examined, denies any chest pain or shortness of breath urine H&H although low but stable. He denies any bleeding. 12/11/17-patient seen and examined, no acute event overnight. Denies any significant shortness of breath. 12/12/17-patient seen and examined, resting comfortably and denies any shortness of breath. Objective Vitals Vital Signs Date Time Temp Pulse Resp B/P (MAP) Pulse Ox O2 Delivery O2 Flow Rate FiO2 12/12/17 09:48 Nasal Cannula 4.00 35 12/12/17 09:01 93 Nasal Cannula 4.00 12/12/17 08:00 97.3 65 20 165/74 (104) 92 12/12/17 04:00 97.3 76 18 138/67 (90) 93 12/12/17 03:47 55 12/12/17 00:00 97.4 55 20 131/58 (82) 95 12/11/17 23:46 55 12/11/17 20:23 Nasal Cannula 3.00 12/11/17 20:00 97.9 64 18 155/70 (98) 91 12/11/17 19:46 62 12/11/17 17:27 95 Nasal Cannula 5.00 12/11/17 16:00 97.1 56 18 155/72 (99) 93 I/O 12/11/17 12/11/17 12/11/17 12/12/17 12/12/17 12/12/17 07:00 15:00 23:00 07:00 15:00 23:00 Intake Total 540 ml 110 ml Output Total 400 ml 300 ml Balance -400 ml 240 ml 110 ml Intake Oral 540 ml IV Total 110 ml Output Urine Total 400 ml 300 ml # Voids 2 # Bowel Movements 0 0 Result Diagram: 12/10/17 0711 12/10/17 0711 Objective Remarks GENERAL: NAD SKIN: Warm and dry. HEAD: Normocephalic. EYES: No scleral icterus. No injection or drainage. NECK: Supple, trachea midline. No JVD or lymphadenopathy. CARDIOVASCULAR: Regular rate and rhythm without murmurs, gallops, or rubs. RESPIRATORY: Breath sounds equal bilaterally. No accessory muscle use. GASTROINTESTINAL: Abdomen soft, non-tender, nondistended. MUSCULOSKELETAL: No cyanosis, or edema. BACK: Nontender without obvious deformity. No CVA tenderness. Procedures NONE A/P Problem List: (1) Congestive heart failure ICD Code: I50.9 - Heart failure, unspecified Status: Acute Assessment and Plan 77-year-old man with Acute CHF - CXR shows mild consolidation and small effusions of both bases; BNP 601. - Lasix 40 mg IV BID, Diuril on Hold -2-D echo with EF 60-65%. Acute on chronic renal insufficiency - avoid nephrotoxins - ON IV LASIX - Appreciate nephrology assistance. COPD - Duo nebulizer q6h ATC and q4h PRN shortness of breath/wheezing - supplemental oxygen as above Type 2 diabetes mellitus - accu checks AC and HS with low dose Novolog sliding scale coverage - monitor trends in blood glucose and adjust treatment accordingly - hold home basal insulin; resume pending blood glucose trends Hypertension - continue home antihypertensives Anemia and thrombocytopenia - no recent labs for comparison (was 11.2 and 204, 000 respectively on 07/01/16) Appreciate input from hematology s/p Venofer transfusion then consider Procrit CHRONIC DEMENTIA- MONITOR PCM- POOR ORAL INTAKE GIVE GLUCERNA DVT prophylaxis - Heparin 5000 units subq q8h Check CBC, BMP Problem Qualifiers (1) Congestive heart failure: Qualified Codes: I50.9 - Heart failure, unspecified Cal Cabrera MD Dec 12, 2017 12:25
--- NOTE | 2017-12-12 12:37 | HHI.NPPN ---
Subjective General Problems: Anemia Renal Failure: Chronic, Acute, Stage III History of Present Illness Patient is a 77 year-old male resident of [facility] with a history of Type 2 DM, COPD, CHF, CVA, dementia, MT, CAD, Hyperlipidemia, Hypertension, bleeding gastric ulcer, prostate CA, nephrolithiasis, and arthritis who presented to the ER on 12/04/17 for evaluation of severe shortness of breath and edema. Consulted today for ALISSON with creatinine level of 2.58 with a GFR of 30 ml/min. On 07/03/16 GFR was noted to be 51 ml/min. Additional Remarks Patient is resting comfortably. No SOB noted. Brother at bedside (Madisyn Mehta) Objective Data Data 12/12/17 12/13/17 19:00 07:00 Intake Total 110 ml Balance 110 ml IV Total 110 ml Vital Signs Date Time Temp Pulse Resp B/P (MAP) Pulse Ox O2 Delivery O2 Flow Rate FiO2 12/12/17 09:48 Nasal Cannula 4.00 35 12/12/17 09:01 93 Nasal Cannula 4.00 12/12/17 08:00 97.3 65 20 165/74 (104) 92 12/12/17 04:00 97.3 76 18 138/67 (90) 93 12/12/17 03:47 55 12/12/17 00:00 97.4 55 20 131/58 (82) 95 12/11/17 23:46 55 12/11/17 20:23 Nasal Cannula 3.00 12/11/17 20:00 97.9 64 18 155/70 (98) 91 12/11/17 19:46 62 12/11/17 17:27 95 Nasal Cannula 5.00 12/11/17 16:00 97.1 56 18 155/72 (99) 93 (Madisyn Mehta) -: 12/10/17 0711 12/10/17 0711 Physical Exam General Appearance: No Acute Distress, Comfortable (Madisyn Mehta) Eyes Eye Exam: Pupils Equal (Madisyn Mehta) Pulmonary Resp Exam: Breath Sounds Equal, No Distress, Decreased Bases (Madisyn Mehta) Cardiology CV Exam: Normal Sinus Rhythm (Madisyn Mehta) Gastrointestinal/Abdomen GI Exam: Soft, Non-Tender, Bowel Sounds Present (Madisyn Mehta) Genitourinary Exam: Flank Non-Tender (Madisyn Mehta) Integumentary Skin Exam: Clear, Warm, Lesion(s) (Madisyn Mehta) Extremeties Extremities Exam: Trace Edema (Madisyn Mehta) Neurologic Neuro Exam: Awake (Madisyn Mehta) Assessment/Plan Problem List: (1) ALISSON (acute kidney injury) ICD Codes: N17.9 - Acute kidney failure, unspecified Plan: ALISSON on CKD may be related to poor PO intake. CKD stage 3 with GFR on 07/03/16 51 ml/min most likely related to diabetic nephropathy and HTN Renal US: . Small amount of ascites along the hepatic convexity otherwise, kidneys and bladder are sonographically normal. Trace proteinuria and blood noted in UA Plan Maintain strict I+O Continue Lasix Anemia most likely chronic disease on Aranesp monthly receiving IV iron replacement Hypertensive TAM on hold will increase metoprolol Follow urine out put and BMP. Labs pending today Patient is more alert (2) Anemia ICD Codes: D64.9 - Anemia, unspecified Plan: Continue Aranesp hematology workup IV iron replacement (3) Diabetes Mellitus Plan: Maintain BS between 140mg/dl to 180 mg/dl On insulin (4) Hypertension Plan: Well controlled continue same (5) Congestive heart failure ICD Codes: I50.9 - Heart failure, unspecified Status: Acute (Madisyn Mehta) Problem List: (1) ALISSON (acute kidney injury) ICD Codes: N17.9 - Acute kidney failure, unspecified Plan: ALISSON on CKD may be related to poor PO intake. CKD stage 3 with GFR on 07/03/16 51 ml/min most likely related to diabetic nephropathy and HTN Renal US: . Small amount of ascites along the hepatic convexity otherwise, kidneys and bladder are sonographically normal. Trace proteinuria and blood noted in UA Plan Maintain strict I+O Continue Lasix Anemia most likely chronic disease on Aranesp monthly receiving IV iron replacement Hypertensive TAM on hold will increase metoprolol Follow urine out put and BMP. Labs pending today Patient is more alert. Patient seen and examined, agree with above. Increase Creatinine, will decrease Lasix. (2) Anemia ICD Codes: D64.9 - Anemia, unspecified Plan: Continue Aranesp hematology workup IV iron replacement (3) Diabetes Mellitus Plan: Maintain BS between 140mg/dl to 180 mg/dl On insulin (4) Hypertension Plan: Well controlled continue same (5) Congestive heart failure ICD Codes: I50.9 - Heart failure, unspecified Status: Acute (Olegario Brush MD) Problem Qualifiers (1) Congestive heart failure: Qualified Codes: I50.9 - Heart failure, unspecified Madisyn Mehta Dec 12, 2017 12:37 Olegario Brush MD Dec 12, 2017 21:09
[2017-12-12 14:15] LABS: AUTOMATED NEUTROPHIL # 4.3 TH/MM3 (1.8-7.7); BASOPHIL % 0.5 % (0.0-2.0); EOSINOPHIL # 0.1 TH/MM3 (0-0.4); HEMATOCRIT 22.1 % (39.0-51.0); HEMOGLOBIN 7.1 GM/DL (13.0-17.0); LYMPH % 11.2 % (9.0-44.0); LYMPHOCYTE # 0.6 TH/MM3 (1.0-4.8); MEAN CELL VOLUME 97.9 FL (80.0-100.0); MEAN CORPUSCULAR HEMOGLOBIN 31.6 PG (27.0-34.0); MEAN CORPUSCULAR HGB CONC 32.3 % (32.0-36.0); MEAN PLATELET VOLUME 9.9 FL (7.0-11.0); MONO % 7.8 % (0.0-8.0); MONOCYTE # 0.4 TH/MM3 (0-0.9); NEUT % 79.5 % (16.0-70.0); PLATELET COUNT 107 TH/MM3 (150-450); RED BLOOD COUNT 2.25 MIL/MM3 (4.50-5.90); RED CELL DISTRIBUTION WIDTH 17.8 % (11.6-17.2); WHITE BLOOD COUNT 5.4 TH/MM3 (4.0-11.0)
[2017-12-12 14:36] LABS: BICARBONATE 30.2 MEQ/L (21.0-32.0); CALCIUM 8.4 MG/DL (8.5-10.1)
[2017-12-12 14:37] LABS: CREATININE 2.94 MG/DL (0.60-1.30)
--- NOTE | 2017-12-12 20:19 | PD.ONC.PN ---
Subjective Subjective Remarks more awake and alert asking for his hearing aids tolerating iron infusions anasarca noted Objective Data Date Time Temp Pulse Resp B/P (MAP) Pulse Ox O2 Delivery O2 Flow Rate FiO2 12/12/17 16:00 58 12/12/17 16:00 97.7 59 22 130/63 (85) 100 12/12/17 12:00 69 12/12/17 12:00 97.6 69 20 159/68 (98) 92 12/12/17 09:48 Nasal Cannula 4.00 35 12/12/17 09:01 93 Nasal Cannula 4.00 12/12/17 08:00 97.3 65 20 165/74 (104) 92 12/12/17 04:00 97.3 76 18 138/67 (90) 93 12/12/17 03:47 55 12/12/17 00:00 97.4 55 20 131/58 (82) 95 12/11/17 23:46 55 12/11/17 20:23 Nasal Cannula 3.00 12/12/17 12/12/17 12/12/17 07:00 15:00 23:00 Intake Total 110 ml 1080 ml Balance 110 ml 1080 ml Result Diagram: 12/12/17 1333 12/12/17 1333 Laboratory Results Laboratory Tests Test 12/12/17 13:33 White Blood Count 5.4 TH/MM3 Red Blood Count 2.25 MIL/MM3 Hemoglobin 7.1 GM/DL Hematocrit 22.1 % Mean Corpuscular Volume 97.9 FL Mean Corpuscular Hemoglobin 31.6 PG Mean Corpuscular Hemoglobin Concent 32.3 % Red Cell Distribution Width 17.8 % Platelet Count 107 TH/MM3 Mean Platelet Volume 9.9 FL Neutrophils (%) (Auto) 79.5 % Lymphocytes (%) (Auto) 11.2 % Monocytes (%) (Auto) 7.8 % Eosinophils (%) (Auto) 1.0 % Basophils (%) (Auto) 0.5 % Neutrophils # (Auto) 4.3 TH/MM3 Lymphocytes # (Auto) 0.6 TH/MM3 Monocytes # (Auto) 0.4 TH/MM3 Eosinophils # (Auto) 0.1 TH/MM3 Basophils # (Auto) 0.0 TH/MM3 CBC Comment DIFF FINAL Differential Comment Blood Urea Nitrogen 60 MG/DL Creatinine 2.94 MG/DL Random Glucose 223 MG/DL Calcium Level 8.4 MG/DL Sodium Level 137 MEQ/L Potassium Level 3.9 MEQ/L Chloride Level 99 MEQ/L Carbon Dioxide Level 30.2 MEQ/L Anion Gap 8 MEQ/L Estimat Glomerular Filtration Rate 25 ML/MIN Administered Medications Medications (Trade) Dose Ordered Sig/Martha Route PRN Reason Start Time Stop Time Status Last Admin Dose Admin Sodium Chloride (NS Flush) 2 ml UNSCH PRN IV FLUSH FLUSH AFTER USING IV ACCESS 12/05/17 01:00 12/05/17 17:41 Sodium Chloride (NS Flush) 2 ml BID IV FLUSH 12/05/17 09:00 12/12/17 09:20 Heparin Sodium (Porcine) (Heparin Inj) 5,000 units Q8H SQ 12/05/17 06:00 12/12/17 13:15 Furosemide (Lasix Inj) 40 mg BID@18 IV PUSH 12/05/17 09:00 12/12/17 17:18 Amlodipine Besylate (Norvasc) 10 mg DAILY PO 12/05/17 09:00 12/12/17 09:20 Aspirin (Aspirin Chew) 81 mg DAILY CHEW 12/05/17 09:00 12/12/17 09:21 Atorvastatin Calcium (Lipitor) 40 mg HS PO 12/05/17 21:00 12/11/17 20:18 Lisinopril (Prinivil) 10 mg DAILY PO 12/05/17 09:00 Future Hold 12/08/17 08:03 Memantine (Namenda) 10 mg BID PO 12/05/17 09:00 12/12/17 09:20 Sertraline HCl (Zoloft) 50 mg DAILY PO 12/05/17 09:00 12/12/17 09:20 Tamsulosin HCl (Flomax) 0.4 mg HS PO 12/05/17 21:00 12/11/17 20:18 Pantoprazole Sodium (Protonix) 40 mg DAILY PO 12/05/17 09:00 12/12/17 09:21 Insulin Aspart (NovoLOG SUPPLEMENTAL SCALE) 1 ACHS SLIDING SCALE SQ 12/05/17 08:00 12/12/17 17:17 Albuterol/ Ipratropium (Duoneb Neb) 1 ampule Q4HR NEB PRN NEB SOB/WHEEZING 12/05/17 01:00 12/07/17 00:32 Ferrous Sulfate (Ferrous Sulfate) 325 mg DAILY PO 12/06/17 09:00 12/12/17 09:20 Acetaminophen (Tylenol) 650 mg Q6H PRN PO PAIN SCALE 1 TO 2 12/07/17 11:45 12/07/17 11:50 Oxycodone/ Acetaminophen (Percocet 5-325 Mg) 1 tab Q6H PRN PO PAIN SCALE 3 TO 5 12/07/17 11:45 12/10/17 21:40 Senna/Docusate Sodium (Rebeca-Colace) 1 tab BID PO 12/07/17 21:00 12/12/17 09:21 Chlorothiazide (Diuril) 250 mg DAILY PO 12/08/17 14:00 12/12/17 09:45 Metoprolol Tartrate (Lopressor) 50 mg BID PO 12/09/17 21:00 12/12/17 09:21 Objective Remarks GENERAL:nad, chronically ill appearing SKIN: Warm and dry. LYMPHATIC: No adenopathy. CARDIOVASCULAR: Regular rate and rhythm without murmurs. RESPIRATORY: Breath sounds equal bilaterally. No accessory muscle use. GASTROINTESTINAL: Abdomen soft, non-tender, nondistended. EXTREMITIES: No cyanosis, edematous Assessment/Plan Problem List: (1) Thrombocytopenia ICD Codes: D69.6 - Thrombocytopenia, unspecified (2) CKD (chronic kidney disease) requiring chronic dialysis ICD Codes: N18.6 - End stage renal failure on dialysis; Z99.2 - Dependence on renal dialysis Status: Acute (3) Anemia ICD Codes: D64.9 - Anemia, unspecified Assessment 77-year-old male who is chronically ill. He is a resident of a residential facility. He has multiple medical problems as stated above, including diabetes , hypertension, chronic kidney disease, coronary artery disease, history of CVA , dementia. I am being asked to evaluate this patient's anemia and thrombocytopenia. 1. Normocytic anemia in a chronically ill patient with a background of chronic kidney disease and iron deficiency - continue iron infusions- - Hepatitis panel negative - no evidence of hemolysis - stool heme-occult pending - Hb drop to 7.1. transfuse 1 unit of prbc - Procrit injection in am - start folic acid , vitamin c 2. Thrombocytopenia which appears to be chronic at least dating back to 2012. ( EMR reviewed) - no evidence of DIC or TTP - could be due to chronic debility or mild chronic ITP 3. Acute on chronic kidney disease currently being managed by nephrology. Bryson Lay MD Dec 12, 2017 20:19
[2017-12-12] MEDS: TAMSULOSIN HCL 0.4 MG CAP PO SCH (21:03)
[2017-12-12] MEDS: ATORVASTATIN 40 MG TAB PO SCH (21:03)
[2017-12-12] MEDS: FOLIC ACID 1 MG TAB PO SCH (22:45)
[2017-12-13] VITALS (15 sets, daily range): BP systolic 103–151; BP diastolic 51–68; PULSE 52–65; RESP 16–20; TEMP 96.8–99.1; O2SAT 92–100
[2017-12-13] MEDS ORDERED: ACETAMINOPHEN 325 MG TAB PO ONE (00:15)
[2017-12-13] MEDS ORDERED: diphenhydrAMINE HCL 25 MG CAP PO ONE (00:15)
[2017-12-13] MEDS ORDERED: ACETAMINOPHEN 325 MG TAB PO PRN (00:30)
[2017-12-13] MEDS ORDERED: diphenhydrAMINE HCL 25 MG CAP PO PRN (00:30)
[2017-12-13] MEDS: HEPARIN SODIUM - SQ 10,000 UNITS/ML VIAL SQ SCH ×3 (05:07→21:10)
[2017-12-13] MEDS: INSULIN ASPART SUPPLEMENTAL SCALE SQ SCH ×4 (08:00→21:09)
[2017-12-13] MEDS ORDERED: EPOETIN ALFA 20,000 UNITS/ML VIAL SQ ONE (08:00)
[2017-12-13] MEDS: SERTRALINE HCL 50 MG TAB PO SCH (08:48)
[2017-12-13] MEDS: FOLIC ACID 1 MG TAB PO SCH (08:48)
[2017-12-13] MEDS: METOPROLOL TARTRATE 50 MG TAB PO SCH ×2 (08:48→21:08)
[2017-12-13] MEDS: PANTOPRAZOLE SOD 40 MG DELAYED RELEASE TAB PO SCH (08:48)
[2017-12-13] MEDS: MEMANTINE HCL 10 MG TAB PO SCH ×2 (08:49→21:08)
[2017-12-13] MEDS: ASPIRIN 81 MG CHEW TAB CHEW SCH (08:49)
[2017-12-13] MEDS: CHLOROTHIAZIDE 250 MG TAB PO SCH (08:49)
[2017-12-13] MEDS: SODIUM CHLORIDE 0.9% FLUSH 10 ML FLUSH IV FLUSH SCH ×2 (08:52→21:07)
[2017-12-13] MEDS: FERROUS SULFATE 325 MG (65 MG ELEMENTAL IRON) TAB PO SCH (09:00)
[2017-12-13] MEDS: VITAMIN B COMPLEX/VIT C TAB PO SCH (09:00)
[2017-12-13] MEDS ORDERED: FUROSEMIDE 40 MG/4 ML VIAL IV PUSH SCH (09:00)
[2017-12-13] MEDS: DOCUSATE SODIUM 50 MG/SENNA 8.6 MG TAB PO SCH ×2 (09:00→21:08)
--- NOTE | 2017-12-13 12:40 | HHI.PR ---
Subjective Remarks Follow up Acute CHF exacerbation/acute on chronic kidney disease 12/10/17-patient seen and examined, denies any chest pain or shortness of breath urine H&H although low but stable. He denies any bleeding. 12/11/17-patient seen and examined, no acute event overnight. Denies any significant shortness of breath. 12/12/17-patient seen and examined, resting comfortably and denies any shortness of breath. 12/13/17-patient seen and examined, stable, was transfused 1 unit packed red blood cell yesterday. CBC and BMP pending this morning Objective Vitals Vital Signs Date Time Temp Pulse Resp B/P (MAP) Pulse Ox O2 Delivery O2 Flow Rate FiO2 12/13/17 08:00 97.8 57 18 120/56 (77) 92 12/13/17 04:50 98.5 57 20 115/56 98 12/13/17 03:48 56 12/13/17 03:07 98.4 56 18 118/56 99 12/13/17 03:07 98.4 56 18 118/56 (76) 99 12/13/17 02:02 98.7 56 20 113/56 99 12/13/17 01:44 99.1 56 20 114/53 99 12/13/17 01:19 98.7 57 20 124/58 100 12/13/17 00:36 99.1 55 18 103/51 (68) 92 12/13/17 00:02 55 12/13/17 00:00 Nasal Cannula 4.00 12/12/17 21:43 98.4 58 18 109/55 (73) 94 12/12/17 20:05 59 12/12/17 20:00 Nasal Cannula 3.00 12/12/17 16:00 58 12/12/17 16:00 97.7 59 22 130/63 (85) 100 I/O 12/12/17 12/12/17 12/12/17 12/13/17 12/13/17 12/13/17 06:59 14:59 22:59 06:59 14:59 22:59 Intake Total 110 ml 1080 ml 850 ml Output Total 800 ml Balance 110 ml 1080 ml 50 ml Intake Oral 1080 ml IV Total 110 ml Packed Cells 400 ml Blood Product IV Normal Saline Flush 450 ml Output Urine Total 800 ml # Voids 2 3 1 # Bowel Movements 2 Result Diagram: 12/12/17 1333 12/12/17 1333 Objective Remarks GENERAL: NAD SKIN: Warm and dry. HEAD: Normocephalic. EYES: No scleral icterus. No injection or drainage. NECK: Supple, trachea midline. No JVD or lymphadenopathy. CARDIOVASCULAR: Regular rate and rhythm without murmurs, gallops, or rubs. RESPIRATORY: Breath sounds equal bilaterally. No accessory muscle use. GASTROINTESTINAL: Abdomen soft, non-tender, nondistended. MUSCULOSKELETAL: No cyanosis, or edema. BACK: Nontender without obvious deformity. No CVA tenderness. Procedures NONE A/P Problem List: (1) Congestive heart failure ICD Code: I50.9 - Heart failure, unspecified Status: Acute Assessment and Plan 77-year-old man with Acute CHF - CXR shows mild consolidation and small effusions of both bases; BNP 601. - Lasix 40 mg IV BID, Diuril on Hold -2-D echo with EF 60-65%. Acute on chronic renal insufficiency -Renal indices worsening - avoid nephrotoxins - ON IV LASIX - Appreciate nephrology assistance. COPD - Duo nebulizer q6h ATC and q4h PRN shortness of breath/wheezing - supplemental oxygen as above Type 2 diabetes mellitus - accu checks AC and HS with low dose Novolog sliding scale coverage - Resume home basal insulin Hypertension - continue home antihypertensives Anemia and thrombocytopenia - no recent labs for comparison (was 11.2 and 204, 000 respectively on 07/01/16) -Appreciate input from hematology -s/p Venofer transfusion then Procrit today 12/13/17 -Transfused 1 unit PRBC 12/12/17 CHRONIC DEMENTIA- MONITOR PCM- POOR ORAL INTAKE GIVE GLUCERNA DVT prophylaxis - Heparin 5000 units subq q8h Problem Qualifiers (1) Congestive heart failure: Qualified Codes: I50.9 - Heart failure, unspecified Cal Cabrera MD Dec 13, 2017 12:40
--- NOTE | 2017-12-13 17:59 | HHI.NPPN ---
Subjective General Problems: Anemia Renal Failure: Chronic, Acute, Stage III History of Present Illness Patient is a 77 year-old male resident of [facility] with a history of Type 2 DM, COPD, CHF, CVA, dementia, IA, CAD, Hyperlipidemia, Hypertension, bleeding gastric ulcer, prostate CA, nephrolithiasis, and arthritis who presented to the ER on 12/04/17 for evaluation of severe shortness of breath and edema. Consulted today for ALISSON with creatinine level of 2.58 with a GFR of 30 ml/min. On 07/03/16 GFR was noted to be 51 ml/min. Additional Remarks Patient is resting comfortably. No SOB noted. Brother at bedside Objective Data Data 12/13/17 12/14/17 19:00 07:00 Intake Total 560 ml Balance 560 ml Intake Oral 560 ml # Voids 5 # Bowel Movements 0 Vital Signs Date Time Temp Pulse Resp B/P (MAP) Pulse Ox O2 Delivery O2 Flow Rate FiO2 12/13/17 17:24 93 Nasal Cannula 4.00 12/13/17 16:00 98.0 62 16 136/68 (90) 93 12/13/17 12:00 96.8 60 18 121/58 (79) 93 12/13/17 08:00 97.8 57 18 120/56 (77) 92 12/13/17 04:50 98.5 57 20 115/56 98 12/13/17 03:48 56 12/13/17 03:07 98.4 56 18 118/56 99 12/13/17 03:07 98.4 56 18 118/56 (76) 99 12/13/17 02:02 98.7 56 20 113/56 99 12/13/17 01:44 99.1 56 20 114/53 99 12/13/17 01:19 98.7 57 20 124/58 100 12/13/17 00:36 99.1 55 18 103/51 (68) 92 12/13/17 00:02 55 12/13/17 00:00 Nasal Cannula 4.00 12/12/17 21:43 98.4 58 18 109/55 (73) 94 12/12/17 20:05 59 12/12/17 20:00 Nasal Cannula 3.00 -: 12/12/17 1333 12/12/17 1333 Physical Exam General Appearance: No Acute Distress, Comfortable Eyes Eye Exam: Pupils Equal Pulmonary Resp Exam: Breath Sounds Equal, No Distress, Decreased Bases Cardiology CV Exam: Normal Sinus Rhythm Gastrointestinal/Abdomen GI Exam: Soft, Non-Tender, Bowel Sounds Present Genitourinary Exam: Flank Non-Tender Integumentary Skin Exam: Clear, Warm, Lesion(s) Extremeties Extremities Exam: Trace Edema Neurologic Neuro Exam: Awake Assessment/Plan Problem List: (1) ALISSON (acute kidney injury) ICD Codes: N17.9 - Acute kidney failure, unspecified Plan: ALISSON on CKD may be related to poor PO intake. CKD stage 3 with GFR on 07/03/16 51 ml/min most likely related to diabetic nephropathy and HTN Renal US: . Small amount of ascites along the hepatic convexity otherwise, kidneys and bladder are sonographically normal. Trace proteinuria and blood noted in UA Plan Maintain strict I+O discontinue Lasix as Cr higher Anemia most likely chronic disease on Aranesp monthly receiving IV iron replacement Hypertensive TAM on hold will increase metoprolol Follow urine out put and BMP. (2) Anemia ICD Codes: D64.9 - Anemia, unspecified Plan: Continue Aranesp hematology workup IV iron replacement (3) Diabetes Mellitus Plan: Maintain BS between 140mg/dl to 180 mg/dl On insulin (4) Hypertension Plan: Well controlled continue same (5) Congestive heart failure ICD Codes: I50.9 - Heart failure, unspecified Status: Acute Problem Qualifiers (1) Congestive heart failure: Qualified Codes: I50.9 - Heart failure, unspecified Liliana Georges MD Dec 13, 2017 17:59
[2017-12-13] MEDS: ATORVASTATIN 40 MG TAB PO SCH (21:08)
[2017-12-13] MEDS: TAMSULOSIN HCL 0.4 MG CAP PO SCH (21:09)
[2017-12-13] MEDS: INSULIN DETEMIR 100 UNITS/ML VIAL SQ SCH (21:09)
[2017-12-13 21:55] LABS: AUTOMATED NEUTROPHIL # 4.2 TH/MM3 (1.8-7.7); BASOPHIL # 0.1 TH/MM3 (0-0.2); BASOPHIL % 0.9 % (0.0-2.0); EOSINOPHIL # 0.1 TH/MM3 (0-0.4); EOSINOPHIL % 1.8 % (0.0-4.0); HEMATOCRIT 25.8 % (39.0-51.0); HEMOGLOBIN 8.4 GM/DL (13.0-17.0); LYMPH % 17.3 % (9.0-44.0); MEAN CELL VOLUME 93.6 FL (80.0-100.0); MEAN CORPUSCULAR HEMOGLOBIN 30.5 PG (27.0-34.0); MEAN CORPUSCULAR HGB CONC 32.6 % (32.0-36.0); MEAN PLATELET VOLUME 9.2 FL (7.0-11.0); MONOCYTE # 0.6 TH/MM3 (0-0.9); PLATELET COUNT 117 TH/MM3 (150-450); RED BLOOD COUNT 2.76 MIL/MM3 (4.50-5.90); RED CELL DISTRIBUTION WIDTH 21.9 % (11.6-17.2)
[2017-12-13 22:16] LABS: BICARBONATE 31.8 MEQ/L (21.0-32.0); CALCIUM 8.3 MG/DL (8.5-10.1); CREATININE 3.45 MG/DL (0.60-1.30)
[2017-12-14] VITALS (10 sets, daily range): BP systolic 114–172; BP diastolic 58–80; PULSE 48–83; RESP 16–21; TEMP 97–98; O2SAT 93–99
[2017-12-14] MEDS: HEPARIN SODIUM - SQ 10,000 UNITS/ML VIAL SQ SCH ×3 (06:46→21:17)
[2017-12-14] MEDS: INSULIN ASPART SUPPLEMENTAL SCALE SQ SCH ×4 (08:00→21:17)
[2017-12-14] MEDS ORDERED: FUROSEMIDE 40 MG TAB PO SCH (09:00)
[2017-12-14] MEDS: SERTRALINE HCL 50 MG TAB PO SCH (09:42)
[2017-12-14] MEDS: FERROUS SULFATE 325 MG (65 MG ELEMENTAL IRON) TAB PO SCH (09:42)
[2017-12-14] MEDS: PANTOPRAZOLE SOD 40 MG DELAYED RELEASE TAB PO SCH (09:42)
[2017-12-14] MEDS: MEMANTINE HCL 10 MG TAB PO SCH ×2 (09:42→21:17)
[2017-12-14] MEDS: VITAMIN B COMPLEX/VIT C TAB PO SCH (09:42)
[2017-12-14] MEDS: FOLIC ACID 1 MG TAB PO SCH (09:42)
[2017-12-14] MEDS: ASPIRIN 81 MG CHEW TAB CHEW SCH (09:43)
[2017-12-14] MEDS: CHLOROTHIAZIDE 250 MG TAB PO SCH (09:43)
[2017-12-14] MEDS: SODIUM CHLORIDE 0.9% FLUSH 10 ML FLUSH IV FLUSH SCH ×2 (09:43→21:00)
[2017-12-14] MEDS: METOPROLOL TARTRATE 50 MG TAB PO SCH ×2 (09:43→21:16)
[2017-12-14] MEDS: DOCUSATE SODIUM 50 MG/SENNA 8.6 MG TAB PO SCH ×2 (09:44→21:17)
--- NOTE | 2017-12-14 10:46 | HHI.PR ---
Subjective Remarks Follow up Acute CHF exacerbation/acute on chronic kidney disease 12/10/17-patient seen and examined, denies any chest pain or shortness of breath urine H&H although low but stable. He denies any bleeding. 12/11/17-patient seen and examined, no acute event overnight. Denies any significant shortness of breath. 12/12/17-patient seen and examined, resting comfortably and denies any shortness of breath. 12/13/17-patient seen and examined, stable, was transfused 1 unit packed red blood cell yesterday. CBC and BMP pending this morning 12/14/17-patient seen and examined, and this is worsening and patient currently off Lasix. No acute event overnight. Afebrile. Objective Vitals Vital Signs Date Time Temp Pulse Resp B/P (MAP) Pulse Ox O2 Delivery O2 Flow Rate FiO2 12/14/17 10:02 97 12/14/17 09:15 97.3 51 20 142/72 (95) 97 12/14/17 04:00 98.0 49 19 114/58 (76) 99 12/14/17 04:00 Room Air 12/14/17 03:49 48 12/14/17 00:00 97.4 52 21 120/66 (84) 93 12/14/17 00:00 Room Air 12/13/17 23:49 52 12/13/17 20:00 97.7 65 20 151/61 (91) 96 12/13/17 20:00 Room Air 12/13/17 19:54 64 12/13/17 17:24 93 Nasal Cannula 4.00 12/13/17 16:00 98.0 62 16 136/68 (90) 93 12/13/17 12:00 96.8 60 18 121/58 (79) 93 I/O 12/13/17 12/13/17 12/13/17 12/14/17 12/14/17 12/14/17 07:00 15:00 23:00 07:00 15:00 23:00 Intake Total 850 ml 560 ml 200 ml Output Total 800 ml 300 ml Balance 50 ml 560 ml -100 ml Intake Oral 560 ml 200 ml Packed Cells 400 ml Blood Product IV Normal Saline Flush 450 ml Output Urine Total 800 ml 300 ml # Voids 1 5 5 # Bowel Movements 2 0 1 Result Diagram: 12/13/17213912/13/172139 Objective Remarks GENERAL: NAD SKIN: Warm and dry. HEAD: Normocephalic. EYES: No scleral icterus. No injection or drainage. NECK: Supple, trachea midline. No JVD or lymphadenopathy. CARDIOVASCULAR: Regular rate and rhythm without murmurs, gallops, or rubs. RESPIRATORY: Breath sounds equal bilaterally. No accessory muscle use. GASTROINTESTINAL: Abdomen soft, non-tender, nondistended. MUSCULOSKELETAL: No cyanosis, or edema. BACK: Nontender without obvious deformity. No CVA tenderness. Procedures NONE A/P Problem List: (1) Congestive heart failure ICD Code: I50.9 - Heart failure, unspecified Status: Acute Assessment and Plan 77-year-old man with Acute CHF - CXR shows mild consolidation and small effusions of both bases; BNP 601. -2/2 worsening renal function, Lasix has been discontinued, Diuril on Hold -2-D echo with EF 60-65%. Acute on chronic renal insufficiency -Renal indices worsening - avoid nephrotoxins - off LASIX - Appreciate nephrology assistance. COPD - Duo nebulizer q6h ATC and q4h PRN shortness of breath/wheezing - supplemental oxygen as above Type 2 diabetes mellitus - accu checks AC and HS with low dose Novolog sliding scale coverage - Continue home basal insulin Hypertension - continue home antihypertensives Anemia and thrombocytopenia - no recent labs for comparison (was 11.2 and 204, 000 respectively on 07/01/16) -Appreciate input from hematology -s/p Venofer transfusion then Procrit 12/13/17 -Transfused 1 unit PRBC 12/12/17 -H&H stable CHRONIC DEMENTIA- MONITOR PCM- POOR ORAL INTAKE GIVE GLUCERNA DVT prophylaxis - Heparin 5000 units subq q8h Problem Qualifiers (1) Congestive heart failure: Qualified Codes: I50.9 - Heart failure, unspecified Cal Cabrera MD Dec 14, 2017 10:46
--- NOTE | 2017-12-14 16:17 | HHI.NPPN ---
Subjective General Problems: Anemia Renal Failure: Chronic, Acute, Stage III History of Present Illness Patient is a 77 year-old male resident of [facility] with a history of Type 2 DM, COPD, CHF, CVA, dementia, [place], CAD, Hyperlipidemia, Hypertension, bleeding gastric ulcer, prostate CA, nephrolithiasis, and arthritis who presented to the ER on 12/04/17 for evaluation of severe shortness of breath and edema. Consulted today for ALISSON with creatinine level of 2.58 with a GFR of 30 ml/min. On 07/03/16 GFR was noted to be 51 ml/min. Additional Remarks Patient is resting comfortably. No SOB noted. Brother at bedside Objective Data Data Vital Signs Date Time Temp Pulse Resp B/P (MAP) Pulse Ox O2 Delivery O2 Flow Rate FiO2 12/14/17 13:05 97.0 54 20 161/74 (103) 99 12/14/17 10:02 97 12/14/17 09:15 97.3 51 20 142/72 (95) 97 12/14/17 04:00 98.0 49 19 114/58 (76) 99 12/14/17 04:00 Room Air 12/14/17 03:49 48 12/14/17 00:00 97.4 52 21 120/66 (84) 93 12/14/17 00:00 Room Air 12/13/17 23:49 52 12/13/17 20:00 97.7 65 20 151/61 (91) 96 12/13/17 20:00 Room Air 12/13/17 19:54 64 12/13/17 17:24 93 Nasal Cannula 4.00 -: 12/13/17 2140 12/13/17 2140 Physical Exam General Appearance: No Acute Distress, Comfortable Eyes Eye Exam: Pupils Equal Pulmonary Resp Exam: Breath Sounds Equal, No Distress, Decreased Bases Cardiology CV Exam: Normal Sinus Rhythm Gastrointestinal/Abdomen GI Exam: Soft, Non-Tender, Bowel Sounds Present Genitourinary Exam: Flank Non-Tender Integumentary Skin Exam: Clear, Warm, Lesion(s) Extremeties Extremities Exam: Trace Edema Neurologic Neuro Exam: Awake Assessment/Plan Problem List: (1) ALISSON (acute kidney injury) ICD Codes: N17.9 - Acute kidney failure, unspecified Plan: ALISSON on CKD may be related to poor PO intake. CKD stage 3 with GFR on 07/03/16 51 ml/min most likely related to diabetic nephropathy and HTN Renal US: . Small amount of ascites along the hepatic convexity otherwise, kidneys and bladder are sonographically normal. Trace proteinuria and blood noted in UA Plan Maintain strict I+O discontinue Lasix as Cr higher give NS CR 3.45 Anemia most likely chronic disease on Aranesp monthly receiving IV iron replacement Hypertensive TAM on hold will increase metoprolol Follow urine out put and BMP. Dr. Brush to follow (2) Anemia ICD Codes: D64.9 - Anemia, unspecified Plan: Continue Aranesp hematology workup IV iron replacement (3) Diabetes Mellitus Plan: Maintain BS between 140mg/dl to 180 mg/dl On insulin (4) Hypertension Plan: Well controlled continue same (5) Congestive heart failure ICD Codes: I50.9 - Heart failure, unspecified Status: Acute Problem Qualifiers (1) Congestive heart failure: Qualified Codes: I50.9 - Heart failure, unspecified Liliana Georges MD Dec 14, 2017 16:17
[2017-12-14] MEDS: SODIUM CHLOR 0.9% 1000 ML INJ 1,000 ML IV SCH (16:30)
[2017-12-14] MEDS: TAMSULOSIN HCL 0.4 MG CAP PO SCH (21:16)
[2017-12-14] MEDS: ATORVASTATIN 40 MG TAB PO SCH (21:16)
[2017-12-14] MEDS: INSULIN DETEMIR 100 UNITS/ML VIAL SQ SCH (21:17)
[2017-12-15] VITALS (9 sets, daily range): BP systolic 127–171; BP diastolic 62–78; PULSE 51–62; RESP 18–21; TEMP 97.2–98.4; O2SAT 93–99
[2017-12-15] MEDS: HEPARIN SODIUM - SQ 10,000 UNITS/ML VIAL SQ SCH ×3 (06:33→21:56)
[2017-12-15] MEDS: SODIUM CHLOR 0.9% 1000 ML INJ 1,000 ML IV SCH ×2 (06:33→17:06)
[2017-12-15] MEDS: INSULIN ASPART SUPPLEMENTAL SCALE SQ SCH ×4 (08:00→21:55)
[2017-12-15] MEDS: FOLIC ACID 1 MG TAB PO SCH (09:18)
[2017-12-15] MEDS: ASPIRIN 81 MG CHEW TAB CHEW SCH (09:18)
[2017-12-15] MEDS: PANTOPRAZOLE SOD 40 MG DELAYED RELEASE TAB PO SCH (09:18)
[2017-12-15] MEDS: DOCUSATE SODIUM 50 MG/SENNA 8.6 MG TAB PO SCH ×2 (09:18→21:54)
[2017-12-15] MEDS: MEMANTINE HCL 10 MG TAB PO SCH ×2 (09:18→21:54)
[2017-12-15] MEDS: VITAMIN B COMPLEX/VIT C TAB PO SCH (09:18)
[2017-12-15] MEDS: METOPROLOL TARTRATE 50 MG TAB PO SCH ×2 (09:18→21:54)
[2017-12-15] MEDS: SERTRALINE HCL 50 MG TAB PO SCH (09:18)
[2017-12-15] MEDS: CHLOROTHIAZIDE 250 MG TAB PO SCH (09:19)
[2017-12-15] MEDS: SODIUM CHLORIDE 0.9% FLUSH 10 ML FLUSH IV FLUSH SCH ×2 (09:19→21:57)
[2017-12-15] MEDS: FERROUS SULFATE 325 MG (65 MG ELEMENTAL IRON) TAB PO SCH (09:21)
--- NOTE | 2017-12-15 10:29 | HHI.NPPN ---
Subjective General Problems: Anemia Renal Failure: Chronic, Acute, Stage III History of Present Illness Patient is a 77 year-old male resident of [facility] with a history of Type 2 DM, COPD, CHF, CVA, dementia, [place], CAD, Hyperlipidemia, Hypertension, bleeding gastric ulcer, prostate CA, nephrolithiasis, and arthritis who presented to the ER on 12/04/17 for evaluation of severe shortness of breath and edema. Consulted today for ALISSON with creatinine level of 2.58 with a GFR of 30 ml/min. On 07/03/16 GFR was noted to be 51 ml/min. Additional Remarks Patient is resting comfortably. No SOB noted. (Madisyn Mehta) Objective Data Data Vital Signs Date Time Temp Pulse Resp B/P (MAP) Pulse Ox O2 Delivery O2 Flow Rate FiO2 12/15/17 08:00 97.3 57 20 162/68 (99) 97 12/15/17 04:00 Nasal Cannula 3.00 12/15/17 04:00 97.6 52 21 134/67 (89) 96 12/15/17 03:54 51 12/15/17 00:01 52 12/15/17 00:00 Nasal Cannula 3.00 12/15/17 00:00 97.2 52 18 143/68 (93) 99 12/14/17 20:33 63 12/14/17 20:00 Nasal Cannula 3.00 12/14/17 20:00 97.3 67 16 172/80 (110) 95 12/14/17 17:26 97.3 59 20 146/73 (97) 94 12/14/17 13:05 97.0 54 20 161/74 (103) 99 (Madisyn Mehta) -: 12/13/17213912/13/172139 Physical Exam General Appearance: No Acute Distress, Comfortable (Madisyn Mehta) Eyes Eye Exam: Pupils Equal (Madisyn Mehta) Pulmonary Resp Exam: Breath Sounds Equal, No Distress, Decreased Bases (Madisyn Mehta) Cardiology CV Exam: Normal Sinus Rhythm (Madisyn Mehta) Gastrointestinal/Abdomen GI Exam: Soft, Non-Tender, Bowel Sounds Present (Madisyn Mehta) Genitourinary Exam: Flank Non-Tender (Madisyn Mehta) Integumentary Skin Exam: Clear, Warm, Lesion(s) (Madisyn Mehta) Extremeties Extremities Exam: Trace Edema (Madisyn Mehta) Neurologic Neuro Exam: Awake (Madisyn Mehta) Assessment/Plan Problem List: (1) ALISSON (acute kidney injury) ICD Codes: N17.9 - Acute kidney failure, unspecified Plan: ALISSON on CKD may be related to poor PO intake. CKD stage 3 with GFR on 07/03/16 51 ml/min most likely related to diabetic nephropathy and HTN Renal US: . Small amount of ascites along the hepatic convexity otherwise, kidneys and bladder are sonographically normal. Trace proteinuria and blood noted in UA Plan Maintain strict I+O IVF NS 75 ml/hr Anemia most likely chronic disease on Aranesp monthly receiving IV iron replacement Follow urine out put and BMP. Labs pending today (2) Anemia ICD Codes: D64.9 - Anemia, unspecified Plan: Continue Aranesp hematology workup IV iron replacement (3) Diabetes Mellitus Plan: Maintain BS between 140mg/dl to 180 mg/dl On insulin (4) Hypertension Plan: Well controlled continue same (5) Congestive heart failure ICD Codes: I50.9 - Heart failure, unspecified Status: Acute (GabrielMadisyn kelly) Problem List: (1) ALISSON (acute kidney injury) ICD Codes: N17.9 - Acute kidney failure, unspecified Plan: ALISSON on CKD may be related to poor PO intake. CKD stage 3 with GFR on 07/03/16 51 ml/min most likely related to diabetic nephropathy and HTN Renal US: . Small amount of ascites along the hepatic convexity otherwise, kidneys and bladder are sonographically normal. Trace proteinuria and blood noted in UA Plan Maintain strict I+O IVF NS 75 ml/hr Anemia most likely chronic disease on Aranesp monthly receiving IV iron replacement Follow urine out put and BMP. Patient seen and examined, agree with above. Creatinine increase again, possibly pre renal, Continue IVF, encourage oral intake. (2) Anemia ICD Codes: D64.9 - Anemia, unspecified Plan: Continue Aranesp hematology workup IV iron replacement (3) Diabetes Mellitus Plan: Maintain BS between 140mg/dl to 180 mg/dl On insulin (4) Hypertension Plan: Well controlled continue same (5) Congestive heart failure ICD Codes: I50.9 - Heart failure, unspecified Status: Acute (Olegario Brush MD) Problem Qualifiers (1) Congestive heart failure: Qualified Codes: I50.9 - Heart failure, unspecified Madisyn Mehta Dec 15, 2017 10:29 Olegario Brush MD Dec 15, 2017 20:44
--- NOTE | 2017-12-15 10:49 | HHI.PR ---
Subjective Remarks Follow up Acute CHF exacerbation/acute on chronic kidney disease 12/10/17-patient seen and examined, denies any chest pain or shortness of breath urine H&H although low but stable. He denies any bleeding. 12/11/17-patient seen and examined, no acute event overnight. Denies any significant shortness of breath. 12/12/17-patient seen and examined, resting comfortably and denies any shortness of breath. 12/13/17-patient seen and examined, stable, was transfused 1 unit packed red blood cell yesterday. CBC and BMP pending this morning 12/14/17-patient seen and examined, and this is worsening and patient currently off Lasix. No acute event overnight. Afebrile. 12/15/17-patient seen and examined, stable this a.m. and no complaints. Resting comfortably. BMP pending. Objective Vitals Vital Signs Date Time Temp Pulse Resp B/P (MAP) Pulse Ox O2 Delivery O2 Flow Rate FiO2 12/15/17 08:00 97.3 57 20 162/68 (99) 97 12/15/17 04:00 Nasal Cannula 3.00 12/15/17 04:00 97.6 52 21 134/67 (89) 96 12/15/17 03:54 51 12/15/17 00:01 52 12/15/17 00:00 Nasal Cannula 3.00 12/15/17 00:00 97.2 52 18 143/68 (93) 99 12/14/17 20:33 63 12/14/17 20:00 Nasal Cannula 3.00 12/14/17 20:00 97.3 67 16 172/80 (110) 95 12/14/17 17:26 97.3 59 20 146/73 (97) 94 12/14/17 13:05 97.0 54 20 161/74 (103) 99 I/O 12/14/17 12/14/17 12/14/17 12/15/17 12/15/17 12/15/17 07:00 15:00 23:00 07:00 15:00 23:00 Intake Total 200 ml 600 ml 1200 ml Output Total 300 ml 500 ml 300 ml Balance -100 ml 100 ml 900 ml Intake Oral 200 ml 600 ml 200 ml IV Total 1000 ml Output Urine Total 300 ml 500 ml 300 ml # Voids 5 2 # Bowel Movements 1 0 0 Result Diagram: 12/13/17213912/13/172139 Objective Remarks GENERAL: NAD SKIN: Warm and dry. HEAD: Normocephalic. EYES: No scleral icterus. No injection or drainage. NECK: Supple, trachea midline. No JVD or lymphadenopathy. CARDIOVASCULAR: Regular rate and rhythm without murmurs, gallops, or rubs. RESPIRATORY: Breath sounds equal bilaterally. No accessory muscle use. GASTROINTESTINAL: Abdomen soft, non-tender, nondistended. MUSCULOSKELETAL: No cyanosis, or edema. BACK: Nontender without obvious deformity. No CVA tenderness. Procedures NONE A/P Problem List: (1) Congestive heart failure ICD Code: I50.9 - Heart failure, unspecified Status: Acute Assessment and Plan 77-year-old man with Acute CHF - CXR shows mild consolidation and small effusions of both bases; BNP 601. -2/2 worsening renal function, Lasix has been discontinued, Diuril on Hold -2-D echo with EF 60-65%. Acute on chronic renal insufficiency -Renal indices worsening and BMP pending this a.m. - avoid nephrotoxins - off LASIX - Appreciate nephrology assistance. COPD - Duo nebulizer q6h ATC and q4h PRN shortness of breath/wheezing - supplemental oxygen as above Type 2 diabetes mellitus - accu checks AC and HS with low dose Novolog sliding scale coverage - Continue home basal insulin Hypertension - continue home antihypertensives Anemia and thrombocytopenia - no recent labs for comparison (was 11.2 and 204, 000 respectively on 07/01/16) -Appreciate input from hematology -s/p Venofer transfusion then Procrit 12/13/17 -Transfused 1 unit PRBC 12/12/17 -H&H stable CHRONIC DEMENTIA- MONITOR PCM- POOR ORAL INTAKE GIVE GLUCERNA DVT prophylaxis - Heparin 5000 units subq q8h Problem Qualifiers (1) Congestive heart failure: Qualified Codes: I50.9 - Heart failure, unspecified Cal Cabrera MD Dec 15, 2017 10:49
[2017-12-15 16:05] LABS: AUTOMATED NEUTROPHIL # 4.3 TH/MM3 (1.8-7.7); BASOPHIL % 0.8 % (0.0-2.0); EOSINOPHIL # 0.1 TH/MM3 (0-0.4); EOSINOPHIL % 1.7 % (0.0-4.0); HEMOGLOBIN 8.7 GM/DL (13.0-17.0); LYMPH % 12.5 % (9.0-44.0); LYMPHOCYTE # 0.7 TH/MM3 (1.0-4.8); MEAN CELL VOLUME 96.4 FL (80.0-100.0); MEAN CORPUSCULAR HEMOGLOBIN 31.2 PG (27.0-34.0); MEAN CORPUSCULAR HGB CONC 32.4 % (32.0-36.0); MEAN PLATELET VOLUME 9.2 FL (7.0-11.0); MONO % 9.2 % (0.0-8.0); MONOCYTE # 0.5 TH/MM3 (0-0.9); NEUT % 75.8 % (16.0-70.0); PLATELET COUNT 116 TH/MM3 (150-450); RED CELL DISTRIBUTION WIDTH 21.9 % (11.6-17.2); WHITE BLOOD COUNT 5.7 TH/MM3 (4.0-11.0)
[2017-12-15 16:34] LABS: BICARBONATE 29.6 MEQ/L (21.0-32.0); CALCIUM 8.2 MG/DL (8.5-10.1); CREATININE 3.07 MG/DL (0.60-1.30)
[2017-12-15] MEDS: ATORVASTATIN 40 MG TAB PO SCH (21:54)
[2017-12-15] MEDS: TAMSULOSIN HCL 0.4 MG CAP PO SCH (21:54)
[2017-12-15] MEDS: INSULIN DETEMIR 100 UNITS/ML VIAL SQ SCH (21:55)
[2017-12-16] VITALS (13 sets, daily range): BP systolic 120–164; BP diastolic 62–73; PULSE 52–101; RESP 13–20; TEMP 97.3–98.3; O2SAT 82–100
[2017-12-16] MEDS: SODIUM CHLOR 0.9% 1000 ML INJ 1,000 ML IV SCH ×3 (04:37→20:07)
[2017-12-16] MEDS: HEPARIN SODIUM - SQ 10,000 UNITS/ML VIAL SQ SCH ×3 (06:03→20:48)
[2017-12-16] MEDS: INSULIN ASPART SUPPLEMENTAL SCALE SQ SCH ×4 (08:00→20:07)
[2017-12-16] MEDS: FERROUS SULFATE 325 MG (65 MG ELEMENTAL IRON) TAB PO SCH (08:30)
[2017-12-16] MEDS: CHLOROTHIAZIDE 250 MG TAB PO SCH (08:30)
[2017-12-16] MEDS: METOPROLOL TARTRATE 50 MG TAB PO SCH ×2 (08:30→20:06)
[2017-12-16] MEDS: SERTRALINE HCL 50 MG TAB PO SCH (08:30)
[2017-12-16] MEDS: VITAMIN B COMPLEX/VIT C TAB PO SCH (08:30)
[2017-12-16] MEDS: PANTOPRAZOLE SOD 40 MG DELAYED RELEASE TAB PO SCH (08:30)
[2017-12-16] MEDS: DOCUSATE SODIUM 50 MG/SENNA 8.6 MG TAB PO SCH ×2 (08:30→20:06)
[2017-12-16] MEDS: FOLIC ACID 1 MG TAB PO SCH (08:30)
[2017-12-16] MEDS: MEMANTINE HCL 10 MG TAB PO SCH ×2 (08:30→20:06)
[2017-12-16] MEDS: ASPIRIN 81 MG CHEW TAB CHEW SCH (08:31)
[2017-12-16] MEDS: SODIUM CHLORIDE 0.9% FLUSH 10 ML FLUSH IV FLUSH SCH ×2 (08:34→20:08)
--- NOTE | 2017-12-16 11:14 | HHI.PR ---
Subjective Remarks Follow up Acute CHF exacerbation/acute on chronic kidney disease 12/10/17-patient seen and examined, denies any chest pain or shortness of breath urine H&H although low but stable. He denies any bleeding. 12/11/17-patient seen and examined, no acute event overnight. Denies any significant shortness of breath. 12/12/17-patient seen and examined, resting comfortably and denies any shortness of breath. 12/13/17-patient seen and examined, stable, was transfused 1 unit packed red blood cell yesterday. CBC and BMP pending this morning 12/14/17-patient seen and examined, and this is worsening and patient currently off Lasix. No acute event overnight. Afebrile. 12/15/17-patient seen and examined, stable this a.m. and no complaints. Resting comfortably. BMP pending. 12/16/17-patient seen and examined, still on IVF hydration . No acute event overnight. Objective Vitals Vital Signs Date Time Temp Pulse Resp B/P (MAP) Pulse Ox O2 Delivery O2 Flow Rate FiO2 12/16/17 09:14 Nasal Cannula 3.00 12/16/17 08:00 97.8 56 18 164/73 (103) 93 12/16/17 08:00 55 12/16/17 04:00 97.6 101 20 128/66 (86) 95 12/16/17 04:00 Nasal Cannula 3.00 12/16/17 03:49 58 12/16/17 00:10 52 12/16/17 00:00 97.9 60 18 138/68 (91) 96 12/16/17 00:00 Nasal Cannula 3.00 12/15/17 20:26 59 12/15/17 20:00 Nasal Cannula 3.00 12/15/17 20:00 98.2 62 18 164/78 (106) 94 12/15/17 16:00 98.4 55 20 171/78 (109) 93 12/15/17 16:00 56 12/15/17 12:00 98.1 55 20 127/62 (83) 97 12/15/17 12:00 53 I/O 12/15/17 12/15/17 12/15/17 12/16/17 12/16/17 12/16/17 07:00 15:00 23:00 07:00 15:00 23:00 Intake Total 1200 ml 480 ml 240 ml Output Total 300 ml 100 ml Balance 900 ml 480 ml 140 ml Intake Oral 200 ml 480 ml 240 ml IV Total 1000 ml Output Urine Total 300 ml 100 ml # Voids 2 1 2 # Bowel Movements 0 1 1 Result Diagram: 12/15/17 1529 12/15/17 1529 Objective Remarks GENERAL: NAD SKIN: Warm and dry. HEAD: Normocephalic. EYES: No scleral icterus. No injection or drainage. NECK: Supple, trachea midline. No JVD or lymphadenopathy. CARDIOVASCULAR: Regular rate and rhythm without murmurs, gallops, or rubs. RESPIRATORY: Breath sounds equal bilaterally. No accessory muscle use. GASTROINTESTINAL: Abdomen soft, non-tender, nondistended. MUSCULOSKELETAL: No cyanosis, or edema. BACK: Nontender without obvious deformity. No CVA tenderness. Procedures NONE A/P Problem List: (1) Congestive heart failure ICD Code: I50.9 - Heart failure, unspecified Status: Acute (2) ALISSON (acute kidney injury) ICD Code: N17.9 - Acute kidney failure, unspecified Assessment and Plan 77-year-old man with Acute CHF - CXR shows mild consolidation and small effusions of both bases; BNP 601. -2/2 worsening renal function, Lasix has been discontinued, Diuril on Hold -2-D echo with EF 60-65%. Acute on chronic renal insufficiency -Renal indices worsening and BMP pending this a.m. - avoid nephrotoxins - off LASIX - Appreciate nephrology assistance and continue with IVF hydration NS 75ml/hr COPD - Duo nebulizer q6h ATC and q4h PRN shortness of breath/wheezing - supplemental oxygen as above Type 2 diabetes mellitus - accu checks AC and HS with low dose Novolog sliding scale coverage - Continue home basal insulin Hypertension - continue home antihypertensives Anemia and thrombocytopenia - no recent labs for comparison (was 11.2 and 204, 000 respectively on 07/01/16) -Appreciate input from hematology -s/p Venofer transfusion then Procrit 12/13/17 -Transfused 1 unit PRBC 12/12/17 -H&H stable CHRONIC DEMENTIA- MONITOR PCM- POOR ORAL INTAKE GIVE GLUCERNA DVT prophylaxis - Heparin 5000 units subq q8h Problem Qualifiers (1) Congestive heart failure: Qualified Codes: I50.9 - Heart failure, unspecified Cal Cabrera MD Dec 16, 2017 11:14
--- NOTE | 2017-12-16 16:07 | RADRPT ---
EXAM DATE/TIME: 12/16/2017 15:35 [facility] COMPARISON: CHEST SINGLE AP, December 07, 2017, 0:37. INDICATIONS : Halicat. Respiratory distress. MEDICAL HISTORY : Hypertension. Dementia. CVA. SURGICAL HISTORY : CABG. ENCOUNTER: Subsequent ACUITY: 2 weeks PAIN SCORE: Non-responsive. LOCATION: Bilateral chest FINDINGS: Indistinctness of the central bronchopulmonary markings and loss of delineation of the right hemidiap hragm suggests diffuse alveolar edema, slightly worse than on prior examination. The left hemidiaphr agm remains fairly well delineated. The heart is enlarged. Evidence of prior median sternotomy and CABG. CONCLUSION: Cardiomegaly and diffuse airspace opacities with progression of the severity of the opacities when co mpared to 12/07/17. Héctor Gaspar MD on December 16, 2017 at 16:04 Board Certified Radiologist. This report was verified electronically.
[2017-12-16] MEDS: RESP: ALBUTEROL 2.5 MG/IPRATROPIUM 0.5 MG NEB (PRN) NEB (16:23)
--- NOTE | 2017-12-16 17:00 | HHI.NPPN ---
Subjective General Problems: Anemia Renal Failure: Chronic, Acute, Stage III History of Present Illness Patient is a 77 year-old male resident of [facility] with a history of Type 2 DM, COPD, CHF, CVA, dementia, [place], CAD, Hyperlipidemia, Hypertension, bleeding gastric ulcer, prostate CA, nephrolithiasis, and arthritis who presented to the ER on 12/04/17 for evaluation of severe shortness of breath and edema. Consulted today for ALISSON with creatinine level of 2.58 with a GFR of 30 ml/min. On 07/03/16 GFR was noted to be 51 ml/min. Additional Remarks Patient transferred to ICU for respiratory distress (Madisyn Mehta) Objective Data Data Vital Signs Date Time Temp Pulse Resp B/P (MAP) Pulse Ox O2 Delivery O2 Flow Rate FiO2 12/16/17 12:05 95 Nasal Cannula 3.00 12/16/17 12:00 52 12/16/17 09:14 Nasal Cannula 3.00 12/16/17 08:00 97.8 56 18 164/73 (103) 93 12/16/17 08:00 55 12/16/17 04:00 97.6 101 20 128/66 (86) 95 12/16/17 04:00 Nasal Cannula 3.00 12/16/17 03:49 58 12/16/17 00:10 52 12/16/17 00:00 97.9 60 18 138/68 (91) 96 12/16/17 00:00 Nasal Cannula 3.00 12/15/17 20:26 59 12/15/17 20:00 Nasal Cannula 3.00 12/15/17 20:00 98.2 62 18 164/78 (106) 94 (Madisyn Mehta) -: 12/15/17 1529 12/15/17 1529 Physical Exam General Appearance: No Acute Distress, Comfortable (Madisyn Mehta) Eyes Eye Exam: Pupils Equal (Madisyn Mehta) Pulmonary Resp Exam: Breath Sounds Equal, No Distress, Decreased Bases (Madisyn Mehta) Cardiology CV Exam: Normal Sinus Rhythm (Madisyn Mehta) Gastrointestinal/Abdomen GI Exam: Soft, Non-Tender, Bowel Sounds Present (Madisyn Mehta) Genitourinary Exam: Flank Non-Tender (Madisyn Mehta) Integumentary Skin Exam: Clear, Warm, Lesion(s) (Madisyn Mehta) Extremeties Extremities Exam: Trace Edema (Madisyn Mehta) Neurologic Neuro Exam: Awake (Madisyn Mehta) Assessment/Plan Problem List: (1) ALISSON (acute kidney injury) ICD Codes: N17.9 - Acute kidney failure, unspecified Plan: ALISSON on CKD may be related to poor PO intake. CKD stage 3 with GFR on 07/03/16 51 ml/min most likely related to diabetic nephropathy and HTN Renal US: . Small amount of ascites along the hepatic convexity otherwise, kidneys and bladder are sonographically normal. Trace proteinuria and blood noted in UA Plan Maintain strict I+O Anemia most likely chronic disease on Aranesp monthly receiving IV iron replacement Follow urine out put and BMP. Patient transferred to ICU for respiratory distress Labs pending. Lasix ordered. (2) Anemia ICD Codes: D64.9 - Anemia, unspecified Plan: Continue Aranesp hematology workup IV iron replacement (3) Diabetes Mellitus Plan: Maintain BS between 140mg/dl to 180 mg/dl On insulin (4) Hypertension Plan: Well controlled continue same (5) Congestive heart failure ICD Codes: I50.9 - Heart failure, unspecified Status: Acute (Madisyn Mehta) Problem List: (1) ALISSON (acute kidney injury) ICD Codes: N17.9 - Acute kidney failure, unspecified Plan: ALISSON on CKD may be related to poor PO intake. CKD stage 3 with GFR on 07/03/16 51 ml/min most likely related to diabetic nephropathy and HTN Renal US: . Small amount of ascites along the hepatic convexity otherwise, kidneys and bladder are sonographically normal. Trace proteinuria and blood noted in UA Plan Maintain strict I+O Anemia most likely chronic disease on Aranesp monthly receiving IV iron replacement Follow urine out put and BMP. Patient transferred to ICU for respiratory distress Labs pending. Lasix ordered. Patient seen and examined, agree with above. Patient was seen earlier in the after noon. Now transferred to [facility] for resp. failure. Follow the urine out put and BMP. (2) Anemia ICD Codes: D64.9 - Anemia, unspecified Plan: Continue Aranesp hematology workup IV iron replacement (3) Diabetes Mellitus Plan: Maintain BS between 140mg/dl to 180 mg/dl On insulin (4) Hypertension Plan: Well controlled continue same (5) Congestive heart failure ICD Codes: I50.9 - Heart failure, unspecified Status: Acute (Olegario Brush MD) Problem Qualifiers (1) Congestive heart failure: Qualified Codes: I50.9 - Heart failure, unspecified Madisyn Mehta Dec 16, 2017 17:00 Olegario Brush MD Dec 16, 2017 17:29
[2017-12-16] MEDS ORDERED: FUROSEMIDE 40 MG/4 ML VIAL IV PUSH ONE (17:15)
[2017-12-16 18:25] LABS: CALCIUM 8.6 MG/DL (8.5-10.1); CREATININE 2.92 MG/DL (0.60-1.30)
[2017-12-16] MEDS: INSULIN DETEMIR 100 UNITS/ML VIAL SQ SCH (20:06)
[2017-12-16] MEDS: ATORVASTATIN 40 MG TAB PO SCH (20:06)
[2017-12-16] MEDS: TAMSULOSIN HCL 0.4 MG CAP PO SCH (20:06)
[2017-12-16] MEDS ORDERED: CHLORHEXIDINE GLUCONATE 2 % 1 PACK (2 CLOTHS)(extra cloths) TOPICAL PRN (21:45)
[2017-12-17] VITALS (13 sets, daily range): BP systolic 94–217; BP diastolic 51–116; PULSE 57–70; RESP 13–33; TEMP 97.4–98; O2SAT 88–100
[2017-12-17] MEDS: CHLORHEXIDINE GLUCONATE 2 % 1 PACK (2 CLOTHS)(taper/protocol) TOPICAL SCH (04:00)
[2017-12-17] MEDS: HEPARIN SODIUM - SQ 10,000 UNITS/ML VIAL SQ SCH ×3 (05:50→22:16)
[2017-12-17] MEDS: INSULIN ASPART SUPPLEMENTAL SCALE SQ SCH ×4 (08:00→22:17)
[2017-12-17] MEDS: METOPROLOL TARTRATE 50 MG TAB PO SCH ×3 (08:58→22:15)
[2017-12-17] MEDS: DOCUSATE SODIUM 50 MG/SENNA 8.6 MG TAB PO SCH ×2 (09:00→21:00)
[2017-12-17] MEDS: CHLOROTHIAZIDE 250 MG TAB PO SCH ×2 (09:00→15:34)
[2017-12-17] MEDS: SODIUM CHLORIDE 0.9% FLUSH 10 ML FLUSH IV FLUSH SCH ×2 (09:17→22:16)
[2017-12-17] MEDS: VITAMIN B COMPLEX/VIT C TAB PO SCH (09:18)
[2017-12-17] MEDS: FERROUS SULFATE 325 MG (65 MG ELEMENTAL IRON) TAB PO SCH (09:18)
[2017-12-17] MEDS: FOLIC ACID 1 MG TAB PO SCH (09:18)
[2017-12-17] MEDS: MEMANTINE HCL 10 MG TAB PO SCH ×2 (09:18→22:15)
[2017-12-17] MEDS: SERTRALINE HCL 50 MG TAB PO SCH (09:18)
[2017-12-17] MEDS: PANTOPRAZOLE SOD 40 MG DELAYED RELEASE TAB PO SCH (09:18)
[2017-12-17] MEDS: ASPIRIN 81 MG CHEW TAB CHEW SCH (09:18)
--- NOTE | 2017-12-17 10:50 | HHI.NPPN ---
Subjective General Problems: Anemia Renal Failure: Chronic, Acute, Stage III History of Present Illness Patient is a 77 year-old male resident of [facility] with a history of Type 2 DM, COPD, CHF, CVA, dementia, [place], CAD, Hyperlipidemia, Hypertension, bleeding gastric ulcer, prostate CA, nephrolithiasis, and arthritis who presented to the ER on 12/04/17 for evaluation of severe shortness of breath and edema. Consulted today for ALISSON with creatinine level of 2.58 with a GFR of 30 ml/min. On 07/03/16 GFR was noted to be 51 ml/min. Additional Remarks Patient resting comfortably. Not responding to questions today. Does not appear to be in distress (Madisyn Mehta) Objective Data Data Vital Signs Date Time Temp Pulse Resp B/P (MAP) Pulse Ox O2 Delivery O2 Flow Rate FiO2 12/17/17 08:15 Nasal Cannula 1.00 100 12/17/17 08:10 100 Nasal Cannula 2.00 12/17/17 08:00 97.5 59 20 98/64 (75) 100 12/17/17 08:00 59 12/17/17 07:00 Nasal Cannula 2.00 100 12/17/17 04:00 97.9 57 17 117/56 (76) 100 12/17/17 00:00 98.0 59 13 112/63 (79) 88 12/16/17 20:00 98.3 62 13 127/66 (86) 99 12/16/17 19:33 63 12/16/17 19:33 63 16 122/62 (82) 100 12/16/17 19:00 59 12/16/17 19:00 Nasal Cannula 3.00 12/16/17 19:00 59 98 12/16/17 18:00 61 12/16/17 18:00 61 19 100 12/16/17 17:00 59 12/16/17 17:00 59 15 82 12/16/17 16:00 98.1 53 18 120/68 (85) 95 12/16/17 12:05 95 Nasal Cannula 3.00 12/16/17 12:00 52 12/16/17 12:00 97.3 52 18 153/64 (93) 95 (Madisyn Mehta) -: 12/15/17 1529 12/16/17 1725 Physical Exam General Appearance: No Acute Distress, Comfortable (Madisyn Mehta) Eyes Eye Exam: Pupils Equal (Madisyn Mehta) Pulmonary Resp Exam: Breath Sounds Equal, No Distress, Decreased Bases (Madisyn Mehta) Cardiology CV Exam: Normal Sinus Rhythm (Madisyn Mehta) Gastrointestinal/Abdomen GI Exam: Soft, Non-Tender, Bowel Sounds Present (Madisyn Mehta) Genitourinary Exam: Flank Non-Tender (Madisyn Mehta) Integumentary Skin Exam: Clear, Warm, Lesion(s) (Madisyn Mehta) Extremeties Extremities Exam: Trace Edema (Madisyn Mehta) Neurologic Neuro Exam: Awake (Madisyn Mehta) Assessment/Plan Problem List: (1) ALISSON (acute kidney injury) ICD Codes: N17.9 - Acute kidney failure, unspecified Plan: ALISSON on CKD may be related to poor PO intake. CKD stage 3 with GFR on 07/03/16 51 ml/min most likely related to diabetic nephropathy and HTN Renal US: . Small amount of ascites along the hepatic convexity otherwise, kidneys and bladder are sonographically normal. Trace proteinuria and blood noted in UA Plan Maintain strict I+O Anemia most likely chronic disease on [facility] monthly Creatinine improving at 2.92 from 3.07 today Non verbal this morning but not in distress Follow urine out put and BMP. (2) Anemia ICD Codes: D64.9 - Anemia, unspecified Plan: Continue [facility] hematology workup IV iron replacement (3) Diabetes Mellitus Plan: Maintain BS between 140mg/dl to 180 mg/dl On insulin (4) Hypertension Plan: Well controlled continue same (5) Congestive heart failure ICD Codes: I50.9 - Heart failure, unspecified Status: Acute (Madisyn Mehta) Problem List: (1) ALISSON (acute kidney injury) ICD Codes: N17.9 - Acute kidney failure, unspecified Plan: ALISSON on CKD may be related to poor PO intake. CKD stage 3 with GFR on 07/03/16 51 ml/min most likely related to diabetic nephropathy and HTN Renal US: . Small amount of ascites along the hepatic convexity otherwise, kidneys and bladder are sonographically normal. Trace proteinuria and blood noted in UA Plan Maintain strict I+O Anemia most likely chronic disease on Aranesp monthly Creatinine improving at 2.7. Patient seen and examined, agree with above. Urine out put is adequate. BP is elevated, will follow. (2) Anemia ICD Codes: D64.9 - Anemia, unspecified Plan: Continue Aranesp hematology workup IV iron replacement (3) Diabetes Mellitus Plan: Maintain BS between 140mg/dl to 180 mg/dl On insulin (4) Hypertension Plan: Well controlled continue same (5) Congestive heart failure ICD Codes: I50.9 - Heart failure, unspecified Status: Acute (Olegario Brush MD) Problem Qualifiers (1) Congestive heart failure: Qualified Codes: I50.9 - Heart failure, unspecified Madisyn Mehta Dec 17, 2017 10:50 Olegario Brush MD Dec 17, 2017 19:02
[2017-12-17] MEDS: SODIUM CHLOR 0.9% 1000 ML INJ 1,000 ML IV SCH (12:23)
--- NOTE | 2017-12-17 13:08 | HHI.PR ---
Subjective Remarks Follow up Acute CHF exacerbation/acute on chronic kidney disease 12/10/17-patient seen and examined, denies any chest pain or shortness of breath urine H&H although low but stable. He denies any bleeding. 12/11/17-patient seen and examined, no acute event overnight. Denies any significant shortness of breath. 12/12/17-patient seen and examined, resting comfortably and denies any shortness of breath. 12/13/17-patient seen and examined, stable, was transfused 1 unit packed red blood cell yesterday. CBC and BMP pending this morning 12/14/17-patient seen and examined, and this is worsening and patient currently off Lasix. No acute event overnight. Afebrile. 12/15/17-patient seen and examined, stable this a.m. and no complaints. Resting comfortably. BMP pending. 12/16/17-patient seen and examined, still on IVF hydration . No acute event overnight. 12/17/17-patient seen and examined, [place] [facility] [place] to [place]. Overnight restrains were placed. This morning patient appears stable. Objective Vitals Vital Signs Date Time Temp Pulse Resp B/P (MAP) Pulse Ox O2 Delivery O2 Flow Rate FiO2 12/17/17 12:00 70 12/17/17 12:00 97.4 70 18 115/72 (86) 97 12/17/17 10:00 66 12/17/17 10:00 66 23 94/68 (77) 94 12/17/17 08:15 Nasal Cannula 1.00 100 12/17/17 08:10 100 Nasal Cannula 2.00 12/17/17 08:00 97.5 59 20 98/64 (75) 100 12/17/17 08:00 59 12/17/17 07:00 Nasal Cannula 2.00 100 12/17/17 04:00 97.9 57 17 117/56 (76) 100 12/17/17 00:00 98.0 59 13 112/63 (79) 88 12/16/17 20:00 98.3 62 13 127/66 (86) 99 12/16/17 19:33 63 12/16/17 19:33 63 16 122/62 (82) 100 12/16/17 19:00 59 12/16/17 19:00 Nasal Cannula 3.00 12/16/17 19:00 59 98 12/16/17 18:00 61 12/16/17 18:00 61 19 100 12/16/17 17:00 59 12/16/17 17:00 59 15 82 12/16/17 16:00 98.1 53 18 120/68 (85) 95 I/O 12/16/17 12/16/17 12/16/17 12/17/17 12/17/17 12/17/17 07:00 15:00 23:00 07:00 15:00 23:00 Intake Total 240 ml 360 ml 480 ml Output Total 100 ml 550 ml Balance 140 ml 360 ml -70 ml Intake Oral 240 ml 360 ml 480 ml Output Urine Total 100 ml 550 ml # Voids 2 1 # Bowel Movements 1 1 2 Result Diagram: 12/15/17 1529 12/16/17 1725 Imaging Last Impressions Chest X-Ray 12/16/17 0000 Signed Impressions: Service Date/Time: Saturday, December 16, 2017 15:35 - CONCLUSION: Cardiomegaly and diffuse airspace opacities with progression of the severity of the opacities when compared to 12/07/17. Héctor Gaspar MD Renal Ultrasound 12/08/17 0000 Signed Impressions: Service Date/Time: Friday, December 08, 2017 14:50 - CONCLUSION: 1. Small amount of ascites along the hepatic convexity. 2. Otherwise, kidneys and bladder are sonographically normal. Elia Villafuerte MD Objective Remarks GENERAL: NAD with upper restrains in place SKIN: Warm and dry. HEAD: Normocephalic. EYES: No scleral icterus. No injection or drainage. NECK: Supple, trachea midline. No JVD or lymphadenopathy. CARDIOVASCULAR: Regular rate and rhythm without murmurs, gallops, or rubs. RESPIRATORY: Breath sounds equal bilaterally. No accessory muscle use. GASTROINTESTINAL: Abdomen soft, non-tender, nondistended. MUSCULOSKELETAL: No cyanosis, or edema. BACK: Nontender without obvious deformity. No CVA tenderness. Procedures NONE A/P Problem List: (1) Congestive heart failure ICD Code: I50.9 - Heart failure, unspecified Status: Acute (2) ALISSON (acute kidney injury) ICD Code: N17.9 - Acute kidney failure, unspecified Assessment and Plan 77-year-old man with Acute CHF - CXR shows mild consolidation and small effusions of both bases; BNP 601. -2/2 worsening renal function, Lasix has been discontinued, Diuril on Hold -2-D echo with EF 60-65%. Respiratory failure 2/2 Pulmonary overload Resolved HACP? Start Cefepime IV Q12H Acute on chronic renal insufficiency -Renal indices improving and BMP pending this a.m. - avoid nephrotoxins - off LASIX - Appreciate nephrology assistance - IVF hydration NS 75ml/hr was discontinued yesterday due to respiratory distress likely 2/2 pulmonary congestion COPD - Duo nebulizer q6h ATC and q4h PRN shortness of breath/wheezing - supplemental oxygen as above Type 2 diabetes mellitus - accu checks AC and HS with low dose Novolog sliding scale coverage - Continue home basal insulin Hypertension - continue home antihypertensives Anemia and thrombocytopenia - no recent labs for comparison (was 11.2 and 204, 000 respectively on 07/01/16) -Appreciate input from hematology -s/p Venofer transfusion then Procrit 12/13/17 -Transfused 1 unit PRBC 12/12/17 -H&H stable CHRONIC DEMENTIA- MONITOR PCM- POOR ORAL INTAKE GIVE GLUCERNA DVT prophylaxis - Heparin 5000 units subq q8h Problem Qualifiers (1) Congestive heart failure: Qualified Codes: I50.9 - Heart failure, unspecified Cal Cabrera MD Dec 17, 2017 13:08
[2017-12-17 13:27] LABS: BICARBONATE 26.7 MEQ/L (21.0-32.0); CALCIUM 8.9 MG/DL (8.5-10.1); CREATININE 2.78 MG/DL (0.60-1.30)
[2017-12-17] MEDS: CEFEPIME INJ 1,000 MG in SODIUM CHLORIDE 0.9% INJ 100 ML IV SCH (14:22)
[2017-12-17] MEDS ORDERED: ACETAMINOPHEN/HYDROcodone 325 MG/5 MG TAB PO ONE (17:00)
[2017-12-17] MEDS: TAMSULOSIN HCL 0.4 MG CAP PO SCH (22:15)
[2017-12-17] MEDS: ATORVASTATIN 40 MG TAB PO SCH (22:15)
[2017-12-17] MEDS: INSULIN DETEMIR 100 UNITS/ML VIAL SQ SCH (22:17)
[2017-12-18] VITALS (8 sets, daily range): BP systolic 136–174; BP diastolic 65–107; PULSE 52–64; RESP 17–24; TEMP 96.2–97.5; O2SAT 93–95
[2017-12-18] MEDS: SODIUM CHLOR 0.9% 1000 ML INJ 1,000 ML IV SCH (03:55)
[2017-12-18] MEDS: CHLORHEXIDINE GLUCONATE 2 % 1 PACK (2 CLOTHS)(taper/protocol) TOPICAL SCH (04:00)
[2017-12-18] MEDS: HEPARIN SODIUM - SQ 10,000 UNITS/ML VIAL SQ SCH ×3 (05:50→21:35)
[2017-12-18] MEDS: INSULIN ASPART SUPPLEMENTAL SCALE SQ SCH ×4 (08:00→22:08)
[2017-12-18] MEDS: ASPIRIN 81 MG CHEW TAB CHEW SCH (09:25)
[2017-12-18] MEDS: FOLIC ACID 1 MG TAB PO SCH (09:25)
[2017-12-18] MEDS: DOCUSATE SODIUM 50 MG/SENNA 8.6 MG TAB PO SCH ×2 (09:25→21:32)
[2017-12-18] MEDS: CHLOROTHIAZIDE 250 MG TAB PO SCH (09:25)
[2017-12-18] MEDS: FERROUS SULFATE 325 MG (65 MG ELEMENTAL IRON) TAB PO SCH (09:25)
[2017-12-18] MEDS: SERTRALINE HCL 50 MG TAB PO SCH (09:25)
[2017-12-18] MEDS: PANTOPRAZOLE SOD 40 MG DELAYED RELEASE TAB PO SCH (09:26)
[2017-12-18] MEDS: MEMANTINE HCL 10 MG TAB PO SCH ×2 (09:26→21:32)
[2017-12-18] MEDS: METOPROLOL TARTRATE 50 MG TAB PO SCH ×2 (09:26→21:32)
[2017-12-18] MEDS: SODIUM CHLORIDE 0.9% FLUSH 10 ML FLUSH IV FLUSH SCH ×2 (09:26→21:33)
[2017-12-18] MEDS: VITAMIN B COMPLEX/VIT C TAB PO SCH (09:26)
[2017-12-18] MEDS ORDERED: methylPREDNISolone SOD SUCC 125 MG/2 ML VIAL IV PUSH ONE (14:15)
--- NOTE | 2017-12-18 14:32 | RADRPT ---
EXAM DATE/TIME: 12/18/2017 14:17 [place] COMPARISON: CHEST SINGLE AP, December 16, 2017, 15:35. INDICATIONS : Respiratory failure MEDICAL HISTORY : Hypertension. Dementia. CVA. SURGICAL HISTORY : CABG. ENCOUNTER: Subsequent ACUITY: 2 weeks PAIN SCORE: Non-responsive. LOCATION: chest FINDINGS: The heart is enlarged. The patient is post median sternotomy. There are bilateral effusions and diffu se interstitial prominence most consistent with congestive failure. These changes are stable compared to previous study dated 12/16/17. The visualized bony structures are grossly intact. CONCLUSION: Cardiomegaly with bilateral effusions and diffuse interstitial prominence suggesting congestive failu re. Marcos Ware MD on December 18, 2017 at 14:30 Board Certified Radiologist. This report was verified electronically.
--- NOTE | 2017-12-18 14:32 | HHI.PR ---
Subjective Remarks As per our report the patient is still on elevated levels of oxygen and with labored breathing. The patient denies chest pain, he is hard of hearing but states has some shortness of breath. Patient is afebrile on 50% Ventimask. Objective Vitals Vital Signs Date Time Temp Pulse Resp B/P (MAP) Pulse Ox O2 Delivery O2 Flow Rate FiO2 12/18/17 12:00 96.7 60 17 145/73 (97) 95 12/18/17 11:23 95 Venturi Mask 50 12/18/17 09:00 5.00 12/18/17 08:00 97.5 60 17 174/107 (129) 94 12/18/17 04:00 96.2 52 22 144/65 (91) 93 12/18/17 00:00 96.5 57 24 136/69 (91) 93 12/17/17 20:00 97.6 61 19 165/73 (103) 92 12/17/17 18:00 58 12/17/17 17:01 57 22 177/77 (110) 93 12/17/17 16:00 58 18 217/89 (131) 99 12/17/17 16:00 58 I/O 12/17/17 12/17/17 12/17/17 12/18/17 12/18/17 12/18/17 07:00 15:00 23:00 07:00 15:00 23:00 Intake Total 480 ml 480 ml Output Total 550 ml 1500 ml 200 ml Balance -70 ml -1020 ml -200 ml Intake Oral 480 ml 480 ml Output Urine Total 550 ml 1500 ml 200 ml # Voids 2 # Bowel Movements 2 2 Result Diagram: 12/15/17 1529 12/17/17 1230 Imaging Last Impressions Chest X-Ray 12/16/17 0000 Signed Impressions: Service Date/Time: Saturday, December 16, 2017 15:35 - CONCLUSION: Cardiomegaly and diffuse airspace opacities with progression of the severity of the opacities when compared to 12/07/17. Héctor Gaspar MD Renal Ultrasound 12/08/17 0000 Signed Impressions: Service Date/Time: Friday, December 08, 2017 14:50 - CONCLUSION: 1. Small amount of ascites along the hepatic convexity. 2. Otherwise, kidneys and bladder are sonographically normal. Elia Villafuerte MD Objective Remarks GENERAL: The patient has mild to moderate respiratory distress. SKIN: Warm and dry. HEAD: Normocephalic. EYES: No scleral icterus. No injection or drainage. NECK: Supple, trachea midline. No JVD or lymphadenopathy. CARDIOVASCULAR: Regular rate and rhythm without murmurs, gallops, or rubs. (+) JVD RESPIRATORY: Decreased breath sounds bilaterally. NO wheezing or Rhonchi auscultated. GASTROINTESTINAL: Abdomen soft, non-tender, nondistended. MUSCULOSKELETAL: No cyanosis, or edema. BACK: Nontender without obvious deformity. No CVA tenderness. Procedures NONE Medications and IVs Current Medications Medications (Trade) Dose Ordered Sig/Martha Route Start Time Stop Time Status Last Admin (NS Flush) 2 ml UNSCH PRN IV FLUSH 12/05/17 01:00 12/05/17 17:41 (NS Flush) 2 ml BID IV FLUSH 12/05/17 09:00 12/18/17 09:26 (Heparin Inj) 5,000 units Q8H SQ 12/05/17 06:00 12/18/17 12:57 (Norvasc) 10 mg DAILY PO 12/05/17 09:00 12/18/17 09:25 (Aspirin Chew) 81 mg DAILY CHEW 12/05/17 09:00 12/18/17 09:25 (Lipitor) 40 mg HS PO 12/05/17 21:00 12/17/17 22:15 (Prinivil) 10 mg DAILY PO 12/05/17 09:00 Future Hold 12/08/17 08:03 (Namenda) 10 mg BID PO 12/05/17 09:00 12/18/17 09:26 (Zoloft) 50 mg DAILY PO 12/05/17 09:00 12/18/17 09:25 (Flomax) 0.4 mg HS PO 12/05/17 21:00 12/17/17 22:15 (Protonix) 40 mg DAILY PO 12/05/17 09:00 12/18/17 09:26 (D50w (Vial) Inj) 50 ml UNSCH PRN IV PUSH 12/05/17 01:00 (Glucagon Inj) 1 mg UNSCH PRN OTHER 12/05/17 01:00 (NovoLOG SUPPLEMENTAL SCALE) 1 ACHS SLIDING SCALE SQ 12/05/17 08:00 12/17/17 22:17 (Duoneb Neb) 1 ampule Q4HR NEB PRN NEB 12/05/17 01:00 12/16/17 16:23 (Ferrous Sulfate) 325 mg DAILY PO 12/06/17 09:00 12/18/17 09:25 (Tylenol) 650 mg Q4H PRN PO 12/07/17 11:45 (Zofran Inj) 4 mg Q6H PRN IVP 12/07/17 11:45 (Tylenol) 650 mg Q6H PRN PO 12/07/17 11:45 12/07/17 11:50 (Percocet 5-325 Mg) 1 tab Q6H PRN PO 12/07/17 11:45 12/10/17 21:40 (Percocet 10-325 Mg) 1 tab Q6H PRN PO 12/07/17 11:45 (Morphine Inj) 2 mg Q3H PRN IV PUSH 12/07/17 11:45 (Morphine Inj) 4 mg Q3H PRN IV PUSH 12/07/17 11:45 (Narcan Inj) 0.4 mg UNSCH PRN IV PUSH 12/07/17 11:45 (Rebeca-Colace) 1 tab BID PO 12/07/17 21:00 12/18/17 09:25 (Milk Of Magnesia Liq) 30 ml Q12H PRN PO 12/07/17 11:45 (Senokot) 17.2 mg Q12H PRN PO 12/07/17 11:45 (Dulcolax Supp) 10 mg DAILY PRN RECTAL 12/07/17 11:45 (Lactulose Liq) 30 ml DAILY PRN PO 12/07/17 11:45 (Diuril) 250 mg DAILY PO 12/08/17 14:00 12/18/17 09:25 (Lopressor) 50 mg BID PO 12/09/17 21:00 12/18/17 09:26 (Allbee C) 1 tab DAILY PO 12/13/17 09:00 12/18/17 09:26 (Folate) 1 mg DAILY PO 12/12/17 20:30 12/18/17 09:25 (Levemir Inj) 8 units HS SQ 12/13/17 21:00 12/17/17 22:17 Sodium Chloride 1,000 ml @ 84 mls/hr [id number] IV 12/14/17 16:30 12/16/17 04:37 Miscellaneous Information Patient in critical care unit? Ass... [id number] .XX 12/16/17 21:45 12/16/17 21:45 (Chlorhexidine 2% Cloth) 3 pack DAILY@04 TOPICAL 12/17/17 04:00 12/21/17 04:01 12/17/17 04:00 (Chlorhexidine 2% Cloth) 3 pack UNSCH PRN TOPICAL 12/16/17 21:45 12/21/17 21:31 Cefepime HCl 1000 mg/Sodium Chloride 100 ml @ 200 mls/hr Q24H IV 12/17/17 15:00 12/17/17 14:22 (Lasix Inj) 40 mg BID@,18 IV PUSH 12/18/17 18:00 A/P Problem List: (1) Congestive heart failure ICD Code: I50.9 - Heart failure, unspecified Status: Chronic Plan: Initial chest x-ray showed mild consolidation and small effusions of both bases. BNP elevated at 601. Initially been treated with Lasix however these were held secondary to worsening renal function. 2D echo showed an EF of 60-65%. The patient has moderate respiratory distress and is requiring more oxygen to keep appropriate oxygen saturations. Patient is currently on a Ventimask. Repeat chest x-ray reviewed by me on December 16, 2017 shows cardiomegaly and diffuse airspace opacities with progression of the severity of the opacities when compared to a previous chest x-ray obtained on December 07, 2017. Check a stat chest x-ray, we will start the patient on IV Lasix 40 mg IV twice daily since creatinine seems to be close to baseline. (2) ALISSON (acute kidney injury) ICD Code: N17.9 - Acute kidney failure, unspecified Status: Acute Plan: Acute kidney injury seems to have resolved. Creatinine trended down to 2.7. Continue to avoid nephrotoxins, resume Lasix. Nephrology following. Patient had been placed on normal saline which was discontinued on December 16, 2017 secondary to pulmonary congestion. (3) HCAP (healthcare-associated pneumonia) ICD Code: J18.9 - Pneumonia, unspecified organism Status: Acute Plan: Infiltrate seen on chest x-ray. Continue IV cefepime (4) Acute respiratory failure ICD Code: J96.00 - Acute respiratory failure, unspecified whether with hypoxia or hypercapnia Status: Acute Plan: ABG obtained on 03/06/2018 showed a PCO2 45 and a PO2 of 53. Patient still requiring elevated levels of oxygen on Ventimask at 50% FiO2. I will obtain a chest x-ray and start the patient on IV Lasix. Continue supplemental oxygen to keep oxygen saturation more than 92%. Continue duo nebs. I will start the patient on IV Solu-Medrol, administering 125 g IV once and then 60 mg IV every 6 hours afterwards. (5) ALISSON (acute kidney injury) ICD Code: N17.9 - Acute kidney failure, unspecified Status: Resolved Plan: Upon review of medical records patient's baseline is around 2.42 - 2.7. Renal ultrasound showed small amount of ascites along the hepatic convexity. Otherwise kidneys and bladder are sonographically normal. Patient creatinine likely at baseline. Monitor BUN and creatinine, history of cyanosis and avoid nephrotoxins. (6) CKD (chronic kidney disease), stage III ICD Code: N18.3 - Chronic kidney disease, stage 3 (moderate) Status: Chronic Plan: As above. Nephrology following. (7) Diabetes type 2, controlled ICD Code: E11.9 - Type 2 diabetes mellitus without complications Status: Chronic Plan: Blood sugar seems to be stable. Continue Accu-Cheks before meals and at bedtime with insulin NovoLog. Continue home basal insulin. Hemoglobin A1c 6.4 on December 07, 2017. (8) Dementia ICD Code: F03.90 - Unspecified dementia without behavioral disturbance Plan: Continue memantine. Restraints as needed. (9) COPD with acute exacerbation ICD Code: J44.1 - Chronic obstructive pulmonary disease with (acute) exacerbation Plan: Patient has respiratory distress and severely decreased breath sounds on bilateral lung ruano. Give supplemental 125 mg IV once and then start on Solu-Medrol IV 60 mg IV every 6 hours. (10) Thrombocytopenia ICD Code: D69.6 - Thrombocytopenia, unspecified Plan: Thrombocytopenia which appears to be chronic at least dating back to 2012. (EMR reviewed) - no evidence of DIC or TTP - could be due to chronic debility or mild chronic ITP Hematology consulted. (11) Anemia ICD Code: D64.9 - Anemia, unspecified Plan: Normocytic anemia. Likely secondary to chronic kidney disease. Next line continue ferrous sulfate. Hematology consulted. The patient status post benefit transfusion and Procrit on 12/13/17. The patient is also status post transfusion of 1 unit of PRBCs. (12) Hypertension Status: Chronic Plan: Blood pressure seems to be stable. Is elevated into the 170s earlier today in the morning. Continue amlodipine 10 mg p.o. daily, continue to hold lisinopril. Assessment and Plan DVT prophylaxis: SCDs, continue heparin subcutaneously. Problem Qualifiers (1) Congestive heart failure: Qualified Codes: I50.33 - Acute on chronic diastolic (congestive) heart failure (2) Acute respiratory failure: Qualified Codes: J96.01 - Acute respiratory failure with hypoxia; J96.02 - Acute respiratory failure with hypercapnia (3) Diabetes type 2, controlled: Qualified Codes: E11.21 - Type 2 diabetes mellitus with diabetic nephropathy; Z79.4 - rat exterminator (current) use of insulin (4) Dementia: Qualified Codes: F03.90 - Unspecified dementia without behavioral disturbance (5) Anemia: Qualified Codes: N18.3 - Chronic kidney disease, stage 3 (moderate); D63.1 - Anemia in chronic kidney disease Al Canales MD Dec 18, 2017 14:32
--- NOTE | 2017-12-18 14:39 | HHI.NPPN ---
Subjective General Problems: Anemia Renal Failure: Chronic, Acute, Stage III History of Present Illness Patient is a 77 year-old male resident of [facility] with a history of Type 2 DM, COPD, CHF, CVA, dementia, [place], CAD, Hyperlipidemia, Hypertension, bleeding gastric ulcer, prostate CA, nephrolithiasis, and arthritis who presented to the ER on 12/04/17 for evaluation of severe shortness of breath and edema. Consulted today for ALISSON with creatinine level of 2.58 with a GFR of 30 ml/min. On 07/03/16 GFR was noted to be 51 ml/min. Additional Remarks Patient is sleepy, also he is [place], not in distress, eating better as per sister. Objective Data Data Vital Signs Date Time Temp Pulse Resp B/P (MAP) Pulse Ox O2 Delivery O2 Flow Rate FiO2 12/18/17 12:00 96.7 60 17 145/73 (97) 95 12/18/17 11:23 95 Venturi Mask 50 12/18/17 09:00 5.00 12/18/17 08:00 97.5 60 17 174/107 (129) 94 12/18/17 04:00 96.2 52 22 144/65 (91) 93 12/18/17 00:00 96.5 57 24 136/69 (91) 93 12/17/17 20:00 97.6 61 19 165/73 (103) 92 12/17/17 18:00 58 12/17/17 17:01 57 22 177/77 (110) 93 12/17/17 16:00 58 18 217/89 (131) 99 12/17/17 16:00 58 -: 12/15/17 1529 12/17/17 1230 Physical Exam General Appearance: No Acute Distress, Comfortable Eyes Eye Exam: Pupils Equal Pulmonary Resp Exam: Breath Sounds Equal, No Distress, Decreased Bases Cardiology CV Exam: Normal Sinus Rhythm Gastrointestinal/Abdomen GI Exam: Soft, Non-Tender, Bowel Sounds Present Genitourinary Exam: Flank Non-Tender Integumentary Skin Exam: Clear, Warm, Lesion(s) Extremeties Extremities Exam: Trace Edema Neurologic Neuro Exam: Awake Assessment/Plan Problem List: (1) ALISSON (acute kidney injury) ICD Codes: N17.9 - Acute kidney failure, unspecified Status: Acute Plan: ALISSON on CKD may be related to poor PO intake. CKD stage 3 with GFR on 07/03/16 51 ml/min most likely related to diabetic nephropathy and HTN Renal US: . Small amount of ascites along the hepatic convexity otherwise, kidneys and bladder are sonographically normal. Trace proteinuria and blood noted in UA Plan Maintain strict I+O Anemia most likely chronic disease on Aranesp monthly On Lasix, still has edema. IVF stopped. Encourage oral intake. Check BMP in AM. (2) Anemia ICD Codes: D64.9 - Anemia, unspecified Plan: Continue Aranesp hematology workup IV iron replacement (3) Diabetes Mellitus Plan: Maintain BS between 140mg/dl to 180 mg/dl On insulin (4) Hypertension Status: Chronic Plan: Well controlled continue same (5) Congestive heart failure ICD Codes: I50.9 - Heart failure, unspecified Status: Chronic Problem Qualifiers (1) Congestive heart failure: Qualified Codes: I50.33 - Acute on chronic diastolic (congestive) heart failure Olegario Brush MD Dec 18, 2017 14:39
[2017-12-18] MEDS: FUROSEMIDE 40 MG/4 ML VIAL IV PUSH SCH (17:24)
[2017-12-18] MEDS: TAMSULOSIN HCL 0.4 MG CAP PO SCH (21:32)
[2017-12-18] MEDS: ATORVASTATIN 40 MG TAB PO SCH (21:32)
[2017-12-18] MEDS: CEFEPIME INJ 1,000 MG in SODIUM CHLORIDE 0.9% INJ 100 ML IV SCH (21:32)
[2017-12-18] MEDS: methylPREDNISolone SOD SUCC 40 MG/1 ML VIAL IV PUSH SCH (21:33)
[2017-12-18] MEDS: INSULIN DETEMIR 100 UNITS/ML VIAL SQ SCH (22:07)
[2017-12-19] VITALS (9 sets, daily range): BP systolic 101–183; BP diastolic 55–93; PULSE 53–84; RESP 17–20; TEMP 95.7–96.9; O2SAT 95–100
[2017-12-19] MEDS: CHLORHEXIDINE GLUCONATE 2 % 1 PACK (2 CLOTHS)(taper/protocol) TOPICAL SCH (01:29)
[2017-12-19] MEDS: SODIUM CHLORIDE 0.9% FLUSH 10 ML FLUSH IV FLUSH PRN (02:52)
[2017-12-19] MEDS: methylPREDNISolone SOD SUCC 40 MG/1 ML VIAL IV PUSH SCH ×4 (02:52→20:19)
[2017-12-19] MEDS: SODIUM CHLOR 0.9% 1000 ML INJ 1,000 ML IV SCH ×2 (03:45→15:40)
[2017-12-19] MEDS: HEPARIN SODIUM - SQ 10,000 UNITS/ML VIAL SQ SCH ×3 (04:34→20:19)
[2017-12-19 05:01] LABS: BICARBONATE 28.9 MEQ/L (21.0-32.0); CALCIUM 9.1 MG/DL (8.5-10.1); CREATININE 2.72 MG/DL (0.60-1.30)
[2017-12-19] MEDS: FOLIC ACID 1 MG TAB PO SCH (08:24)
[2017-12-19] MEDS: FUROSEMIDE 40 MG/4 ML VIAL IV PUSH SCH ×2 (08:24→16:49)
[2017-12-19] MEDS: SERTRALINE HCL 50 MG TAB PO SCH (08:24)
[2017-12-19] MEDS: MEMANTINE HCL 10 MG TAB PO SCH ×2 (08:25→20:19)
[2017-12-19] MEDS: DOCUSATE SODIUM 50 MG/SENNA 8.6 MG TAB PO SCH ×2 (08:25→20:18)
[2017-12-19] MEDS: FERROUS SULFATE 325 MG (65 MG ELEMENTAL IRON) TAB PO SCH (08:25)
[2017-12-19] MEDS: CHLOROTHIAZIDE 250 MG TAB PO SCH (08:25)
[2017-12-19] MEDS: ASPIRIN 81 MG CHEW TAB CHEW SCH (08:25)
[2017-12-19] MEDS: PANTOPRAZOLE SOD 40 MG DELAYED RELEASE TAB PO SCH (08:25)
[2017-12-19] MEDS: SODIUM CHLORIDE 0.9% FLUSH 10 ML FLUSH IV FLUSH SCH ×2 (08:26→20:19)
[2017-12-19] MEDS: METOPROLOL TARTRATE 50 MG TAB PO SCH ×2 (08:26→20:18)
[2017-12-19] MEDS: VITAMIN B COMPLEX/VIT C TAB PO SCH (09:00)
--- NOTE | 2017-12-19 09:01 | HHI.NPPN ---
Subjective General Problems: Anemia Renal Failure: Chronic, Acute, Stage III History of Present Illness Patient is a 77 year-old male resident of [facility] with a history of Type 2 DM, COPD, CHF, CVA, dementia, SC, CAD, Hyperlipidemia, Hypertension, bleeding gastric ulcer, prostate CA, nephrolithiasis, and arthritis who presented to the ER on 12/04/17 for evaluation of severe shortness of breath and edema. Consulted today for ALISSON with creatinine level of 2.58 with a GFR of 30 ml/min. On 07/03/16 GFR was noted to be 51 ml/min. Additional Remarks Patient is sleeping, not in distress. Very FLANDREAU (Madisyn Mehta) Objective Data Data Vital Signs Date Time Temp Pulse Resp B/P (MAP) Pulse Ox O2 Delivery O2 Flow Rate FiO2 12/19/17 08:00 96.8 84 17 116/67 (83) 96 12/19/17 04:32 96.9 60 18 139/89 (106) 99 12/19/17 04:00 55 12/19/17 00:00 53 12/19/17 00:00 96.5 60 20 138/76 (96) 100 12/18/17 21:33 94 Venturi Mask 5.00 50 12/18/17 20:00 96.9 62 21 170/85 (113) 94 12/18/17 19:45 64 12/18/17 17:21 95 T-piece 6.00 12/18/17 12:00 96.7 60 17 145/73 (97) 95 12/18/17 11:23 95 Venturi Mask 50 12/18/17 09:00 5.00 (Madisyn Mehta) -: 12/15/17 1529 12/19/17 0255 Physical Exam General Appearance: No Acute Distress, Comfortable (Madisyn Mehta) Eyes Eye Exam: Pupils Equal (Madisyn Mehta) Pulmonary Resp Exam: Breath Sounds Equal, No Distress, Decreased Bases (Madisyn Mehta) Cardiology CV Exam: Normal Sinus Rhythm (Madisyn Mehta) Gastrointestinal/Abdomen GI Exam: Soft, Non-Tender, Bowel Sounds Present (Madisyn Mehta) Genitourinary Exam: Flank Non-Tender (Madisyn Mehta) Integumentary Skin Exam: Clear, Warm, Lesion(s) (Madisyn Mehta) Extremeties Extremities Exam: Trace Edema (Madisyn Mehta) Neurologic Neuro Exam: Awake (Madisyn Mehta) Assessment/Plan Problem List: (1) ALISSON (acute kidney injury) ICD Codes: N17.9 - Acute kidney failure, unspecified Status: Acute Plan: ALISSON on CKD may be related to poor PO intake. CKD stage 3 with GFR on 07/03/16 51 ml/min most likely related to diabetic nephropathy and HTN Renal US: . Small amount of ascites along the hepatic convexity otherwise, kidneys and bladder are sonographically normal. Trace proteinuria and blood noted in UA Creatinine slightly improved at 2.72 today. Potassium/calcium levels WNL Continues to have good UOP Plan Maintain strict I+O Anemia most likely chronic disease on Aranesp monthly On Lasix, still has considerably edema. Encourage oral intake. Continue to monitor UOP and BMP (2) Anemia ICD Codes: D64.9 - Anemia, unspecified Plan: Continue Aranesp hematology workup IV iron replacement (3) Diabetes Mellitus Plan: Maintain BS between 140mg/dl to 180 mg/dl On insulin (4) Hypertension Status: Chronic Plan: Well controlled continue same (5) Congestive heart failure ICD Codes: I50.9 - Heart failure, unspecified Status: Chronic (Madisyn Mehta) Problem List: (1) ALISSON (acute kidney injury) ICD Codes: N17.9 - Acute kidney failure, unspecified Status: Acute Plan: ALISSON on CKD may be related to poor PO intake. CKD stage 3 with GFR on 07/03/16 51 ml/min most likely related to diabetic nephropathy and HTN Renal US: . Small amount of ascites along the hepatic convexity otherwise, kidneys and bladder are sonographically normal. Trace proteinuria and blood noted in UA Creatinine slightly improved at 2.72 today. Potassium/calcium levels WNL Continues to have good UOP Plan Maintain strict I+O Anemia most likely chronic disease on Aranesp monthly On Lasix, still has considerably edema. Encourage oral intake. Continue to monitor UOP and BMP. Patient seen and examined, agree with above. Continue Lasix, Creatinine is now stable. (2) Anemia ICD Codes: D64.9 - Anemia, unspecified Plan: Continue Aranesp hematology workup IV iron replacement (3) Diabetes Mellitus Plan: Maintain BS between 140mg/dl to 180 mg/dl On insulin (4) Hypertension Status: Chronic Plan: Well controlled continue same (5) Congestive heart failure ICD Codes: I50.9 - Heart failure, unspecified Status: Chronic (Olegario Brush MD) Problem Qualifiers (1) Congestive heart failure: Qualified Codes: I50.33 - Acute on chronic diastolic (congestive) heart failure Madisyn Mehta Dec 19, 2017 09:00 Olegario Brush MD Dec 19, 2017 12:18
[2017-12-19] MEDS: INSULIN ASPART SUPPLEMENTAL SCALE SQ SCH ×4 (10:39→20:34)
--- NOTE | 2017-12-19 13:02 | HHI.PR ---
Subjective Remarks Blood pressures have been elevated. Patient is hard of hearing but states breathing is improving. No fevers. Objective Vitals Vital Signs Date Time Temp Pulse Resp B/P (MAP) Pulse Ox O2 Delivery O2 Flow Rate FiO2 12/19/17 12:00 95.7 55 17 170/82 (111) 95 12/19/17 09:54 95 Nasal Cannula 3.00 12/19/17 08:00 96.1 57 17 183/93 (123) 99 12/19/17 04:32 96.9 60 18 139/89 (106) 99 12/19/17 04:00 55 12/19/17 00:00 53 12/19/17 00:00 96.5 60 20 138/76 (96) 100 12/18/17 21:33 94 Venturi Mask 5.00 50 12/18/17 20:00 96.9 62 21 170/85 (113) 94 12/18/17 19:45 64 12/18/17 17:21 95 T-piece 6.00 I/O 12/18/17 12/18/17 12/18/17 12/19/17 12/19/17 12/19/17 07:00 15:00 23:00 07:00 15:00 23:00 Intake Total 240 ml 480 ml Output Total 200 ml 600 ml Balance -200 ml 240 ml -120 ml Intake Oral 240 ml 380 ml IV Total 100 ml Output Urine Total 200 ml 600 ml # Voids 3 1 # Bowel Movements 0 Result Diagram: 12/15/17 1529 12/19/17 0255 Imaging Last Impressions Chest X-Ray 12/18/17 0000 Signed Impressions: Service Date/Time: November 14:17 - CONCLUSION: Cardiomegaly with bilateral effusions and diffuse interstitial prominence suggesting congestive failure. Marcos Ware MD Renal Ultrasound 12/08/17 0000 Signed Impressions: Service Date/Time: Friday, December 08, 2017 14:50 - CONCLUSION: 1. Small amount of ascites along the hepatic convexity. 2. Otherwise, kidneys and bladder are sonographically normal. Elia Villafuerte MD Objective Remarks GENERAL: The patient has mild to moderate respiratory distress. SKIN: Warm and dry. HEAD: Normocephalic. EYES: No scleral icterus. No injection or drainage. NECK: Supple, trachea midline. No JVD or lymphadenopathy. CARDIOVASCULAR: Regular rate and rhythm without murmurs, gallops, or rubs. (+) JVD RESPIRATORY: Decreased breath sounds bilaterally. NO wheezing or Rhonchi auscultated. GASTROINTESTINAL: Abdomen soft, non-tender, nondistended. MUSCULOSKELETAL: No cyanosis, or edema. BACK: Nontender without obvious deformity. No CVA tenderness. Procedures NONE Medications and IVs Current Medications Medications (Trade) Dose Ordered Sig/Martha Route Start Time Stop Time Status Last Admin (NS Flush) 2 ml UNSCH PRN IV FLUSH 12/05/17 01:00 12/19/17 02:52 (NS Flush) 2 ml BID IV FLUSH 12/05/17 09:00 12/19/17 08:26 (Heparin Inj) 5,000 units Q8H SQ 12/05/17 06:00 12/19/17 04:34 (Norvasc) 10 mg DAILY PO 12/05/17 09:00 12/19/17 10:38 (Aspirin Chew) 81 mg DAILY CHEW 12/05/17 09:00 12/19/17 08:25 (Lipitor) 40 mg HS PO 12/05/17 21:00 12/18/17 21:32 (Prinivil) 10 mg DAILY PO 12/05/17 09:00 Future Hold 12/08/17 08:03 (Namenda) 10 mg BID PO 12/05/17 09:00 12/19/17 08:25 (Zoloft) 50 mg DAILY PO 12/05/17 09:00 12/19/17 08:24 (Flomax) 0.4 mg HS PO 12/05/17 21:00 12/18/17 21:32 (Protonix) 40 mg DAILY PO 12/05/17 09:00 12/19/17 08:25 (D50w (Vial) Inj) 50 ml UNSCH PRN IV PUSH 12/05/17 01:00 (Glucagon Inj) 1 mg UNSCH PRN OTHER 12/05/17 01:00 (NovoLOG SUPPLEMENTAL SCALE) 1 ACHS SLIDING SCALE SQ 12/05/17 08:00 12/19/17 10:39 (Duoneb Neb) 1 ampule Q4HR NEB PRN NEB 12/05/17 01:00 12/16/17 16:23 (Ferrous Sulfate) 325 mg DAILY PO 12/06/17 09:00 12/19/17 08:25 (Tylenol) 650 mg Q4H PRN PO 12/07/17 11:45 (Zofran Inj) 4 mg Q6H PRN IVP 12/07/17 11:45 (Tylenol) 650 mg Q6H PRN PO 12/07/17 11:45 12/07/17 11:50 (Percocet 5-325 Mg) 1 tab Q6H PRN PO 12/07/17 11:45 12/10/17 21:40 (Percocet 10-325 Mg) 1 tab Q6H PRN PO 12/07/17 11:45 (Morphine Inj) 2 mg Q3H PRN IV PUSH 12/07/17 11:45 (Morphine Inj) 4 mg Q3H PRN IV PUSH 12/07/17 11:45 (Narcan Inj) 0.4 mg UNSCH PRN IV PUSH 12/07/17 11:45 (Rebeca-Colace) 1 tab BID PO 12/07/17 21:00 12/19/17 08:25 (Milk Of Magnesia Liq) 30 ml Q12H PRN PO 12/07/17 11:45 (Senokot) 17.2 mg Q12H PRN PO 12/07/17 11:45 (Dulcolax Supp) 10 mg DAILY PRN RECTAL 12/07/17 11:45 (Lactulose Liq) 30 ml DAILY PRN PO 12/07/17 11:45 (Diuril) 250 mg DAILY PO 12/08/17 14:00 12/19/17 08:25 (Lopressor) 50 mg BID PO 12/09/17 21:00 12/19/17 08:26 (Allbee C) 1 tab DAILY PO 12/13/17 09:00 12/18/17 09:26 (Folate) 1 mg DAILY PO 12/12/17 20:30 12/19/17 08:24 (Levemir Inj) 8 units HS SQ 12/13/17 21:00 12/18/17 22:07 Sodium Chloride 1,000 ml @ 84 mls/hr [id number] IV 12/14/17 16:30 12/16/17 04:37 Miscellaneous Information Patient in critical care unit? Ass... [id number] .XX 12/16/17 21:45 12/16/17 21:45 (Chlorhexidine 2% Cloth) 3 pack DAILY@04 TOPICAL 12/17/17 04:00 12/21/17 04:01 12/17/17 04:00 (Chlorhexidine 2% Cloth) 3 pack UNSCH PRN TOPICAL 12/16/17 21:45 12/21/17 21:31 Cefepime HCl 1000 mg/Sodium Chloride 100 ml @ 200 mls/hr Q24H IV 12/17/17 15:00 12/18/17 21:32 (Lasix Inj) 40 mg BID@,18 IV PUSH 12/18/17 18:00 12/19/17 08:24 (SoluMEDROL INJ) 60 mg Q6H IV PUSH 12/18/17 20:00 12/19/17 08:24 A/P Problem List: (1) Congestive heart failure ICD Code: I50.9 - Heart failure, unspecified Status: Chronic Plan: Initial chest x-ray showed mild consolidation and small effusions of both bases. BNP elevated at 601. Initially been treated with Lasix however these were held secondary to worsening renal function. 2D echo showed an EF of 60-65%. The patient has moderate respiratory distress and is requiring more oxygen to keep appropriate oxygen saturations. Patient is currently on a Ventimask. Repeat chest x-ray reviewed by me on December 16, 2017 shows cardiomegaly and diffuse airspace opacities with progression of the severity of the opacities when compared to a previous chest x-ray obtained on December 07, 2017. Check a stat chest x-ray, we will start the patient on IV Lasix 40 mg IV twice daily since creatinine seems to be close to baseline. 12/19. Chest x-ray reviewed by me shows cardiomegaly with bilateral pleural effusions and diffuse interstitial prominence suggesting congestive heart failure. Continue IV diuretics for now. (2) ALISSON (acute kidney injury) ICD Code: N17.9 - Acute kidney failure, unspecified Status: Acute Plan: Acute kidney injury seems to have resolved. Creatinine trended down to 2.7. Continue to avoid nephrotoxins, resume Lasix. Nephrology following. Patient had been placed on normal saline which was discontinued on December 16, 2017 secondary to pulmonary congestion. 12/19 creatinine continues to trend down. Continue to monitor BMP. (3) HCAP (healthcare-associated pneumonia) ICD Code: J18.9 - Pneumonia, unspecified organism Status: Acute Plan: Infiltrate seen on chest x-ray. Continue IV cefepime (4) Acute respiratory failure ICD Code: J96.00 - Acute respiratory failure, unspecified whether with hypoxia or hypercapnia Status: Acute Plan: ABG obtained on 03/06/2018 showed a PCO2 45 and a PO2 of 53. Patient still requiring elevated levels of oxygen on Ventimask at 50% FiO2. I will obtain a chest x-ray and start the patient on IV Lasix. Continue supplemental oxygen to keep oxygen saturation more than 92%. Continue duo nebs. I will start the patient on IV Solu-Medrol, administering 125 g IV once and then 60 mg IV every 6 hours afterwards. 12/19 patient's oxygenation is improving. Down to 3 L nasal cannula with appropriate oxygen saturation. (5) ALISSON (acute kidney injury) ICD Code: N17.9 - Acute kidney failure, unspecified Status: Resolved Plan: Upon review of medical records patient's baseline is around 2.42 - 2.7. Renal ultrasound showed small amount of ascites along the hepatic convexity. Otherwise kidneys and bladder are sonographically normal. Patient creatinine likely at baseline. Monitor BUN and creatinine, history of cyanosis and avoid nephrotoxins. (6) CKD (chronic kidney disease), stage III ICD Code: N18.3 - Chronic kidney disease, stage 3 (moderate) Status: Chronic Plan: As above. Nephrology following. (7) Diabetes type 2, controlled ICD Code: E11.9 - Type 2 diabetes mellitus without complications Status: Chronic Plan: Blood sugar seems to be stable. Continue Accu-Cheks before meals and at bedtime with insulin NovoLog. Continue home basal insulin. Hemoglobin A1c 6.4 on December 07, 2017. (8) Dementia ICD Code: F03.90 - Unspecified dementia without behavioral disturbance Plan: Continue memantine. Restraints as needed. (9) COPD with acute exacerbation ICD Code: J44.1 - Chronic obstructive pulmonary disease with (acute) exacerbation Plan: Patient has respiratory distress and severely decreased breath sounds on bilateral lung ruano. Give supplemental 125 mg IV once and then start on Solu-Medrol IV 60 mg IV every 6 hours. 12/19 continue IV steroids and IV Solu Medrol. (10) Thrombocytopenia ICD Code: D69.6 - Thrombocytopenia, unspecified Plan: Thrombocytopenia which appears to be chronic at least dating back to 2012. (EMR reviewed) - no evidence of DIC or TTP - could be due to chronic debility or mild chronic ITP Hematology consulted. (11) Anemia ICD Code: D64.9 - Anemia, unspecified Plan: Normocytic anemia. Likely secondary to chronic kidney disease. Next line continue ferrous sulfate. Hematology consulted. The patient status post blood transfusion and Procrit on 12/13/17. The patient is also status post transfusion of 1 unit of PRBCs. (12) Hypertension Status: Chronic Plan: Blood pressure seems to be stable. Is elevated into the 170s earlier today in the morning. 12/19 blood pressure severely elevated with a systolic blood pressure in the 170s. I will resume lisinopril and monitor creatinine. Add clonidine as needed. Assessment and Plan DVT prophylaxis: SCDs, continue heparin subcutaneously. Discharge Planning Discharge pending clinical improvement. Problem Qualifiers (1) Congestive heart failure: Qualified Codes: I50.33 - Acute on chronic diastolic (congestive) heart failure (2) Acute respiratory failure: Qualified Codes: J96.01 - Acute respiratory failure with hypoxia; J96.02 - Acute respiratory failure with hypercapnia (3) Diabetes type 2, controlled: Qualified Codes: E11.21 - Type 2 diabetes mellitus with diabetic nephropathy; Z79.4 - shelter (current) use of insulin (4) Dementia: Qualified Codes: F03.90 - Unspecified dementia without behavioral disturbance (5) Anemia: Qualified Codes: N18.3 - Chronic kidney disease, stage 3 (moderate); D63.1 - Anemia in chronic kidney disease Al Canales MD Dec 19, 2017 13:02
[2017-12-19] MEDS: CEFEPIME INJ 1,000 MG in SODIUM CHLORIDE 0.9% INJ 100 ML IV SCH (16:48)
[2017-12-19] MEDS: ATORVASTATIN 40 MG TAB PO SCH (20:18)
[2017-12-19] MEDS: TAMSULOSIN HCL 0.4 MG CAP PO SCH (20:19)
[2017-12-19] MEDS: INSULIN DETEMIR 100 UNITS/ML VIAL SQ SCH (20:34)
[2017-12-20] VITALS (9 sets, daily range): BP systolic 126–185; BP diastolic 62–85; PULSE 58–70; RESP 18–20; TEMP 96–98.7; O2SAT 94–97
[2017-12-20] MEDS: SODIUM CHLOR 0.9% 1000 ML INJ 1,000 ML IV SCH ×2 (02:26→14:37)
[2017-12-20] MEDS: SODIUM CHLORIDE 0.9% FLUSH 10 ML FLUSH IV FLUSH PRN (02:27)
[2017-12-20] MEDS: methylPREDNISolone SOD SUCC 40 MG/1 ML VIAL IV PUSH SCH ×4 (02:27→20:36)
[2017-12-20] MEDS: CHLORHEXIDINE GLUCONATE 2 % 1 PACK (2 CLOTHS)(taper/protocol) TOPICAL SCH (02:27)
[2017-12-20] MEDS: HEPARIN SODIUM - SQ 10,000 UNITS/ML VIAL SQ SCH ×3 (04:09→20:47)
[2017-12-20] MEDS: MEMANTINE HCL 10 MG TAB PO SCH ×2 (08:04→20:40)
[2017-12-20] MEDS: FERROUS SULFATE 325 MG (65 MG ELEMENTAL IRON) TAB PO SCH (08:04)
[2017-12-20] MEDS: CHLOROTHIAZIDE 250 MG TAB PO SCH (08:04)
[2017-12-20] MEDS: ASPIRIN 81 MG CHEW TAB CHEW SCH (08:04)
[2017-12-20] MEDS: DOCUSATE SODIUM 50 MG/SENNA 8.6 MG TAB PO SCH ×2 (08:04→20:40)
[2017-12-20] MEDS: VITAMIN B COMPLEX/VIT C TAB PO SCH (08:04)
[2017-12-20] MEDS: PANTOPRAZOLE SOD 40 MG DELAYED RELEASE TAB PO SCH (08:04)
[2017-12-20] MEDS: METOPROLOL TARTRATE 50 MG TAB PO SCH ×2 (08:04→20:40)
[2017-12-20] MEDS: SERTRALINE HCL 50 MG TAB PO SCH (08:04)
[2017-12-20] MEDS: FOLIC ACID 1 MG TAB PO SCH (08:04)
[2017-12-20] MEDS: SODIUM CHLORIDE 0.9% FLUSH 10 ML FLUSH IV FLUSH SCH ×2 (08:05→20:37)
[2017-12-20] MEDS: INSULIN ASPART SUPPLEMENTAL SCALE SQ SCH ×4 (08:05→20:41)
[2017-12-20] MEDS: FUROSEMIDE 40 MG/4 ML VIAL IV PUSH SCH ×2 (08:05→17:09)
[2017-12-20 08:59] LABS: HEMATOCRIT 28.6 % (39.0-51.0); HEMOGLOBIN 9.1 GM/DL (13.0-17.0); MEAN CELL VOLUME 95.9 FL (80.0-100.0); MEAN CORPUSCULAR HEMOGLOBIN 30.5 PG (27.0-34.0); MEAN CORPUSCULAR HGB CONC 31.8 % (32.0-36.0); MEAN PLATELET VOLUME 9.9 FL (7.0-11.0); PLATELET COUNT 151 TH/MM3 (150-450); RED BLOOD COUNT 2.98 MIL/MM3 (4.50-5.90); RED CELL DISTRIBUTION WIDTH 22.2 % (11.6-17.2); WHITE BLOOD COUNT 6.2 TH/MM3 (4.0-11.0)
[2017-12-20 09:08] LABS: BICARBONATE 27.4 MEQ/L (21.0-32.0); CALCIUM 9.4 MG/DL (8.5-10.1); CREATININE 2.73 MG/DL (0.60-1.30)
--- NOTE | 2017-12-20 11:00 | HHI.PR ---
Subjective Remarks Patient states he feels well. at bedside. States breathing is improving. Afebrile. Objective Vitals Vital Signs Date Time Temp Pulse Resp B/P (MAP) Pulse Ox O2 Delivery O2 Flow Rate FiO2 12/20/17 09:39 134/71 (92) 12/20/17 07:49 96.9 65 19 185/85 (118) 94 12/20/17 04:16 96.5 60 20 126/62 (83) 97 12/20/17 03:12 58 12/20/17 00:16 96.0 60 18 141/68 (92) 96 12/19/17 20:16 98 Nasal Cannula 3.00 12/19/17 20:00 96.7 69 18 138/70 (92) 98 12/19/17 20:00 61 12/19/17 17:54 95 Nasal Cannula 3.00 12/19/17 16:00 96.3 56 17 101/55 (70) 95 12/19/17 12:00 95.7 55 17 170/82 (111) 95 I/O 12/19/17 12/19/17 12/19/17 12/20/17 12/20/17 12/20/17 07:00 15:00 23:00 07:00 15:00 23:00 Intake Total 480 ml 260 ml 480 ml 120 ml Output Total 600 ml 1000 ml Balance -120 ml 260 ml -520 ml 120 ml Intake Oral 380 ml 240 ml 480 ml 120 ml IV Total 100 ml 20 ml Output Urine Total 600 ml 1000 ml # Voids 1 3 # Bowel Movements 0 0 Result Diagram: 12/20/17 0723 12/20/17 0723 Imaging Last Impressions Chest X-Ray 12/18/17 0000 Signed Impressions: Service Date/Time: November 14:17 - CONCLUSION: Cardiomegaly with bilateral effusions and diffuse interstitial prominence suggesting congestive failure. Marcos Ware MD Renal Ultrasound 12/08/17 0000 Signed Impressions: Service Date/Time: Friday, December 08, 2017 14:50 - CONCLUSION: 1. Small amount of ascites along the hepatic convexity. 2. Otherwise, kidneys and bladder are sonographically normal. Elia Villafuerte MD Objective Remarks GENERAL: The patient has mild to moderate respiratory distress. SKIN: Warm and dry. HEAD: Normocephalic. EYES: No scleral icterus. No injection or drainage. NECK: Supple, trachea midline. No JVD or lymphadenopathy. CARDIOVASCULAR: Regular rate and rhythm without murmurs, gallops, or rubs. (+) JVD RESPIRATORY: Decreased breath sounds bilaterally. Improved aereation - some diffuse scattered Rhonchi auscultated. GASTROINTESTINAL: Abdomen soft, non-tender, nondistended. MUSCULOSKELETAL: No cyanosis, or edema. BACK: Nontender without obvious deformity. No CVA tenderness. Procedures NONE Medications and IVs Current Medications Medications (Trade) Dose Ordered Sig/Martha Route Start Time Stop Time Status Last Admin (NS Flush) 2 ml UNSCH PRN IV FLUSH 12/05/17 01:00 12/20/17 02:27 (NS Flush) 2 ml BID IV FLUSH 12/05/17 09:00 12/20/17 08:05 (Heparin Inj) 5,000 units Q8H SQ 12/05/17 06:00 12/20/17 04:09 (Norvasc) 10 mg DAILY PO 12/05/17 09:00 12/20/17 08:04 (Aspirin Chew) 81 mg DAILY CHEW 12/05/17 09:00 12/20/17 08:04 (Lipitor) 40 mg HS PO 12/05/17 21:00 12/19/17 20:18 (Prinivil) 10 mg DAILY PO 12/05/17 09:00 Future Hold 12/08/17 08:03 (Namenda) 10 mg BID PO 12/05/17 09:00 12/20/17 08:04 (Zoloft) 50 mg DAILY PO 12/05/17 09:00 12/20/17 08:04 (Flomax) 0.4 mg HS PO 12/05/17 21:00 12/19/17 20:19 (Protonix) 40 mg DAILY PO 12/05/17 09:00 12/20/17 08:04 (D50w (Vial) Inj) 50 ml UNSCH PRN IV PUSH 12/05/17 01:00 (Glucagon Inj) 1 mg UNSCH PRN OTHER 12/05/17 01:00 (NovoLOG SUPPLEMENTAL SCALE) 1 ACHS SLIDING SCALE SQ 12/05/17 08:00 12/20/17 08:05 (Duoneb Neb) 1 ampule Q4HR NEB PRN NEB 12/05/17 01:00 12/16/17 16:23 (Ferrous Sulfate) 325 mg DAILY PO 12/06/17 09:00 12/20/17 08:04 (Tylenol) 650 mg Q4H PRN PO 12/07/17 11:45 (Zofran Inj) 4 mg Q6H PRN IVP 12/07/17 11:45 (Tylenol) 650 mg Q6H PRN PO 12/07/17 11:45 12/07/17 11:50 (Percocet 5-325 Mg) 1 tab Q6H PRN PO 12/07/17 11:45 12/10/17 21:40 (Percocet 10-325 Mg) 1 tab Q6H PRN PO 12/07/17 11:45 (Morphine Inj) 2 mg Q3H PRN IV PUSH 12/07/17 11:45 (Morphine Inj) 4 mg Q3H PRN IV PUSH 12/07/17 11:45 (Narcan Inj) 0.4 mg UNSCH PRN IV PUSH 12/07/17 11:45 (Rebeca-Colace) 1 tab BID PO 12/07/17 21:00 12/20/17 08:04 (Milk Of Magnesia Liq) 30 ml Q12H PRN PO 12/07/17 11:45 (Senokot) 17.2 mg Q12H PRN PO 12/07/17 11:45 (Dulcolax Supp) 10 mg DAILY PRN RECTAL 12/07/17 11:45 (Lactulose Liq) 30 ml DAILY PRN PO 12/07/17 11:45 (Diuril) 250 mg DAILY PO 12/08/17 14:00 12/20/17 08:04 (Lopressor) 50 mg BID PO 12/09/17 21:00 12/20/17 08:04 (Allbee C) 1 tab DAILY PO 12/13/17 09:00 12/20/17 08:04 (Folate) 1 mg DAILY PO 12/12/17 20:30 12/20/17 08:04 (Levemir Inj) 8 units HS SQ 12/13/17 21:00 12/19/17 20:34 Sodium Chloride 1,000 ml @ 84 mls/hr [id number] IV 12/14/17 16:30 12/16/17 04:37 Miscellaneous Information Patient in critical care unit? Ass... [id number] .XX 12/16/17 21:45 12/16/17 21:45 (Chlorhexidine 2% Cloth) 3 pack DAILY@04 TOPICAL 12/17/17 04:00 12/21/17 04:01 12/17/17 04:00 (Chlorhexidine 2% Cloth) 3 pack UNSCH PRN TOPICAL 12/16/17 21:45 12/21/17 21:31 Cefepime HCl 1000 mg/Sodium Chloride 100 ml @ 200 mls/hr Q24H IV 12/17/17 15:00 12/19/17 16:48 (Lasix Inj) 40 mg BID@18 IV PUSH 12/18/17 18:00 12/20/17 08:05 (SoluMEDROL INJ) 60 mg Q6H IV PUSH 12/18/17 20:00 12/20/17 08:05 A/P Problem List: (1) Congestive heart failure ICD Code: I50.9 - Heart failure, unspecified Status: Chronic (2) ALISSON (acute kidney injury) ICD Code: N17.9 - Acute kidney failure, unspecified Status: Acute (3) HCAP (healthcare-associated pneumonia) ICD Code: J18.9 - Pneumonia, unspecified organism Status: Acute (4) Acute respiratory failure ICD Code: J96.00 - Acute respiratory failure, unspecified whether with hypoxia or hypercapnia Status: Acute (5) ALISSON (acute kidney injury) ICD Code: N17.9 - Acute kidney failure, unspecified Status: Resolved (6) CKD (chronic kidney disease), stage III ICD Code: N18.3 - Chronic kidney disease, stage 3 (moderate) Status: Chronic (7) Diabetes type 2, controlled ICD Code: E11.9 - Type 2 diabetes mellitus without complications Status: Chronic (8) Dementia ICD Code: F03.90 - Unspecified dementia without behavioral disturbance (9) COPD with acute exacerbation ICD Code: J44.1 - Chronic obstructive pulmonary disease with (acute) exacerbation (10) Thrombocytopenia ICD Code: D69.6 - Thrombocytopenia, unspecified (11) Anemia ICD Code: D64.9 - Anemia, unspecified (12) Hypertension Status: Chronic Assessment and Plan (1) Congestive heart failure Plan: Initial chest x-ray showed mild consolidation and small effusions of both bases. BNP elevated at 601. Initially been treated with Lasix however these were held secondary to worsening renal function. 2D echo showed an EF of 60-65%. The patient has moderate respiratory distress and is requiring more oxygen to keep appropriate oxygen saturations. Patient is currently on a Ventimask. Repeat chest x-ray reviewed by me on December 16, 2017 shows cardiomegaly and diffuse airspace opacities with progression of the severity of the opacities when compared to a previous chest x-ray obtained on December 07, 2017. Check a stat chest x-ray, we will start the patient on IV Lasix 40 mg IV twice daily since creatinine seems to be close to baseline. Chest x-ray reviewed by me shows cardiomegaly with bilateral pleural effusions and diffuse interstitial prominence suggesting congestive heart failure. Continue IV diuretics for now. (2) ALISSON (acute kidney injury) Plan: Acute kidney injury seems to have resolved. Creatinine trended down to 2.7. Continue to avoid nephrotoxins, resume Lasix. Nephrology following. Patient had been placed on normal saline which was discontinued on December 16, 2017 secondary to pulmonary congestion. 12/19 creatinine continues to trend down. Continue to monitor BMP. (3) HCAP (healthcare-associated pneumonia) Plan: Infiltrate seen on chest x-ray. Continue IV cefepime (4) Acute respiratory failure Plan: ABG obtained on 03/06/2018 showed a PCO2 45 and a PO2 of 53. Patient still requiring elevated levels of oxygen on Ventimask at 50% FiO2. I will obtain a chest x-ray and start the patient on IV Lasix. Continue supplemental oxygen to keep oxygen saturation more than 92%. Continue duo nebs. I will start the patient on IV Solu-Medrol, administering 125 g IV once and then 60 mg IV every 6 hours afterwards. patient's oxygenation is improving. Down to 3 L nasal cannula with appropriate oxygen saturation. (5) ALISSON (acute kidney injury) Plan: Upon review of medical records patient's baseline is around 2.42 - 2.7. Renal ultrasound showed small amount of ascites along the hepatic convexity. Otherwise kidneys and bladder are sonographically normal. Patient creatinine likely at baseline. Monitor BUN and creatinine, history of cyanosis and avoid nephrotoxins. (6) CKD (chronic kidney disease), stage III Plan: As above. Nephrology following. (7) Diabetes type 2, controlled Plan: Continue Accu-Cheks before meals and at bedtime with insulin NovoLog. Continue home basal insulin. Hemoglobin A1c 6.4 on December 07, 2017. 12/20 blood sugar severely elevated in the 200s range. I will start the patient on insulin Levemir 5 units subcu twice daily. (8) Dementia Plan: Continue memantine. Restraints as needed. (9) COPD with acute exacerbation ICD Code: J44.1 - Chronic obstructive pulmonary disease with (acute) exacerbation Plan: Patient has respiratory distress and severely decreased breath sounds on bilateral lung ruano. Give supplemental 125 mg IV once and then start on Solu-Medrol IV 60 mg IV every 6 hours. 12/19 continue IV steroids and IV Solu Medrol. (10) Thrombocytopenia Plan: Thrombocytopenia which appears to be chronic at least dating back to 2012. (EMR reviewed) - no evidence of DIC or TTP - could be due to chronic debility or mild chronic ITP Hematology consulted. (11) Anemia Plan: Normocytic anemia. Likely secondary to chronic kidney disease. Next line continue ferrous sulfate. Hematology consulted. The patient status post blood transfusion and Procrit on 12/13/17. The patient is also status post transfusion of 1 unit of PRBCs. (12) Hypertension Plan: Blood pressure seems to be stable. Is elevated into the 170s earlier today in the morning. 12/19 blood pressure severely elevated with a systolic blood pressure in the 170s. I will resume lisinopril and monitor creatinine. Add clonidine as needed. 12/20 blood pressure with improved control. Continue lisinopril and clonidine as needed. Assessment and Plan DVT prophylaxis: SCDs, continue heparin subcutaneously. DVT prophylaxis: SCDs, continue heparin subcutaneously. Discharge Planning Discharge pending clinical improvement. Patient still with elevated requirement of oxygen. Problem Qualifiers (1) Congestive heart failure: Qualified Codes: I50.33 - Acute on chronic diastolic (congestive) heart failure (2) Acute respiratory failure: Qualified Codes: J96.01 - Acute respiratory failure with hypoxia; J96.02 - Acute respiratory failure with hypercapnia (3) Diabetes type 2, controlled: Qualified Codes: E11.21 - Type 2 diabetes mellitus with diabetic nephropathy; Z79.4 - long-term (current) use of insulin (4) Dementia: Qualified Codes: F03.90 - Unspecified dementia without behavioral disturbance (5) Anemia: Qualified Codes: N18.3 - Chronic kidney disease, stage 3 (moderate); D63.1 - Anemia in chronic kidney disease Al Canales MD Dec 20, 2017 11:00
[2017-12-20] MEDS: CEFEPIME INJ 1,000 MG in SODIUM CHLORIDE 0.9% INJ 100 ML IV SCH (14:39)
--- NOTE | 2017-12-20 15:49 | HHI.NPPN ---
Subjective General Problems: Anemia Renal Failure: Chronic, Acute, Stage III History of Present Illness Patient is a 77 year-old male resident of [facility] with a history of Type 2 DM, COPD, CHF, CVA, dementia, MD, CAD, Hyperlipidemia, Hypertension, bleeding gastric ulcer, prostate CA, nephrolithiasis, and arthritis who presented to the ER on 12/04/17 for evaluation of severe shortness of breath and edema. Consulted today for ALISSON with creatinine level of 2.58 with a GFR of 30 ml/min. On 07/03/16 GFR was noted to be 51 ml/min. Additional Remarks no acute complaints Objective Data Data 12/20/17 12/21/17 19:00 07:00 Intake Total 120 ml Balance 120 ml Intake Oral 120 ml Vital Signs Date Time Temp Pulse Resp B/P (MAP) Pulse Ox O2 Delivery O2 Flow Rate FiO2 12/20/17 12:00 98.4 70 20 133/74 (93) 94 12/20/17 09:39 134/71 (92) 12/20/17 07:49 96.9 65 19 185/85 (118) 94 12/20/17 04:16 96.5 60 20 126/62 (83) 97 12/20/17 03:12 58 12/20/17 00:16 96.0 60 18 141/68 (92) 96 12/19/17 20:16 98 Nasal Cannula 3.00 12/19/17 20:00 96.7 69 18 138/70 (92) 98 12/19/17 20:00 61 12/19/17 17:54 95 Nasal Cannula 3.00 12/19/17 16:00 96.3 56 17 101/55 (70) 95 -: 12/20/17 0723 12/20/17 0723 Physical Exam General Appearance: No Acute Distress, Comfortable Eyes Eye Exam: Pupils Equal Pulmonary Resp Exam: Breath Sounds Equal, No Distress, Decreased Bases Cardiology CV Exam: Normal Sinus Rhythm Gastrointestinal/Abdomen GI Exam: Soft, Non-Tender, Bowel Sounds Present Genitourinary Exam: Flank Non-Tender Integumentary Skin Exam: Clear, Warm, Lesion(s) Extremeties Extremities Exam: Trace Edema Neurologic Neuro Exam: Awake Assessment/Plan Problem List: (1) ALISSON (acute kidney injury) ICD Codes: N17.9 - Acute kidney failure, unspecified Status: Acute Plan: ALISSON on CKD may be related to poor PO intake. CKD stage 3 with GFR on 07/03/16 51 ml/min most likely related to diabetic nephropathy and HTN Renal US: . Small amount of ascites along the hepatic convexity otherwise, kidneys and bladder are sonographically normal. Trace proteinuria and blood noted in UA Potassium/calcium levels WNL Continues to have good UOP Creatinine stable at 2.7 today Plan: Continue Lasix 40mg IV BID, Creatinine is now stable. Maintain strict I+O Anemia most likely chronic disease, on Aranesp monthly . Encourage oral intake. Continue to monitor UOP and BMP. . (2) Anemia ICD Codes: D64.9 - Anemia, unspecified Plan: Continue Aranesp hematology workup IV iron replacement (3) Diabetes Mellitus Plan: Maintain BS between 140mg/dl to 180 mg/dl On insulin (4) Hypertension Status: Chronic Plan: Well controlled continue same (5) Congestive heart failure ICD Codes: I50.9 - Heart failure, unspecified Status: Chronic Problem Qualifiers (1) Congestive heart failure: Qualified Codes: I50.33 - Acute on chronic diastolic (congestive) heart failure Marcos Verde MD Dec 20, 2017 15:48
[2017-12-20] MEDS: TAMSULOSIN HCL 0.4 MG CAP PO SCH (20:40)
[2017-12-20] MEDS: INSULIN DETEMIR 100 UNITS/ML VIAL SQ SCH (20:40)
[2017-12-20] MEDS: ATORVASTATIN 40 MG TAB PO SCH (20:40)
[2017-12-21] VITALS (7 sets, daily range): BP systolic 127–160; BP diastolic 62–72; PULSE 56–90; RESP 18–20; TEMP 96.4–98.1; O2SAT 91–97
[2017-12-21] MEDS: methylPREDNISolone SOD SUCC 40 MG/1 ML VIAL IV PUSH SCH ×4 (01:30→21:43)
[2017-12-21] MEDS: CHLORHEXIDINE GLUCONATE 2 % 1 PACK (2 CLOTHS)(taper/protocol) TOPICAL SCH (03:09)
[2017-12-21] MEDS: SODIUM CHLOR 0.9% 1000 ML INJ 1,000 ML IV SCH (03:25)
[2017-12-21] MEDS: HEPARIN SODIUM - SQ 10,000 UNITS/ML VIAL SQ SCH ×3 (05:35→21:43)
[2017-12-21] MEDS: CHLOROTHIAZIDE 250 MG TAB PO SCH (08:15)
[2017-12-21] MEDS: SERTRALINE HCL 50 MG TAB PO SCH (08:15)
[2017-12-21] MEDS: MEMANTINE HCL 10 MG TAB PO SCH ×2 (08:15→21:43)
[2017-12-21] MEDS: PANTOPRAZOLE SOD 40 MG DELAYED RELEASE TAB PO SCH (08:15)
[2017-12-21] MEDS: FERROUS SULFATE 325 MG (65 MG ELEMENTAL IRON) TAB PO SCH (08:15)
[2017-12-21] MEDS: VITAMIN B COMPLEX/VIT C TAB PO SCH (08:15)
[2017-12-21] MEDS: METOPROLOL TARTRATE 50 MG TAB PO SCH ×2 (08:15→21:43)
[2017-12-21] MEDS: FUROSEMIDE 40 MG/4 ML VIAL IV PUSH SCH ×2 (08:15→17:23)
[2017-12-21] MEDS: FOLIC ACID 1 MG TAB PO SCH (08:15)
[2017-12-21] MEDS: ASPIRIN 81 MG CHEW TAB CHEW SCH (08:15)
[2017-12-21] MEDS: INSULIN ASPART SUPPLEMENTAL SCALE SQ SCH ×4 (08:16→21:00)
[2017-12-21] MEDS: SODIUM CHLORIDE 0.9% FLUSH 10 ML FLUSH IV FLUSH SCH ×2 (08:16→21:44)
[2017-12-21] MEDS: DOCUSATE SODIUM 50 MG/SENNA 8.6 MG TAB PO SCH ×2 (08:17→21:43)
--- NOTE | 2017-12-21 12:08 | HHI.PR ---
Subjective Remarks Patient is hard of hearing. The patient denies chest pain, shortness of breath is improving. Patient still on 3 L nasal cannula. A febrile Objective Vitals Vital Signs Date Time Temp Pulse Resp B/P (MAP) Pulse Ox O2 Delivery O2 Flow Rate FiO2 12/21/17 08:00 97.9 85 19 160/72 (101) 95 12/21/17 04:00 57 12/21/17 04:00 96.4 57 18 129/62 (84) 97 12/21/17 00:15 98.1 56 18 131/70 (90) 95 12/20/17 21:39 94 3.00 12/20/17 20:53 98.7 63 18 135/63 (87) 94 12/20/17 20:00 94 Nasal Cannula 3.00 12/20/17 16:00 98.7 62 20 130/62 (84) 95 I/O 12/20/17 12/20/17 12/20/17 12/21/17 12/21/17 12/21/17 07:00 15:00 23:00 07:00 15:00 23:00 Intake Total 480 ml 120 ml 750 ml Output Total 1000 ml 500 ml Balance -520 ml 120 ml 250 ml Intake Oral 480 ml 120 ml 750 ml Output Urine Total 1000 ml 500 ml # Voids 2 # Bowel Movements 0 0 Result Diagram: 12/20/17 0723 12/20/17 0723 Imaging Last Impressions Chest X-Ray 12/18/17 0000 Signed Impressions: Service Date/Time: November 14:17 - CONCLUSION: Cardiomegaly with bilateral effusions and diffuse interstitial prominence suggesting congestive failure. Marcos Ware MD Renal Ultrasound 12/08/17 0000 Signed Impressions: Service Date/Time: Friday, December 08, 2017 14:50 - CONCLUSION: 1. Small amount of ascites along the hepatic convexity. 2. Otherwise, kidneys and bladder are sonographically normal. Elia Villafuerte MD Objective Remarks GENERAL: The patient has mild to moderate respiratory distress. SKIN: Warm and dry. HEAD: Normocephalic. EYES: No scleral icterus. No injection or drainage. NECK: Supple, trachea midline. No JVD or lymphadenopathy. CARDIOVASCULAR: Regular rate and rhythm without murmurs, gallops, or rubs. (+) JVD RESPIRATORY: There is better and radiation than previous days, no wheezing, rhonchi or rales auscultated. GASTROINTESTINAL: Abdomen soft, non-tender, nondistended. MUSCULOSKELETAL: No cyanosis, or edema. BACK: Nontender without obvious deformity. No CVA tenderness. Procedures NONE Medications and IVs Current Medications Medications (Trade) Dose Ordered Sig/Martha Route Start Time Stop Time Status Last Admin (NS Flush) 2 ml UNSCH PRN IV FLUSH 12/05/17 01:00 12/20/17 02:27 (NS Flush) 2 ml BID IV FLUSH 12/05/17 09:00 12/21/17 08:16 (Heparin Inj) 5,000 units Q8H SQ 12/05/17 06:00 12/21/17 05:35 (Norvasc) 10 mg DAILY PO 12/05/17 09:00 12/21/17 08:15 (Aspirin Chew) 81 mg DAILY CHEW 12/05/17 09:00 12/21/17 08:15 (Lipitor) 40 mg HS PO 12/05/17 21:00 12/20/17 20:40 (Prinivil) 10 mg DAILY PO 12/05/17 09:00 Future Hold 12/08/17 08:03 (Namenda) 10 mg BID PO 12/05/17 09:00 12/21/17 08:15 (Zoloft) 50 mg DAILY PO 12/05/17 09:00 12/21/17 08:15 (Flomax) 0.4 mg HS PO 12/05/17 21:00 12/20/17 20:40 (Protonix) 40 mg DAILY PO 12/05/17 09:00 12/21/17 08:15 (D50w (Vial) Inj) 50 ml UNSCH PRN IV PUSH 12/05/17 01:00 (Glucagon Inj) 1 mg UNSCH PRN OTHER 12/05/17 01:00 (NovoLOG SUPPLEMENTAL SCALE) 1 ACHS SLIDING SCALE SQ 12/05/17 08:00 12/21/17 08:16 (Duoneb Neb) 1 ampule Q4HR NEB PRN NEB 12/05/17 01:00 12/16/17 16:23 (Ferrous Sulfate) 325 mg DAILY PO 12/06/17 09:00 12/21/17 08:15 (Tylenol) 650 mg Q4H PRN PO 12/07/17 11:45 (Zofran Inj) 4 mg Q6H PRN IVP 12/07/17 11:45 (Tylenol) 650 mg Q6H PRN PO 12/07/17 11:45 12/07/17 11:50 (Percocet 5-325 Mg) 1 tab Q6H PRN PO 12/07/17 11:45 12/10/17 21:40 (Percocet 10-325 Mg) 1 tab Q6H PRN PO 12/07/17 11:45 (Morphine Inj) 2 mg Q3H PRN IV PUSH 12/07/17 11:45 (Morphine Inj) 4 mg Q3H PRN IV PUSH 12/07/17 11:45 (Narcan Inj) 0.4 mg UNSCH PRN IV PUSH 12/07/17 11:45 (Rebeca-Colace) 1 tab BID PO 12/07/17 21:00 12/21/17 08:17 (Milk Of Magnesia Liq) 30 ml Q12H PRN PO 12/07/17 11:45 (Senokot) 17.2 mg Q12H PRN PO 12/07/17 11:45 (Dulcolax Supp) 10 mg DAILY PRN RECTAL 12/07/17 11:45 (Lactulose Liq) 30 ml DAILY PRN PO 12/07/17 11:45 (Diuril) 250 mg DAILY PO 12/08/17 14:00 12/21/17 08:15 (Lopressor) 50 mg BID PO 12/09/17 21:00 12/21/17 08:15 (Allbee C) 1 tab DAILY PO 12/13/17 09:00 12/21/17 08:15 (Folate) 1 mg DAILY PO 12/12/17 20:30 12/21/17 08:15 (Levemir Inj) 8 units HS SQ 12/13/17 21:00 12/20/17 20:40 Sodium Chloride 1,000 ml @ 84 mls/hr [id number] IV 12/14/17 16:30 12/16/17 04:37 Miscellaneous Information Patient in critical care unit? Ass... [id number] .XX 12/16/17 21:45 12/16/17 21:45 (Chlorhexidine 2% Cloth) 3 pack UNSCH PRN TOPICAL 12/16/17 21:45 12/21/17 21:31 Cefepime HCl 1000 mg/Sodium Chloride 100 ml @ 200 mls/hr Q24H IV 12/17/17 15:00 12/20/17 14:39 (Lasix Inj) 40 mg BID@09,18 IV PUSH 12/18/17 18:00 12/21/17 08:15 (SoluMEDROL INJ) 60 mg Q6H IV PUSH 12/18/17 20:00 12/21/17 08:15 A/P Problem List: (1) Congestive heart failure ICD Code: I50.9 - Heart failure, unspecified Status: Chronic (2) ALISSON (acute kidney injury) ICD Code: N17.9 - Acute kidney failure, unspecified Status: Acute (3) HCAP (healthcare-associated pneumonia) ICD Code: J18.9 - Pneumonia, unspecified organism Status: Acute (4) Acute respiratory failure ICD Code: J96.00 - Acute respiratory failure, unspecified whether with hypoxia or hypercapnia Status: Acute (5) ALISSON (acute kidney injury) ICD Code: N17.9 - Acute kidney failure, unspecified Status: Resolved (6) CKD (chronic kidney disease), stage III ICD Code: N18.3 - Chronic kidney disease, stage 3 (moderate) Status: Chronic (7) Diabetes type 2, controlled ICD Code: E11.9 - Type 2 diabetes mellitus without complications Status: Chronic (8) Dementia ICD Code: F03.90 - Unspecified dementia without behavioral disturbance (9) COPD with acute exacerbation ICD Code: J44.1 - Chronic obstructive pulmonary disease with (acute) exacerbation (10) Thrombocytopenia ICD Code: D69.6 - Thrombocytopenia, unspecified (11) Anemia ICD Code: D64.9 - Anemia, unspecified (12) Hypertension Status: Chronic Assessment and Plan (1) Congestive heart failure Plan: Initial chest x-ray showed mild consolidation and small effusions of both bases. BNP elevated at 601. Initially been treated with Lasix however these were held secondary to worsening renal function. 2D echo showed an EF of 60-65%. The patient has moderate respiratory distress and is requiring more oxygen to keep appropriate oxygen saturations. Patient is currently on a Ventimask. Repeat chest x-ray reviewed by me on December 16, 2017 shows cardiomegaly and diffuse airspace opacities with progression of the severity of the opacities when compared to a previous chest x-ray obtained on December 07, 2017. Check a stat chest x-ray, we will start the patient on IV Lasix 40 mg IV twice daily since creatinine seems to be close to baseline. Chest x-ray reviewed by me shows cardiomegaly with bilateral pleural effusions and diffuse interstitial prominence suggesting congestive heart failure. 12/21 Patient has a positive fluid balance still requiring oxygen. Patient had been on IV fluids as per nephrology which will be discontinued. Increased dose of Lasix to 40 mg IV 3 times daily. (3) HCAP (healthcare-associated pneumonia) Plan: Infiltrate seen on chest x-ray. Continue IV cefepime (4) Acute respiratory failure Plan: ABG obtained on 03/06/2018 showed a PCO2 45 and a PO2 of 53. Patient still requiring elevated levels of oxygen on Ventimask at 50% FiO2. I will obtain a chest x-ray and start the patient on IV Lasix. Continue supplemental oxygen to keep oxygen saturation more than 92%. Continue duo nebs. I will start the patient on IV Solu-Medrol, administering 125 g IV once and then 60 mg IV every 6 hours afterwards. patient's oxygenation is improving. Down to 3 L nasal cannula with appropriate oxygen saturation. Increase Lasix - DC IV fluids. (5) ALISSON (acute kidney injury) Plan: Upon review of medical records patient's baseline is around 2.42 - 2.7. Renal ultrasound showed small amount of ascites along the hepatic convexity. Otherwise kidneys and bladder are sonographically normal. Patient creatinine likely at baseline. Monitor BUN and creatinine, history of cyanosis and avoid nephrotoxins. (6) CKD (chronic kidney disease), stage III Plan: As above. Nephrology following. (7) Diabetes type 2, controlled Plan: Continue Accu-Cheks before meals and at bedtime with insulin NovoLog. Continue home basal insulin. Hemoglobin A1c 6.4 on December 07, 2017. 12/21 Blood sugars severely elevated into the 300's range. Start patient on insulin basal bolus therapy with insulin Levemir and insulin NovoLog. Adjust blood sugars less than 180. Continue to soak with insulin NovoLog. (8) Dementia Plan: Continue memantine. Restraints as needed. (9) COPD with acute exacerbation ICD Code: J44.1 - Chronic obstructive pulmonary disease with (acute) exacerbation Plan: Patient has respiratory distress and severely decreased breath sounds on bilateral lung ruano. Give supplemental 125 mg IV once and then start on Solu-Medrol IV 60 mg IV every 6 hours. 12/19 continue IV steroids and IV Solu Medrol. 12/21 aeration in lungs is much improved. Start steroid taper. Decrease limited to 40 mg IV every 8 hours. (10) Thrombocytopenia Plan: Thrombocytopenia which appears to be chronic at least dating back to 2012. (EMR reviewed) - no evidence of DIC or TTP - could be due to chronic debility or mild chronic ITP Hematology consulted. (11) Anemia Plan: Normocytic anemia. Likely secondary to chronic kidney disease. Next line continue ferrous sulfate. Hematology consulted. The patient status post blood transfusion and Procrit on 12/13/17. The patient is also status post transfusion of 1 unit of PRBCs. (12) Hypertension Plan: Blood pressure seems to be stable. Is elevated into the 170s earlier today in the morning. 12/19 blood pressure severely elevated with a systolic blood pressure in the 170s. I will resume lisinopril and monitor creatinine. Add clonidine as needed. 12/20 blood pressure with improved control. Continue lisinopril and clonidine as needed. Assessment and Plan DVT prophylaxis: SCDs, continue heparin subcutaneously. DVT prophylaxis: SCDs, continue heparin subcutaneously. Discharge Planning Discharge pending clinical improvement. Patient still with elevated requirement of oxygen. Problem Qualifiers (1) Congestive heart failure: Qualified Codes: I50.33 - Acute on chronic diastolic (congestive) heart failure (2) Acute respiratory failure: Qualified Codes: J96.01 - Acute respiratory failure with hypoxia; J96.02 - Acute respiratory failure with hypercapnia (3) Diabetes type 2, controlled: Qualified Codes: E11.21 - Type 2 diabetes mellitus with diabetic nephropathy; Z79.4 - nursing home (current) use of insulin (4) Dementia: Qualified Codes: F03.90 - Unspecified dementia without behavioral disturbance (5) Anemia: Qualified Codes: N18.3 - Chronic kidney disease, stage 3 (moderate); D63.1 - Anemia in chronic kidney disease Al Canales MD Dec 21, 2017 12:08
[2017-12-21 12:40] LABS: BICARBONATE 25.5 MEQ/L (21.0-32.0); CALCIUM 8.8 MG/DL (8.5-10.1); CREATININE 3.05 MG/DL (0.60-1.30)
[2017-12-21] MEDS: CEFEPIME INJ 1,000 MG in SODIUM CHLORIDE 0.9% INJ 100 ML IV SCH (15:29)
--- NOTE | 2017-12-21 16:00 | HHI.NPPN ---
Subjective General Problems: Anemia Renal Failure: Chronic, Acute, Stage III History of Present Illness Patient is a 77 year-old male resident of [facility] with a history of Type 2 DM, COPD, CHF, CVA, dementia, NE, CAD, Hyperlipidemia, Hypertension, bleeding gastric ulcer, prostate CA, nephrolithiasis, and arthritis who presented to the ER on 12/04/17 for evaluation of severe shortness of breath and edema. Consulted today for ALISSON with creatinine level of 2.58 with a GFR of 30 ml/min. On 07/03/16 GFR was noted to be 51 ml/min. Additional Remarks no acute complaints Objective Data Data Vital Signs Date Time Temp Pulse Resp B/P (MAP) Pulse Ox O2 Delivery O2 Flow Rate FiO2 12/21/17 12:00 96.9 90 20 153/66 (95) 95 12/21/17 08:00 97.9 85 19 160/72 (101) 95 12/21/17 04:00 57 12/21/17 04:00 96.4 57 18 129/62 (84) 97 12/21/17 00:15 98.1 56 18 131/70 (90) 95 12/20/17 21:39 94 3.00 12/20/17 20:53 98.7 63 18 135/63 (87) 94 12/20/17 20:00 94 Nasal Cannula 3.00 12/20/17 16:00 98.7 62 20 130/62 (84) 95 -: 12/20/17 0723 12/21/17 1137 Physical Exam General Appearance: No Acute Distress, Comfortable Eyes Eye Exam: Pupils Equal Pulmonary Resp Exam: Breath Sounds Equal, No Distress, Decreased Bases Cardiology CV Exam: Normal Sinus Rhythm Gastrointestinal/Abdomen GI Exam: Soft, Non-Tender, Bowel Sounds Present Genitourinary Exam: Flank Non-Tender Integumentary Skin Exam: Clear, Warm, Lesion(s) Extremeties Extremities Exam: Trace Edema Neurologic Neuro Exam: Awake Assessment/Plan Problem List: (1) ALISSON (acute kidney injury) ICD Codes: N17.9 - Acute kidney failure, unspecified Status: Acute Plan: ALISSON on CKD may be related to poor PO intake. CKD stage 3 with GFR on 07/03/16 51 ml/min most likely related to diabetic nephropathy and HTN Renal US: . Small amount of ascites along the hepatic convexity otherwise, kidneys and bladder are sonographically normal. Trace proteinuria and blood noted in UA Potassium/calcium levels WNL Continues to have good UOP Creatinine 2.7 -> 3.0 today Plan: Lasix dose increased earlier from 40mg IV BID to TID dosing now. Maintain strict I+O Anemia most likely chronic disease, on Aranesp monthly . Encourage oral intake. Continue to monitor UOP and BMP. . (2) Anemia ICD Codes: D64.9 - Anemia, unspecified Plan: Continue Aranesp hematology workup IV iron replacement (3) Diabetes Mellitus Plan: Maintain BS between 140mg/dl to 180 mg/dl On insulin (4) Hypertension Status: Chronic Plan: Well controlled continue same (5) Congestive heart failure ICD Codes: I50.9 - Heart failure, unspecified Status: Chronic Problem Qualifiers (1) Congestive heart failure: Qualified Codes: I50.33 - Acute on chronic diastolic (congestive) heart failure Marcos Verde MD Dec 21, 2017 16:00
[2017-12-21] MEDS: INSULIN ASPART 1,000 UNITS/10 ML VIAL SQ SCH (17:23)
[2017-12-21] MEDS: INSULIN DETEMIR 100 UNITS/ML VIAL SQ SCH (21:00)
[2017-12-21] MEDS: TAMSULOSIN HCL 0.4 MG CAP PO SCH (21:43)
[2017-12-21] MEDS: ATORVASTATIN 40 MG TAB PO SCH (21:44)
[2017-12-22] VITALS (9 sets, daily range): BP systolic 124–168; BP diastolic 61–77; PULSE 55–60; RESP 17–18; TEMP 95.6–97.8; O2SAT 95–97
[2017-12-22] MEDS: HEPARIN SODIUM - SQ 10,000 UNITS/ML VIAL SQ SCH ×3 (04:39→21:24)
[2017-12-22] MEDS: methylPREDNISolone SOD SUCC 40 MG/1 ML VIAL IV PUSH SCH ×3 (04:39→21:24)
[2017-12-22 08:23] LABS: AUTOMATED NEUTROPHIL # 7.5 TH/MM3 (1.8-7.7); BASOPHIL % 0.2 % (0.0-2.0); HEMATOCRIT 27.4 % (39.0-51.0); HEMOGLOBIN 9.1 GM/DL (13.0-17.0); LYMPH % 3.8 % (9.0-44.0); LYMPHOCYTE # 0.3 TH/MM3 (1.0-4.8); MEAN CORPUSCULAR HEMOGLOBIN 31.8 PG (27.0-34.0); MEAN CORPUSCULAR HGB CONC 33.1 % (32.0-36.0); MEAN PLATELET VOLUME 9.4 FL (7.0-11.0); MONOCYTE # 0.2 TH/MM3 (0-0.9); PLATELET COUNT 142 TH/MM3 (150-450); RED BLOOD COUNT 2.86 MIL/MM3 (4.50-5.90); RED CELL DISTRIBUTION WIDTH 22.6 % (11.6-17.2)
[2017-12-22 08:57] LABS: ALBUMIN 3.2 GM/DL (3.4-5.0); ALKALINE PHOSPHATASE 128 U/L (45-117); ALT (GPT) 25 U/L (12-78); AST (GOT) 16 U/L (15-37); BICARBONATE 27.8 MEQ/L (21.0-32.0); BLOOD UREA NITROGEN 85 MG/DL (7-18); CALCIUM 8.6 MG/DL (8.5-10.1); CHLORIDE 101 MEQ/L (98-107); GLOMERULAR FILTRATION RATE 24 ML/MIN (>89); GLUCOSE,RANDOM 142 MG/DL (74-106); MAGNESIUM 2.1 MG/DL (1.5-2.5); PHOSPHORUS 2.8 MG/DL (2.5-4.9); SODIUM (NA) 137 MEQ/L (136-145); TOTAL BILIRUBIN ADULT 0.4 MG/DL (0.2-1.0); TOTAL PROTEIN 7.1 GM/DL (6.4-8.2)
[2017-12-22] MEDS: INSULIN ASPART 1,000 UNITS/10 ML VIAL SQ SCH ×3 (09:07→17:22)
[2017-12-22] MEDS: INSULIN ASPART SUPPLEMENTAL SCALE SQ SCH ×4 (09:07→21:00)
[2017-12-22] MEDS: CHLOROTHIAZIDE 250 MG TAB PO SCH (09:08)
[2017-12-22] MEDS: METOPROLOL TARTRATE 50 MG TAB PO SCH ×2 (09:08→21:23)
[2017-12-22] MEDS: PANTOPRAZOLE SOD 40 MG DELAYED RELEASE TAB PO SCH (09:08)
[2017-12-22] MEDS: INSULIN DETEMIR 100 UNITS/ML VIAL SQ SCH ×2 (09:08→21:22)
[2017-12-22] MEDS: FOLIC ACID 1 MG TAB PO SCH (09:08)
[2017-12-22] MEDS: SERTRALINE HCL 50 MG TAB PO SCH (09:08)
[2017-12-22] MEDS: VITAMIN B COMPLEX/VIT C TAB PO SCH (09:08)
[2017-12-22] MEDS: ASPIRIN 81 MG CHEW TAB CHEW SCH (09:08)
[2017-12-22] MEDS: FERROUS SULFATE 325 MG (65 MG ELEMENTAL IRON) TAB PO SCH (09:08)
[2017-12-22] MEDS: MEMANTINE HCL 10 MG TAB PO SCH ×2 (09:08→21:23)
[2017-12-22] MEDS: DOCUSATE SODIUM 50 MG/SENNA 8.6 MG TAB PO SCH ×2 (09:09→21:23)
[2017-12-22] MEDS: FUROSEMIDE 40 MG/4 ML VIAL IV PUSH SCH (09:09)
[2017-12-22] MEDS: SODIUM CHLORIDE 0.9% FLUSH 10 ML FLUSH IV FLUSH SCH ×2 (09:10→21:25)
[2017-12-22] MEDS: CEFEPIME INJ 1,000 MG in SODIUM CHLORIDE 0.9% INJ 100 ML IV SCH (13:27)
--- NOTE | 2017-12-22 16:02 | HHI.PR ---
Subjective Remarks The first entry, the patient was seen earlier at 1450 hours. Attending noted to be trending up slowly. Blood sugars elevated. The patient denies chest pain or shortness of breath. The patient is still on 3 L nasal cannula satting 96%. Objective Vitals Vital Signs Date Time Temp Pulse Resp B/P (MAP) Pulse Ox O2 Delivery O2 Flow Rate FiO2 12/22/17 12:00 97.0 58 18 141/66 (91) 96 12/22/17 10:51 96 3.00 12/22/17 08:00 95.6 60 17 168/77 (107) 96 12/22/17 04:57 59 12/22/17 04:00 97.8 58 18 124/69 (87) 95 12/22/17 00:00 97.4 55 18 124/61 (82) 95 12/21/17 20:00 97.3 63 18 127/62 (83) 91 12/21/17 19:37 95 3.00 I/O 12/21/17 12/21/17 12/21/17 12/22/17 12/22/17 12/22/17 06:59 14:59 22:59 06:59 14:59 22:59 Intake Total 850 ml 120 ml Output Total 500 ml 450 ml Balance 350 ml -330 ml Intake Oral 850 ml 120 ml Output Urine Total 500 ml 450 ml # Voids 2 Result Diagram: 12/22/17 0635 12/22/17 0635 Imaging Last Impressions Chest X-Ray 12/18/17 0000 Signed Impressions: Service Date/Time: November 14:17 - CONCLUSION: Cardiomegaly with bilateral effusions and diffuse interstitial prominence suggesting congestive failure. Marcos Ware MD Renal Ultrasound 12/08/17 0000 Signed Impressions: Service Date/Time: Friday, December 08, 2017 14:50 - CONCLUSION: 1. Small amount of ascites along the hepatic convexity. 2. Otherwise, kidneys and bladder are sonographically normal. Elia Villafuerte MD Objective Remarks GENERAL: The patient is not in acute distress. SKIN: Warm and dry. HEAD: Normocephalic. EYES: No scleral icterus. No injection or drainage. NECK: Supple, trachea midline. No JVD or lymphadenopathy. CARDIOVASCULAR: Regular rate and rhythm without murmurs, gallops, or rubs. (+) JVD RESPIRATORY: Clear to auscultation bilaterally, no wheezing, rhonchi or rales auscultated. GASTROINTESTINAL: Abdomen soft, non-tender, nondistended. MUSCULOSKELETAL: No cyanosis, or edema. BACK: Nontender without obvious deformity. No CVA tenderness. Procedures NONE Medications and IVs Current Medications Medications (Trade) Dose Ordered Sig/Martha Route Start Time Stop Time Status Last Admin (NS Flush) 2 ml UNSCH PRN IV FLUSH 12/05/17 01:00 12/20/17 02:27 (NS Flush) 2 ml BID IV FLUSH 12/05/17 09:00 12/22/17 09:10 (Heparin Inj) 5,000 units Q8H SQ 12/05/17 06:00 12/22/17 13:27 (Norvasc) 10 mg DAILY PO 12/05/17 09:00 12/22/17 09:09 (Aspirin Chew) 81 mg DAILY CHEW 12/05/17 09:00 12/22/17 09:08 (Lipitor) 40 mg HS PO 12/05/17 21:00 12/21/17 21:44 (Prinivil) 10 mg DAILY PO 12/05/17 09:00 Future Hold 12/08/17 08:03 (Namenda) 10 mg BID PO 12/05/17 09:00 12/22/17 09:08 (Zoloft) 50 mg DAILY PO 12/05/17 09:00 12/22/17 09:08 (Flomax) 0.4 mg HS PO 12/05/17 21:00 12/21/17 21:43 (Protonix) 40 mg DAILY PO 12/05/17 09:00 12/22/17 09:08 (D50w (Vial) Inj) 50 ml UNSCH PRN IV PUSH 12/05/17 01:00 (Glucagon Inj) 1 mg UNSCH PRN OTHER 12/05/17 01:00 (Duoneb Neb) 1 ampule Q4HR NEB PRN NEB 12/05/17 01:00 12/16/17 16:23 (Ferrous Sulfate) 325 mg DAILY PO 12/06/17 09:00 12/22/17 09:08 (Tylenol) 650 mg Q4H PRN PO 12/07/17 11:45 (Zofran Inj) 4 mg Q6H PRN IVP 12/07/17 11:45 (Tylenol) 650 mg Q6H PRN PO 12/07/17 11:45 12/07/17 11:50 (Percocet 5-325 Mg) 1 tab Q6H PRN PO 12/07/17 11:45 12/10/17 21:40 (Percocet 10-325 Mg) 1 tab Q6H PRN PO 12/07/17 11:45 (Morphine Inj) 2 mg Q3H PRN IV PUSH 12/07/17 11:45 (Morphine Inj) 4 mg Q3H PRN IV PUSH 12/07/17 11:45 (Narcan Inj) 0.4 mg UNSCH PRN IV PUSH 12/07/17 11:45 (Rebeca-Colace) 1 tab BID PO 12/07/17 21:00 12/22/17 09:09 (Milk Of Magnesia Liq) 30 ml Q12H PRN PO 12/07/17 11:45 12/21/17 17:46 (Senokot) 17.2 mg Q12H PRN PO 12/07/17 11:45 (Dulcolax Supp) 10 mg DAILY PRN RECTAL 12/07/17 11:45 (Lactulose Liq) 30 ml DAILY PRN PO 12/07/17 11:45 (Diuril) 250 mg DAILY PO 12/08/17 14:00 12/22/17 09:08 (Lopressor) 50 mg BID PO 12/09/17 21:00 12/22/17 09:08 (Allbee C) 1 tab DAILY PO 12/13/17 09:00 12/22/17 09:08 (Folate) 1 mg DAILY PO 12/12/17 20:30 12/22/17 09:08 Miscellaneous Information Patient in critical care unit? Ass... Q361D .XX 12/16/17 21:45 12/16/17 21:45 Cefepime HCl 1000 mg/Sodium Chloride 100 ml @ 200 mls/hr Q24H IV 12/17/17 15:00 12/22/17 13:27 (SoluMEDROL INJ) 40 mg Q8HR IV PUSH 12/21/17 14:00 12/22/17 13:27 (Levemir Inj) 10 units BID SQ 12/21/17 21:00 12/22/17 09:08 (NovoLOG INJ) 6 units TIDAC SQ 12/21/17 17:00 12/22/17 13:29 (NovoLOG SUPPLEMENTAL SCALE) 1 ACHS SLIDING SCALE SQ 12/21/17 17:00 12/22/17 13:28 (Lasix Inj) 40 mg TID IV PUSH 12/21/17 18:00 Future Hold 12/22/17 09:09 A/P Problem List: (1) Congestive heart failure ICD Code: I50.9 - Heart failure, unspecified Status: Chronic (2) ALISSON (acute kidney injury) ICD Code: N17.9 - Acute kidney failure, unspecified Status: Acute (3) HCAP (healthcare-associated pneumonia) ICD Code: J18.9 - Pneumonia, unspecified organism Status: Acute (4) Acute respiratory failure ICD Code: J96.00 - Acute respiratory failure, unspecified whether with hypoxia or hypercapnia Status: Acute (5) ALISSON (acute kidney injury) ICD Code: N17.9 - Acute kidney failure, unspecified Status: Resolved (6) CKD (chronic kidney disease), stage III ICD Code: N18.3 - Chronic kidney disease, stage 3 (moderate) Status: Chronic (7) Diabetes type 2, controlled ICD Code: E11.9 - Type 2 diabetes mellitus without complications Status: Chronic (8) Dementia ICD Code: F03.90 - Unspecified dementia without behavioral disturbance (9) COPD with acute exacerbation ICD Code: J44.1 - Chronic obstructive pulmonary disease with (acute) exacerbation (10) Thrombocytopenia ICD Code: D69.6 - Thrombocytopenia, unspecified (11) Anemia ICD Code: D64.9 - Anemia, unspecified (12) Hypertension Status: Chronic Assessment and Plan (1) Congestive heart failure Plan: Initial chest x-ray showed mild consolidation and small effusions of both bases. BNP elevated at 601. Initially been treated with Lasix however these were held secondary to worsening renal function. 2D echo showed an EF of 60-65%. The patient has moderate respiratory distress and is requiring more oxygen to keep appropriate oxygen saturations. Patient is currently on a Ventimask. Repeat chest x-ray reviewed by me on December 16, 2017 shows cardiomegaly and diffuse airspace opacities with progression of the severity of the opacities when compared to a previous chest x-ray obtained on December 07, 2017. Check a stat chest x-ray, we will start the patient on IV Lasix 40 mg IV twice daily since creatinine seems to be close to baseline. Chest x-ray reviewed by me shows cardiomegaly with bilateral pleural effusions and diffuse interstitial prominence suggesting congestive heart failure. 12/21 Patient has a positive fluid balance still requiring oxygen. Patient had been on IV fluids as per nephrology which will be discontinued. Increased dose of Lasix to 40 mg IV 3 times daily. 12/22 creatinine is trending up, hold Lasix and monitor BUN and creatinine. (3) HCAP (healthcare-associated pneumonia) Plan: Infiltrate seen on chest x-ray. Continue IV cefepime (4) Acute respiratory failure Plan: ABG obtained on 03/06/2018 showed a PCO2 45 and a PO2 of 53. Continue supplemental oxygen to keep oxygen saturation more than 92%. Continue duo nebs. I will start the patient on IV Solu-Medrol, administering 125 g IV once and then 60 mg IV every 6 hours afterwards. Lasix dose was increased to 3 times a day on 12/22 and IV fluids were discontinued. 12/21 wean O2, continue supplemental oxygen to keep oxygen saturation more than 88%. Will repeat chest x-ray. (5) ALISSON (acute kidney injury) Plan: Upon review of medical records patient's baseline is around 2.42 - 2.7. Renal ultrasound showed small amount of ascites along the hepatic convexity. Otherwise kidneys and bladder are sonographically normal. Patient creatinine likely at baseline. Monitor BUN and creatinine, history of cyanosis and avoid nephrotoxins. 12/22 creatinine is trending up. Hold Lasix and recheck BUN and creatinine in a.m. (6) CKD (chronic kidney disease), stage III Plan: As above. Nephrology following. (7) Diabetes type 2, controlled Plan: Continue Accu-Cheks before meals and at bedtime with insulin NovoLog. Continue home basal insulin. Hemoglobin A1c 6.4 on December 07, 2017. 12/21 Blood sugars severely elevated into the 300's range. 12/22 blood sugars still severely elevated. Continue insulin basal bolus therapy with insulin Levemir and insulin NovoLog. Adjust blood sugars less than 180. Continue SSI and to monitor Accu-Cheks. (8) Dementia Plan: Continue memantine. Restraints as needed. (9) COPD with acute exacerbation ICD Code: J44.1 - Chronic obstructive pulmonary disease with (acute) exacerbation Plan: Patient has respiratory distress and severely decreased breath sounds on bilateral lung ruano. Give supplemental 125 mg IV once and then start on Solu-Medrol IV 60 mg IV every 6 hours. 12/19 continue IV steroids and IV Solu Medrol. 12/21 aeration in lungs is much improved. Start steroid taper. Decrease limited to 40 mg IV every 8 hours. 12/22 tapered to the Medrol dose to 40 g IV every 12 hours. Will order a home respiratory walk test in a.m. (10) Thrombocytopenia Plan: Thrombocytopenia which appears to be chronic at least dating back to 2012. (EMR reviewed) - no evidence of DIC or TTP - could be due to chronic debility or mild chronic ITP Hematology consulted. (11) Anemia Plan: Normocytic anemia. Likely secondary to chronic kidney disease. Next line continue ferrous sulfate. Hematology consulted. The patient status post blood transfusion and Procrit on 12/13/17. The patient is also status post transfusion of 1 unit of PRBCs. (12) Hypertension Plan: Blood pressure seems to be stable. Is elevated into the 170s earlier today in the morning. 12/19 blood pressure severely elevated with a systolic blood pressure in the 170s. I will resume lisinopril and monitor creatinine. Add clonidine as needed. blood pressure with improved control. Continue lisinopril and clonidine as needed. DVT prophylaxis: SCDs, continue heparin subcutaneously. Discharge Planning Discharge pending a stabilization of creatinine. Respiratory home walk test in a.m. Problem Qualifiers (1) Congestive heart failure: Qualified Codes: I50.33 - Acute on chronic diastolic (congestive) heart failure (2) Acute respiratory failure: Qualified Codes: J96.01 - Acute respiratory failure with hypoxia; J96.02 - Acute respiratory failure with hypercapnia (3) Diabetes type 2, controlled: Qualified Codes: E11.21 - Type 2 diabetes mellitus with diabetic nephropathy; Z79.4 - retirement (current) use of insulin (4) Dementia: Qualified Codes: F03.90 - Unspecified dementia without behavioral disturbance (5) Anemia: Qualified Codes: N18.3 - Chronic kidney disease, stage 3 (moderate); D63.1 - Anemia in chronic kidney disease Al Canales MD Dec 22, 2017 16:01
--- NOTE | 2017-12-22 16:16 | HHI.NPPN ---
Subjective General Problems: Anemia Renal Failure: Chronic, Acute, Stage III History of Present Illness Patient is a 77 year-old male resident of [facility] with a history of Type 2 DM, COPD, CHF, CVA, dementia, ID, CAD, Hyperlipidemia, Hypertension, bleeding gastric ulcer, prostate CA, nephrolithiasis, and arthritis who presented to the ER on 12/04/17 for evaluation of severe shortness of breath and edema. Consulted today for ALISSON with creatinine level of 2.58 with a GFR of 30 ml/min. On 07/03/16 GFR was noted to be 51 ml/min. Additional Remarks Non verbal. Resting comfortably (Madisyn Mehta) Objective Data Data Vital Signs Date Time Temp Pulse Resp B/P (MAP) Pulse Ox O2 Delivery O2 Flow Rate FiO2 12/22/17 12:00 97.0 58 18 141/66 (91) 96 12/22/17 10:51 96 3.00 12/22/17 08:00 95.6 60 17 168/77 (107) 96 12/22/17 04:57 59 12/22/17 04:00 97.8 58 18 124/69 (87) 95 12/22/17 00:00 97.4 55 18 124/61 (82) 95 12/21/17 20:00 97.3 63 18 127/62 (83) 91 12/21/17 19:37 95 3.00 (Madisyn Mehta) -: 12/22/17 0635 12/22/17 0635 Physical Exam General Appearance: No Acute Distress, Comfortable (Madisyn Mehta) Eyes Eye Exam: Pupils Equal (Madisyn Mehta) Pulmonary Resp Exam: Breath Sounds Equal, No Distress, Decreased Bases (Madisyn Mheta) Cardiology CV Exam: Normal Sinus Rhythm (Madisyn Mehta) Gastrointestinal/Abdomen GI Exam: Soft, Non-Tender, Bowel Sounds Present (Madisyn Mehta) Genitourinary Exam: Flank Non-Tender (Madisyn Mehta) Integumentary Skin Exam: Clear, Warm, Lesion(s) (Madisyn Mehta) Extremeties Extremities Exam: Trace Edema (Madisyn Mehta) Neurologic Neuro Exam: Awake (Madisyn Mehta) Assessment/Plan Problem List: (1) ALISSON (acute kidney injury) ICD Codes: N17.9 - Acute kidney failure, unspecified Status: Acute Plan: ALISSON on CKD may be related to poor PO intake. CKD stage 3 with GFR on 07/03/16 51 ml/min most likely related to diabetic nephropathy and HTN Renal US: . Small amount of ascites along the hepatic convexity otherwise, kidneys and bladder are sonographically normal. Trace proteinuria and blood noted in UA Creatinine 3.10 today Electrolytes WNL UOP 950 ml over last 24 hours Plan: Continue Lasix 40mg IV TID continues to have considerable upper extremity edema Maintain strict I+O Anemia most likely chronic disease, on Aranesp monthly Avoid nephrotoxins. Encourage oral intake. Continue to monitor UOP and BMP. . (2) Anemia ICD Codes: D64.9 - Anemia, unspecified Plan: Continue Aranesp hematology workup IV iron replacement (3) Diabetes Mellitus Plan: Maintain BS between 140mg/dl to 180 mg/dl On insulin (4) Hypertension Status: Chronic Plan: Well controlled continue same (5) Congestive heart failure ICD Codes: I50.9 - Heart failure, unspecified Status: Chronic (Madisyn Mehta) Problem List: (1) ALISSON (acute kidney injury) ICD Codes: N17.9 - Acute kidney failure, unspecified Status: Acute Plan: ALISSON on CKD may be related to poor PO intake. CKD stage 3 with GFR on 07/03/16 51 ml/min most likely related to diabetic nephropathy and HTN Renal US: . Small amount of ascites along the hepatic convexity otherwise, kidneys and bladder are sonographically normal. Trace proteinuria and blood noted in UA Creatinine 3.10 today Electrolytes WNL UOP 950 ml over last 24 hours Plan: Continue Lasix 40mg IV TID continues to have considerable upper extremity edema Maintain strict I+O Anemia most likely chronic disease, on Aranesp monthly Avoid nephrotoxins. Encourage oral intake. Continue to monitor UOP and BMP. Patient seen and examined, agree with above. (2) Anemia ICD Codes: D64.9 - Anemia, unspecified Plan: Continue Aranesp hematology workup IV iron replacement (3) Diabetes Mellitus Plan: Maintain BS between 140mg/dl to 180 mg/dl On insulin (4) Hypertension Status: Chronic Plan: Well controlled continue same (5) Congestive heart failure ICD Codes: I50.9 - Heart failure, unspecified Status: Chronic (Olegario Brush MD) Problem Qualifiers (1) Congestive heart failure: Qualified Codes: I50.33 - Acute on chronic diastolic (congestive) heart failure Madisyn Mehta Dec 22, 2017 16:16 Olegario Brush MD Dec 22, 2017 19:32
[2017-12-22] MEDS: LEVOFLOXACIN 500 MG TAB PO SCH (17:22)
--- NOTE | 2017-12-22 17:27 | RADRPT ---
EXAM DATE/TIME: 12/22/2017 16:42 [facility] COMPARISON: CHEST SINGLE AP, December 04, 2017, 21:19. CHEST SINGLE AP, June 21, 2016, 23:39. CHEST SINGLE AP , June 04, 2016, 11:00. CHEST SINGLE AP, August 15, 2015, 14:16. CHEST SINGLE AP, March 22, 2015, 19:43. CHEST SINGLE AP, December 18, 2017, 14:17. INDICATIONS : Respiratory failure MEDICAL HISTORY : Hypertension. Dementia. CVA. SURGICAL HISTORY : CABG. ENCOUNTER: Subsequent ACUITY: 2 weeks PAIN SCORE: Non-responsive. LOCATION: Bilateral chest FINDINGS: There is persistent moderate elevation of the right diaphragm. Aeration is slightly improved with caitlin arance of significant degree of perihilar and basilar parenchymal opacity. Cardiac contours are gross ly stable. CONCLUSION: Elevated right diaphragm. Improved aeration. Alexander Jean Baptiste MD on December 22, 2017 at 17:24 Board Certified Radiologist. This report was verified electronically.
[2017-12-22] MEDS: TAMSULOSIN HCL 0.4 MG CAP PO SCH (21:22)
[2017-12-22] MEDS: ATORVASTATIN 40 MG TAB PO SCH (21:23)
[2017-12-23] VITALS (8 sets, daily range): BP systolic 112–165; BP diastolic 57–73; PULSE 50–64; RESP 18–20; TEMP 96–98.5; O2SAT 91–97
[2017-12-23] MEDS: HEPARIN SODIUM - SQ 10,000 UNITS/ML VIAL SQ SCH ×3 (05:56→20:36)
[2017-12-23] MEDS: INSULIN DETEMIR 100 UNITS/ML VIAL SQ SCH ×2 (08:41→20:35)
[2017-12-23] MEDS: INSULIN ASPART 1,000 UNITS/10 ML VIAL SQ SCH ×3 (08:42→17:04)
[2017-12-23] MEDS: methylPREDNISolone SOD SUCC 40 MG/1 ML VIAL IV PUSH SCH (08:42)
[2017-12-23] MEDS: INSULIN ASPART SUPPLEMENTAL SCALE SQ SCH ×4 (08:42→20:36)
[2017-12-23] MEDS: PANTOPRAZOLE SOD 40 MG DELAYED RELEASE TAB PO SCH (08:43)
[2017-12-23] MEDS: SODIUM CHLORIDE 0.9% FLUSH 10 ML FLUSH IV FLUSH SCH ×2 (08:43→20:34)
[2017-12-23] MEDS: METOPROLOL TARTRATE 50 MG TAB PO SCH ×2 (08:43→20:35)
[2017-12-23] MEDS: VITAMIN B COMPLEX/VIT C TAB PO SCH (08:43)
[2017-12-23] MEDS: CHLOROTHIAZIDE 250 MG TAB PO SCH (08:43)
[2017-12-23] MEDS: FERROUS SULFATE 325 MG (65 MG ELEMENTAL IRON) TAB PO SCH (08:43)
[2017-12-23] MEDS: ASPIRIN 81 MG CHEW TAB CHEW SCH (08:43)
[2017-12-23] MEDS: MEMANTINE HCL 10 MG TAB PO SCH ×2 (08:43→20:35)
[2017-12-23] MEDS: FOLIC ACID 1 MG TAB PO SCH (08:43)
[2017-12-23] MEDS: DOCUSATE SODIUM 50 MG/SENNA 8.6 MG TAB PO SCH ×2 (08:43→20:35)
[2017-12-23] MEDS: SERTRALINE HCL 50 MG TAB PO SCH (08:43)
--- NOTE | 2017-12-23 10:18 | HHI.PR ---
Subjective Remarks Denies cp, sob. Afebrile. RUE swelling. Down to 2 liters nasal canula Objective Vitals Vital Signs Date Time Temp Pulse Resp B/P (MAP) Pulse Ox O2 Delivery O2 Flow Rate FiO2 12/23/17 08:00 96.0 55 18 161/73 (102) 92 12/23/17 04:00 96.4 58 18 165/67 (99) 96 12/23/17 04:00 50 12/23/17 00:06 97 Nasal Cannula 2.00 12/23/17 00:00 51 12/23/17 00:00 96.5 60 18 139/63 (88) 97 12/22/17 20:45 96.7 59 18 135/74 (94) 95 12/22/17 20:00 56 12/22/17 16:00 96.7 57 18 133/63 (86) 97 12/22/17 12:00 97.0 58 18 141/66 (91) 96 12/22/17 10:51 96 3.00 I/O 12/22/17 12/22/17 12/22/17 12/23/17 12/23/17 12/23/17 06:59 14:59 22:59 06:59 14:59 22:59 Intake Total 120 ml 100 ml 620 ml 380 ml Output Total 450 ml 400 ml 1500 ml Balance -330 ml 100 ml 220 ml -1120 ml Intake Oral 120 ml 620 ml 380 ml IV Total 100 ml Output Urine Total 450 ml 400 ml 1500 ml # Bowel Movements 0 Result Diagram: 12/22/17 0635 12/22/17 0635 Imaging Last Impressions Chest X-Ray 12/22/17 0000 Signed Impressions: Service Date/Time: Friday, December 22, 2017 16:42 - CONCLUSION: Elevated right diaphragm. Improved aeration. Alexander Jean Baptiste MD Renal Ultrasound 12/08/17 0000 Signed Impressions: Service Date/Time: Friday, December 08, 2017 14:50 - CONCLUSION: 1. Small amount of ascites along the hepatic convexity. 2. Otherwise, kidneys and bladder are sonographically normal. Elia Villafuerte MD Objective Remarks GENERAL: The patient is not in acute distress. SKIN: Warm and dry. HEAD: Normocephalic. EYES: No scleral icterus. No injection or drainage. NECK: Supple, trachea midline. No JVD or lymphadenopathy. CARDIOVASCULAR: Regular rate and rhythm without murmurs, gallops, or rubs. (+) JVD RESPIRATORY: Clear to auscultation bilaterally, no wheezing, rhonchi or rales auscultated. GASTROINTESTINAL: Abdomen soft, non-tender, nondistended. MUSCULOSKELETAL: No cyanosis, or edema. BACK: Nontender without obvious deformity. No CVA tenderness. Procedures NONE Medications and IVs Current Medications Medications (Trade) Dose Ordered Sig/Martha Route Start Time Stop Time Status Last Admin (NS Flush) 2 ml UNSCH PRN IV FLUSH 12/05/17 01:00 12/20/17 02:27 (NS Flush) 2 ml BID IV FLUSH 12/05/17 09:00 12/23/17 08:43 (Heparin Inj) 5,000 units Q8H SQ 12/05/17 06:00 12/23/17 05:56 (Norvasc) 10 mg DAILY PO 12/05/17 09:00 12/23/17 08:43 (Aspirin Chew) 81 mg DAILY CHEW 12/05/17 09:00 12/23/17 08:43 (Lipitor) 40 mg HS PO 12/05/17 21:00 12/22/17 21:23 (Prinivil) 10 mg DAILY PO 12/05/17 09:00 Future Hold 12/08/17 08:03 (Namenda) 10 mg BID PO 12/05/17 09:00 12/23/17 08:43 (Zoloft) 50 mg DAILY PO 12/05/17 09:00 12/23/17 08:43 (Flomax) 0.4 mg HS PO 12/05/17 21:00 12/22/17 21:22 (Protonix) 40 mg DAILY PO 12/05/17 09:00 12/23/17 08:43 (D50w (Vial) Inj) 50 ml UNSCH PRN IV PUSH 12/05/17 01:00 (Glucagon Inj) 1 mg UNSCH PRN OTHER 12/05/17 01:00 (Duoneb Neb) 1 ampule Q4HR NEB PRN NEB 12/05/17 01:00 12/16/17 16:23 (Ferrous Sulfate) 325 mg DAILY PO 12/06/17 09:00 12/23/17 08:43 (Tylenol) 650 mg Q4H PRN PO 12/07/17 11:45 (Zofran Inj) 4 mg Q6H PRN IVP 12/07/17 11:45 (Tylenol) 650 mg Q6H PRN PO 12/07/17 11:45 12/07/17 11:50 (Percocet 5-325 Mg) 1 tab Q6H PRN PO 12/07/17 11:45 12/10/17 21:40 (Percocet 10-325 Mg) 1 tab Q6H PRN PO 12/07/17 11:45 (Morphine Inj) 2 mg Q3H PRN IV PUSH 12/07/17 11:45 (Morphine Inj) 4 mg Q3H PRN IV PUSH 12/07/17 11:45 (Narcan Inj) 0.4 mg UNSCH PRN IV PUSH 12/07/17 11:45 (Rebeca-Colace) 1 tab BID PO 12/07/17 21:00 12/23/17 08:43 (Milk Of Magnesia Liq) 30 ml Q12H PRN PO 12/07/17 11:45 12/21/17 17:46 (Senokot) 17.2 mg Q12H PRN PO 12/07/17 11:45 (Dulcolax Supp) 10 mg DAILY PRN RECTAL 12/07/17 11:45 (Lactulose Liq) 30 ml DAILY PRN PO 12/07/17 11:45 (Diuril) 250 mg DAILY PO 12/08/17 14:00 12/23/17 08:43 (Lopressor) 50 mg BID PO 12/09/17 21:00 12/23/17 08:43 (Allbee C) 1 tab DAILY PO 12/13/17 09:00 12/23/17 08:43 (Folate) 1 mg DAILY PO 12/12/17 20:30 12/23/17 08:43 Miscellaneous Information Patient in critical care unit? Ass... Q361D .XX 12/16/17 21:45 12/16/17 21:45 (NovoLOG SUPPLEMENTAL SCALE) 1 ACHS SLIDING SCALE SQ 12/21/17 17:00 12/23/17 08:42 (Lasix Inj) 40 mg TID IV PUSH 12/21/17 18:00 Future Hold 12/22/17 09:09 (NovoLOG INJ) 10 units TIDAC SQ 12/22/17 17:00 12/23/17 08:42 (Levemir Inj) 15 units BID SQ 12/22/17 21:00 12/23/17 08:41 (Levaquin) 500 mg Q48H PO 12/22/17 17:00 12/22/17 17:22 (Deltasone) 20 mg BID PO 12/23/17 21:00 A/P Problem List: (1) Congestive heart failure ICD Code: I50.9 - Heart failure, unspecified Status: Chronic (2) ALISSON (acute kidney injury) ICD Code: N17.9 - Acute kidney failure, unspecified Status: Acute (3) HCAP (healthcare-associated pneumonia) ICD Code: J18.9 - Pneumonia, unspecified organism Status: Acute (4) Acute respiratory failure ICD Code: J96.00 - Acute respiratory failure, unspecified whether with hypoxia or hypercapnia Status: Acute (5) ALISSON (acute kidney injury) ICD Code: N17.9 - Acute kidney failure, unspecified Status: Resolved (6) CKD (chronic kidney disease), stage III ICD Code: N18.3 - Chronic kidney disease, stage 3 (moderate) Status: Chronic (7) Diabetes type 2, controlled ICD Code: E11.9 - Type 2 diabetes mellitus without complications Status: Chronic (8) Dementia ICD Code: F03.90 - Unspecified dementia without behavioral disturbance (9) COPD with acute exacerbation ICD Code: J44.1 - Chronic obstructive pulmonary disease with (acute) exacerbation (10) Thrombocytopenia ICD Code: D69.6 - Thrombocytopenia, unspecified (11) Anemia ICD Code: D64.9 - Anemia, unspecified (12) Hypertension Status: Chronic (13) Swelling of right upper extremity ICD Code: M79.89 - Other specified soft tissue disorders Plan: Check venous doppler r/o DVT. Assessment and Plan (1) Congestive heart failure Plan: Initial chest x-ray showed mild consolidation and small effusions of both bases. BNP elevated at 601. Initially been treated with Lasix however these were held secondary to worsening renal function. 2D echo showed an EF of 60-65%. The patient has moderate respiratory distress and is requiring more oxygen to keep appropriate oxygen saturations. Patient is currently on a Ventimask. Repeat chest x-ray reviewed by me on December 16, 2017 shows cardiomegaly and diffuse airspace opacities with progression of the severity of the opacities when compared to a previous chest x-ray obtained on December 07, 2017. Check a stat chest x-ray, we will start the patient on IV Lasix 40 mg IV twice daily since creatinine seems to be close to baseline. Chest x-ray reviewed by me shows cardiomegaly with bilateral pleural effusions and diffuse interstitial prominence suggesting congestive heart failure. 12/21 Patient has a positive fluid balance still requiring oxygen. Patient had been on IV fluids as per nephrology which will be discontinued. Increased dose of Lasix to 40 mg IV 3 times daily. 12/22 creatinine is trending up, hold Lasix and monitor BUN and creatinine. 12/23 Repeat cxr reviewed by me shows resolved pleural effusions and improved aeration. (3) HCAP (healthcare-associated pneumonia) Plan: Infiltrate seen on chest x-ray. Continue IV cefepime Cefepime discontinued 12/22 and patient started on Levaquin by mouth. (4) Acute respiratory failure Plan: ABG obtained on 03/06/2018 showed a PCO2 45 and a PO2 of 53. Continue supplemental oxygen to keep oxygen saturation more than 92%. Continue duo nebs. I will start the patient on IV Solu-Medrol, administering 125 g IV once and then 60 mg IV every 6 hours afterwards. Lasix dose was increased to 3 times a day on 12/22 and IV fluids were discontinued. 12/21 wean O2, continue supplemental oxygen to keep oxygen saturation more than 88%. Will repeat chest x-ray. 12/23 Patient on 2 liters nasal canula - Resp home walk test ordered. (5) ALISSON (acute kidney injury) Plan: Upon review of medical records patient's baseline is around 2.42 - 2.7. Renal ultrasound showed small amount of ascites along the hepatic convexity. Otherwise kidneys and bladder are sonographically normal. Patient creatinine likely at baseline. Monitor BUN and creatinine, history of cyanosis and avoid nephrotoxins. 12/22 creatinine is trending up. Hold Lasix and recheck BUN and creatinine in a.m. 12/23 BMp pending. (6) CKD (chronic kidney disease), stage III Plan: As above. Nephrology following. (7) Diabetes type 2, controlled Plan: Continue Accu-Cheks before meals and at bedtime with insulin NovoLog. Continue home basal insulin. Hemoglobin A1c 6.4 on December 07, 2017. 12/21 Blood sugars severely elevated into the 300's range. 12/22 blood sugars still severely elevated. Continue insulin basal bolus therapy with insulin Levemir and insulin NovoLog. Adjust blood sugars less than 180. Continue SSI and to monitor Accu-Cheks. 12/23 Blood sugar with improved control. Continue management as above. (8) Dementia Plan: Continue memantine. Restraints as needed. (9) COPD with acute exacerbation ICD Code: J44.1 - Chronic obstructive pulmonary disease with (acute) exacerbation Plan: Patient has respiratory distress and severely decreased breath sounds on bilateral lung ruano. Give supplemental 125 mg IV once and then start on Solu-Medrol IV 60 mg IV every 6 hours. 12/19 continue IV steroids and IV Solu Medrol. 12/21 aeration in lungs is much improved. Start steroid taper. Decrease limited to 40 mg IV every 8 hours. 12/22 tapered to the Medrol dose to 40 g IV every 12 hours. Will order a home respiratory walk test in a.m. 12/23 Dc solumedrol IV and start prednisone taper. (10) Thrombocytopenia Plan: Thrombocytopenia which appears to be chronic at least dating back to 2012. (EMR reviewed) - no evidence of DIC or TTP - could be due to chronic debility or mild chronic ITP Hematology consulted. (11) Anemia Plan: Normocytic anemia. Likely secondary to chronic kidney disease. Next line continue ferrous sulfate. Hematology consulted. The patient status post blood transfusion and Procrit on 12/13/17. The patient is also status post transfusion of 1 unit of PRBCs. (12) Hypertension Plan: Blood pressure seems to be stable. Is elevated into the 170s earlier today in the morning. 12/19 blood pressure severely elevated with a systolic blood pressure in the 170s. I will resume lisinopril and monitor creatinine. Add clonidine as needed. blood pressure with improved control. Continue lisinopril and clonidine as needed. DVT prophylaxis: SCDs, continue heparin subcutaneously. Discharge Planning Discharge pending a stabilization of creatinine. Respiratory home walk test and venous doppler result. Problem Qualifiers (1) Congestive heart failure: Qualified Codes: I50.33 - Acute on chronic diastolic (congestive) heart failure (2) Acute respiratory failure: Qualified Codes: J96.01 - Acute respiratory failure with hypoxia; J96.02 - Acute respiratory failure with hypercapnia (3) Diabetes type 2, controlled: Qualified Codes: E11.21 - Type 2 diabetes mellitus with diabetic nephropathy; Z79.4 - [facility] (current) use of insulin (4) Dementia: Qualified Codes: F03.90 - Unspecified dementia without behavioral disturbance (5) Anemia: Qualified Codes: N18.3 - Chronic kidney disease, stage 3 (moderate); D63.1 - Anemia in chronic kidney disease Al Canales MD Dec 23, 2017 10:18
[2017-12-23 10:33] LABS: BICARBONATE 27.4 MEQ/L (21.0-32.0); CALCIUM 8.9 MG/DL (8.5-10.1); CREATININE 3.16 MG/DL (0.60-1.30)
[2017-12-23] MEDS ORDERED: SODIUM CHLOR 0.9% 1000 ML INJ 1,000 ML IV SCH (11:45)
--- NOTE | 2017-12-23 15:27 | HHI.NPPN ---
Subjective General Problems: Anemia Renal Failure: Chronic, Acute, Stage III History of Present Illness Patient is a 77 year-old male resident of [facility] with a history of Type 2 DM, COPD, CHF, CVA, dementia, [place], CAD, Hyperlipidemia, Hypertension, bleeding gastric ulcer, prostate CA, nephrolithiasis, and arthritis who presented to the ER on 12/04/17 for evaluation of severe shortness of breath and edema. Consulted today for ALISSON with creatinine level of 2.58 with a GFR of 30 ml/min. On 07/03/16 GFR was noted to be 51 ml/min. Additional Remarks OOB in Chair family at bedside (Madisyn Mehta) Objective Data Data Vital Signs Date Time Temp Pulse Resp B/P (MAP) Pulse Ox O2 Delivery O2 Flow Rate FiO2 12/23/17 12:00 97.5 57 18 112/57 (75) 94 12/23/17 08:00 96.0 55 18 161/73 (102) 92 12/23/17 07:46 96 Nasal Cannula 2.00 12/23/17 04:00 96.4 58 18 165/67 (99) 96 12/23/17 04:00 50 12/23/17 00:06 97 Nasal Cannula 2.00 12/23/17 00:00 51 12/23/17 00:00 96.5 60 18 139/63 (88) 97 12/22/17 20:45 96.7 59 18 135/74 (94) 95 12/22/17 20:00 56 12/22/17 16:00 96.7 57 18 133/63 (86) 97 (Madisyn Metha) -: 12/22/17 0635 12/23/17 0950 Physical Exam General Appearance: No Acute Distress, Comfortable (Madisyn Mehta) Eyes Eye Exam: Pupils Equal (Madisyn Mehta) Pulmonary Resp Exam: Breath Sounds Equal, No Distress, Decreased Bases (Madisyn Mehta) Cardiology CV Exam: Normal Sinus Rhythm (Madisyn Mehta) Gastrointestinal/Abdomen GI Exam: Soft, Non-Tender, Bowel Sounds Present (Madisyn Mehta) Genitourinary Exam: Flank Non-Tender (Madisyn Mehta) Integumentary Skin Exam: Clear, Warm, Lesion(s) (Madisyn Mehta) Extremeties Extremities Exam: Trace Edema (Madisyn Mehta) Neurologic Neuro Exam: Awake (Madisyn Mehta) Assessment/Plan Problem List: (1) ALISSON (acute kidney injury) ICD Codes: N17.9 - Acute kidney failure, unspecified Status: Acute Plan: ALISSON on CKD may be related to poor PO intake. CKD stage 3 with GFR on 07/03/16 51 ml/min most likely related to diabetic nephropathy and HTN Renal US: . Small amount of ascites along the hepatic convexity otherwise, kidneys and bladder are sonographically normal. Trace proteinuria and blood noted in UA Creatinine 3.16 today Electrolytes WNL UOP 1950 ml over last 24 hours Plan: Upper extremity edema lasix is on hold NS at 42 ml/hr infusing Maintain strict I+O Anemia most likely chronic disease, on Aranesp monthly Avoid nephrotoxins. Encourage oral intake. Continue to monitor UOP and BMP. (2) Anemia ICD Codes: D64.9 - Anemia, unspecified Plan: Continue Aranesp hematology workup IV iron replacement (3) Diabetes Mellitus Plan: Maintain BS between 140mg/dl to 180 mg/dl On insulin (4) Hypertension Status: Chronic Plan: Well controlled continue same (5) Congestive heart failure ICD Codes: I50.9 - Heart failure, unspecified Status: Chronic (Madisyn Mehta) Problem List: (1) ALISSON (acute kidney injury) ICD Codes: N17.9 - Acute kidney failure, unspecified Status: Acute Plan: ALISSON on CKD may be related to poor PO intake. CKD stage 3 with GFR on 07/03/16 51 ml/min most likely related to diabetic nephropathy and HTN Renal US: . Small amount of ascites along the hepatic convexity otherwise, kidneys and bladder are sonographically normal. Trace proteinuria and blood noted in UA Creatinine 3.16 today Electrolytes WNL UOP 1950 ml over last 24 hours Plan: Upper extremity edema lasix is on hold NS at 42 ml/hr infusing Maintain strict I+O Anemia most likely chronic disease, on Aranesp monthly Avoid nephrotoxins. Encourage oral intake. Continue to monitor UOP and BMP. Patient seen and examined, agree with above. Lasix and Lisinopril on hold. Continue gentle hydration and encourage oral intake. (2) Anemia ICD Codes: D64.9 - Anemia, unspecified Plan: Continue Aranesp hematology workup IV iron replacement (3) Diabetes Mellitus Plan: Maintain BS between 140mg/dl to 180 mg/dl On insulin (4) Hypertension Status: Chronic Plan: Well controlled continue same (5) Congestive heart failure ICD Codes: I50.9 - Heart failure, unspecified Status: Chronic (Olegario Brush MD) Problem Qualifiers (1) Congestive heart failure: Qualified Codes: I50.33 - Acute on chronic diastolic (congestive) heart failure Madisyn Mehta Dec 23, 2017 15:27 Olegario Brush MD Dec 23, 2017 19:12
[2017-12-23] MEDS ORDERED: LEVA500T33 PO (16:38)
[2017-12-23] MEDS ORDERED: LEVEMIR SQ (16:38)
[2017-12-23] MEDS ORDERED: METO-309 PO (16:38)
[2017-12-23] MEDS: predniSONE 20 MG TAB PO SCH (20:34)
[2017-12-23] MEDS: TAMSULOSIN HCL 0.4 MG CAP PO SCH (20:34)
[2017-12-23] MEDS: ATORVASTATIN 40 MG TAB PO SCH (20:35)
[2017-12-24] VITALS: BP 125/55; PULSE 53; PULSE 54; RESP 20; TEMP 97.3; O2SAT 95
[2017-12-24 04:00] VITALS: BP 132/69; PULSE 59; RESP 20; TEMP 96.1; O2SAT 93
[2017-12-24] MEDS: HEPARIN SODIUM - SQ 10,000 UNITS/ML VIAL SQ SCH ×2 (06:00→12:19)
[2017-12-24 06:48] LABS: HEMATOCRIT 29.9 % (39.0-51.0); HEMOGLOBIN 9.7 GM/DL (13.0-17.0); MEAN CORPUSCULAR HEMOGLOBIN 31.5 PG (27.0-34.0); MEAN CORPUSCULAR HGB CONC 32.5 % (32.0-36.0); MEAN PLATELET VOLUME 8.9 FL (7.0-11.0); PLATELET COUNT 145 TH/MM3 (150-450); RED BLOOD COUNT 3.09 MIL/MM3 (4.50-5.90); RED CELL DISTRIBUTION WIDTH 21.8 % (11.6-17.2); WHITE BLOOD COUNT 7.2 TH/MM3 (4.0-11.0)
[2017-12-24 08:00] VITALS: BP 142/90; PULSE 59; RESP 19; TEMP 97.6; O2SAT 97
--- NOTE | 2017-12-24 09:45 | HHI.NPPN ---
Subjective General Problems: Anemia Renal Failure: Chronic, Acute, Stage III History of Present Illness Patient is a 77 year-old male resident of [facility] with a history of Type 2 DM, COPD, CHF, CVA, dementia, [place], CAD, Hyperlipidemia, Hypertension, bleeding gastric ulcer, prostate CA, nephrolithiasis, and arthritis who presented to the ER on 12/04/17 for evaluation of severe shortness of breath and edema. Consulted today for ALISSON with creatinine level of 2.58 with a GFR of 30 ml/min. On 07/03/16 GFR was noted to be 51 ml/min. Additional Remarks Blood sugar 60 this morning, nursing feeding patient (Madisyn Mehta) Objective Data Data Vital Signs Date Time Temp Pulse Resp B/P (MAP) Pulse Ox O2 Delivery O2 Flow Rate FiO2 12/24/17 08:00 97.6 59 19 142/90 (107) 97 12/24/17 04:00 96.1 59 20 132/69 (90) 93 12/24/17 00:00 97.3 54 20 125/55 (78) 95 12/24/17 00:00 53 12/23/17 22:30 95 Nasal Cannula 2.00 12/23/17 20:00 62 12/23/17 20:00 96.8 64 20 133/62 (85) 95 12/23/17 17:38 91 Nasal Cannula 2.00 12/23/17 16:00 98.5 62 19 135/64 (87) 91 12/23/17 12:00 97.5 57 18 112/57 (75) 94 (Madisyn Mehta) -: 12/24/17 0621 12/23/17 0950 Physical Exam General Appearance: No Acute Distress, Comfortable (Madisyn Mehta) Eyes Eye Exam: Pupils Equal (Madisyn Mehta) Pulmonary Resp Exam: Breath Sounds Equal, No Distress, Decreased Bases (Madisyn Mehta) Cardiology CV Exam: Normal Sinus Rhythm (Madisyn Mehta) Gastrointestinal/Abdomen GI Exam: Soft, Non-Tender, Bowel Sounds Present (Madisyn Mehta) Genitourinary Exam: Flank Non-Tender (Madisyn Mehta) Integumentary Skin Exam: Clear, Warm, Lesion(s) (Madisyn Mehta) Extremeties Extremities Exam: Trace Edema (Madisyn Mehta) Neurologic Neuro Exam: Awake (Madisyn Mehta) Assessment/Plan Problem List: (1) ALISSON (acute kidney injury) ICD Codes: N17.9 - Acute kidney failure, unspecified Status: Resolved Plan: ALISSON on CKD may be related to poor PO intake. CKD stage 3 with GFR on 07/03/16 51 ml/min most likely related to diabetic nephropathy and HTN Renal US: . Small amount of ascites along the hepatic convexity otherwise, kidneys and bladder are sonographically normal. Trace proteinuria and blood noted in UA Anemia most likely chronic disease, on Aranesp monthly Plan: Upper extremity edema Lasix is on hold with increasing creatinine NS at 42 ml/hr infusing Continue to avoid nephrotoxins. Encourage oral intake. BMP pending this AM Possible discharge today if creatinine is improving will need to follow up outpatient with nephrology. (2) Anemia ICD Codes: D64.9 - Anemia, unspecified Plan: Continue Aranesp hematology workup (3) Diabetes Mellitus Plan: Maintain BS between 140mg/dl to 180 mg/dl On insulin (4) Hypertension ICD Codes: I10 - Hypertension Status: Chronic Plan: Well controlled continue same (5) Congestive heart failure ICD Codes: I50.9 - Heart failure, unspecified Status: Chronic (Madisyn Mehta) Problem List: (1) ALISSON (acute kidney injury) ICD Codes: N17.9 - Acute kidney failure, unspecified Status: Resolved Plan: ALISSON on CKD may be related to poor PO intake. CKD stage 3 with GFR on 07/03/16 51 ml/min most likely related to diabetic nephropathy and HTN Renal US: . Small amount of ascites along the hepatic convexity otherwise, kidneys and bladder are sonographically normal. Trace proteinuria and blood noted in UA Anemia most likely chronic disease, on Aranesp monthly Plan: Upper extremity edema Lasix is on hold with increasing creatinine NS at 42 ml/hr infusing Continue to avoid nephrotoxins. Encourage oral intake. BMP pending this AM Possible discharge today if creatinine is improving will need to follow up outpatient with nephrology. Patient seen and examined, agree with above. Creatinine slightly better, for D/C, to follow up as out patient. (2) Anemia ICD Codes: D64.9 - Anemia, unspecified Plan: Continue Aranesp hematology workup (3) Diabetes Mellitus Plan: Maintain BS between 140mg/dl to 180 mg/dl On insulin (4) Hypertension Status: Chronic Plan: Well controlled continue same (5) Congestive heart failure ICD Codes: I50.9 - Heart failure, unspecified Status: Chronic (Olegario Brush MD) Problem Qualifiers (1) Hypertension: Qualified Codes: I10 - Essential (primary) hypertension (2) Congestive heart failure: Qualified Codes: I50.33 - Acute on chronic diastolic (congestive) heart failure Madisyn Mehta Dec 24, 2017 09:45 Olegario Brush MD Dec 24, 2017 19:38
[2017-12-24] MEDS: INSULIN ASPART 1,000 UNITS/10 ML VIAL SQ SCH ×3 (09:46→16:15)
[2017-12-24] MEDS: INSULIN ASPART SUPPLEMENTAL SCALE SQ SCH ×3 (09:47→16:45)
[2017-12-24] MEDS: SERTRALINE HCL 50 MG TAB PO SCH (09:47)
[2017-12-24] MEDS: CHLOROTHIAZIDE 250 MG TAB PO SCH (09:48)
[2017-12-24] MEDS: METOPROLOL TARTRATE 50 MG TAB PO SCH (09:48)
[2017-12-24] MEDS: DOCUSATE SODIUM 50 MG/SENNA 8.6 MG TAB PO SCH (09:48)
[2017-12-24] MEDS: ASPIRIN 81 MG CHEW TAB CHEW SCH (09:48)
[2017-12-24] MEDS: MEMANTINE HCL 10 MG TAB PO SCH (09:48)
[2017-12-24] MEDS: FERROUS SULFATE 325 MG (65 MG ELEMENTAL IRON) TAB PO SCH (09:48)
[2017-12-24] MEDS: predniSONE 20 MG TAB PO SCH (09:48)
[2017-12-24] MEDS: FOLIC ACID 1 MG TAB PO SCH (09:48)
[2017-12-24] MEDS: PANTOPRAZOLE SOD 40 MG DELAYED RELEASE TAB PO SCH (09:49)
[2017-12-24] MEDS: INSULIN DETEMIR 100 UNITS/ML VIAL SQ SCH (09:49)
[2017-12-24] MEDS: SODIUM CHLORIDE 0.9% FLUSH 10 ML FLUSH IV FLUSH SCH (09:52)
[2017-12-24] MEDS: VITAMIN B COMPLEX/VIT C TAB PO SCH (09:52)
[2017-12-24 09:57] VITALS: PULSE 67; O2SAT 91
--- NOTE | 2017-12-24 10:55 | RADRPT ---
EXAM DATE/TIME: 12/24/2017 10:13 [place] COMPARISON: No previous studies available for comparison. INDICATIONS : Right arm swelling. MEDICAL HISTORY : Hypercholesterolemia. Hypertension. Myocardial infarction. Dementia. CVA. CAD. Hyperlipidemia. Ulcer. Kidney stones. Prostate cancer. Arthritis. SURGICAL HISTORY : CABG Cardiac cath. ENCOUNTER: Initial ACUITY: 1 day PAIN SCORE: 2/10 LOCATION: Right arm. FINDINGS: There is spontaneous flow documented in the brachial, basilic, cephalic, axillary, and subclavian vei ns. The vessels are compressible and augmentation response is documented. No filling defects are se en. The flow is phasic with respiration. Direction of flow in the jugular vein is caudal. CONCLUSION: No DVT or superficial venous thrombosis is identified in the right upper extremity. Alexander Knowles MD on December 24, 2017 at 10:53 Board Certified Radiologist. This report was verified electronically.
[2017-12-24 11:21] LABS: BICARBONATE 29.3 MEQ/L (21.0-32.0); CALCIUM 8.8 MG/DL (8.5-10.1); CREATININE 2.94 MG/DL (0.60-1.30)
[2017-12-24 12:00] VITALS: BP 148/69; PULSE 68; RESP 16; TEMP 97.3; O2SAT 92
[2017-12-24] MEDS ORDERED: CHLO5CAP4 PO (13:29)
--- NOTE | 2017-12-24 13:35 | HHI.DCPOC ---
Discharge Care Plan Diagnosis: (1) Diabetes Mellitus (2) Hx of CABG (3) Hyperlipidemia (4) Swelling of right upper extremity (5) HCAP (healthcare-associated pneumonia) (6) COPD with acute exacerbation (7) ALISSON (acute kidney injury) (8) CKD (chronic kidney disease), stage III (9) Diabetes type 2, controlled (10) Thrombocytopenia (11) Dementia (12) Anemia (13) Acute respiratory failure (14) Hypertension Goals to Promote Your Health * To prevent worsening of your condition and complications * To maintain your health at the optimal level Directions to Meet Your Goals Take your medications as prescribed Follow your dietary instruction Follow activity as directed Keep your appointments as scheduled Take your immunizations and boosters as scheduled If your symptoms worsen call your PCP, if no PCP go to Urgent Care Center or Emergency Room Smoking is Dangerous to Your Health. Avoid second hand smoke Call the 24-hour hour crisis hotline for domestic abuse at Al Canales MD Dec 24, 2017 13:35
--- NOTE | 2017-12-24 13:39 | HHI.DS ---
Discharge Summary Admission Date Dec 05, 2017 at 05:11 Discharge Date: Dec 24, 2017 Admitting Diagnosis CHF (1) Congestive heart failure ICD Code: I50.9 - Heart failure, unspecified Diagnosis: Principal Status: Chronic (2) ALISSON (acute kidney injury) ICD Code: N17.9 - Acute kidney failure, unspecified Diagnosis: Principal Status: Resolved (3) HCAP (healthcare-associated pneumonia) ICD Code: J18.9 - Pneumonia, unspecified organism Diagnosis: Principal Status: Resolved (4) Acute respiratory failure ICD Code: J96.00 - Acute respiratory failure, unspecified whether with hypoxia or hypercapnia Diagnosis: Principal Status: Resolved (5) ALISSON (acute kidney injury) ICD Code: N17.9 - Acute kidney failure, unspecified Status: Resolved (6) CKD (chronic kidney disease), stage III ICD Code: N18.3 - Chronic kidney disease, stage 3 (moderate) Status: Chronic (7) Diabetes type 2, controlled ICD Code: E11.9 - Type 2 diabetes mellitus without complications Status: Chronic (8) Dementia ICD Code: F03.90 - Unspecified dementia without behavioral disturbance (9) COPD with acute exacerbation ICD Code: J44.1 - Chronic obstructive pulmonary disease with (acute) exacerbation Diagnosis: Principal Status: Resolved (10) Thrombocytopenia ICD Code: D69.6 - Thrombocytopenia, unspecified Diagnosis: Principal Status: Chronic (11) Anemia ICD Code: D64.9 - Anemia, unspecified Diagnosis: Principal Status: Chronic (12) Hypertension Status: Chronic (13) Swelling of right upper extremity ICD Code: M79.89 - Other specified soft tissue disorders Diagnosis: Principal Procedures NONE Brief History - From Admission Mr. Diego is a 77 year-old male resident of [facility] with a history of Type 2 DM, COPD, CHF, CVA, dementia, [place], CAD, Hyperlipidemia, Hypertension, bleeding gastric ulcer, prostate CA, nephrolithiasis, and arthritis who presented to the ER on 12/04/17 for evaluation of severe shortness of breath and edema. CXR in ED confirmed CHF and the patient is admitted for management. The patient is seen in the ER. He is extremely hard of hearing. He states he had severe shortness of breath that is now relieved since receiving treatment in the ER. CXR shows mild consolidation and small effusions of both bases. BNP 601. He was initially treated with Bi-Pap and now has oxygen saturation of 96% on 3 liters of supplemental oxygen via nasal cannula. CBC/BMP: 12/24/17 0621 12/24/17 1050 Significant Findings Laboratory Tests Test 12/22/17 06:35 12/23/17 09:50 12/24/17 06:21 12/24/17 10:50 Red Blood Count 2.86 MIL/MM3 (4.50-5.90) 3.09 MIL/MM3 (4.50-5.90) Hemoglobin 9.1 GM/DL (13.0-17.0) 9.7 GM/DL (13.0-17.0) Hematocrit 27.4 % (39.0-51.0) 29.9 % (39.0-51.0) Red Cell Distribution Width 22.6 % (11.6-17.2) 21.8 % (11.6-17.2) Platelet Count 142 TH/MM3 (150-450) 145 TH/MM3 (150-450) Neutrophils (%) (Auto) 93.0 % (16.0-70.0) Lymphocytes (%) (Auto) 3.8 % (9.0-44.0) Lymphocytes # (Auto) 0.3 TH/MM3 (1.0-4.8) Blood Urea Nitrogen 85 MG/DL (7-18) 93 MG/DL (7-18) 94 MG/DL (7-18) Creatinine 3.10 MG/DL (0.60-1.30) 3.16 MG/DL (0.60-1.30) 2.94 MG/DL (0.60-1.30) Random Glucose 142 MG/DL (74-106) 163 MG/DL (74-106) 136 MG/DL (74-106) Albumin 3.2 GM/DL (3.4-5.0) Alkaline Phosphatase 128 U/L (45-117) Estimat Glomerular Filtration Rate 24 ML/MIN (>89) 23 ML/MIN (>89) 25 ML/MIN (>89) Imaging Last Impressions Upper Extremity Ultrasound 12/24/17 0000 Signed Impressions: Service Date/Time: Sunday, December 24, 2017 10:13 - CONCLUSION: No DVT or superficial venous thrombosis is identified in the right upper extremity. Alexander Knowles MD Chest X-Ray 12/22/17 0000 Signed Impressions: Service Date/Time: Friday, December 22, 2017 16:42 - CONCLUSION: Elevated right diaphragm. Improved aeration. Alexander Jean Baptiste MD Renal Ultrasound 12/08/17 0000 Signed Impressions: Service Date/Time: Friday, December 08, 2017 14:50 - CONCLUSION: 1. Small amount of ascites along the hepatic convexity. 2. Otherwise, kidneys and bladder are sonographically normal. Elia Villafuerte MD PE at Discharge GENERAL: The patient is not in acute distress. SKIN: Warm and dry. HEAD: Normocephalic. EYES: No scleral icterus. No injection or drainage. NECK: Supple, trachea midline. No JVD or lymphadenopathy. CARDIOVASCULAR: Regular rate and rhythm without murmurs, gallops, or rubs. (+) JVD RESPIRATORY: Clear to auscultation bilaterally, no wheezing, rhonchi or rales auscultated. GASTROINTESTINAL: Abdomen soft, non-tender, nondistended. MUSCULOSKELETAL: No cyanosis, or edema. BACK: Nontender without obvious deformity. No CVA tenderness. Pt update on day of discharge The patient states his breathing much improved. Denies fevers or chills. Right upper extremity venous Doppler ordered since patient had swollen right upper extremity on exam. Venous Doppler of the right upper extremity was negative. Creatinine trended down from 3.16-2.94. DC home on oral Lasix. Pt Condition on Discharge: Stable Discharge Disposition: Discharge to SNF Discharge Time: > 30 minutes Discharge Instructions DIET: Follow Instructions for: Heart Healthy Diet, Diabetic Diet Activities you can perform: See Additionl Instruction Other Activity Instructions: as per Pt Follow up Referrals: PCP Follow-up - 1 Week New Medications: Chlordiazepoxide HCl (Chlordiazepoxide HCl) 5 Mg Capsule 5 MG PO TID PRN for WITHDRAWAL, #10 TAB Insulin Detemir Inj (Levemir Inj) 1,000 unit/ 10 ML Vial 15 UNITS SQ BID for Blood Sugar Management, #1 VIAL Do not mix with any other Insulin. Levofloxacin (Levaquin) 500 Mg Tablet 500 MG PO Q48H for Infection, #5 TAB Metoprolol Tartrate (Lopressor) 50 Mg Tab 50 MG PO BID for Blood Pressure Management, #60 TAB Continued Medications: Acetaminophen (Tylenol) 325 Mg Tab 650 MG PO Q4H PRN for PAIN LESS THAN 5 ON SCALE, TAB 0 Refills Amlodipine (Amlodipine) 10 Mg Tab 10 MG PO DAILY for Blood Pressure Management, #30 TAB 0 Refills Ascorbic Acid ER (Vitamin C ER) 500 Mg Brooks 500 MG PO DAILY for Nutritional Supplement, TAB 0 Refills Aspirin (Aspirin Low Dose) 81 Mg Chew 81 MG CHEW DAILY, TAB 0 Refills Atorvastatin (Atorvastatin) 40 Mg Tab 40 MG PO HS for Cholesterol Management, #30 TAB 0 Refills Bisacodyl Supp (Biscolax Supp) 10 Mg Supp 10 MG RECTAL DAILY PRN for CONSTIPATION, SUPP 0 Refills Calcitriol (Calcitriol) 0.25 Mcg Cap 0.25 MCG PO MWF for Calcium Supplement, #30 CAP 0 Refills Calcium Carbonate (Calcium 600) 600 Mg Calcium (1500 Mg) Tab 1200 MG PO DAILY for Nutritional Supplement, TAB Cholecalciferol (D 1000) 1,000 Unit Cap 1000 UNIT PO DAILY Cyanocobalamin (B-12) 1,000 Mcg Subl 1000 MCG SL DAILY for Nutritional Supplement, TAB.SL 0 Refills Darbepoetin Xavier Inj (Aranesp (Albumin Free) Inj) 40 Mcg/0.4 Ml Inj 40 MCG SQ MONTHLY for Anemia, INJECTION 0 Refills Dextrose Gel (Glucose Gel) 40 % Gel 1 TUBE PO DIRECTED PRN for Per Hypoglycemic Protocol, #3 TUBE 0 Refills Ferrous Sulfate (Ferrous Sulfate) 325 Mg (65 Mg Iron) Tablet 325 MG PO DAILY for Nutritional Supplement, #30 TAB 0 Refills Furosemide (Lasix) 40 Mg Tab 40 MG PO DAILY, #30 TAB 0 Refills Glucagon (Rdna) Inj Kit (Glucagon Emergency Inj Kit) 1 Mg Kit 1 MG IM ONCE PRN for Blood Sugar Management, #1 KIT 0 Refills Ipratropium-Albuterol Neb (Duoneb) 0.5-2.5 Mg/3 Ml Neb 1 NEBULE INH Q6HR NEB PRN for SHORTNESS OF BREATH, #120 NEBULE 0 Refills Ipratropium-Albuterol Neb (Duoneb) 0.5-2.5 Mg/3 Ml Neb 1 NEBULE INH HS for Breathing Treatment, #30 NEBULE 0 Refills Magnesium Hydroxide Liq (Milk of Magnesia Liq) 400 Mg/5 Ml Susp 30 ML PO Q6H PRN for CONSTIPATION, #1 BOTTLE 0 Refills Memantine (Memantine) 10 Mg Tab 10 MG PO BID for Alzheimer's Dementia, TAB 0 Refills Nitroglycerin SL (Nitroglycerin SL) 0.4 Mg Subl 0.4 MG SL DIRECTED PRN for CHEST PAIN, #100 TAB.SL 0 Refills ONE TABLET UNDER THE TONGUE NEEDED FOR CHEST PAIN, MAY REPEAT EVERY FIVE MINUTES FOR A TOTAL OF 3 DOSES OR CALL 911 IF NO RELIEF Omeprazole (Omeprazole) 40 Mg Cap 40 MG PO DAILY, #30 CAP 0 Refills Ondansetron HCl/Pf (Ondansetron 4 mg/2 ml Isecure) 4 Mg/2 Ml Syringe 4 MG IM Q8HR PRN for NAUSEA Potassium Chloride ER (Potassium Chloride ER) 10 Meq Cap 10 MEQ PO DAILY for Electrolyte Replacement, #30 CAP 0 Refills Sennosides-Docusate Sodium (Senna S) 8.6-50 Mg Tab 2 TAB PO BID PRN for CONSTIPATION Sertraline (Sertraline) 50 Mg Tab 50 MG PO DAILY, #30 TAB 0 Refills Tamsulosin (Tamsulosin) 0.4 Mg Cap 0.4 MG PO HS for Manage Prostate Problems, #30 CAP 0 Refills Tramadol (Tramadol) 50 Mg Tab 50 MG PO Q4H PRN for PAIN, TAB 0 Refills Discontinued Medications: Insulin Detemir Inj (Levemir Inj) 1,000 unit/ 10 ML Vial 15 UNITS SQ DAILY for Blood Sugar Management, VIAL 0 Refills Do not mix with any other Insulin. Insulin Glargine Inj (Lantus Inj) 1,000 Unit/10 Ml Vial 8 UNITS SQ HS for Blood Sugar Management, VIAL 0 Refills Lisinopril (Lisinopril) 10 Mg Tab 10 MG PO DAILY, #30 TAB 0 Refills Metoprolol Tartrate (Metoprolol Tartrate) 25 Mg Tab 25 MG PO BID, #60 TAB 0 Refills Al Canales MD Dec 24, 2017 13:39
[2017-12-24] MEDS ORDERED: VENTAER INH (13:42)
[2017-12-24] MEDS ORDERED: CHLORO250 PO (13:42)
[2017-12-24] MEDS ORDERED: PRED20 PO (13:42)
[2017-12-24] MEDS: LEVOFLOXACIN 500 MG TAB PO SCH (16:45)
== END 2017-12-24 17:26 | DRG 291 ==
LOC: NEPE 20:51 → NEDA 12-05 00:38 → NEPGCP 12-05 01:44 → OBSVTOIN 12-05 05:11 → N04A 12-09 20:46 → HIMN 12-16 15:35 → N07A 12-17 19:40
PROVIDERS: ADMIT Hospitalist; ATTEND Hospitalist
PROC: 5A09357 Assistance with Respiratory Ventilation, Less than 24 Consecutive Hours, Continuous Positive Airway Pressure (ICD-10-PCS; principal; 2017-12-05)
PROC: 30233N1 Transfusion of Nonautologous Red Blood Cells into Peripheral Vein, Percutaneous Approach (ICD-10-PCS; 2017-12-12)
DX: I13.2 Hypertensive heart and chronic kidney disease with heart failure and with stage 5 chronic kidney disease, or end stage renal disease (principal); J96.01 Acute respiratory failure with hypoxia; N17.9 Acute kidney failure, unspecified; J18.9 Pneumonia, unspecified organism; D69.3 Immune thrombocytopenic purpura; R18.8 Other ascites; F03.90 Unspecified dementia, unspecified severity, without behavioral disturbance, psychotic disturbance, mood disturbance, and anxiety; E11.21 Type 2 diabetes mellitus with diabetic nephropathy; I50.33 Acute on chronic diastolic (congestive) heart failure; J44.1 Chronic obstructive pulmonary disease with (acute) exacerbation; J44.0 Chronic obstructive pulmonary disease with (acute) lower respiratory infection; D69.6 Thrombocytopenia, unspecified; E11.22 Type 2 diabetes mellitus with diabetic chronic kidney disease; N18.3 Chronic kidney disease, stage 3 (moderate); K21.9 Gastro-esophageal reflux disease without esophagitis; I25.10 Atherosclerotic heart disease of native coronary artery without angina pectoris; E78.5 Hyperlipidemia, unspecified; H91.90 Unspecified hearing loss, unspecified ear; D63.1 Anemia in chronic kidney disease; M19.90 Unspecified osteoarthritis, unspecified site; Z95.1 Presence of aortocoronary bypass graft; Z87.11 Personal history of peptic ulcer disease; Z86.73 Personal history of transient ischemic attack (TIA), and cerebral infarction without residual deficits; Z85.46 Personal history of malignant neoplasm of prostate; Z79.4 Long term (current) use of insulin; I25.2 Old myocardial infarction; Z87.442 Personal history of urinary calculi; Z87.891 Personal history of nicotine dependence; Y95 Nosocomial condition; M79.89 Other specified soft tissue disorders
CPT/HCPCS: 36430; 36600; 71045; 76775; 76937; 80048; 80053; 80069; 81001; 82570; 82607; 82668; 82728; 82747; 82805; 82948; 83010; 83036; 83540; 83550; 83615; 83735; 83880; 84100; 84165; 84300; 84439; 84443; 84484; 85025; 85027; 85044; 85384; 85610; 85730; 86705; 86803; 86850; 86900; 86901; 86920; 87086; 87340; 87641; 87804; 93005; 93306; 93971; 94002; 94003; 94640; 94664; G8987-GO; G8988-GO; J0692; J1644; J1756; J1815; J1940; J2920; J2930; J7030; J7512; P9016; Q4081

== ENCOUNTER 2017-12-26 00:38 | Inpatient (IN) | payer MEDICARE, MEDICAID ==
[~2017-12-26] VITALS: Ht 172.7 cm; Wt 74.2 kg
[2017-12-26] VITALS (21 sets, daily range): BP systolic 142–179; BP diastolic 70–83; PULSE 62–73; RESP 16–20; TEMP 98.1–98.9; O2SAT 96–100
[~2017-12-26 00:38] MED LIST changes: +AMLO10TA2 PO; -ASPI1TAB7 PO; +ASPI81CH6 CHEW; -ATOR40TA PO; +ATOR40TA16 PO; +BISC10SU RECTAL; +CALC0.25 PO; +CALCTAB94 PO; +CHLORO250 PO; +CYAN100025 SL; +D 101000 PO; -DILT120C9 PO; +FERR325T18 PO; +FURO1TAB60 PO; -FURO20 PO; -HUMSS SQ; +IPRASOL INH; +LEVA500T33 PO; +LEVEMIR SQ; +MEMA1TAB2 PO; +METO-309 PO; -METO25 PO; +MILKSUS PO; +NITR1SUB3 SL; +OMEP40CA2 PO; +ONDA4SYR IM; +POTA10CA PO; +PRED20 PO; -QUET100 PO; +SENN8.6T8 PO; +TAMS0.4C4 PO; -TAMS0.4C67 PO; +TRAM50TA PO; -TRAZ50TA4 PO; +TYLE325T PO; -TYLE500T PO; +VENTAER INH; +VITA500T83 PO; +[UNRECOGNIZED DRUG - CODE] SQ
[2017-12-26] MEDS ORDERED: SODIUM CHLORIDE 0.9% FLUSH 10 ML FLUSH IVF PRN (01:00)
--- NOTE | 2017-12-26 01:26 | RADRPT ---
EXAM DATE/TIME: 12/26/2017 01:07 [facility] COMPARISON: CHEST SINGLE AP, December 22, 2017, 16:42. INDICATIONS : Shortness of breath MEDICAL HISTORY : Hypertension. SURGICAL HISTORY : CABG. ENCOUNTER: Initial ACUITY: 1 day PAIN SCORE: 7/10 LOCATION: Bilateral chest FINDINGS: There is a lesser degree of inspiration than on the prior examination with associated crowding of the bronchopulmonary markings. Both hemidiaphragms remain fairly well delineated. Evidence of prior me bina sternotomy and CABG. The heart is upper limits normal size for portable technique. No focal ar eas of consolidation seen. CONCLUSION: No definite infiltrates seen. There is indistinctness and fullness of the central bronchopulmonary m arkings which may represent vascular engorgement, however, there is submaximal inspiration which may be contributing to the indistinctness. Héctor Gaspar MD on December 26, 2017 at 1:24 Board Certified Radiologist. This report was verified electronically.
[2017-12-26 01:39] LABS: AUTOMATED NEUTROPHIL # 8.3 TH/MM3 (1.8-7.7); BASOPHIL % 0.1 % (0.0-2.0); HEMATOCRIT 28.3 % (39.0-51.0); HEMOGLOBIN 9.3 GM/DL (13.0-17.0); LYMPH % 2.1 % (9.0-44.0); LYMPHOCYTE # 0.2 TH/MM3 (1.0-4.8); MEAN PLATELET VOLUME 9.2 FL (7.0-11.0); MONO % 5.9 % (0.0-8.0); MONOCYTE # 0.5 TH/MM3 (0-0.9); NEUT % 91.9 % (16.0-70.0); PLATELET COUNT 130 TH/MM3 (150-450); RED BLOOD COUNT 2.92 MIL/MM3 (4.50-5.90); RED CELL DISTRIBUTION WIDTH 21.9 % (11.6-17.2)
[2017-12-26 01:43] LABS: AMORPHOUS SEDIMENT, URINE RARE; BACTERIA, URINE RARE /hpf; BILIRUBIN, URINE NEG (NEG); BLOOD, URINE TRACE (NEG); GLUCOSE,URINE TRACE mg/dL (NEG); KETONE, URINE NEG (NEG); MUCUS URINE FEW /lpf (OCC); NITRITE,URINE NEG (NEG); SQUAMOUS EPITHELIAL CELL URINE <1 /hpf (0-5); URINE COLOR YELLOW (YELLW/STRAW); URINE LEUKOCYTE ESTERASE TRACE (NEG)
[2017-12-26 01:47] LABS: INTERNATIONAL NORMALIZED RATIO 1.3 RATIO; PROTHROMBIN TIME - PATIENT 12.9 SEC (9.8-11.6)
[2017-12-26 01:55] LABS: ALBUMIN 3.1 GM/DL (3.4-5.0); ALKALINE PHOSPHATASE 111 U/L (45-117); ALT (GPT) 42 U/L (12-78); AST (GOT) 32 U/L (15-37); BICARBONATE 26.1 MEQ/L (21.0-32.0); BLOOD UREA NITROGEN 98 MG/DL (7-18); CALCIUM 8.8 MG/DL (8.5-10.1); CHLORIDE 105 MEQ/L (98-107); CREATININE 3.24 MG/DL (0.60-1.30); GLOMERULAR FILTRATION RATE 23 ML/MIN (>89); GLUCOSE,RANDOM 277 MG/DL (74-106); SODIUM (NA) 142 MEQ/L (136-145); TOTAL BILIRUBIN ADULT 0.3 MG/DL (0.2-1.0); TOTAL PROTEIN 6.5 GM/DL (6.4-8.2)
[2017-12-26 02:05] LABS: TROPONIN I 2.49 NG/ML (0.02-0.05)
--- NOTE | 2017-12-26 02:14 | RADRPT ---
EXAM DATE/TIME: 12/26/2017 01:34 [facility] COMPARISON: CT BRAIN W/O CONTRAST, June 29, 2016, 8:34. INDICATIONS : Altered mental status. RADIATION DOSE: 36.74 CTDIvol (mGy) MEDICAL HISTORY : Hypertension. SURGICAL HISTORY : None. ENCOUNTER: Initial ACUITY: 1 day PAIN SCALE: 0/10 LOCATION: cranial TECHNIQUE: Multiple contiguous axial images were obtained of the head. Using automated exposure control and adj ustment of the mA and/or kV according to patient size, radiation dose was kept as low as reasonably a chievable to obtain optimal diagnostic quality images. DICOM format image data is available electro nically for review and comparison. FINDINGS: CEREBRUM: The ventricles are prominent, similar to prior. Bilateral high convexity areas of encephalomalacia i nvolving the parietal and occipital region and encephalomalacia in the right MCA/HAND ENDBAND CUTTER watershed zone, suggests prior infarction with ischemic demyelination. Physiologic calcification of the basal gangli a. No evidence of acute stroke. No extra-axial fluid or blood. POSTERIOR FOSSA: The cerebellum and brainstem are intact. The 4th ventricle is midline. The cerebellopontine angle i s unremarkable. EXTRACRANIAL: The visualized portion of the orbits is intact. SKULL: The calvaria is intact. No evidence of skull fracture. CONCLUSION: 1. No acute findings in the brain. 2. Old infarctions in the right MCA watershed zone and ischemic demyelination in the high convexity w lorena matter bilaterally. Héctor Gaspar MD on December 26, 2017 at 2:11 Board Certified Radiologist. This report was verified electronically.
--- NOTE | 2017-12-26 02:27 | PD ---
HPI Chief Complaint: Altered Mental Status Time Seen by Provider: 00:49 Travel History International Travel<30 days: No Contact w/Intl Traveler<30days: No Traveled to known affect area: No History of Present Illness HPI 77-year-old male with history of CHF, brought in by ambulance from his intermediate for evaluation of change in mental status. According to EMS the patient has had altered mental status all day today and his glucose readings have been high. Upon arrival to the emergency department the patient is oriented to person and place. He is denying any physical complaints. He is very hard of hearing and is overall a poor historian. PFSH Past Medical History Hx Anticoagulant Therapy: Yes Arthritis: Yes (BACK) Asthma: No Autoimmune Disease: No Blood Disorders: Yes Anxiety: No Depression: Yes Heart Rhythm Problems: No Cancer: Yes (prostate cancer) Cardiac Catheterization: Yes Cardiovascular Problems: Yes (cabg 5 vessel 2006) High Cholesterol: Yes Chemotherapy: No Chest Pain: Yes Congestive Heart Failure: No COPD: No Cerebrovascular Accident: Yes Coronary Artery Disease: Yes Diabetes: Yes Patient Takes Glucophage: Yes (UNK LAST DOSE) Diminished Hearing: Yes (GLASSES) Endocrine: Yes GERD: No Glaucoma: No Genitourinary: No Headaches: No Hepatitis: No Hiatal Hernia: No Hypertension: Yes Immune Disorder: No Implanted Vascular Access Dvce: No Kidney Stones: Yes Neurologic: Yes (stroke, unsure of when) Psychiatric: No Reproductive: No Respiratory: No Integumentary: Yes (MULTIPLE ABRASIONS FROM FREQ FALLS) Immunizations Current: Yes Migraines: No Myocardial Infarction: Yes Radiation Therapy: No Renal Failure: No Seizures: No Sickle Cell Disease: No Sleep Apnea: No Thyroid Disease: No Ulcer: Yes (BLEEDING GASTRIC ULCER) PNEUMOCCOCAL Vaccine (Year): 1 Past Surgical History Abdominal Surgery: No AICD: No Appendectomy: No Arteriovenous Shunt: No Cardiac Surgery: No Cholecystectomy: No Coronary Artery Bypass Graft: Yes (5 VESSELS 2006) Ear Surgery: No Endocrine Surgery: No Eye Surgery: Yes (CATARACTS) Genitourinary Surgery: No Gynecologic Surgery: No Insulin Pump: No Joint Replacement: No Neurologic Surgery: No Oral Surgery: No Pacemaker: No Thoracic Surgery: Yes (CABG 2006) Social History Alcohol Use: No Tobacco Use: Yes (1 PPD) Substance Use: No Allergies-Medications (Allergen,Severity, Reaction): Coded Allergies: No Known Allergies (Verified Allergy, Unknown, 3/2/18) Reported Meds & Prescriptions Reported Meds & Active Scripts Active Prednisone 20 Mg Tab 20 Mg PO DIRECTED 20 MG twice a day x 3 days, then 20 MG daily x 3 days, then 10 MG daily x 3 days Ventolin Hfa 18 GM Inh (Albuterol Sulfate) 90 Mcg/Act Aer 2 Puff INH Q4H PRN Chlorothiazide 250 Mg Tab 250 Mg PO DAILY Levemir Inj (Insulin Detemir) 1,000 unit/ 10 ML Vial 15 Units SQ BID Do not mix with any other Insulin. Lopressor (Metoprolol Tartrate) 50 Mg Tab 50 Mg PO BID Levaquin (Levofloxacin) 500 Mg Tablet 500 Mg PO Q48H Reported Calcium 600 (Calcium Carbonate) 600 Mg Calcium (1500 Mg) Tab 1,200 Mg PO DAILY Ondansetron 4 mg/2 ml Isecure (Ondansetron HCl/Pf) 4 Mg/2 Ml Syringe 4 Mg IM Q8HR PRN D 1000 (Cholecalciferol) 1,000 Unit Cap 1,000 Unit PO DAILY Vitamin C ER (Ascorbic Acid) 500 Mg Brooks 500 Mg PO DAILY Tramadol (Tramadol HCl) 50 Mg Tab 50 Mg PO Q4H PRN Tamsulosin (Tamsulosin HCl) 0.4 Mg Cap 0.4 Mg PO HS Sertraline (Sertraline HCl) 50 Mg Tab 50 Mg PO DAILY Senna S (Sennosides-Docusate Sodium) 8.6-50 Mg Tab 2 Tab PO BID PRN Potassium Chloride ER (Potassium Chloride) 10 Meq Cap 10 Meq PO DAILY Omeprazole 40 Mg Cap 40 Mg PO DAILY Nitroglycerin SL (Nitroglycerin) 0.4 Mg Subl 0.4 Mg SL DIRECTED PRN ONE TABLET UNDER THE TONGUE NEEDED FOR CHEST PAIN, MAY REPEAT EVERY FIVE MINUTES FOR A TOTAL OF 3 DOSES OR CALL 911 IF NO RELIEF Milk of Magnesia Liq (Magnesium Hydroxide) 400 Mg/5 Ml Susp 30 Ml PO Q6H PRN Memantine 10 Mg Tab 10 Mg PO BID Lasix (Furosemide) 40 Mg Tab 40 Mg PO DAILY Glucose Gel (Dextrose) 40 % Gel 1 Tube PO DIRECTED PRN Glucagon Emergency Inj Kit (Glucagon (Rdna) Inj Kit) 1 Mg Kit 1 Mg IM ONCE PRN Ferrous Sulfate 325 Mg (65 Mg Iron) Tablet 325 Mg PO DAILY Duoneb (Ipratropium-Albuterol Neb) 0.5-2.5 Mg/3 Ml Neb 1 Nebule INH HS Duoneb (Ipratropium-Albuterol Neb) 0.5-2.5 Mg/3 Ml Neb 1 Nebule INH Q6HR NEB PRN Calcitriol 0.25 Mcg Cap 0.25 Mcg PO MWF Biscolax Supp (Bisacodyl) 10 Mg Supp 10 Mg RECTAL DAILY PRN B-12 (Cyanocobalamin) 1,000 Mcg Subl 1,000 Mcg SL DAILY Atorvastatin (Atorvastatin Calcium) 40 Mg Tab 40 Mg PO HS Aspirin Low Dose (Aspirin) 81 Mg Chew 81 Mg CHEW DAILY Aranesp (Albumin Free) Inj (Darbepoetin Xavier Inj) 40 Mcg/0.4 Ml Inj 40 Mcg SQ MONTHLY Amlodipine (Amlodipine Besylate) 10 Mg Tab 10 Mg PO DAILY Tylenol (Acetaminophen) 325 Mg Tab 650 Mg PO Q4H PRN Review of Systems Except as stated in HPI: all other systems reviewed are Neg Physical Exam Narrative GENERAL: Well-developed, well-nourished, elderly-appearing male, awake, alert, no apparent distress. SKIN: Focused skin assessment warm/dry. HEAD: Atraumatic. Normocephalic. EYES: Pupils equal and round. No scleral icterus. No injection or drainage. ENT: Mucous membranes pink and moist. NECK: Trachea midline. No JVD. CARDIOVASCULAR: Regular rate and rhythm. No murmur appreciated. RESPIRATORY: No accessory muscle use. Clear to auscultation. Breath sounds equal bilaterally. GASTROINTESTINAL: Abdomen soft, non-tender, nondistended. MUSCULOSKELETAL: No obvious deformities. No clubbing. No cyanosis. No edema. NEUROLOGICAL: Awake and alert. No obvious cranial nerve deficits. Motor grossly within normal limits. Normal speech. Data Data Last Documented VS Vital Signs Date Time Temp Pulse Resp B/P (MAP) Pulse Ox O2 Delivery O2 Flow Rate FiO2 12/26/17 02:21 71 18 160/73 (102) 100 Nasal Cannula 2.00 12/26/17 00:45 98.9 Orders Orders Complete Blood Count With Diff (12/26/17 00:51) Comprehensive Metabolic Panel (12/26/17 00:51) B-Type Natriuretic Peptide (12/26/17 00:51) Act Partial Throm Time (Ptt) (12/26/17 00:51) Prothrombin Time / Inr (Pt) (12/26/17 00:51) Ckmb (Isoenzyme) Profile (12/26/17 00:51) Troponin I (12/26/17 00:51) Influenzae A/B Antigen (12/26/17 00:51) Iv Access Insert/Monitor (12/26/17 00:51) Electrocardiogram (12/26/17 00:51) Ecg Monitoring (12/26/17 00:51) Oximetry (12/26/17 00:51) Oxygen Administration (12/26/17 00:51) Chest, Single Ap (12/26/17 00:51) Sodium Chloride 0.9% Flush (Ns Flush) (12/26/17 01:00) Ct Brain W/O Iv Contrast(Rout) (12/26/17 ) Urinalysis - C+S If Indicated (12/26/17 00:51) Cath For Specimen (12/26/17 00:51) Urine Culture (12/26/17 01:18) Aspirin Chew (Aspirin Chew) (12/26/17 02:30) Heparin-D5w 25,000 U/250 Ml (Heparin-D5w (12/26/17 02:30) Act Partial Throm Time (Ptt) (12/26/17 02:20) Prothrombin Time / Inr (Pt) (12/26/17 02:20) Cbc No Diff, Includes Plts (12/26/17 02:20) Cbc No Diff, Includes Plts (12/29/17 06:00) Act Partial Throm Time (Ptt) (12/26/17 09:20) Occult Blood (Hemoccult) Stool (12/26/17 02:20) Labs Laboratory Tests Test 12/26/17 01:18 White Blood Count 9.0 TH/MM3 Red Blood Count 2.92 MIL/MM3 Hemoglobin 9.3 GM/DL Hematocrit 28.3 % Mean Corpuscular Volume 97.0 FL Mean Corpuscular Hemoglobin 32.0 PG Mean Corpuscular Hemoglobin Concent 33.0 % Red Cell Distribution Width 21.9 % Platelet Count 130 TH/MM3 Mean Platelet Volume 9.2 FL Neutrophils (%) (Auto) 91.9 % Lymphocytes (%) (Auto) 2.1 % Monocytes (%) (Auto) 5.9 % Eosinophils (%) (Auto) 0.0 % Basophils (%) (Auto) 0.1 % Neutrophils # (Auto) 8.3 TH/MM3 Lymphocytes # (Auto) 0.2 TH/MM3 Monocytes # (Auto) 0.5 TH/MM3 Eosinophils # (Auto) 0.0 TH/MM3 Basophils # (Auto) 0.0 TH/MM3 CBC Comment DIFF FINAL Differential Comment Prothrombin Time 12.9 SEC Prothromb Time International Ratio 1.3 RATIO Activated Partial Thromboplast Time 24.0 SEC Urine Color YELLOW Urine Turbidity CLEAR Urine pH 5.0 Urine Specific [place] 1.011 Urine Protein 30 mg/dL Urine Glucose (UA) TRACE mg/dL Urine Ketones NEG mg/dL Urine Occult Blood TRACE Urine Nitrite NEG Urine Bilirubin NEG Urine Urobilinogen LESS THAN 2.0 MG/DL Urine Leukocyte Esterase TRACE Urine RBC LESS THAN 1 /hpf Urine WBC 3 /hpf Urine Squamous Epithelial Cells <1 /hpf Urine Amorphous Sediment RARE Urine Bacteria RARE /hpf Urine Mucus FEW /lpf Microscopic Urinalysis Comment CATH-CULTURE IND Blood Urea Nitrogen 98 MG/DL Creatinine 3.24 MG/DL Random Glucose 277 MG/DL Total Protein 6.5 GM/DL Albumin 3.1 GM/DL Calcium Level 8.8 MG/DL Alkaline Phosphatase 111 U/L Aspartate Amino Transf (AST/SGOT) 32 U/L Alanine Aminotransferase (ALT/SGPT) 42 U/L Total Bilirubin 0.3 MG/DL Sodium Level 142 MEQ/L Potassium Level 4.5 MEQ/L Chloride Level 105 MEQ/L Carbon Dioxide Level 26.1 MEQ/L Anion Gap 11 MEQ/L Estimat Glomerular Filtration Rate 23 ML/MIN Total Creatine Kinase 79 U/L Troponin I 2.49 NG/ML B-Type Natriuretic Peptide 759 PG/ML [facility] Medical Decision Making Medical Screen Exam Complete: Yes Emergency Medical Condition: Yes Medical Record Reviewed: Yes Interpretation(s) EKG: Sinus, rate 71, normal axis, normal intervals, ST depression and T-wave inversions in inferior and lateral leads Differential Diagnosis Pneumonia, UTI, influenza, CHF/pulmonary edema, metabolic abnormality Narrative Course Initial vital signs show heart rate 70, blood pressure 163/74, pulse ox 96% on 2 L nasal cannula, oral temp of 98.9F. CBC is remarkable for hemoglobin 9.3, hematocrit 28.3 which is around his baseline. CMP is remarkable for BUN 98, creatinine 3.24, GFR 23, random glucose 277. His renal function is around his baseline. Troponin is 2.49. BNP is 759. Chest x-ray: CONCLUSION: No definite infiltrates seen. There is indistinctness and fullness of the central bronchopulmonary markings which may represent vascular engorgement, however, there is submaximal inspiration which may be contributing to the indistinctness. CT brain: CONCLUSION: 1. No acute findings in the brain. 2. 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 Attempted to make the patient aware of all findings. He is awake, but seems a little bit more confused since arrival. I reviewed the patient's records from his intermediate and he has a signed DNR on file. Plan is to provide aspirin, heparin, and admit the patient for further treatment and evaluation of NSTEMI. Case discussed with hospitalist Dr. Hernandez who will admit the patient to his service. Critical Care Narrative Aggregate critical care time was 35 minutes. Time to perform other separately billable procedures was not included in the critical care time. My time did not include minutes spent treating any other patients simultaneously or on activities that did not directly contribute to the patient's treatment. The services I provided to this patient were to treat and/or prevent clinically significant deterioration that could result in: , permanent disability, worsening clinical condition I provided critical care services requiring my management, as noted below: Chart data review, documentation time, medication orders and management, vital sign assessments/reviewing monitor data, ordering and reviewing lab tests, ordering and interpreting/reviewing x-rays and diagnostic studies, care of the patient and discussion of the patient with the admitting physicians. Diagnosis Primary Impression: NSTEMI (non-ST elevated myocardial infarction) Additional Impression: Altered mental status Qualified Codes: R41.82 - Altered mental status, unspecified Admitting Information Admitting Physician Requests: Admit Cristian Mosquera MD Dec 26, 2017 02:27
[2017-12-26] MEDS ORDERED: ASPIRIN 81 MG CHEW TAB CHEW ONE (02:30)
[2017-12-26] MEDS ORDERED: traMADol HCL 50 MG TAB PO PRN (02:45)
[2017-12-26] MEDS ORDERED: SODIUM CHLORIDE 0.9% FLUSH 10 ML FLUSH IV FLUSH PRN (02:45)
[2017-12-26] MEDS ORDERED: ALBUTEROL SULFATE 90 MCG/ACT HFA 8 GM INHALER INH PRN (02:45)
[2017-12-26] MEDS ORDERED: ONDANSETRON HCL 4 MG/2 ML VIAL IV PUSH PRN (02:45)
[2017-12-26] MEDS: HEPARIN-D5W 25,000 U/250 ML 250 ML IV PRN (02:47)
[2017-12-26] MEDS: RESP: ALBUTEROL 2.5 MG/IPRATROPIUM 0.5 MG NEB (PRN) INH (03:06)
[2017-12-26] MEDS: SODIUM CHLORIDE 0.9% FLUSH 10 ML FLUSH IV FLUSH SCH ×2 (09:00→20:21)
--- NOTE | 2017-12-26 09:01 | EKG ---
Date Performed: 12/26/2017 Time Performed: 01:17:57 PTAGE: 77 years EKG: Sinus rhythm ST DEVIATION AND MODERATE T-WAVE ABNORMALITY, CONSIDER LATERAL ISCHEMIA ST DEVIATION AND MODERATE T- WAVE ABNORMALITY, CONSIDER INFERIOR ISCHEMIA ABNORMAL ECG PREVIOUS TRACING : 12/04/2017 21.02 Since the prior tracing, there has been no significant maldonado DOCTOR: Kylah Saldivar Interpretating Date/Time 12/26/2017 09:00:00
[2017-12-26 09:26] LABS: TROPONIN I 4.62 NG/ML (0.02-0.05)
[2017-12-26] MEDS: ASPIRIN 81 MG CHEW TAB CHEW SCH (09:54)
[2017-12-26] MEDS: FUROSEMIDE 40 MG/4 ML VIAL IV PUSH SCH ×2 (09:54→18:42)
[2017-12-26] MEDS: SERTRALINE HCL 50 MG TAB PO SCH (09:54)
[2017-12-26] MEDS: CALCIUM CARBONATE 1.25 GM (CA 500 MG) TAB PO SCH (09:54)
[2017-12-26] MEDS: FERROUS SULFATE 325 MG (65 MG ELEMENTAL IRON) TAB PO SCH (09:54)
[2017-12-26] MEDS: PANTOPRAZOLE SOD 40 MG DELAYED RELEASE TAB PO SCH (09:55)
[2017-12-26] MEDS: MEMANTINE HCL 10 MG TAB PO SCH ×2 (09:55→20:19)
[2017-12-26] MEDS: METOPROLOL TARTRATE 50 MG TAB PO SCH ×2 (09:55→20:19)
[2017-12-26] MEDS: INSULIN DETEMIR 100 UNITS/ML VIAL SQ SCH ×2 (09:55→20:21)
[2017-12-26] MEDS: POTASSIUM CHLORIDE 10 MEQ CAP PO SCH (10:24)
--- NOTE | 2017-12-26 11:37 | HHI.HP ---
[facility] Unknown Admission Diagnosis NSTEMI, AMS Diagnoses: Travel History International Travel<30 Days: No Contact w/Intl Traveler <30 Da: No Traveled to Known Affected Are: No History of Present Illness 77-year-old male with a history of type 2 diabetes, COPD, CHF, CVA, dementia, CAD, hyperlipidemia, hypertension, gastric ulcer, prostate cancer, nephrolithiasis, arthritis who presents with 2 day history of altered mental status, hyperglycemia with sugars in the 500s. Also noted in the ER troponin elevation up to 2.49, trending up to 4.62. CT head performed with no acute findings. Patient himself denies any pain. Has no acute complaints. History is limited as patient is very hard of hearing. Daughter at bedside, reports that patient was experiencing hallucinations over the past day at SNF. Patient was previously admitted with CHF exacerbation, healthcare associated pneumonia, COPD exacerbation, acute kidney injury Review of Systems Attempted, limited secondary to dementia and hard of hearing. Past Family Social History Past Medical History Type 2 DM COPD CHF CVA Dementia [place] CAD Hyperlipidemia Hypertension bleeding gastric ulcer prostate CA nephrolithiasis arthritis Past Surgical History CABG x 5 2006 Back surgery Cataracts Left shoulder surgery Reported Medications Reported Meds & Active Scripts Active Reported Ondansetron 4 mg/2 ml Isecure (Ondansetron HCl/Pf) 4 Mg/2 Ml Syringe 4 Mg IM Q8HR PRN D 1000 (Cholecalciferol) 1,000 Unit Cap 1,000 Unit PO DAILY Vitamin C ER (Ascorbic Acid) 500 Mg Brooks 500 Mg PO DAILY Tramadol (Tramadol HCl) 50 Mg Tab 50 Mg PO Q4H PRN Tamsulosin (Tamsulosin HCl) 0.4 Mg Cap 0.4 Mg PO HS Sertraline (Sertraline HCl) 50 Mg Tab 50 Mg PO DAILY Senna S (Sennosides-Docusate Sodium) 8.6-50 Mg Tab 2 Tab PO BID PRN Potassium Chloride ER (Potassium Chloride) 10 Meq Cap 10 Meq PO DAILY Omeprazole 40 Mg Cap 40 Mg PO DAILY Nitroglycerin SL (Nitroglycerin) 0.4 Mg Subl 0.4 Mg SL DIRECTED PRN ONE TABLET UNDER THE TONGUE NEEDED FOR CHEST PAIN, MAY REPEAT EVERY FIVE MINUTES FOR A TOTAL OF 3 DOSES OR CALL 911 IF NO RELIEF Milk of Magnesia Liq (Magnesium Hydroxide) 400 Mg/5 Ml Susp 30 Ml PO Q6H PRN Metoprolol Tartrate 25 Mg Tab 25 Mg PO BID Memantine 10 Mg Tab 10 Mg PO BID Lisinopril 10 Mg Tab 10 Mg PO DAILY Levemir Inj (Insulin Detemir) 1,000 unit/ 10 ML Vial 15 Units SQ DAILY Do not mix with any other Insulin. Lasix (Furosemide) 40 Mg Tab 40 Mg PO DAILY Lantus Inj (Insulin Glargine) 1,000 Unit/10 Ml Vial 8 Units SQ HS Glucose Gel (Dextrose) 40 % Gel 1 Tube PO DIRECTED PRN Glucagon Emergency Inj Kit (Glucagon (Rdna) Inj Kit) 1 Mg Kit 1 Mg IM ONCE PRN Ferrous Sulfate 325 Mg (65 Mg Iron) Tablet 325 Mg PO DAILY Duoneb (Ipratropium-Albuterol Neb) 0.5-2.5 Mg/3 Ml Neb 1 Nebule INH HS Duoneb (Ipratropium-Albuterol Neb) 0.5-2.5 Mg/3 Ml Neb 1 Nebule INH Q6HR NEB PRN [Calcium Tablet] 1,200 Mg PO DAILY Calcitriol 0.25 Mcg Cap 0.25 Mcg PO MWF Biscolax Supp (Bisacodyl) 10 Mg Supp 10 Mg RECTAL DAILY PRN B-12 (Cyanocobalamin) 1,000 Mcg Subl 1,000 Mcg SL DAILY Atorvastatin (Atorvastatin Calcium) 40 Mg Tab 40 Mg PO HS Aspirin Low Dose (Aspirin) 81 Mg Chew 81 Mg CHEW DAILY Aranesp (Albumin Free) Inj (Darbepoetin Xavier Inj) 40 Mcg/0.4 Ml Inj 40 Mcg SQ MONTHLY Amlodipine (Amlodipine Besylate) 10 Mg Tab 10 Mg PO DAILY Tylenol (Acetaminophen) 325 Mg Tab 650 Mg PO Q4H PRN Allergies: Coded Allergies: No Known Allergies (Verified Allergy, Unknown, 12/26/17) Family History Family history of diabetes, hypertension, heart disease. Social History Patient reportedly previously smoked. Nondrinker. No illicit drugs reported. Physical Exam Vital Signs Vital Signs Date Time Temp Pulse Resp B/P (MAP) Pulse Ox O2 Delivery O2 Flow Rate FiO2 12/26/17 09:59 73 18 179/83 (115) 100 Nasal Cannula 2.00 12/26/17 07:15 71 17 156/78 (104) 100 2.00 12/26/17 06:05 71 18 175/79 (111) 100 Nasal Cannula 2.00 12/26/17 05:22 70 16 151/70 (97) 98 Nasal Cannula 2.00 12/26/17 03:05 96 Nasal Cannula 2.00 12/26/17 02:21 71 18 160/73 (102) 100 Nasal Cannula 2.00 12/26/17 01:25 96 Nasal Cannula 2.00 12/26/17 01:25 96 12/26/17 00:49 72 18 96 Nasal Cannula 2.00 12/26/17 00:45 98.9 70 18 163/74 (103) 96 Physical Exam GENERAL: This is a well-nourished, well-developed patient, in no apparent distress. She is alert to place. Otherwise disoriented. Pleasant. Very hard of hearing SKIN: No rashes, ecchymoses or lesions. Cool and dry. HEAD: Atraumatic. Normocephalic. No temporal or scalp tenderness. EYES: Pupils equal round and reactive. Extraocular motions intact. No scleral icterus. No injection or drainage. ENT: Nose without bleeding, purulent drainage or septal hematoma. Throat without erythema, tonsillar hypertrophy or exudate. Uvula midline. Airway patent. NECK: Trachea midline. No JVD or lymphadenopathy. Supple, nontender, no meningeal signs. CARDIOVASCULAR: Regular rate and rhythm without murmurs, gallops, or rubs. RESPIRATORY: Clear to auscultation. Breath sounds equal bilaterally. No wheezes , rales, or rhonchi. GASTROINTESTINAL: Abdomen soft, non-tender, nondistended. No hepato-splenomegaly , or palpable masses. No guarding. MUSCULOSKELETAL: Extremities without clubbing, cyanosis.. No joint tenderness, effusion.. No calf tenderness. Negative Homans sign bilaterally. +1 bilateral lower extremity edema. NEUROLOGICAL: Awake and alert. Cranial nerves II through XII intact. Motor and sensory grossly within normal limits. Five out of 5 muscle strength in all muscle groups. Normal speech. Laboratory Laboratory Tests Test 12/26/17 01:18 12/26/17 08:00 12/26/17 09:20 White Blood Count 9.0 Red Blood Count 2.92 Hemoglobin 9.3 Hematocrit 28.3 Mean Corpuscular Volume 97.0 Mean Corpuscular Hemoglobin 32.0 Mean Corpuscular Hemoglobin Concent 33.0 Red Cell Distribution Width 21.9 Platelet Count 130 Mean Platelet Volume 9.2 Neutrophils (%) (Auto) 91.9 Lymphocytes (%) (Auto) 2.1 Monocytes (%) (Auto) 5.9 Eosinophils (%) (Auto) 0.0 Basophils (%) (Auto) 0.1 Neutrophils # (Auto) 8.3 Lymphocytes # (Auto) 0.2 Monocytes # (Auto) 0.5 Eosinophils # (Auto) 0.0 Basophils # (Auto) 0.0 CBC Comment DIFF FINAL Differential Comment Prothrombin Time 12.9 Prothromb Time International Ratio 1.3 Activated Partial Thromboplast Time 24.0 89.5 Urine Color YELLOW Urine Turbidity CLEAR Urine pH 5.0 Urine Specific [place] 1.011 Urine Protein 30 Urine Glucose (UA) TRACE Urine Ketones NEG Urine Occult Blood TRACE Urine Nitrite NEG Urine Bilirubin NEG Urine Urobilinogen LESS THAN 2.0 Urine Leukocyte Esterase TRACE Urine RBC LESS THAN 1 Urine WBC 3 Urine Squamous Epithelial Cells <1 Urine Amorphous Sediment RARE Urine Bacteria RARE Urine Mucus FEW Microscopic Urinalysis Comment CATH-CULTURE IND Blood Urea Nitrogen 98 Creatinine 3.24 Random Glucose 277 Total Protein 6.5 Albumin 3.1 Calcium Level 8.8 Alkaline Phosphatase 111 Aspartate Amino Transf (AST/SGOT) 32 Alanine Aminotransferase (ALT/SGPT) 42 Total Bilirubin 0.3 Sodium Level 142 Potassium Level 4.5 Chloride Level 105 Carbon Dioxide Level 26.1 Anion Gap 11 Estimat Glomerular Filtration Rate 23 Total Creatine Kinase 79 84 Troponin I 2.49 4.62 B-Type Natriuretic Peptide 759 Date/Time Source Procedure Growth Status 12/26/17 01:18 Nasal Washing Influenza Types A,B Antigen (LUIS) - Final NEGATIVE FOR FLU A AND B ANTIGEN.... Complete 12/26/17 01:18 Urine Catheterized Urine Urine Culture Pending Received Result Diagram: 12/26/1711712/26/17117 Caprini VTE Risk Assessment Caprini VTE Risk Assessment: Mod/High Risk (score >= 2) Caprini Risk Assessment Model Point Value = 1 Point Value = 2 Point Value = 3 Point Value = 5 Age 41-60 Minor surgery BMI > 25 kg/m2 Swollen legs Varicose veins or History of unexplained or recurrent spontaneous Oral contraceptives or hormone replacement Sepsis (< 1 month) Serious lung disease, including pneumonia (< 1 month) Abnormal pulmonary function Acute myocardial infarction Congestive heart failure (< 1 month) History of inflammatory bowel disease Medical patient at bed rest Age 61-74 Arthroscopic surgery Major open surgery (> 45 min) Laparoscopic surgery (> 45 min) Malignancy Confined to bed (> 72 hours) Immobilizing plaster cast Central venous access Age >= 75 History of VTE Family history of VTE Factor V Leiden Prothrombin [id number] Lupus anticoagulant Anticardiolipin antibodies Elevated serum homocysteine Heparin-induced thrombocytopenia Other congenital or acquired thrombophilia Stroke (< 1 month) Elective arthroplasty Hip, pelvis, or leg fracture Acute spinal cord injury (< 1 month) Prophylaxis Regimen Total Risk Factor Score Risk Level Prophylaxis Regimen 0-1 Low Early ambulation 2 Moderate Order ONE of the following: *Sequential Compression Device (SCD) *Heparin 5000 units SQ BID 3-4 Higher Order ONE of the following medications: *Heparin 5000 units SQ TID *Enoxaparin/Lovenox 40 mg SQ daily (WT < 150 kg, CrCl > 30 mL/min) *Enoxaparin/Lovenox 30 mg SQ daily (WT < 150 kg, CrCl > 10-29 mL/min) *Enoxaparin/Lovenox 30 mg SQ BID (WT < 150 kg, CrCl > 30 mL/min) AND/OR *Sequential Compression Device (SCD) 5 or more Highest Order ONE of the following medications: *Heparin 5000 units SQ TID (Preferred with Epidurals) *Enoxaparin/Lovenox 40 mg SQ daily (WT < 150 kg, CrCl > 30 mL/min) *Enoxaparin/Lovenox 30 mg SQ daily (WT < 150 kg, CrCl > 10-29 mL/min) *Enoxaparin/Lovenox 30 mg SQ BID (WT < 150 kg, CrCl > 30 mL/min) AND *Sequential Compression Device (SCD) Assessment and Plan Assessment and Plan //Encephalopathy. //Possibly uremic encephalopathy = With chronic dementia. CT with no acute changes. = Check ABG. -Could be secondary to uremia. Consult nephrology. //Type 2 diabetes mellitus with hyperglycemia glucose in the 200s here. Will start on. Insulin sliding scale. Diabetic diet. //Troponin elevation up to 4.62. Patient denies any chest pain. Follow-up cardiology consult. //Chronic COPD. Duo nebs as needed. //BPH. Chronic. Continue tamsulosin. //Chronic CHF with recent exacerbation. Does not appear to have acute exacerbation. Will monitor fluid status closely. Continue home medications. //Chronic anemia. Likely secondary to kidney disease. Hemoglobin appears at baseline. Discussed Condition With Patient, nurse, daughter at bedside Physician Certification 2 Midnight Certification Type: Admission for Inpatient Services Order for Inpatient Services The services are ordered in accordance with Medicare regulations or non- Medicare payer requirements, as applicable. In the case of services not specified as inpatient-only, they are appropriately provided as inpatient services in accordance with the 2-midnight benchmark. Estimated LOS (days): 3 days is the estimated time the patient will need to remain in the hospital, assuming treatment plan goals are met and no additional complications. Post-Hospital Plan: Not yet determined El Blanca MD Dec 26, 2017 11:37
[2017-12-26] MEDS: INSULIN ASPART SUPPLEMENTAL SCALE SQ SCH ×3 (13:30→20:22)
[2017-12-26] MEDS ORDERED: GLUCAGON 1 MG/ML VIAL OTHER PRN (13:30)
[2017-12-26] MEDS ORDERED: DEXTROSE 50% IN WATER 50 ML VIAL(D50) IV PUSH PRN (13:30)
[2017-12-26] MEDS: SODIUM CHLOR 0.9% 1000 ML INJ 1,000 ML IV SCH (13:30)
--- NOTE | 2017-12-26 13:34 | PD.CONS ---
HPI Service Nephrology Consult Requested By Dr. Blanca Reason for Consult Possible Uremic encephalopathy. Primary Care Physician Unknown History of Present Illness Patient is a 77-year-old male with a history of type 2 diabetes, COPD, CHF, CVA , dementia, CAD, CKD, hyperlipidemia, hypertension, gastric ulcer, prostate cancer, nephrolithiasis, and arthritis. Presents to ED who presents with altered mental status and hyperglycemia with sugars in the 500s. Also noted in the ER troponin elevation up to 2.49, trending up to 4.62. History is limited as patient is very hard of hearing. Patient was discharged from hospital on the to a SNF. Nephrology is consulted for possible uremic encephalopathy. Patient mental status during exam is at baseline. Creatinine is 3.24 and patients baseline creatinine has been around 2.5 to 3.0. (Madisyn Mehta) Review of Systems Respiratory: COMPLAINS OF: Shortness of breath Cardiovascular: DENIES: Chest pain Gastrointestinal: DENIES: Abdominal pain, Nausea, Vomiting (Madisyn Mehta) Past Family Social History Allergies: Coded Allergies: No Known Allergies (Verified Allergy, Unknown, 12/26/17) Past Medical History Type 2 DM COPD CHF CVA Dementia [place] CAD Hyperlipidemia Hypertension bleeding gastric ulcer prostate CA nephrolithiasis arthritis CKD stage 3 to 4 Past Surgical History ype 2 DM COPD CHF CABG x 5 2006 Back surgery Cataracts Left shoulder surgery Active Ordered Medications Current Medications Medications (Trade) Dose Ordered Sig/Martha Route Start Time Stop Time Status Last Admin Heparin Sodium/ Dextrose 250 ml @ 10 mls/hr TITRATE PRN IV 12/26/17 02:30 12/26/17 02:47 (Lasix Inj) 40 mg BID@,18 IV PUSH 12/26/17 09:00 12/26/17 09:54 (Proair Hfa Inh) 2 puff Q4H PRN INH 12/26/17 02:45 (Norvasc) 10 mg DAILY PO 12/26/17 09:00 12/26/17 09:55 (Aspirin Chew) 81 mg DAILY CHEW 12/26/17 09:00 12/26/17 09:54 (Lipitor) 40 mg HS PO 12/26/17 21:00 (Aranesp Inj) 40 mcg Q30D SQ 12/27/17 08:00 Future Hold (Ferrous Sulfate) 325 mg DAILY PO 12/26/17 09:00 12/26/17 09:54 (Levemir Inj) 15 units BID SQ 12/26/17 09:00 12/26/17 09:55 (Duoneb Neb) 1 ampule HS NEB INH 12/26/17 21:00 (Duoneb Neb) 1 ampule Q6HR NEB PRN INH 12/26/17 02:45 12/26/17 03:06 (Namenda) 10 mg BID PO 12/26/17 09:00 12/26/17 09:55 (Lopressor) 50 mg BID PO 12/26/17 09:00 12/26/17 09:55 (KCl) 10 meq DAILY PO 12/26/17 09:00 12/26/17 10:24 (Zoloft) 50 mg DAILY PO 12/26/17 09:00 12/26/17 09:54 (Flomax) 0.4 mg HS PO 12/26/17 21:00 (Ultram) 50 mg Q4H PRN PO 12/26/17 02:45 (Oscal) 1,000 mg DAILY PO 12/26/17 09:00 12/26/17 09:54 (Protonix) 40 mg DAILY PO 12/26/17 09:00 12/26/17 09:55 (NS Flush) 2 ml BID IV FLUSH 12/26/17 09:00 (NS Flush) 2 ml UNSCH PRN IV FLUSH 12/26/17 02:45 (Zofran Inj) 4 mg Q6H PRN IV PUSH 12/26/17 02:45 (NovoLOG SUPPLEMENTAL SCALE) 1 ACHS SLIDING SCALE SQ 12/26/17 12:00 UNV (Lipitor) 10 mg HS PO 12/26/17 21:00 UNV (Nitroglycerin 2% Oint) 2 inch Q6HR TOPICAL 12/26/17 18:00 UNV Family History Family history of diabetes, hypertension, heart disease. Social History Patient reportedly previously smoked. Nondrinker. No illicit drugs reported. (Madisyn Mehta) Physical Exam Vital Signs Vital Signs Date Time Temp Pulse Resp B/P (MAP) Pulse Ox O2 Delivery O2 Flow Rate FiO2 12/26/17 11:53 100 Nasal Cannula 3.00 12/26/17 09:59 73 18 179/83 (115) 100 Nasal Cannula 2.00 12/26/17 07:15 71 17 156/78 (104) 100 2.00 12/26/17 06:05 71 18 175/79 (111) 100 Nasal Cannula 2.00 12/26/17 05:22 70 16 151/70 (97) 98 Nasal Cannula 2.00 12/26/17 03:05 96 Nasal Cannula 2.00 12/26/17 02:21 71 18 160/73 (102) 100 Nasal Cannula 2.00 12/26/17 01:25 96 Nasal Cannula 2.00 12/26/17 01:25 96 12/26/17 00:49 72 18 96 Nasal Cannula 2.00 12/26/17 00:45 98.9 70 18 163/74 (103) 96 Physical Exam GENERAL: Alert and answered questions appropriately. [place] SKIN: Warm and dry. HEAD: Normocephalic. EYES: No scleral icterus. No injection or drainage. NECK: Supple, trachea midline. No JVD or lymphadenopathy. CARDIOVASCULAR: Regular rate and rhythm without murmurs, gallops, or rubs. RESPIRATORY: Breath sounds equal bilaterally. No accessory muscle use. GASTROINTESTINAL: Abdomen soft, non-tender, nondistended. MUSCULOSKELETAL: No cyanosis. Upper extremity edema. BACK: Nontender without obvious deformity. No CVA tenderness. Laboratory Laboratory Tests Test 12/26/17 01:18 12/26/17 08:00 12/26/17 09:20 12/26/17 11:23 White Blood Count 9.0 Red Blood Count 2.92 Hemoglobin 9.3 Hematocrit 28.3 Mean Corpuscular Volume 97.0 Mean Corpuscular Hemoglobin 32.0 Mean Corpuscular Hemoglobin Concent 33.0 Red Cell Distribution Width 21.9 Platelet Count 130 Mean Platelet Volume 9.2 Neutrophils (%) (Auto) 91.9 Lymphocytes (%) (Auto) 2.1 Monocytes (%) (Auto) 5.9 Eosinophils (%) (Auto) 0.0 Basophils (%) (Auto) 0.1 Neutrophils # (Auto) 8.3 Lymphocytes # (Auto) 0.2 Monocytes # (Auto) 0.5 Eosinophils # (Auto) 0.0 Basophils # (Auto) 0.0 CBC Comment DIFF FINAL Differential Comment Prothrombin Time 12.9 Prothromb Time International Ratio 1.3 Activated Partial Thromboplast Time 24.0 89.5 85.4 Urine Color YELLOW Urine Turbidity CLEAR Urine pH 5.0 Urine Specific [place] 1.011 Urine Protein 30 Urine Glucose (UA) TRACE Urine Ketones NEG Urine Occult Blood TRACE Urine Nitrite NEG Urine Bilirubin NEG Urine Urobilinogen LESS THAN 2.0 Urine Leukocyte Esterase TRACE Urine RBC LESS THAN 1 Urine WBC 3 Urine Squamous Epithelial Cells <1 Urine Amorphous Sediment RARE Urine Bacteria RARE Urine Mucus FEW Microscopic Urinalysis Comment CATH-CULTURE IND Blood Urea Nitrogen 98 Creatinine 3.24 Random Glucose 277 Total Protein 6.5 Albumin 3.1 Calcium Level 8.8 Alkaline Phosphatase 111 Aspartate Amino Transf (AST/SGOT) 32 Alanine Aminotransferase (ALT/SGPT) 42 Total Bilirubin 0.3 Sodium Level 142 Potassium Level 4.5 Chloride Level 105 Carbon Dioxide Level 26.1 Anion Gap 11 Estimat Glomerular Filtration Rate 23 Total Creatine Kinase 79 84 Troponin I 2.49 4.62 B-Type Natriuretic Peptide 759 Test 12/26/17 11:43 Blood Gas Puncture Site LT RADIAL Blood Gas Patient Temperature 98.6 Blood Gas HCO3 27 Blood Gas Base Excess 2.5 Blood Gas Oxygen Saturation 94 Arterial Blood pH 7.41 Arterial Blood Partial Pressure CO2 44 Arterial Blood Partial Pressure O2 76 Arterial Blood Oxygen Content 12.3 Arterial Blood Carboxyhemoglobin 2.1 Arterial Blood Methemoglobin 0.4 Blood Gas Hemoglobin 9.3 Oxygen Delivery Device NASAL CANNULA Blood Gas Liter Flow 3 Date/Time Source Procedure Growth Status 12/26/17 01:18 Nasal Washing Influenza Types A,B Antigen (LUIS) - Final NEGATIVE FOR FLU A AND B ANTIGEN.... Complete 12/26/17 01:18 Urine Catheterized Urine Urine Culture Pending Received (Madisyn Mehta) Result Diagram: 12/26/17 0118 12/26/17 0118 Imaging Last Impressions Chest X-Ray 12/26/17 0051 Signed Impressions: Service Date/Time: Tuesday, December 26, 2017 01:07 - CONCLUSION: No definite infiltrates seen. There is indistinctness and fullness of the central bronchopulmonary markings which may represent vascular engorgement, however, there is submaximal inspiration which may be contributing to the indistinctness. Héctor Gaspar MD Head CT 12/26/17 0000 Signed Impressions: Service Date/Time: Herman, December 26, 2017 01:34 - CONCLUSION: 1. No acute findings in the brain. 2. 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 Héctor Gaspar MD (Madisyn Mehta) Assessment and Plan Problem List: (1) ALISSON (acute kidney injury) ICD Codes: N17.9 - Acute kidney failure, unspecified Status: Resolved Plan: ALISSON on CKD patients new baseline maybe at 2.5 to 3.0. Creatinine at 3.52 ALISSON possible related to prerenal CKD stage 3 most likely related to diabetic nephropathy and HTN Renal US on 12/08: . Small amount of ascites along the hepatic convexity otherwise, kidneys and bladder are sonographically normal. Proteinuria Anemia most likely chronic disease, on Aranesp monthly Plan: Upper extremity edema will moniter Gently hydrate with IVF NS at 42 ml/hr infusing Continue to avoid nephrotoxins. Encourage oral intake. (2) Altered mental status ICD Codes: R41.82 - Altered mental status, unspecified Plan: Patient is alert and responding to questions appropriately. Appears to be baseline. Most likely not uremic encephalopathy (3) Edema ICD Codes: R60.9 - Edema, unspecified Plan: Will monitor Elevate arms on pillows (4) Diabetes Mellitus Plan: will monitor (5) NSTEMI (non-ST elevated myocardial infarction) ICD Codes: I21.4 - Non-ST elevation (NSTEMI) myocardial infarction Status: Acute Plan: Cardiology consulted Heparin gtt infusing Troponin trending upwards Denies CP (6) Hypertension ICD Codes: I10 - Hypertension Status: Chronic Plan: Monitor Home medications continued (Madisyn Mehta) Problem List: (1) ALISSON (acute kidney injury) ICD Codes: N17.9 - Acute kidney failure, unspecified Status: Resolved Plan: ALISSON on CKD patients new baseline maybe at 2.5 to 3.0. Creatinine at 3.52 ALISSON possible related to prerenal CKD stage 3 most likely related to diabetic nephropathy and HTN Renal US on 12/08: . Small amount of ascites along the hepatic convexity otherwise, kidneys and bladder are sonographically normal. Proteinuria Anemia most likely chronic disease, on Aranesp monthly Plan: Upper extremity edema will monitor Gently hydrate with IVF NS at 42 ml/hr infusing Continue to avoid nephrotoxins. Encourage oral intake. Patient seen and examined, agree with above. Follow the urine out put and BMP. (2) Altered mental status ICD Codes: R41.82 - Altered mental status, unspecified Plan: Patient is alert and responding to questions appropriately. Appears to be baseline. Most likely not uremic encephalopathy (3) Edema ICD Codes: R60.9 - Edema, unspecified Plan: Will monitor Elevate arms on pillows (4) Diabetes Mellitus Plan: will monitor (5) NSTEMI (non-ST elevated myocardial infarction) ICD Codes: I21.4 - Non-ST elevation (NSTEMI) myocardial infarction Status: Acute Plan: Cardiology consulted Heparin gtt infusing Troponin trending upwards Denies CP (6) Hypertension ICD Codes: I10 - Hypertension Status: Chronic Plan: Monitor Home medications continued (Olegario Brush MD) Madisyn Mehta Dec 26, 2017 13:34 Olegario Brush MD Dec 26, 2017 21:04
--- NOTE | 2017-12-26 17:53 | MB ---
cc: Salvatore Davidson MD DATE OF CONSULT: 12/26/2017 HISTORY OF PRESENT ILLNESS: Paul is hard of hearing, notes to be a poor historian by the ER physicians, lives in a halfway, brought into the ER due severe hyperglycemia. The patient appears in no acute distress. He admits to some mild shortness of breath, but otherwise denies any chest pain, fevers, chills, cough, bleeding, orthopnea, PAST MEDICAL HISTORY: Per history of present illness. Past medical history also includes arthritis, depression, prostate cancer, history of 5-vessel bypass in 2006, hyperlipidemia, history of CVA, coronary artery disease, diabetes, frequent falls, history of myocardial infarction, GI bleeding with gastric ulcer, cataract surgery. SOCIAL HISTORY: He denies alcohol use. He smokes a pack of cigarettes a day. ALLERGIES: None. MEDICATIONS PRIOR TO ADMISSION: Prednisone 20 mg as directed, Ventolin, chlorothiazide 250 mg tablet daily, Levemir, Lopressor 50 b.i.d., Levaquin 500 q. 48 hours, calcium, ondansetron, cholecalciferol, vitamin C, tramadol, tamsulosin, sertraline, Senna, potassium, omeprazole, milk of magnesia, memantine, Lasix 40 daily, DuoNeb, calcitriol, Biscolax, B12, atorvastatin 40 at bedtime, aspirin 81 mg daily, amlodipine 10 mg daily. MEDICATIONS IN THE HOSPITAL: Darbepoetin 40 mcg subcu every 30 days, atorvastatin 40 at bedtime, albuterol, tamsulosin 0.4 mg at bedtime, sliding scale insulin, Lasix 40 IV b.i.d., amlodipine 10 mg daily, aspirin 81 mg daily, ferrous sulfate 325 daily, Levemir 15 units b.i.d., Namenda 10 mg b.i.d., metoprolol 50 b.i.d., potassium chloride 10 mEq daily, sertraline 50 mg daily, [place] 1000 mg daily, pantoprazole 40 daily, heparin drip. PHYSICAL EXAMINATION: VITAL SIGNS: Blood pressure 179/83, pulse 73, respiratory rate 18, sats 100% on 3 L nasal cannula. GENERAL: He is alert and oriented x3, in no acute distress. NECK: Supple. No JVD. No bruit. CARDIOVASCULAR: S1, S2. No murmurs, rubs, gallops. LUNGS: Clear to auscultation bilaterally. ABDOMEN: Soft, nontender, nondistended with positive bowel sounds. EXTREMITIES: Lower extremity edema. IMAGING: Chest x-ray shows no definite infiltrates, indistinctness and fullness of the central bronchopulmonary markings, which may suggest vascular engorgement, submaximal inspiration noted. Head CT shows old infarctions in the right MC watershed zone and ischemic demyelination in the high convexity white matter bilaterally. EKG shows normal sinus rhythm with ischemic changes in the anterolateral leads. LABORATORY DATA: White count 9.0, hemoglobin 9.3, hematocrit 28.3, platelet count 130. Sodium 142, potassium 4.5, chloride 105, bicarb 26.1, BUN 98, creatinine 3.24, glucose 277. Troponin 2.49, followed by 4.62. BNP is 759. PTT is 85.4. PH is 7.49, pCO2 44, pO2 76. DIAGNOSES: He has the followin. Non-ST elevated myocardial infarction. 2. Coronary disease. 3. Decompensated congestive heart failure. 4. Acute renal failure. 5. Anemia. 6. Thrombocytopenia. 7. Diabetes mellitus. 8. Hyperglycemia. 9. History of CVA. 10. Dementia. 11. Hypertension. DISCUSSION: At this point in time, the patient is being treated with optimal medical therapy including aspirin, heparin, amlodipine, metoprolol. TAM inhibitor is being held due to acute renal failure and he does need to be on a statin; however, we will need to check his fasting lipids. We will start him on 10 mg of Lipitor empirically. He is asymptomatic. I talked to his sister who apparently is not his surrogate decision maker, it is his son who lives in [place]. His sister notes that he has a commercial intern, but she cannot remember who it is. She is going to try to find out who that individual is and let the nurse know so that they can inform me so I can contact that individual. Meanwhile, I have explained to the patient and his sister that he is high risk for needing temporary or permanent dialysis under the current circumstances with the acute renal failure and since he is asymptomatic, we will treat him medically. In the short-term, he will need a renal consult and we will continue his trends and troponins. We will add nitroglycerin paste for blood pressure control as well. MD TRINIDAD Ferreira/cc , 12:49 PM , 05:51 PM
[2017-12-26] MEDS: NITROGLYCERIN 2% OINT 1 GM PACKET TOPICAL SCH (18:42)
[2017-12-26] MEDS: TAMSULOSIN HCL 0.4 MG CAP PO SCH (20:19)
[2017-12-26] MEDS: ATORVASTATIN 10 MG TAB PO SCH (20:19)
[2017-12-26] MEDS ORDERED: ATORVASTATIN 40 MG TAB PO SCH (21:00)
[2017-12-26] MEDS: RESP: ALBUTEROL 2.5 MG/IPRATROPIUM 0.5 MG NEB (SCH) INH (21:31)
[2017-12-26 23:09] LABS: TROPONIN I 2.25 NG/ML (0.02-0.05)
[2017-12-27] VITALS (21 sets, daily range): BP systolic 130–160; BP diastolic 66–81; PULSE 64–99; RESP 16–20; TEMP 98.1–98.4; O2SAT 92–99
[2017-12-27] MEDS ORDERED: LORazepam 2 MG/ML VIAL IV PUSH ONE (01:15)
[2017-12-27] MEDS: HEPARIN-D5W 25,000 U/250 ML 250 ML IV PRN (01:41)
[2017-12-27 03:08] LABS: AUTOMATED NEUTROPHIL # 8.9 TH/MM3 (1.8-7.7); BASOPHIL % 0.3 % (0.0-2.0); EOSINOPHIL # 0.4 TH/MM3 (0-0.4); EOSINOPHIL % 3.5 % (0.0-4.0); HEMATOCRIT 29.3 % (39.0-51.0); HEMOGLOBIN 9.3 GM/DL (13.0-17.0); LYMPH % 8.9 % (9.0-44.0); MEAN CELL VOLUME 96.8 FL (80.0-100.0); MEAN CORPUSCULAR HEMOGLOBIN 30.9 PG (27.0-34.0); MEAN CORPUSCULAR HGB CONC 31.9 % (32.0-36.0); MEAN PLATELET VOLUME 9.5 FL (7.0-11.0); MONO % 6.7 % (0.0-8.0); MONOCYTE # 0.7 TH/MM3 (0-0.9); NEUT % 80.6 % (16.0-70.0); PLATELET COUNT 127 TH/MM3 (150-450); RED BLOOD COUNT 3.02 MIL/MM3 (4.50-5.90); RED CELL DISTRIBUTION WIDTH 22.6 % (11.6-17.2)
[2017-12-27 03:38] LABS: BANDS 1 % (0-6); LYMPHOCYTES 4 % (9-44); METAMYELOCYTES 2 % (0-1); MONOCYTES 5 % (0-8); MYELOCYTES 1 % (0-0); NEUTROPHIL # MANUAL DIFF 9.5 TH/MM3 (1.8-7.7); POLYS (SEG NEUTROPHILS) 82 % (16-70)
[2017-12-27 03:39] LABS: TOXIC VACUOLATION PRESENT (NONE SEEN)
[2017-12-27 03:40] LABS: ACANTHOCYTES 1+ (NORMAL); OVALOCYTES 1+ (NORMAL)
[2017-12-27] MEDS: RESP: ALBUTEROL 2.5 MG/IPRATROPIUM 0.5 MG NEB (PRN) INH (04:13)
[2017-12-27] MEDS: NITROGLYCERIN 2% OINT 1 GM PACKET TOPICAL SCH ×4 (05:16→17:38)
[2017-12-27] MEDS ORDERED: DARBEPOETIN ALFA/POLYSORBATE 40 MCG/ML VIAL SQ SCH (08:00)
[2017-12-27] MEDS: INSULIN ASPART SUPPLEMENTAL SCALE SQ SCH ×3 (08:00→21:00)
[2017-12-27] MEDS: INSULIN DETEMIR 100 UNITS/ML VIAL SQ SCH ×2 (09:00→21:00)
[2017-12-27] MEDS: ASPIRIN 81 MG CHEW TAB CHEW SCH (09:27)
[2017-12-27] MEDS: FERROUS SULFATE 325 MG (65 MG ELEMENTAL IRON) TAB PO SCH (09:27)
[2017-12-27] MEDS: MEMANTINE HCL 10 MG TAB PO SCH ×2 (09:27→20:59)
[2017-12-27] MEDS: CALCIUM CARBONATE 1.25 GM (CA 500 MG) TAB PO SCH (09:27)
[2017-12-27] MEDS: SERTRALINE HCL 50 MG TAB PO SCH (09:27)
[2017-12-27] MEDS: FUROSEMIDE 40 MG/4 ML VIAL IV PUSH SCH ×2 (09:28→17:38)
[2017-12-27] MEDS: PANTOPRAZOLE SOD 40 MG DELAYED RELEASE TAB PO SCH (09:28)
[2017-12-27] MEDS: METOPROLOL TARTRATE 50 MG TAB PO SCH ×2 (09:28→20:59)
[2017-12-27] MEDS: POTASSIUM CHLORIDE 10 MEQ CAP PO SCH (09:28)
[2017-12-27 11:30] LABS: BICARBONATE 29.3 MEQ/L (21.0-32.0); CALCIUM 8.5 MG/DL (8.5-10.1); CREATININE 2.94 MG/DL (0.60-1.30)
--- NOTE | 2017-12-27 13:42 | HHI.PR ---
Subjective Remarks Patient seen this morning around 9 AM. Wakes up and mumbles with tactile stimulation. Objective Vital Signs Date Time Temp Pulse Resp B/P (MAP) Pulse Ox O2 Delivery O2 Flow Rate FiO2 12/27/17 12:12 98.3 68 16 157/80 (105) 99 12/27/17 08:00 98.4 65 16 160/81 (107) 99 12/27/17 06:00 72 12/27/17 05:00 69 12/27/17 04:00 98.3 67 16 136/69 (91) 92 12/27/17 04:00 Nasal Cannula 2.00 12/27/17 04:00 67 12/27/17 03:00 71 12/27/17 02:00 65 12/27/17 01:00 69 12/27/17 00:00 98.1 67 18 140/81 (100) 96 12/27/17 00:00 Nasal Cannula 2.00 12/27/17 00:00 67 12/26/17 23:00 70 12/26/17 22:00 72 12/26/17 21:37 98 Nasal Cannula 2.00 12/26/17 21:00 70 12/26/17 20:00 Nasal Cannula 2.00 12/26/17 20:00 98.4 71 20 144/79 (100) 97 12/26/17 20:00 71 12/26/17 18:00 66 12/26/17 17:00 64 12/26/17 16:00 68 12/26/17 15:00 63 12/26/17 15:00 98.1 63 20 148/82 (104) 98 12/26/17 14:33 98.1 63 20 142/80 (100) 98 12/26/17 14:00 62 I/O 12/26/17 12/26/17 12/26/17 12/27/17 12/27/17 12/27/17 07:00 15:00 23:00 07:00 15:00 23:00 Intake Total 0 ml 600 ml Output Total 200 ml 900 ml Balance -200 ml -300 ml Intake Oral 0 ml 100 ml IV Total 500 ml Output Urine Total 200 ml 900 ml # Voids 1 2 # Bowel Movements 0 0 Result Diagram: 12/27/17 0253 12/27/17 0935 Objective Remarks GENERAL: Patient sitting up in bed. Appears comfortable. Wakes up for exam. Appears to deny pain. SKIN: Warm and dry. HEAD: Normocephalic. EYES: No scleral icterus. No injection or drainage. NECK: Supple, trachea midline. No JVD . CARDIOVASCULAR: Regular rate and rhythm without murmurs, gallops, or rubs. RESPIRATORY: Breath sounds equal bilaterally. No accessory muscle use. GASTROINTESTINAL: Abdomen soft, non-tender, nondistended. MUSCULOSKELETAL: No cyanosis, or edema. BACK: Nontender without obvious deformity. No CVA tenderness. A/P Assessment and Plan //Acute metabolic encephalopathy. //Possibly uremic encephalopathy = With chronic dementia. CT with no acute changes. = Check ABG. -Could be secondary to uremia. Consult nephrology. = Uremia improving with BUN 86 today from 98 yesterday. Continue IV fluids. Appreciate nephrology assistance. = Culver catheter placed, with 800 mL out immediately. Likely urinary retention. Continue to monitor [place] output. //Type 2 diabetes mellitus with hyperglycemia glucose in the 200s here. Will start on. Insulin sliding scale. Diabetic diet. = Blood pressure acceptable. Continue to monitor //Troponin elevation up to 4.62. Patient denies any chest pain. Follow-up cardiology consult. = Cardiology following. Appreciate assistance. //Chronic COPD. Duo nebs as needed. //BPH. Chronic. Continue tamsulosin. //Chronic CHF with recent exacerbation. Does not appear to have acute exacerbation. Will monitor fluid status closely. Continue home medications. //Chronic anemia. Likely secondary to kidney disease. Hemoglobin appears at baseline. Discharge Planning Pending improvement. El Blanca MD Dec 27, 2017 13:42
[2017-12-27] MEDS: SODIUM CHLOR 0.9% 1000 ML INJ 1,000 ML IV SCH (14:41)
--- NOTE | 2017-12-27 14:43 | HHI.NPPN ---
Subjective Interval History When I saw him, he was resting, sleepy. No complaints. Cardiology note was reviewed. No plans for percutaneous intervention at this time. Renal function has improved. Objective Data Data Vital Signs Date Time Temp Pulse Resp B/P (MAP) Pulse Ox O2 Delivery O2 Flow Rate FiO2 12/27/17 12:12 98.3 68 16 157/80 (105) 99 12/27/17 08:00 98.4 65 16 160/81 (107) 99 12/27/17 06:00 72 12/27/17 05:00 69 12/27/17 04:00 98.3 67 16 136/69 (91) 92 12/27/17 04:00 Nasal Cannula 2.00 12/27/17 04:00 67 12/27/17 03:00 71 12/27/17 02:00 65 12/27/17 01:00 69 12/27/17 00:00 98.1 67 18 140/81 (100) 96 12/27/17 00:00 Nasal Cannula 2.00 12/27/17 00:00 67 12/26/17 23:00 70 12/26/17 22:00 72 12/26/17 21:37 98 Nasal Cannula 2.00 12/26/17 21:00 70 12/26/17 20:00 Nasal Cannula 2.00 12/26/17 20:00 98.4 71 20 144/79 (100) 97 12/26/17 20:00 71 12/26/17 18:00 66 12/26/17 17:00 64 12/26/17 16:00 68 12/26/17 15:00 63 12/26/17 15:00 98.1 63 20 148/82 (104) 98 -: 12/27/17 0253 12/27/17 0935 Physical Exam General Appearance: Well Developed, No Acute Distress Throat Throat Exam: Oral Mucosa [place] & Moist Pulmonary Resp Exam: Clear Bilaterally, Breath Sounds Equal Cardiology CV Exam: Regular Gastrointestinal/Abdomen GI Exam: Soft, Non-Tender, Bowel Sounds Present Integumentary Skin Exam: Intact Assessment/Plan Problem List: (1) ALISSON (acute kidney injury) ICD Codes: N17.9 - Acute kidney failure, unspecified Status: Resolved Plan: ALISSON on CKD patients new baseline maybe at 2.5 to 3.0. 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 He is on IVF: NS at 42 ml/hour. Avoid nephrotoxins. (2) Altered mental status ICD Codes: R41.82 - Altered mental status, unspecified Plan: Continue to monitor. (3) Edema ICD Codes: R60.9 - Edema, unspecified Plan: Will monitor Elevate arms on pillows (4) Diabetes Mellitus Plan: will monitor (5) NSTEMI (non-ST elevated myocardial infarction) ICD Codes: I21.4 - Non-ST elevation (NSTEMI) myocardial infarction Status: Acute Plan: Cardiology consulted Heparin gtt infusing Medical management. (6) Hypertension ICD Codes: I10 - Hypertension Status: Chronic Plan: Monitor Home medications continued Fab Dejesus MD Dec 27, 2017 14:43
--- NOTE | 2017-12-27 16:34 | PD.CARD.PN ---
Subjective Subjective Remarks asleep in nad Objective Medications Current Medications Medications (Trade) Dose Ordered Sig/Martha Route Start Time Stop Time Status Last Admin Heparin Sodium/ Dextrose 250 ml @ 10 mls/hr TITRATE PRN IV 12/26/17 02:30 12/27/17 01:41 (Lasix Inj) 40 mg BID@09,18 IV PUSH 12/26/17 09:00 12/27/17 09:28 (Proair Hfa Inh) 2 puff Q4H PRN INH 12/26/17 02:45 (Norvasc) 10 mg DAILY PO 12/26/17 09:00 12/27/17 09:28 (Aspirin Chew) 81 mg DAILY CHEW 12/26/17 09:00 12/27/17 09:27 (Aranesp Inj) 40 mcg Q30D SQ 12/27/17 08:00 Future Hold (Ferrous Sulfate) 325 mg DAILY PO 12/26/17 09:00 12/27/17 09:27 (Levemir Inj) 15 units BID SQ 12/26/17 09:00 12/27/17 09:00 (Duoneb Neb) 1 ampule HS NEB INH 12/26/17 21:00 12/26/17 21:31 (Duoneb Neb) 1 ampule Q6HR NEB PRN INH 12/26/17 02:45 12/27/17 04:13 (Namenda) 10 mg BID PO 12/26/17 09:00 12/27/17 09:27 (Lopressor) 50 mg BID PO 12/26/17 09:00 12/27/17 09:28 (KCl) 10 meq DAILY PO 12/26/17 09:00 12/27/17 09:28 (Zoloft) 50 mg DAILY PO 12/26/17 09:00 12/27/17 09:27 (Flomax) 0.4 mg HS PO 12/26/17 21:00 12/26/17 20:19 (Ultram) 50 mg Q4H PRN PO 12/26/17 02:45 (Oscal) 1,000 mg DAILY PO 12/26/17 09:00 12/27/17 09:27 (Protonix) 40 mg DAILY PO 12/26/17 09:00 12/27/17 09:28 (NS Flush) 2 ml BID IV FLUSH 12/26/17 09:00 12/26/17 20:21 (NS Flush) 2 ml UNSCH PRN IV FLUSH 12/26/17 02:45 (Zofran Inj) 4 mg Q6H PRN IV PUSH 12/26/17 02:45 (NovoLOG SUPPLEMENTAL SCALE) 1 ACHS SLIDING SCALE SQ 12/26/17 13:30 12/26/17 20:22 (Lipitor) 10 mg HS PO 12/26/17 21:00 12/26/17 20:19 (Nitroglycerin 2% Oint) 2 inch Q6HR TOPICAL 12/26/17 18:00 12/27/17 12:14 (D50w (Vial) Inj) 50 ml UNSCH PRN IV PUSH 12/26/17 13:30 (Glucagon Inj) 1 mg UNSCH PRN OTHER 12/26/17 13:30 Sodium Chloride 1,000 ml @ 42 mls/hr [id number] IV 12/26/17 13:30 12/27/17 14:41 Vital Signs / I&O Vital Signs Date Time Temp Pulse Resp B/P (MAP) Pulse Ox O2 Delivery O2 Flow Rate FiO2 12/27/17 12:12 98.3 68 16 157/80 (105) 99 12/27/17 08:00 98.4 65 16 160/81 (107) 99 12/27/17 06:00 72 12/27/17 05:00 69 12/27/17 04:00 98.3 67 16 136/69 (91) 92 12/27/17 04:00 Nasal Cannula 2.00 12/27/17 04:00 67 12/27/17 03:00 71 12/27/17 02:00 65 12/27/17 01:00 69 12/27/17 00:00 98.1 67 18 140/81 (100) 96 12/27/17 00:00 Nasal Cannula 2.00 12/27/17 00:00 67 12/26/17 23:00 70 12/26/17 22:00 72 12/26/17 21:37 98 Nasal Cannula 2.00 12/26/17 21:00 70 12/26/17 20:00 Nasal Cannula 2.00 12/26/17 20:00 98.4 71 20 144/79 (100) 97 12/26/17 20:00 71 12/26/17 18:00 66 12/26/17 17:00 64 I/O 12/26/17 12/26/17 12/26/17 12/27/17 12/27/17 12/27/17 07:00 15:00 23:00 07:00 15:00 23:00 Intake Total 0 ml 600 ml Output Total 200 ml 900 ml Balance -200 ml -300 ml Intake Oral 0 ml 100 ml IV Total 500 ml Output Urine Total 200 ml 900 ml # Voids 1 2 # Bowel Movements 0 0 Laboratory Laboratory Tests Test 12/26/17 19:38 12/26/17 22:10 12/27/17 02:53 12/27/17 09:35 Activated Partial Thromboplast Time 66.9 SEC 64.5 SEC Total Creatine Kinase 92 U/L Troponin I 2.25 NG/ML White Blood Count 11.0 TH/MM3 Red Blood Count 3.02 MIL/MM3 Hemoglobin 9.3 GM/DL Hematocrit 29.3 % Mean Corpuscular Volume 96.8 FL Mean Corpuscular Hemoglobin 30.9 PG Mean Corpuscular Hemoglobin Concent 31.9 % Red Cell Distribution Width 22.6 % Platelet Count 127 TH/MM3 Mean Platelet Volume 9.5 FL Neutrophils (%) (Auto) 80.6 % Lymphocytes (%) (Auto) 8.9 % Monocytes (%) (Auto) 6.7 % Eosinophils (%) (Auto) 3.5 % Basophils (%) (Auto) 0.3 % Neutrophils # (Auto) 8.9 TH/MM3 Lymphocytes # (Auto) 1.0 TH/MM3 Monocytes # (Auto) 0.7 TH/MM3 Eosinophils # (Auto) 0.4 TH/MM3 Basophils # (Auto) 0.0 TH/MM3 CBC Comment AUTO DIFF Differential Total Cells Counted 100 Neutrophils % (Manual) 82 % Band Neutrophils % 1 % Lymphocytes % 4 % Monocytes % 5 % Eosinophils % 5 % Neutrophils # (Manual) 9.5 TH/MM3 Metamyelocytes 2 % Myelocytes 1 % Differential Comment FINAL DIFF MANUAL Toxic Vacuolation PRESENT Platelet Estimate LOW Platelet Morphology Comment NORMAL Basophilic Stippling [place] Ovalocytes 1+ Acanthocytes 1+ B-Type Natriuretic Peptide 447 PG/ML Blood Urea Nitrogen 86 MG/DL Creatinine 2.94 MG/DL Random Glucose 166 MG/DL Calcium Level 8.5 MG/DL Sodium Level 144 MEQ/L Potassium Level 4.1 MEQ/L Chloride Level 109 MEQ/L Carbon Dioxide Level 29.3 MEQ/L Anion Gap 6 MEQ/L Estimat Glomerular Filtration Rate 25 ML/MIN Imaging GENERAL: SKIN: Warm and dry. HEAD: Normocephalic. EYES: No scleral icterus. No injection or drainage. NECK: Supple, trachea midline. No JVD or lymphadenopathy. CARDIOVASCULAR: Regular rate and rhythm without murmurs, gallops, or rubs. RESPIRATORY: Breath sounds equal bilaterally. No accessory muscle use. GASTROINTESTINAL: Abdomen soft, non-tender, nondistended. MUSCULOSKELETAL: No cyanosis, or edema. BACK: Nontender without obvious deformity. No CVA tenderness. Assessment and Plan Problem List: (1) Tobacco abuse ICD Codes: Z72.0 - Tobacco abuse Status: Acute (2) Chronic kidney disease (CKD) ICD Codes: N18.9 - Chronic kidney disease, unspecified Status: Acute (3) Acute renal injury ICD Codes: N17.9 - Acute kidney injury Status: Acute (4) History of CVA (cerebrovascular accident) ICD Codes: Z86.73 - Personal history of transient ischemic attack (TIA), and cerebral infarction without residual deficits Status: Acute (5) Diabetes type 2, controlled ICD Codes: E11.9 - Type 2 diabetes mellitus without complications Status: Chronic (6) NSTEMI (non-ST elevated myocardial infarction) ICD Codes: I21.4 - Non-ST elevation (NSTEMI) myocardial infarction Status: Acute (7) ALISSON (acute kidney injury) ICD Codes: N17.9 - Acute kidney failure, unspecified Status: Resolved (8) Altered mental status ICD Codes: R41.82 - Altered mental status, unspecified (9) CORONARY ATHEROSCLEROSIS OF [place] CORONARY VESSEL Assessment and Plan 1.) NSTEMI - medical management for now due to arf/cri, suspect he has significant coronary ischemia, but cath may be too high risk for arf requiring temporary or permanent dialysis; i f renal thinks cath can be done at low to moderate risk for arf will d/w patient and his family risk and benefits; he is Salvatore Brunson MD Dec 27, 2017 16:34
[2017-12-27] MEDS: RESP: ALBUTEROL 2.5 MG/IPRATROPIUM 0.5 MG NEB (SCH) INH (19:55)
[2017-12-27] MEDS: TAMSULOSIN HCL 0.4 MG CAP PO SCH (20:58)
[2017-12-27] MEDS: ATORVASTATIN 10 MG TAB PO SCH (20:59)
[2017-12-27] MEDS: SODIUM CHLORIDE 0.9% FLUSH 10 ML FLUSH IV FLUSH SCH (21:00)
[2017-12-28] VITALS (26 sets, daily range): BP systolic 103–185; BP diastolic 62–90; PULSE 64–92; RESP 16–19; TEMP 98.1–99.1; O2SAT 92–95
[2017-12-28] MEDS: NITROGLYCERIN 2% OINT 1 GM PACKET TOPICAL SCH ×4 (06:00→17:51)
[2017-12-28] MEDS: INSULIN ASPART SUPPLEMENTAL SCALE SQ SCH ×4 (08:00→21:06)
[2017-12-28 08:27] LABS: AUTOMATED NEUTROPHIL # 7.8 TH/MM3 (1.8-7.7); BASOPHIL % 0.3 % (0.0-2.0); EOSINOPHIL # 0.2 TH/MM3 (0-0.4); EOSINOPHIL % 2.6 % (0.0-4.0); HEMATOCRIT 28.8 % (39.0-51.0); HEMOGLOBIN 9.3 GM/DL (13.0-17.0); LYMPH % 7.1 % (9.0-44.0); LYMPHOCYTE # 0.7 TH/MM3 (1.0-4.8); MEAN CELL VOLUME 98.2 FL (80.0-100.0); MEAN CORPUSCULAR HEMOGLOBIN 31.6 PG (27.0-34.0); MEAN CORPUSCULAR HGB CONC 32.2 % (32.0-36.0); MEAN PLATELET VOLUME 9.3 FL (7.0-11.0); MONO % 5.7 % (0.0-8.0); MONOCYTE # 0.5 TH/MM3 (0-0.9); NEUT % 84.3 % (16.0-70.0); PLATELET COUNT 113 TH/MM3 (150-450); RED BLOOD COUNT 2.93 MIL/MM3 (4.50-5.90); RED CELL DISTRIBUTION WIDTH 22.2 % (11.6-17.2); WHITE BLOOD COUNT 9.3 TH/MM3 (4.0-11.0)
--- NOTE | 2017-12-28 08:51 | HHI.NPPN ---
Subjective Interval History Excellent urine output. All the notes were reviewed. Discussed with RN yesterday. Objective Data Data Vital Signs Date Time Temp Pulse Resp B/P (MAP) Pulse Ox O2 Delivery O2 Flow Rate FiO2 12/28/17 07:36 98.2 78 17 103/62 (76) 92 12/28/17 05:58 75 12/28/17 04:12 76 18 129/71 (90) 95 12/28/17 04:00 92 12/27/17 23:00 90 12/27/17 22:00 99 12/27/17 21:30 93 12/27/17 20:30 75 12/27/17 20:30 Nasal Cannula 2.00 12/27/17 20:00 83 12/27/17 19:55 99 Nasal Cannula 3.00 12/27/17 19:00 72 12/27/17 18:38 98 Nasal Cannula 2.00 12/27/17 18:00 66 12/27/17 16:43 98.2 71 20 130/66 (87) 96 12/27/17 12:12 98.3 68 16 157/80 (105) 99 12/27/17 11:00 66 12/27/17 10:00 68 12/27/17 09:00 64 -: 12/28/17 0800 12/27/17 0935 Physical Exam General Appearance: Well Developed, No Acute Distress Throat Throat Exam: Oral Mucosa [place] & Moist Pulmonary Resp Exam: Clear Bilaterally, Breath Sounds Equal Cardiology CV Exam: Regular Gastrointestinal/Abdomen GI Exam: Soft, Non-Tender, Bowel Sounds Present Integumentary Skin Exam: Intact Assessment/Plan Problem List: (1) ALISSON (acute kidney injury) ICD Codes: N17.9 - Acute kidney failure, unspecified Status: Resolved Plan: ALISSON on CKD patients new baseline maybe at 2.5 to 3.0. 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 He is on IVF: NS at 42 ml/hour. Also on Lasix. Avoid nephrotoxins. (2) Altered mental status ICD Codes: R41.82 - Altered mental status, unspecified Plan: Continue to monitor. (3) Edema ICD Codes: R60.9 - Edema, unspecified Plan: Will monitor Elevate arms on pillows (4) NSTEMI (non-ST elevated myocardial infarction) ICD Codes: I21.4 - Non-ST elevation (NSTEMI) myocardial infarction Plan: Currently on medical management. If cardiac cath is planned, risk of ALISSON (assuming 50 ml of contrast is used) is about 14-15%. Recommend hydration and stopping Lasix if Cath is planned. Will leave the decision to resilient tile installer. (5) Diabetes Mellitus Plan: will monitor (6) NSTEMI (non-ST elevated myocardial infarction) ICD Codes: I21.4 - Non-ST elevation (NSTEMI) myocardial infarction Status: Acute Plan: Cardiology consulted Heparin gtt infusing Medical management. (7) Hypertension ICD Codes: I10 - Hypertension Status: Chronic Plan: Monitor Home medications continued Fab Dejesus MD Dec 28, 2017 08:51
[2017-12-28] MEDS: INSULIN DETEMIR 100 UNITS/ML VIAL SQ SCH ×2 (09:00→21:05)
[2017-12-28 09:02] LABS: ALBUMIN 2.8 GM/DL (3.4-5.0); BICARBONATE 30.4 MEQ/L (21.0-32.0); CALCIUM 8.7 MG/DL (8.5-10.1); CREATININE 2.73 MG/DL (0.60-1.30); MAGNESIUM 1.8 MG/DL (1.5-2.5); PHOSPHORUS 2.7 MG/DL (2.5-4.9)
--- NOTE | 2017-12-28 09:51 | OTSOAPIP ---
RECEIVED OCCUPATIONAL THERAPY ORDERS FROM DR. JIMÉNEZ. REVIEWED ELECTRONIC MEDICAL RECORD. ATTEMPTED TO SEE PATIENT, HOWEVER PATIENT CURRENTLY UNDERGOING EEG. WILL FOLLOW UP WITH PATIENT AND REATTEMPT EVALUATION TOMORROW. INTERDISCIPLINARY COMMUNICATION: REVIEWED ELECTRONIC MEDICAL RECORD, SPOKE WITH BRIAN JENKINS Therapist: Hilary Spear, OTR/L Signature on file
[2017-12-28] MEDS: FUROSEMIDE 40 MG/4 ML VIAL IV PUSH SCH ×2 (11:36→17:51)
[2017-12-28] MEDS: SODIUM CHLORIDE 0.9% FLUSH 10 ML FLUSH IV FLUSH SCH ×2 (11:36→21:00)
[2017-12-28] MEDS: CALCIUM CARBONATE 1.25 GM (CA 500 MG) TAB PO SCH (11:37)
[2017-12-28] MEDS: ASPIRIN 81 MG CHEW TAB CHEW SCH (11:37)
[2017-12-28] MEDS: POTASSIUM CHLORIDE 10 MEQ CAP PO SCH (11:37)
[2017-12-28] MEDS: FERROUS SULFATE 325 MG (65 MG ELEMENTAL IRON) TAB PO SCH (11:37)
[2017-12-28] MEDS: SERTRALINE HCL 50 MG TAB PO SCH (11:37)
[2017-12-28] MEDS: METOPROLOL TARTRATE 50 MG TAB PO SCH ×2 (11:37→21:06)
[2017-12-28] MEDS: MEMANTINE HCL 10 MG TAB PO SCH ×2 (11:37→21:06)
[2017-12-28] MEDS: PANTOPRAZOLE SOD 40 MG DELAYED RELEASE TAB PO SCH (11:38)
--- NOTE | 2017-12-28 12:12 | MB ---
cc: Stephanie Lawson MD DATE OF CONSULT: REASON FOR CONSULTATION: Change in mental status, encephalopathy. This is a 77-year-old man with a history of a right MCA stroke, dementia, heart disease, significant hearing loss, COPD, CHF, prostate cancer, comes in with 2-day history of change in mental status, found to have hyperglycemia with Accu-Cheks in the 500s. Troponin up to 2.49, trending up to 4.62. CT of the head did not show anything acute. He is much more alert today. PAST MEDICAL HISTORY: As stated. SURGICAL HISTORY: CABG x 5 in 2006, back surgery, cataract, left shoulder. HOME MEDICINES: Numerous. He is also on p.r.n. tramadol, tamsulosin, sertraline, senna vitamins, milk of magnesia, metoprolol, Namenda, Levemir, glucose, iron, B12, baby aspirin, amlodipine, Aranesp, atorvastatin. ALLERGIES: NONE REPORTED. SOCIAL HISTORY: Ex-smoker. No drugs. Nondrinker. PHYSICAL EXAMINATION: VITALS: Temperature is 98.2, pulse 78, respiratory rate 17, blood pressure 103/62. He has just had a sponge bath. He is lying in bed. He has earphones on. He is very hard of hearing. He does open his eyes. His pupils are pinpoint and there is no gaze deviation. Seems to be more alert, but not oriented. He does have some dementia. Seems to withdraw to painful stimuli, but does not follow any commands. Seems to keep his arms. DTRs are trace. Toes withdraw. His gait, cerebellar cannot be assessed. LABORATORY STUDIES: Hemoglobin 9.3, platelets 113,000 today. PTT is 28. Chemistries: BUN 73, creatinine 2.73. GFR 28. Glucose 192. BNP 520. Albumin 2.8. His troponin on 12/26 was 2.49 and then the following one was 4.62 and then the last one was 2.25. CT head did not show anything acute; just the old right MCA white matter infarct. Chest x-ray: No infiltrate seen. IMPRESSION: Change in mental status in a patient with a history of a chronic right middle cerebral artery infarct and dementia with elevated troponins, non-ST elevated myocardial infarction. Family elected to do medical management due to renal failure. Defer to cardiology. At this point in time, we will go ahead and get an electroencephalogram. I would not put him back on any tramadol, as there is a risk for seizures with that medicine. Continue his antiplatelets. It seems that he is improving. Electroencephalogram is unremarkable from a neurological perspective. If the electroencephalogram is unremarkable for epileptic activity, then no other workup to be completed. MD EMILY Quiles/JOSE , 11:31 AM , 12:10 PM
--- NOTE | 2017-12-28 12:32 | PD.CARD.PN ---
Subjective Subjective Remarks alert in nad, denies chest pain Objective Medications Current Medications Medications (Trade) Dose Ordered Sig/Martha Route Start Time Stop Time Status Last Admin Heparin Sodium/ Dextrose 250 ml @ 10 mls/hr TITRATE PRN IV 12/26/17 02:30 12/27/17 01:41 (Lasix Inj) 40 mg BID@09,18 IV PUSH 12/26/17 09:00 12/28/17 11:36 (Proair Hfa Inh) 2 puff Q4H PRN INH 12/26/17 02:45 (Norvasc) 10 mg DAILY PO 12/26/17 09:00 12/28/17 11:36 (Aspirin Chew) 81 mg DAILY CHEW 12/26/17 09:00 12/28/17 11:37 (Aranesp Inj) 40 mcg Q30D SQ 12/27/17 08:00 Future Hold (Ferrous Sulfate) 325 mg DAILY PO 12/26/17 09:00 12/28/17 11:37 (Levemir Inj) 15 units BID SQ 12/26/17 09:00 12/28/17 09:00 (Duoneb Neb) 1 ampule HS NEB INH 12/26/17 21:00 12/27/17 19:55 (Duoneb Neb) 1 ampule Q6HR NEB PRN INH 12/26/17 02:45 12/27/17 04:13 (Namenda) 10 mg BID PO 12/26/17 09:00 12/28/17 11:37 (Lopressor) 50 mg BID PO 12/26/17 09:00 12/28/17 11:37 (KCl) 10 meq DAILY PO 12/26/17 09:00 12/28/17 11:37 (Zoloft) 50 mg DAILY PO 12/26/17 09:00 12/28/17 11:37 (Flomax) 0.4 mg HS PO 12/26/17 21:00 12/26/17 20:19 (Ultram) 50 mg Q4H PRN PO 12/26/17 02:45 (Oscal) 1,000 mg DAILY PO 12/26/17 09:00 12/28/17 11:37 (Protonix) 40 mg DAILY PO 12/26/17 09:00 12/28/17 11:38 (NS Flush) 2 ml BID IV FLUSH 12/26/17 09:00 12/28/17 11:36 (NS Flush) 2 ml UNSCH PRN IV FLUSH 12/26/17 02:45 (Zofran Inj) 4 mg Q6H PRN IV PUSH 12/26/17 02:45 (NovoLOG SUPPLEMENTAL SCALE) 1 ACHS SLIDING SCALE SQ 12/26/17 13:30 12/26/17 20:22 (Lipitor) 10 mg HS PO 12/26/17 21:00 12/26/17 20:19 (Nitroglycerin 2% Oint) 2 inch Q6HR TOPICAL 12/26/17 18:00 12/27/17 17:38 (D50w (Vial) Inj) 50 ml UNSCH PRN IV PUSH 12/26/17 13:30 (Glucagon Inj) 1 mg UNSCH PRN OTHER 12/26/17 13:30 Sodium Chloride 1,000 ml @ 42 mls/hr [id number] IV 12/26/17 13:30 12/27/17 14:41 Vital Signs / I&O Vital Signs Date Time Temp Pulse Resp B/P (MAP) Pulse Ox O2 Delivery O2 Flow Rate FiO2 12/28/17 11:41 98.1 81 19 185/90 (121) 92 12/28/17 07:36 98.2 78 17 103/62 (76) 92 12/28/17 07:30 93 Nasal Cannula 2.00 12/28/17 05:58 75 12/28/17 04:12 76 18 129/71 (90) 95 12/28/17 04:00 92 12/27/17 23:00 90 12/27/17 22:00 99 12/27/17 21:30 93 12/27/17 20:30 75 12/27/17 20:30 Nasal Cannula 2.00 12/27/17 20:00 83 12/27/17 19:55 99 Nasal Cannula 3.00 12/27/17 19:00 72 12/27/17 18:38 98 Nasal Cannula 2.00 12/27/17 18:00 66 12/27/17 16:43 98.2 71 20 130/66 (87) 96 I/O 3/3/18 3/3/18 3/3/18 3/4/18 3/4/18 3/4/18 07:00 15:00 23:00 07:00 15:00 23:00 Intake Total 600 ml 1441 ml Output Total 900 ml 2800 ml 2450 ml Balance -300 ml -1359 ml -2450 ml Intake Oral 100 ml IV Total 500 ml 1441 ml Output Urine Total 900 ml 2800 ml 2450 ml # Bowel Movements 0 Physical Exam GENERAL: SKIN: Warm and dry. HEAD: Normocephalic. EYES: No scleral icterus. No injection or drainage. NECK: Supple, trachea midline. No JVD or lymphadenopathy. CARDIOVASCULAR: Regular rate and rhythm without murmurs, gallops, or rubs. RESPIRATORY: Breath sounds equal bilaterally. No accessory muscle use. GASTROINTESTINAL: Abdomen soft, non-tender, nondistended. MUSCULOSKELETAL: No cyanosis, or edema. BACK: Nontender without obvious deformity. No CVA tenderness. Laboratory Laboratory Tests Test 12/27/17 19:43 12/28/17 08:00 Ammonia LESS THAN 10 MCMOL/L White Blood Count 9.3 TH/MM3 Red Blood Count 2.93 MIL/MM3 Hemoglobin 9.3 GM/DL Hematocrit 28.8 % Mean Corpuscular Volume 98.2 FL Mean Corpuscular Hemoglobin 31.6 PG Mean Corpuscular Hemoglobin Concent 32.2 % Red Cell Distribution Width 22.2 % Platelet Count 113 TH/MM3 Mean Platelet Volume 9.3 FL Neutrophils (%) (Auto) 84.3 % Lymphocytes (%) (Auto) 7.1 % Monocytes (%) (Auto) 5.7 % Eosinophils (%) (Auto) 2.6 % Basophils (%) (Auto) 0.3 % Neutrophils # (Auto) 7.8 TH/MM3 Lymphocytes # (Auto) 0.7 TH/MM3 Monocytes # (Auto) 0.5 TH/MM3 Eosinophils # (Auto) 0.2 TH/MM3 Basophils # (Auto) 0.0 TH/MM3 CBC Comment DIFF FINAL Differential Comment Activated Partial Thromboplast Time 28.0 SEC Blood Urea Nitrogen 73 MG/DL Creatinine 2.73 MG/DL Random Glucose 192 MG/DL Albumin 2.8 GM/DL Calcium Level 8.7 MG/DL Phosphorus Level 2.7 MG/DL Magnesium Level 1.8 MG/DL Sodium Level 145 MEQ/L Potassium Level 4.5 MEQ/L Chloride Level 108 MEQ/L Carbon Dioxide Level 30.4 MEQ/L Anion Gap 7 MEQ/L Estimat Glomerular Filtration Rate 28 ML/MIN B-Type Natriuretic Peptide 520 PG/ML Assessment and Plan Problem List: (1) Tobacco abuse ICD Codes: Z72.0 - Tobacco abuse Status: Acute (2) Chronic kidney disease (CKD) ICD Codes: N18.9 - Chronic kidney disease, unspecified Status: Acute (3) Acute renal injury ICD Codes: N17.9 - Acute kidney injury Status: Acute (4) History of CVA (cerebrovascular accident) ICD Codes: Z86.73 - Personal history of transient ischemic attack (TIA), and cerebral infarction without residual deficits Status: Acute (5) Diabetes type 2, controlled ICD Codes: E11.9 - Type 2 diabetes mellitus without complications Status: Chronic (6) NSTEMI (non-ST elevated myocardial infarction) ICD Codes: I21.4 - Non-ST elevation (NSTEMI) myocardial infarction Status: Acute (7) ALISSON (acute kidney injury) ICD Codes: N17.9 - Acute kidney failure, unspecified Status: Resolved (8) Altered mental status ICD Codes: R41.82 - Altered mental status, unspecified (9) CORONARY ATHEROSCLEROSIS OF [place] CORONARY VESSEL Assessment and Plan 1.) NSTEMI - his power of criminal defense attorney have refused cardiac catheterization. continue medical management, suspect he has significant coronary ischemia, he is aaymptomatic now, continue aspirin 81 mg qd, lipitor 10 mg hs, lopressor 50 mg bid, coleman held due to cri; ok to dc from cv standpoint, d/w patient, his sister, nurse @ bedside Salvatore Davidson MD Dec 28, 2017 12:32
--- NOTE | 2017-12-28 12:46 | HHI.PR ---
Subjective Remarks Patient wakes up to verbal stimulation this morning. Denies any pain. Says he is feeling all right Discussed with son as well as sister. We discussed the risk of acute kidney injury with cardiac catheterization being about 15% with a small chance of requiring dialysis. Son, as well as sister opted to forego cardiac catheterization at this time. Discussed with nursing. Objective Vital Signs Date Time Temp Pulse Resp B/P (MAP) Pulse Ox O2 Delivery O2 Flow Rate FiO2 12/28/17 11:41 98.1 81 19 185/90 (121) 92 12/28/17 07:36 98.2 78 17 103/62 (76) 92 12/28/17 07:30 93 Nasal Cannula 2.00 12/28/17 05:58 75 12/28/17 04:12 76 18 129/71 (90) 95 12/28/17 04:00 92 12/27/17 23:00 90 12/27/17 22:00 99 12/27/17 21:30 93 12/27/17 20:30 75 12/27/17 20:30 Nasal Cannula 2.00 12/27/17 20:00 83 12/27/17 19:55 99 Nasal Cannula 3.00 12/27/17 19:00 72 12/27/17 18:38 98 Nasal Cannula 2.00 12/27/17 18:00 66 12/27/17 16:43 98.2 71 20 130/66 (87) 96 I/O 12/27/17 12/27/17 12/27/17 12/28/17 12/28/17 12/28/17 07:00 15:00 23:00 07:00 15:00 23:00 Intake Total 600 ml 1441 ml Output Total 900 ml 2800 ml 2450 ml Balance -300 ml -1359 ml -2450 ml Intake Oral 100 ml IV Total 500 ml 1441 ml Output Urine Total 900 ml 2800 ml 2450 ml # Bowel Movements 0 Result Diagram: 12/28/17 0800 12/28/17 0800 Objective Remarks GENERAL: Patient sitting up in bed. Appears comfortable. Patient much more alert today. Denies pain. Talking with family SKIN: Warm and dry. HEAD: Normocephalic. EYES: No scleral icterus. No injection or drainage. NECK: Supple, trachea midline. No JVD . CARDIOVASCULAR: Regular rate and rhythm without murmurs, gallops, or rubs. RESPIRATORY: Breath sounds equal bilaterally. No accessory muscle use. GASTROINTESTINAL: Abdomen soft, non-tender, nondistended. MUSCULOSKELETAL: No cyanosis, or edema. BACK: Nontender without obvious deformity. No CVA tenderness. A/P Assessment and Plan //Acute metabolic encephalopathy. //Possibly uremic encephalopathy = With chronic dementia. CT with no acute changes. = Check ABG. -Could be secondary to uremia. Consult nephrology. = Uremia improving with BUN 86 today from 98 yesterday. Continue IV fluids. Appreciate nephrology assistance. = Culver catheter placed, with 800 mL out immediately. Likely urinary retention. Continue to monitor Culver output. = Continue Culver, IV hydration. Nephrology following. Appreciate assistance. = Due to worsening mental status changes on 12/27, have consulted neurology. EEG pending. Appreciate assistance. //Type 2 diabetes mellitus with hyperglycemia glucose in the 200s here. Will start on. Insulin sliding scale. Diabetic diet. = Blood pressure acceptable. Continue to monitor //Troponin elevation up to 4.62. Patient denies any chest pain. Follow-up cardiology consult. = Cardiology following. Appreciate assistance. //Chronic COPD. Duo nebs as needed. //BPH. Chronic. Continue tamsulosin. //Chronic CHF with recent exacerbation. Does not appear to have acute exacerbation. Will monitor fluid status closely. Continue home medications. //Chronic anemia. Likely secondary to kidney disease. Hemoglobin appears at baseline. [facility] No cardiac cath to be performed. Discharge when cleared by nephrology, neurology. El Blanca MD Dec 28, 2017 12:46
[2017-12-28] MEDS: SODIUM CHLOR 0.9% 1000 ML INJ 1,000 ML IV SCH (12:53)
--- NOTE | 2017-12-28 13:00 | MG ---
cc: Stephanie Lawson MD EEG#: [id number] REFERRING PHYSICIAN: El Blanca MD ROOM: [address] shows old right MCA white matter infarcts. Last EEG in 2015 showed slowing. Admitted with mental status change, non-ST elevated ND. Patient's EEG shows diffuse slowing, predominantly of 3-4 Hz. A lot of background artifact. At times, there is some 5 Hz basically lower theta range slowing. Low amplitude study. No epileptic discharges. Photic stimulation, minimal driving response. IMPRESSION: Abnormal electroencephalogram due to moderate slowing consistent with history of patient's dementia versus mild encephalopathy. No epileptic activity. Stephanie Lawson MD DF/TI , 12:42 PM , 12:59 PM
[2017-12-28] MEDS: TAMSULOSIN HCL 0.4 MG CAP PO SCH (21:00)
[2017-12-28] MEDS: RESP: ALBUTEROL 2.5 MG/IPRATROPIUM 0.5 MG NEB (SCH) INH (21:03)
[2017-12-28] MEDS: ATORVASTATIN 10 MG TAB PO SCH (21:06)
[2017-12-29] VITALS (21 sets, daily range): BP systolic 89–150; BP diastolic 56–76; PULSE 60–78; RESP 16–20; TEMP 97.9–98.7; O2SAT 64–99
[2017-12-29] MEDS: NITROGLYCERIN 2% OINT 1 GM PACKET TOPICAL SCH ×4 (06:00→18:57)
[2017-12-29 07:30] LABS: HEMATOCRIT 27.6 % (39.0-51.0); MEAN CELL VOLUME 97.2 FL (80.0-100.0); MEAN CORPUSCULAR HEMOGLOBIN 31.8 PG (27.0-34.0); MEAN CORPUSCULAR HGB CONC 32.7 % (32.0-36.0); MEAN PLATELET VOLUME 9.3 FL (7.0-11.0); PLATELET COUNT 102 TH/MM3 (150-450); RED BLOOD COUNT 2.84 MIL/MM3 (4.50-5.90); RED CELL DISTRIBUTION WIDTH 22.2 % (11.6-17.2); WHITE BLOOD COUNT 8.4 TH/MM3 (4.0-11.0)
[2017-12-29] MEDS: INSULIN ASPART SUPPLEMENTAL SCALE SQ SCH ×4 (08:00→21:00)
[2017-12-29] MEDS: SODIUM CHLORIDE 0.9% FLUSH 10 ML FLUSH IV FLUSH SCH ×2 (09:00→21:54)
[2017-12-29] MEDS: ASPIRIN 81 MG CHEW TAB CHEW SCH (09:29)
[2017-12-29] MEDS: PANTOPRAZOLE SOD 40 MG DELAYED RELEASE TAB PO SCH (09:29)
[2017-12-29] MEDS: FERROUS SULFATE 325 MG (65 MG ELEMENTAL IRON) TAB PO SCH (09:29)
[2017-12-29] MEDS: METOPROLOL TARTRATE 50 MG TAB PO SCH ×2 (09:29→21:54)
[2017-12-29] MEDS: MEMANTINE HCL 10 MG TAB PO SCH ×2 (09:29→21:54)
[2017-12-29] MEDS: FUROSEMIDE 40 MG/4 ML VIAL IV PUSH SCH ×2 (09:30→18:57)
[2017-12-29] MEDS: CALCIUM CARBONATE 1.25 GM (CA 500 MG) TAB PO SCH (09:30)
[2017-12-29] MEDS: POTASSIUM CHLORIDE 10 MEQ CAP PO SCH (09:30)
[2017-12-29] MEDS: SERTRALINE HCL 50 MG TAB PO SCH (09:30)
[2017-12-29] MEDS: INSULIN DETEMIR 100 UNITS/ML VIAL SQ SCH ×2 (09:34→21:00)
--- NOTE | 2017-12-29 10:12 | HHI.NPPN ---
Subjective General Problems: Anemia Renal Failure: Chronic, Acute History of Present Illness Patient is a 77-year-old male with a history of type 2 diabetes, COPD, CHF, CVA , dementia, CAD, CKD, hyperlipidemia, hypertension, gastric ulcer, prostate cancer, nephrolithiasis, and arthritis. Presents to ED who presents with altered mental status and hyperglycemia with sugars in the 500s. Also noted in the ER troponin elevation up to 2.49, trending up to 4.62. History is limited as patient is very hard of hearing. Patient was discharged from hospital on the to a SNF. Nephrology is consulted for possible uremic encephalopathy. Patient mental status during exam is at baseline. Creatinine is 3.24 and patients baseline creatinine has been around 2.5 to 3.0. Additional Remarks Patient is resting comfortably. Denies any SOB and edema is improving. (Madisyn Mehta) Objective Data Data Vital Signs Date Time Temp Pulse Resp B/P (MAP) Pulse Ox O2 Delivery O2 Flow Rate FiO2 12/29/17 07:38 69 16 89/56 (67) 98 12/29/17 06:00 64 12/29/17 04:00 65 12/29/17 04:00 64 12/29/17 04:00 Nasal Cannula 3.00 12/29/17 02:00 64 12/29/17 01:00 64 12/29/17 00:12 64 16 110/66 (81) 64 12/29/17 00:00 65 12/29/17 00:00 64 12/29/17 00:00 78 16 110/66 (81) 93 12/29/17 00:00 Nasal Cannula 3.00 12/28/17 23:00 64 12/28/17 22:00 66 12/28/17 21:03 95 Nasal Cannula 3.00 12/28/17 21:00 74 12/28/17 20:50 99.1 74 16 115/64 (81) 92 12/28/17 20:00 76 16 115/64 (81) 92 12/28/17 20:00 Nasal Cannula 3.00 12/28/17 20:00 72 12/28/17 20:00 72 12/28/17 19:00 72 12/28/17 18:00 74 12/28/17 17:00 68 12/28/17 16:00 68 12/28/17 15:16 98.8 68 19 114/88 (97) 92 12/28/17 15:00 67 12/28/17 14:00 74 12/28/17 13:57 94 Nasal Cannula 3.00 12/28/17 13:00 68 12/28/17 12:00 78 12/28/17 11:41 98.1 81 19 185/90 (121) 92 12/28/17 11:00 81 (Madisyn Mehta) -: 12/29/17 0555 12/28/17 0800 Physical Exam General Appearance: Well Developed, No Acute Distress (Madisyn Mehta) Throat Throat Exam: Oral Mucosa [place] & Moist (Madisyn Mehta) Pulmonary Resp Exam: Clear Bilaterally, Breath Sounds Equal (Madisyn Mehta) Cardiology CV Exam: Regular (Madisyn Mehta) Gastrointestinal/Abdomen GI Exam: Soft, Non-Tender, Bowel Sounds Present (Madisyn Mehta) Integumentary Skin Exam: Intact (Madisny Mehta) Assessment/Plan Problem List: (1) ALISSON (acute kidney injury) ICD Codes: N17.9 - Acute kidney failure, unspecified Status: Resolved Plan: ALISSON on CKD patients new baseline maybe at 2.5 to 3.0. 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 He is on IVF: NS at 42 ml/hour will discontinue with patient having goof PO intake Excellent UOP Continue Lasix. Avoid nephrotoxins. Follow the urine out put and BMP. (2) Altered mental status ICD Codes: R41.82 - Altered mental status, unspecified Plan: Continue to monitor. (3) Edema ICD Codes: R60.9 - Edema, unspecified Plan: improving Elevate arms on pillows (4) NSTEMI (non-ST elevated myocardial infarction) ICD Codes: I21.4 - Non-ST elevation (NSTEMI) myocardial infarction Plan: Currently on medical management. If cardiac cath is planned, risk of ALISSON (assuming 50 ml of contrast is used) is about 14-15%. Recommend hydration and stopping Lasix if Cath is planned. Will leave the decision to railway yard assistant. (5) Diabetes Mellitus Plan: will monitor (6) NSTEMI (non-ST elevated myocardial infarction) ICD Codes: I21.4 - Non-ST elevation (NSTEMI) myocardial infarction Status: Acute Plan: Cardiology consulted Heparin gtt infusing Medical management. (7) Hypertension ICD Codes: I10 - Hypertension Status: Chronic Plan: Monitor Home medications continued (Madisyn Mehta) Problem List: (1) ALISSON (acute kidney injury) ICD Codes: N17.9 - Acute kidney failure, unspecified Status: Resolved Plan: ALISSON on CKD patients new baseline maybe at 2.5 to 3.0. 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 He is on IVF: NS at 42 ml/hour will discontinue with patient having goof PO intake Excellent UOP Continue Lasix. Avoid nephrotoxins. Follow the urine out put and BMP. Patient seen and examined, agree with above. Creatinine improving, encourage oral intake. (2) Altered mental status ICD Codes: R41.82 - Altered mental status, unspecified Plan: Continue to monitor. (3) Edema ICD Codes: R60.9 - Edema, unspecified Plan: improving Elevate arms on pillows (4) NSTEMI (non-ST elevated myocardial infarction) ICD Codes: I21.4 - Non-ST elevation (NSTEMI) myocardial infarction Plan: Currently on medical management. If cardiac cath is planned, risk of ALISSON (assuming 50 ml of contrast is used) is about 14-15%. Recommend hydration and stopping Lasix if Cath is planned. Will leave the decision to railway yard assistant. (5) Diabetes Mellitus Plan: will monitor (6) NSTEMI (non-ST elevated myocardial infarction) ICD Codes: I21.4 - Non-ST elevation (NSTEMI) myocardial infarction Status: Acute Plan: Cardiology consulted Heparin gtt infusing Medical management. (7) Hypertension ICD Codes: I10 - Hypertension Status: Chronic Plan: Monitor Home medications continued (Olegario Brush MD) Madisyn Mehta Dec 29, 2017 10:12 Olegario Brush MD Dec 29, 2017 20:41
--- NOTE | 2017-12-29 14:21 | HHI.PR ---
Subjective Remarks Follow-up for metabolic encephalopathy/uremia/NSTEMI Patient denies any chest pain, shortness of breathing, palpitation, lightheadedness/dizziness. He had no concerns. I discussed this case with patient's nurse who stated that he is walking the hallways and she had no concerns. Patient has good oral intake. Objective Vitals Vital Signs Date Time Temp Pulse Resp B/P (MAP) Pulse Ox O2 Delivery O2 Flow Rate FiO2 12/29/17 13:17 62 12/29/17 12:08 62 12/29/17 11:45 98.7 61 18 124/66 (85) 93 12/29/17 11:45 61 12/29/17 11:45 93 Nasal Cannula 2.00 12/29/17 10:00 60 12/29/17 09:00 61 12/29/17 08:45 67 12/29/17 08:45 98.6 63 18 130/67 (88) 97 12/29/17 08:45 97 Nasal Cannula 2.00 12/29/17 07:38 69 16 89/56 (67) 98 12/29/17 06:00 64 12/29/17 04:00 65 12/29/17 04:00 64 12/29/17 04:00 Nasal Cannula 3.00 12/29/17 02:00 64 12/29/17 01:00 64 12/29/17 00:12 64 16 110/66 (81) 64 12/29/17 00:00 65 12/29/17 00:00 64 12/29/17 00:00 78 16 110/66 (81) 93 12/29/17 00:00 Nasal Cannula 3.00 12/28/17 23:00 64 12/28/17 22:00 66 12/28/17 21:03 95 Nasal Cannula 3.00 12/28/17 21:00 74 12/28/17 20:50 99.1 74 16 115/64 (81) 92 12/28/17 20:00 76 16 115/64 (81) 92 12/28/17 20:00 Nasal Cannula 3.00 12/28/17 20:00 72 12/28/17 20:00 72 12/28/17 19:00 72 12/28/17 18:00 74 12/28/17 17:00 68 3/4/18 16:00 68 12/28/17 15:16 98.8 68 19 114/88 (97) 92 12/28/17 15:00 67 I/O 12/28/17 12/28/17 12/28/17 12/29/17 12/29/17 12/29/17 07:00 15:00 23:00 07:00 15:00 23:00 Intake Total 720 ml 240 ml Output Total 2450 ml 2350 ml 1650 ml Balance -2450 ml -1630 ml -1410 ml Intake Oral 720 ml 240 ml Output Urine Total 2450 ml 2350 ml 1650 ml # Bowel Movements 0 Result Diagram: 12/29/17 0555 12/28/17 0800 Objective Remarks GENERAL: in NAD CARDIOVASCULAR: Regular rate and rhythm without murmurs, gallops, or rubs. RESPIRATORY: Breath sounds equal bilaterally. No accessory muscle use. GASTROINTESTINAL: Abdomen soft, non-tender, nondistended. MUSCULOSKELETAL: No cyanosis, or edema. BACK: Nontender without obvious deformity. No CVA tenderness. Medications and IVs Current Medications Sodium Chloride (NS Flush) 2 ml UNSCH PRN IVF FLUSH AFTER USING IV ACCESS; Start 12/26/17 at 01:00; Stop 12/26/17 at 03:00; Status DC Aspirin (Aspirin Chew) 324 mg ONCE ONCE CHEW Last administered on 12/26/17at 02: 34; Start 12/26/17 at 02:30; Stop 12/26/17 at 02:31; Status DC Heparin Sodium/ Dextrose 250 ml @ 10 mls/hr TITRATE PRN IV Coagulation Management Last administered on 12/27/17at 01:41; Start 12/26/17 at 02:30; Stop 12/28/17 at 14:10; Status DC Furosemide (Lasix Inj) 40 mg BID@09,18 IV PUSH Last administered on 12/29/17at 09 :30; Start 12/26/17 at 09:00 Albuterol Sulfate (Proair Hfa Inh) 2 puff Q4H PRN INH SHORTNESS OF BREATH; Start 12/26/17 at 02:45 Amlodipine Besylate (Norvasc) 10 mg DAILY PO Last administered on 12/29/17at 09: 29; Start 12/26/17 at 09:00 Aspirin (Aspirin Chew) 81 mg DAILY CHEW Last administered on 12/29/17 09:29; Start 12/26/17 at 09:00 Atorvastatin Calcium (Lipitor) 40 mg HS PO ; Start 12/26/17 at 21:00; Stop at 21:00; Status DC Darbepoetin Xavier (Aranesp Inj) 40 mcg Q30D SQ ; Start 12/27/17 at 08:00; Status Future Hold Ferrous Sulfate (Ferrous Sulfate) 325 mg DAILY PO Last administered on 09:29; Start 12/26/17 at 09:00 Insulin Detemir (Levemir Inj) 15 units BID SQ Last administered on 12/29/17 09: 34; Start 12/26/17 at 09:00 Albuterol/ Ipratropium (Duoneb Neb) 1 ampule HS NEB INH Last administered on 21:03; Start 12/26/17 at 21:00 Albuterol/ Ipratropium (Duoneb Neb) 1 ampule Q6HR NEB PRN INH SHORTNESS OF BREATH Last administered on 12/27/17 04:13; Start 12/26/17 at 02:45 Memantine (Namenda) 10 mg BID PO Last administered on 12/29/17 09:29; Start 12/26/17 at 09:00 Metoprolol Tartrate (Lopressor) 50 mg BID PO Last administered on 12/29/17 09: 29; Start 12/26/17 at 09:00 Potassium Chloride (KCl) 10 meq DAILY PO Last administered on 12/29/17 09:30; Start 12/26/17 at 09:00 Sertraline HCl (Zoloft) 50 mg DAILY PO Last administered on 12/29/17 09:30; Start 12/26/17 at 09:00 Tamsulosin HCl (Flomax) 0.4 mg HS PO Last administered on 12/28/17 21:00; Start 12/26/17 at 21:00 Tramadol HCl (Ultram) 50 mg Q4H PRN PO PAIN; Start 12/26/17 at 02:45 Calcium Carbonate (Oscal) 1,000 mg DAILY PO Last administered on 12/29/17 09:30 ; Start 12/26/17 at 09:00 Pantoprazole Sodium (Protonix) 40 mg DAILY PO Last administered on 12/29/17 09: 29; Start 12/26/17 at 09:00 Sodium Chloride (NS Flush) 2 ml BID IV FLUSH Last administered on 12/29/17 09: 00; Start 12/26/17 at 09:00 Sodium Chloride (NS Flush) 2 ml UNSCH PRN IV FLUSH FLUSH AFTER USING IV ACCESS ; Start 12/26/17 at 02:45 Ondansetron HCl (Zofran Inj) 4 mg Q6H PRN IV PUSH NAUSEA OR VOMITING; Start 12/26/17 at 02:45 Insulin Aspart (NovoLOG SUPPLEMENTAL SCALE) 1 ACHS SLIDING SCALE SQ Last administered on 12/28/17 21:06; Start 12/26/17 at 13:30 Atorvastatin Calcium (Lipitor) 10 mg HS PO Last administered on 12/28/17 21:06 ; Start 12/26/17 at 21:00 Nitroglycerin (Nitroglycerin 2% Oint) 2 inch Q6HR TOPICAL Last administered on 12/29/17 12:34; Start 12/26/17 at 18:00 Dextrose (D50w (Vial) Inj) 50 ml UNSCH PRN IV PUSH HYPOGLYCEMIA - SEE COMMENTS ; Start 12/26/17 at 13:30 Glucagon (Glucagon Inj) 1 mg UNSCH PRN OTHER HYPOGLYCEMIA-SEE COMMENTS; Start 12/26/17 at 13:30 Sodium Chloride 1,000 ml @ 42 mls/hr [id number] IV Last administered on 12/28/17 12:53; Start 12/26/17 at 13:30; Stop 12/29/17 at 10:08; Status DC Lorazepam (Ativan Inj) 0.5 mg ONCE ONCE IV PUSH Last administered on 12/27/17at 01:30; Start 12/27/17 at 01:15; Stop 12/27/17 at 01:18; Status DC A/P Assessment and Plan This is a 77-year-old male who presented with confusion Acute metabolic encephalopathy -May be secondary to uremia. Patient has underlying chronic dementia. -Mental status has improved mostly this is his baseline. -Neurologist consulted EEG does not show any seizure activity. Per neurologist if negative no further recommendations. Acute on chronic renal failure -Most likely secondary to hypoperfusion due to an NSTEMI. -Nephrology is consulted and following. Creatinine has improved. IV fluids was discontinued today. Will check creatinine tomorrow. Type 2 diabetes mellitus with hyperglycemia glucose in the 200s here. -On insulin sliding scale. Diabetic diet. Troponin elevation up to 4.62. Patient denies any chest pain. Follow-up cardiology consult. -Healthcare proxy refused cardiac catheterization. Chronic COPD/BPH -Continue home medication. Chronic CHF with recent exacerbation. -Does not appear to have acute exacerbation. Will monitor fluid status closely. Continue home medications. Chronic anemia - Likely secondary to kidney disease. Hemoglobin appears at baseline. Discharge Planning discharge to SNF once cleared by Nephro most likely tomorrow if creatinine continues to improve or stable. Yanely Thorpe MD Dec 29, 2017 14:21
--- NOTE | 2017-12-29 20:13 | PD.CARD.PN ---
Subjective Subjective Remarks asleep in nad Objective Medications Current Medications Medications (Trade) Dose Ordered Sig/Martha Route Start Time Stop Time Status Last Admin (Lasix Inj) 40 mg BID@18 IV PUSH 12/26/17 09:00 12/29/17 18:57 (Proair Hfa Inh) 2 puff Q4H PRN INH 12/26/17 02:45 (Norvasc) 10 mg DAILY PO 12/26/17 09:00 12/29/17 09:29 (Aspirin Chew) 81 mg DAILY CHEW 12/26/17 09:00 12/29/17 09:29 (Aranesp Inj) 40 mcg Q30D SQ 12/27/17 08:00 Future Hold (Ferrous Sulfate) 325 mg DAILY PO 12/26/17 09:00 12/29/17 09:29 (Levemir Inj) 15 units BID SQ 12/26/17 09:00 12/29/17 09:34 (Duoneb Neb) 1 ampule HS NEB INH 12/26/17 21:00 12/28/17 21:03 (Duoneb Neb) 1 ampule Q6HR NEB PRN INH 12/26/17 02:45 12/27/17 04:13 (Namenda) 10 mg BID PO 12/26/17 09:00 12/29/17 09:29 (Lopressor) 50 mg BID PO 12/26/17 09:00 12/29/17 09:29 (KCl) 10 meq DAILY PO 12/26/17 09:00 12/29/17 09:30 (Zoloft) 50 mg DAILY PO 12/26/17 09:00 12/29/17 09:30 (Flomax) 0.4 mg HS PO 12/26/17 21:00 12/28/17 21:00 (Ultram) 50 mg Q4H PRN PO 12/26/17 02:45 (Oscal) 1,000 mg DAILY PO 12/26/17 09:00 12/29/17 09:30 (Protonix) 40 mg DAILY PO 12/26/17 09:00 12/29/17 09:29 (NS Flush) 2 ml BID IV FLUSH 12/26/17 09:00 12/29/17 09:00 (NS Flush) 2 ml UNSCH PRN IV FLUSH 12/26/17 02:45 (Zofran Inj) 4 mg Q6H PRN IV PUSH 12/26/17 02:45 (NovoLOG SUPPLEMENTAL SCALE) 1 ACHS SLIDING SCALE SQ 12/26/17 13:30 12/28/17 21:06 (Lipitor) 10 mg HS PO 12/26/17 21:00 12/28/17 21:06 (Nitroglycerin 2% Oint) 2 inch Q6HR TOPICAL 12/26/17 18:00 12/29/17 18:57 (D50w (Vial) Inj) 50 ml UNSCH PRN IV PUSH 12/26/17 13:30 (Glucagon Inj) 1 mg UNSCH PRN OTHER 12/26/17 13:30 Vital Signs / I&O Vital Signs Date Time Temp Pulse Resp B/P (MAP) Pulse Ox O2 Delivery O2 Flow Rate FiO2 12/29/17 16:06 98.6 64 19 150/70 (96) 99 12/29/17 16:00 65 12/29/17 16:00 Nasal Cannula 2.00 12/29/17 15:34 64 12/29/17 15:34 97 Nasal Cannula 2.00 12/29/17 15:34 98.0 64 18 142/68 (92) 97 12/29/17 14:25 64 12/29/17 13:17 62 12/29/17 12:08 62 12/29/17 11:45 98.7 61 18 124/66 (85) 93 12/29/17 11:45 61 12/29/17 11:45 93 Nasal Cannula 2.00 12/29/17 10:00 60 12/29/17 09:00 61 12/29/17 08:45 67 12/29/17 08:45 98.6 63 18 130/67 (88) 97 12/29/17 08:45 97 Nasal Cannula 2.00 12/29/17 07:38 69 16 89/56 (67) 98 12/29/17 06:00 64 12/29/17 04:00 65 12/29/17 04:00 64 12/29/17 04:00 Nasal Cannula 3.00 12/29/17 02:00 64 12/29/17 01:00 64 12/29/17 00:12 64 16 110/66 (81) 64 12/29/17 00:00 65 12/29/17 00:00 64 12/29/17 00:00 78 16 110/66 (81) 93 12/29/17 00:00 Nasal Cannula 3.00 12/28/17 23:00 64 12/28/17 22:00 66 12/28/17 21:03 95 Nasal Cannula 3.00 12/28/17 21:00 74 12/28/17 20:50 99.1 74 16 115/64 (81) 92 I/O 12/28/17 12/28/17 12/28/17 12/29/17 12/29/17 12/29/17 07:00 15:00 23:00 07:00 15:00 23:00 Intake Total 720 ml 240 ml 960 ml Output Total 2450 ml 2350 ml 1650 ml 900 ml Balance -2450 ml -1630 ml -1410 ml 60 ml Intake Oral 720 ml 240 ml 960 ml Output Urine Total 2450 ml 2350 ml 1650 ml 900 ml # Bowel Movements 0 1 Physical Exam GENERAL: SKIN: Warm and dry. HEAD: Normocephalic. EYES: No scleral icterus. No injection or drainage. NECK: Supple, trachea midline. No JVD or lymphadenopathy. CARDIOVASCULAR: Regular rate and rhythm without murmurs, gallops, or rubs. RESPIRATORY: Breath sounds equal bilaterally. No accessory muscle use. GASTROINTESTINAL: Abdomen soft, non-tender, nondistended. MUSCULOSKELETAL: No cyanosis, or edema. BACK: Nontender without obvious deformity. No CVA tenderness. Laboratory Laboratory Tests Test 12/29/17 05:55 White Blood Count 8.4 TH/MM3 Red Blood Count 2.84 MIL/MM3 Hemoglobin 9.0 GM/DL Hematocrit 27.6 % Mean Corpuscular Volume 97.2 FL Mean Corpuscular Hemoglobin 31.8 PG Mean Corpuscular Hemoglobin Concent 32.7 % Red Cell Distribution Width 22.2 % Platelet Count 102 TH/MM3 Mean Platelet Volume 9.3 FL Activated Partial Thromboplast Time 31.7 SEC Assessment and Plan Problem List: (1) Tobacco abuse ICD Codes: Z72.0 - Tobacco abuse Status: Acute (2) Chronic kidney disease (CKD) ICD Codes: N18.9 - Chronic kidney disease, unspecified Status: Acute (3) Acute renal injury ICD Codes: N17.9 - Acute kidney injury Status: Acute (4) History of CVA (cerebrovascular accident) ICD Codes: Z86.73 - Personal history of transient ischemic attack (TIA), and cerebral infarction without residual deficits Status: Acute (5) Diabetes type 2, controlled ICD Codes: E11.9 - Type 2 diabetes mellitus without complications Status: Chronic (6) NSTEMI (non-ST elevated myocardial infarction) ICD Codes: I21.4 - Non-ST elevation (NSTEMI) myocardial infarction Status: Acute (7) ALISSON (acute kidney injury) ICD Codes: N17.9 - Acute kidney failure, unspecified Status: Resolved (8) Altered mental status ICD Codes: R41.82 - Altered mental status, unspecified (9) CORONARY ATHEROSCLEROSIS OF [place] CORONARY VESSEL Assessment and Plan 1.) NSTEMI - his power of deputy attorney general has refused cardiac catheterization. continue medical management, suspect he has significant coronary ischemia, he is asymptomatic now, continue aspirin 81 mg qd, lipitor 10 mg hs, lopressor 50 mg bid, coleman held due to cri; ok to dc from cv standpoint, d/w patient, his sister, nurse @ bedside 12/28/17 Salvatore Davidson MD Dec 29, 2017 20:13
[2017-12-29] MEDS: TAMSULOSIN HCL 0.4 MG CAP PO SCH (21:54)
[2017-12-29] MEDS: ATORVASTATIN 10 MG TAB PO SCH (21:54)
[2017-12-29] MEDS: RESP: ALBUTEROL 2.5 MG/IPRATROPIUM 0.5 MG NEB (SCH) INH (22:13)
[2017-12-30] VITALS (7 sets, daily range): BP systolic 123–170; BP diastolic 58–78; PULSE 57–73; RESP 18–20; TEMP 97.3–98.4; O2SAT 93–97
[2017-12-30] MEDS: NITROGLYCERIN 2% OINT 1 GM PACKET TOPICAL SCH ×4 (00:37→17:18)
[2017-12-30 06:54] LABS: BICARBONATE 30.1 MEQ/L (21.0-32.0); CALCIUM 8.6 MG/DL (8.5-10.1); CREATININE 2.74 MG/DL (0.60-1.30)
[2017-12-30] MEDS: INSULIN ASPART SUPPLEMENTAL SCALE SQ SCH ×4 (08:00→21:00)
[2017-12-30] MEDS: SODIUM CHLORIDE 0.9% FLUSH 10 ML FLUSH IV FLUSH SCH ×2 (08:10→21:33)
[2017-12-30] MEDS: FUROSEMIDE 40 MG/4 ML VIAL IV PUSH SCH ×2 (08:21→17:17)
[2017-12-30] MEDS: METOPROLOL TARTRATE 50 MG TAB PO SCH ×2 (08:21→21:32)
[2017-12-30] MEDS: SERTRALINE HCL 50 MG TAB PO SCH (08:22)
[2017-12-30] MEDS: FERROUS SULFATE 325 MG (65 MG ELEMENTAL IRON) TAB PO SCH (08:22)
[2017-12-30] MEDS: MEMANTINE HCL 10 MG TAB PO SCH ×2 (08:22→21:32)
[2017-12-30] MEDS: ASPIRIN 81 MG CHEW TAB CHEW SCH (08:22)
[2017-12-30] MEDS: POTASSIUM CHLORIDE 10 MEQ CAP PO SCH (08:22)
[2017-12-30] MEDS: PANTOPRAZOLE SOD 40 MG DELAYED RELEASE TAB PO SCH (08:22)
[2017-12-30] MEDS: CALCIUM CARBONATE 1.25 GM (CA 500 MG) TAB PO SCH (08:22)
--- NOTE | 2017-12-30 10:06 | HHI.NPPN ---
Subjective General Problems: Anemia Renal Failure: Chronic, Acute History of Present Illness Patient is a 77-year-old male with a history of type 2 diabetes, COPD, CHF, CVA , dementia, CAD, CKD, hyperlipidemia, hypertension, gastric ulcer, prostate cancer, nephrolithiasis, and arthritis. Presents to ED who presents with altered mental status and hyperglycemia with sugars in the 500s. Also noted in the ER troponin elevation up to 2.49, trending up to 4.62. History is limited as patient is very hard of hearing. Patient was discharged from hospital on the to a SNF. Nephrology is consulted for possible uremic encephalopathy. Patient mental status during exam is at baseline. Creatinine is 3.24 and patients baseline creatinine has been around 2.5 to 3.0. Additional Remarks Patient is resting comfortably. Edema is improving. (Madisyn Mehta) Objective Data Data Vital Signs Date Time Temp Pulse Resp B/P (MAP) Pulse Ox O2 Delivery O2 Flow Rate FiO2 12/30/17 08:00 97.9 66 18 170/77 (108) 96 12/30/17 03:59 97.3 61 18 137/78 (97) 96 12/30/17 03:58 57 12/30/17 00:00 97.7 73 20 137/67 (90) 93 12/29/17 23:54 74 12/29/17 22:14 97 Nasal Cannula 2.00 12/29/17 22:04 Blow By 3.00 12/29/17 20:35 68 12/29/17 20:00 97.9 66 20 137/76 (96) 98 12/29/17 16:06 98.6 64 19 150/70 (96) 99 12/29/17 16:00 65 12/29/17 16:00 Nasal Cannula 2.00 12/29/17 15:34 64 12/29/17 15:34 97 Nasal Cannula 2.00 12/29/17 15:34 98.0 64 18 142/68 (92) 97 12/29/17 14:25 64 12/29/17 13:17 62 12/29/17 12:08 62 12/29/17 11:45 98.7 61 18 124/66 (85) 93 12/29/17 11:45 61 12/29/17 11:45 93 Nasal Cannula 2.00 (Madisyn Mehta) -: 12/29/17 0555 12/30/17 0530 Physical Exam General Appearance: Well Developed, No Acute Distress (Madisyn Mehta) Throat Throat Exam: Oral Mucosa [place] & Moist (Madisyn Mehta) Pulmonary Resp Exam: Clear Bilaterally, Breath Sounds Equal (Madisyn Mehta) Cardiology CV Exam: Regular (Madisyn Mehta) Gastrointestinal/Abdomen GI Exam: Soft, Non-Tender, Bowel Sounds Present (Madisyn Mehta) Integumentary Skin Exam: Intact (Madisyn Mehta) Assessment/Plan Problem List: (1) ALISSON (acute kidney injury) ICD Codes: N17.9 - Acute kidney failure, unspecified Status: Resolved Plan: ALISSON on CKD patients new baseline maybe at 2.5 to 3.0. 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 Plan Creatinine stable at 2.74 Continue Lasix. Avoid nephrotoxins. Follow the urine out put and BMP. (2) Altered mental status ICD Codes: R41.82 - Altered mental status, unspecified Plan: Continue to monitor. (3) Edema ICD Codes: R60.9 - Edema, unspecified Plan: improving Elevate arms on pillows (4) NSTEMI (non-ST elevated myocardial infarction) ICD Codes: I21.4 - Non-ST elevation (NSTEMI) myocardial infarction Plan: Currently on medical management. If cardiac cath is planned, risk of ALISSON (assuming 50 ml of contrast is used) is about 14-15%. Recommend hydration and stopping Lasix if Cath is planned. Will leave the decision to artificial foliage arranger. (5) Diabetes Mellitus Plan: will monitor (6) NSTEMI (non-ST elevated myocardial infarction) ICD Codes: I21.4 - Non-ST elevation (NSTEMI) myocardial infarction Status: Acute Plan: Cardiology consulted Heparin gtt infusing Medical management. (7) Hypertension ICD Codes: I10 - Hypertension Status: Chronic Plan: Monitor Home medications continued (Madisyn Mehta) Problem List: (1) ALISSON (acute kidney injury) ICD Codes: N17.9 - Acute kidney failure, unspecified Status: Resolved Plan: ALISSON on CKD patients new baseline maybe at 2.5 to 3.0. 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 Plan Creatinine stable at 2.74 Continue Lasix. Avoid nephrotoxins. Follow the urine out put and BMP. Patient seen and examined, agree with above. Follow the urine out put and BMP. (2) Altered mental status ICD Codes: R41.82 - Altered mental status, unspecified Plan: Continue to monitor. (3) Edema ICD Codes: R60.9 - Edema, unspecified Plan: improving Elevate arms on pillows (4) NSTEMI (non-ST elevated myocardial infarction) ICD Codes: I21.4 - Non-ST elevation (NSTEMI) myocardial infarction Plan: Currently on medical management. If cardiac cath is planned, risk of ALISSON (assuming 50 ml of contrast is used) is about 14-15%. Recommend hydration and stopping Lasix if Cath is planned. Will leave the decision to artificial foliage arranger. (5) Diabetes Mellitus Plan: will monitor (6) NSTEMI (non-ST elevated myocardial infarction) ICD Codes: I21.4 - Non-ST elevation (NSTEMI) myocardial infarction Status: Acute Plan: Cardiology consulted Heparin gtt infusing Medical management. (7) Hypertension ICD Codes: I10 - Hypertension Status: Chronic Plan: Monitor Home medications continued (Olegario Bursh MD) Madisyn Mehta Dec 30, 2017 10:06 Olegario Brush MD Dec 30, 2017 21:29
[2017-12-30] MEDS: INSULIN DETEMIR 100 UNITS/ML VIAL SQ SCH ×2 (10:51→21:00)
--- NOTE | 2017-12-30 15:23 | HHI.PR ---
Subjective Remarks Follow up metabolic encephalopathy. Patient does not answer questions. No events reported by nursing. Objective Vitals Vital Signs Date Time Temp Pulse Resp B/P (MAP) Pulse Ox O2 Delivery O2 Flow Rate FiO2 12/30/17 12:00 97.3 65 18 158/74 (102) 97 12/30/17 08:00 97.9 66 18 170/77 (108) 96 12/30/17 03:59 97.3 61 18 137/78 (97) 96 12/30/17 03:58 57 12/30/17 00:00 97.7 73 20 137/67 (90) 93 12/29/17 23:54 74 12/29/17 22:14 97 Nasal Cannula 2.00 12/29/17 22:04 Blow By 3.00 12/29/17 20:35 68 12/29/17 20:00 97.9 66 20 137/76 (96) 98 12/29/17 16:06 98.6 64 19 150/70 (96) 99 12/29/17 16:00 65 12/29/17 16:00 Nasal Cannula 2.00 12/29/17 15:34 64 12/29/17 15:34 97 Nasal Cannula 2.00 12/29/17 15:34 98.0 64 18 142/68 (92) 97 I/O 12/29/17 12/29/17 12/29/17 12/30/17 12/30/17 12/30/17 07:00 15:00 23:00 07:00 15:00 23:00 Intake Total 240 ml 960 ml 480 ml Output Total 1650 ml 900 ml 2000 ml Balance -1410 ml 60 ml -1520 ml Intake Oral 240 ml 960 ml 480 ml Output Urine Total 1650 ml 900 ml 2000 ml # Bowel Movements 1 Result Diagram: 12/29/17 0555 12/30/17 0530 Imaging Last Impressions Chest X-Ray 12/26/17 0051 Signed Impressions: Service Date/Time: Tuesday, December 26, 2017 01:07 - CONCLUSION: No definite infiltrates seen. There is indistinctness and fullness of the central bronchopulmonary markings which may represent vascular engorgement, however, there is submaximal inspiration which may be contributing to the indistinctness. Héctor Gaspar MD Head CT 12/26/17 0000 Signed Impressions: Service Date/Time: Tuesday, December 26, 2017 01:34 - CONCLUSION: 1. No acute findings in the brain. 2. 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 Héctor Gaspar MD Objective Remarks General: No acute distress. Heart: Regular rate and rhythm. No murmur. Lungs: Clear to auscultation bilaterally. No wheezes, rales, or rhonchi. Breathing is nonlabored. Abdomen: Soft, nontender, nondistended. Extremities: No lower extremity edema. Psych: Sleeping, but awakens. Does not answer questions. Procedures None Urinary Catheter: Yes Assessment to: Continue [place] insert reason: Obstruction/Retention Vascular Central Line Catheter: No A/P Assessment and Plan 1. Acute metabolic encephalopathy: Possibly secondary to uremia. Patient does have underlying chronic dementia. Patient's mental status is reportedly improved to his baseline. Appreciate neurology recommendations. EEG does not show any seizure activity. 2. Acute on chronic renal failure: Appreciate nephrology recommendations. Creatinine remains elevated. IV fluids discontinued. Monitor labs. 3. Diabetes mellitus type 2: Monitor Accu-Cheks and cover with sliding scale insulin. Diabetic diet. 4. Elevated troponin: Patient has not reported any chest pain. Appreciate cardiology recommendations. Patient's healthcare proxy refused cardiac catheterization. 5. COPD: Not in acute exacerbation. Continue home medications. 6. Chronic congestive heart failure: Monitor fluid status. Continue home medications. 7. Chronic anemia: Likely secondary to kidney disease. Monitor H&H. Discharge Planning Plan for discharge to SNF when cleared by nephrology. Shoaib Brody MD Dec 30, 2017 15:23
--- NOTE | 2017-12-30 17:22 | PD.CARD.PN ---
Subjective Subjective Remarks asleep in nad Objective Medications Current Medications Medications (Trade) Dose Ordered Sig/Martha Route Start Time Stop Time Status Last Admin (Lasix Inj) 40 mg BID@18 IV PUSH 12/26/17 09:00 12/30/17 17:17 (Proair Hfa Inh) 2 puff Q4H PRN INH 12/26/17 02:45 (Norvasc) 10 mg DAILY PO 12/26/17 09:00 12/30/17 08:22 (Aspirin Chew) 81 mg DAILY CHEW 12/26/17 09:00 12/30/17 08:22 (Aranesp Inj) 40 mcg Q30D SQ 12/27/17 08:00 Future Hold (Ferrous Sulfate) 325 mg DAILY PO 12/26/17 09:00 12/30/17 08:22 (Levemir Inj) 15 units BID SQ 12/26/17 09:00 12/30/17 10:51 (Duoneb Neb) 1 ampule HS NEB INH 12/26/17 21:00 12/29/17 22:13 (Duoneb Neb) 1 ampule Q6HR NEB PRN INH 12/26/17 02:45 12/27/17 04:13 (Namenda) 10 mg BID PO 12/26/17 09:00 12/30/17 08:22 (Lopressor) 50 mg BID PO 12/26/17 09:00 12/30/17 08:21 (KCl) 10 meq DAILY PO 12/26/17 09:00 12/30/17 08:22 (Zoloft) 50 mg DAILY PO 12/26/17 09:00 12/30/17 08:22 (Flomax) 0.4 mg HS PO 12/26/17 21:00 12/29/17 21:54 (Ultram) 50 mg Q4H PRN PO 12/26/17 02:45 (Oscal) 1,000 mg DAILY PO 12/26/17 09:00 12/30/17 08:22 (Protonix) 40 mg DAILY PO 12/26/17 09:00 12/30/17 08:22 (NS Flush) 2 ml BID IV FLUSH 12/26/17 09:00 12/30/17 08:10 (NS Flush) 2 ml UNSCH PRN IV FLUSH 12/26/17 02:45 (Zofran Inj) 4 mg Q6H PRN IV PUSH 12/26/17 02:45 (NovoLOG SUPPLEMENTAL SCALE) 1 ACHS SLIDING SCALE SQ 12/26/17 13:30 12/30/17 16:31 (Lipitor) 10 mg HS PO 12/26/17 21:00 12/29/17 21:54 (Nitroglycerin 2% Oint) 2 inch Q6HR TOPICAL 12/26/17 18:00 12/30/17 17:18 (D50w (Vial) Inj) 50 ml UNSCH PRN IV PUSH 12/26/17 13:30 (Glucagon Inj) 1 mg UNSCH PRN OTHER 12/26/17 13:30 Vital Signs / I&O Vital Signs Date Time Temp Pulse Resp B/P (MAP) Pulse Ox O2 Delivery O2 Flow Rate FiO2 12/30/17 16:00 97.8 62 18 123/58 (79) 93 12/30/17 12:00 97.3 65 18 158/74 (102) 97 12/30/17 08:00 97.9 66 18 170/77 (108) 96 12/30/17 03:59 97.3 61 18 137/78 (97) 96 12/30/17 03:58 57 12/30/17 00:00 97.7 73 20 137/67 (90) 93 12/29/17 23:54 74 12/29/17 22:14 97 Nasal Cannula 2.00 12/29/17 22:04 Blow By 3.00 12/29/17 20:35 68 12/29/17 20:00 97.9 66 20 137/76 (96) 98 I/O 12/29/17 12/29/17 12/29/17 12/30/17 12/30/17 12/30/17 06:59 14:59 22:59 06:59 14:59 22:59 Intake Total 240 ml 960 ml 480 ml Output Total 1650 ml 900 ml 2000 ml Balance -1410 ml 60 ml -1520 ml Intake Oral 240 ml 960 ml 480 ml Output Urine Total 1650 ml 900 ml 2000 ml # Bowel Movements 1 Physical Exam GENERAL: SKIN: Warm and dry. HEAD: Normocephalic. EYES: No scleral icterus. No injection or drainage. NECK: Supple, trachea midline. No JVD or lymphadenopathy. CARDIOVASCULAR: Regular rate and rhythm without murmurs, gallops, or rubs. RESPIRATORY: Breath sounds equal bilaterally. No accessory muscle use. GASTROINTESTINAL: Abdomen soft, non-tender, nondistended. MUSCULOSKELETAL: No cyanosis, or edema. BACK: Nontender without obvious deformity. No CVA tenderness. Laboratory Laboratory Tests Test 12/30/17 05:30 Activated Partial Thromboplast Time 30.1 SEC Blood Urea Nitrogen 70 MG/DL Creatinine 2.74 MG/DL Random Glucose 169 MG/DL Calcium Level 8.6 MG/DL Sodium Level 139 MEQ/L Potassium Level 4.2 MEQ/L Chloride Level 101 MEQ/L Carbon Dioxide Level 30.1 MEQ/L Anion Gap 8 MEQ/L Estimat Glomerular Filtration Rate 28 ML/MIN Assessment and Plan Problem List: (1) Tobacco abuse ICD Codes: Z72.0 - Tobacco abuse Status: Acute (2) Chronic kidney disease (CKD) ICD Codes: N18.9 - Chronic kidney disease, unspecified Status: Acute (3) Acute renal injury ICD Codes: N17.9 - Acute kidney injury Status: Acute (4) History of CVA (cerebrovascular accident) ICD Codes: Z86.73 - Personal history of transient ischemic attack (TIA), and cerebral infarction without residual deficits Status: Acute (5) Diabetes type 2, controlled ICD Codes: E11.9 - Type 2 diabetes mellitus without complications Status: Chronic (6) NSTEMI (non-ST elevated myocardial infarction) ICD Codes: I21.4 - Non-ST elevation (NSTEMI) myocardial infarction Status: Acute (7) ALISSON (acute kidney injury) ICD Codes: N17.9 - Acute kidney failure, unspecified Status: Resolved (8) Altered mental status ICD Codes: R41.82 - Altered mental status, unspecified (9) CORONARY ATHEROSCLEROSIS OF [place] CORONARY VESSEL Assessment and Plan 1.) NSTEMI - his power of estate planning attorney has refused cardiac catheterization. continue medical management, suspect he has significant coronary ischemia, he is asymptomatic now, continue aspirin 81 mg qd, lipitor 10 mg hs, lopressor 50 mg bid, coleman held due to cri; ok to dc from cv standpoint, d/w patient, his sister, nurse @ bedside 12/28/17 Salvatore Davidson MD Dec 30, 2017 17:22
[2017-12-30] MEDS: ATORVASTATIN 10 MG TAB PO SCH (21:32)
[2017-12-30] MEDS: TAMSULOSIN HCL 0.4 MG CAP PO SCH (21:32)
[2017-12-31] VITALS: BP 124/59; PULSE 57; PULSE 59; RESP 18; TEMP 97.9; O2SAT 99
[2017-12-31] MEDS: NITROGLYCERIN 2% OINT 1 GM PACKET TOPICAL SCH ×4 (01:16→16:59)
[2017-12-31 04:00] VITALS: BP 126/62; PULSE 61; RESP 18; TEMP 97.8; O2SAT 99
[2017-12-31 06:37] LABS: AUTOMATED NEUTROPHIL # 5.1 TH/MM3 (1.8-7.7); BASOPHIL % 0.4 % (0.0-2.0); EOSINOPHIL # 0.1 TH/MM3 (0-0.4); EOSINOPHIL % 2.2 % (0.0-4.0); HEMATOCRIT 28.8 % (39.0-51.0); HEMOGLOBIN 9.4 GM/DL (13.0-17.0); LYMPH % 12.7 % (9.0-44.0); LYMPHOCYTE # 0.8 TH/MM3 (1.0-4.8); MEAN CELL VOLUME 96.9 FL (80.0-100.0); MEAN CORPUSCULAR HEMOGLOBIN 31.7 PG (27.0-34.0); MEAN CORPUSCULAR HGB CONC 32.7 % (32.0-36.0); MEAN PLATELET VOLUME 9.4 FL (7.0-11.0); MONO % 8.1 % (0.0-8.0); MONOCYTE # 0.5 TH/MM3 (0-0.9); NEUT % 76.6 % (16.0-70.0); PLATELET COUNT 104 TH/MM3 (150-450); RED BLOOD COUNT 2.97 MIL/MM3 (4.50-5.90); RED CELL DISTRIBUTION WIDTH 21.9 % (11.6-17.2); WHITE BLOOD COUNT 6.7 TH/MM3 (4.0-11.0)
[2017-12-31 07:09] LABS: BICARBONATE 31.9 MEQ/L (21.0-32.0); CALCIUM 8.2 MG/DL (8.5-10.1); CREATININE 2.67 MG/DL (0.60-1.30)
[2017-12-31] MEDS: SODIUM CHLORIDE 0.9% FLUSH 10 ML FLUSH IV FLUSH SCH ×2 (07:38→22:15)
[2017-12-31] MEDS: INSULIN ASPART SUPPLEMENTAL SCALE SQ SCH ×4 (07:58→19:46)
[2017-12-31] MEDS: CALCIUM CARBONATE 1.25 GM (CA 500 MG) TAB PO SCH (07:59)
[2017-12-31] MEDS: POTASSIUM CHLORIDE 10 MEQ CAP PO SCH (07:59)
[2017-12-31] MEDS: FUROSEMIDE 40 MG/4 ML VIAL IV PUSH SCH ×2 (07:59→16:59)
[2017-12-31] MEDS: PANTOPRAZOLE SOD 40 MG DELAYED RELEASE TAB PO SCH (07:59)
[2017-12-31] MEDS: FERROUS SULFATE 325 MG (65 MG ELEMENTAL IRON) TAB PO SCH (07:59)
[2017-12-31 08:00] VITALS: BP 132/76; PULSE 60; PULSE 62; RESP 18; TEMP 97.6; O2SAT 93
[2017-12-31] MEDS: METOPROLOL TARTRATE 50 MG TAB PO SCH ×2 (08:00→22:15)
[2017-12-31] MEDS: MEMANTINE HCL 10 MG TAB PO SCH ×2 (08:00→22:15)
[2017-12-31] MEDS: INSULIN DETEMIR 100 UNITS/ML VIAL SQ SCH (08:00)
[2017-12-31] MEDS: ASPIRIN 81 MG CHEW TAB CHEW SCH (08:00)
[2017-12-31] MEDS: SERTRALINE HCL 50 MG TAB PO SCH (08:00)
--- NOTE | 2017-12-31 10:29 | HHI.NPPN ---
Subjective General Problems: Anemia Renal Failure: Chronic, Acute History of Present Illness Patient is a 77-year-old male with a history of type 2 diabetes, COPD, CHF, CVA , dementia, CAD, CKD, hyperlipidemia, hypertension, gastric ulcer, prostate cancer, nephrolithiasis, and arthritis. Presents to ED who presents with altered mental status and hyperglycemia with sugars in the 500s. Also noted in the ER troponin elevation up to 2.49, trending up to 4.62. History is limited as patient is very hard of hearing. Patient was discharged from hospital on the to a SNF. Nephrology is consulted for possible uremic encephalopathy. Patient mental status during exam is at baseline. Creatinine is 3.24 and patients baseline creatinine has been around 2.5 to 3.0. Additional Remarks Patient is resting comfortably. Family at bedside. (Madisyn Mehta) Objective Data Data Vital Signs Date Time Temp Pulse Resp B/P (MAP) Pulse Ox O2 Delivery O2 Flow Rate FiO2 12/31/17 08:00 97.6 62 18 132/76 (94) 93 12/31/17 04:00 97.8 61 18 126/62 (83) 99 12/31/17 00:00 57 12/31/17 00:00 97.9 59 18 124/59 (80) 99 12/30/17 20:00 67 12/30/17 20:00 98.4 67 18 152/66 (94) 96 12/30/17 20:00 Nasal Cannula 3.00 12/30/17 16:00 97.8 62 18 123/58 (79) 93 12/30/17 12:00 97.3 65 18 158/74 (102) 97 (Madisyn Mehta) -: 12/31/17 0545 12/31/17 0545 Physical Exam General Appearance: Well Developed, No Acute Distress (Madisyn Mehta) Throat Throat Exam: Oral Mucosa [place] & Moist (Madisyn Mehta) Pulmonary Resp Exam: Clear Bilaterally, Breath Sounds Equal (Madisyn Mehta) Cardiology CV Exam: Regular (Madisyn Mehta) Gastrointestinal/Abdomen GI Exam: Soft, Non-Tender, Bowel Sounds Present (Madisyn Mehta) Integumentary Skin Exam: Intact (Madisyn Mehta) Assessment/Plan Problem List: (1) ALISSON (acute kidney injury) ICD Codes: N17.9 - Acute kidney failure, unspecified Status: Resolved Plan: ALISSON on CKD patients new baseline maybe at 2.5 to 3.0. 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 Plan Creatinine stable Continue Lasix. Avoid nephrotoxins. Follow the urine out put and BMP. (2) Altered mental status ICD Codes: R41.82 - Altered mental status, unspecified Plan: Continue to monitor. (3) Edema ICD Codes: R60.9 - Edema, unspecified Plan: improving Elevate arms on pillows (4) NSTEMI (non-ST elevated myocardial infarction) ICD Codes: I21.4 - Non-ST elevation (NSTEMI) myocardial infarction Plan: Currently on medical management. If cardiac cath is planned, risk of [place] (assuming 50 ml of contrast is used) is about 14-15%. Recommend hydration and stopping Lasix if Cath is planned. Will leave the decision to hot dip tinning supervisor. (5) Diabetes Mellitus Plan: will monitor (6) NSTEMI (non-ST elevated myocardial infarction) ICD Codes: I21.4 - Non-ST elevation (NSTEMI) myocardial infarction Status: Acute Plan: Cardiology consulted Heparin gtt infusing Medical management. (7) Hypertension ICD Codes: I10 - Hypertension Status: Chronic Plan: Monitor Home medications continued (Madisyn Mehta) Problem List: (1) ALISSON (acute kidney injury) ICD Codes: N17.9 - Acute kidney failure, unspecified Status: Resolved Plan: ALISSON on CKD patients new baseline maybe at 2.5 to 3.0. 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 Plan Creatinine stable Continue Lasix. Avoid nephrotoxins. Follow the urine out put and BMP. Patient seen and examined, agree with above. BS dropping, encourage oral intake. Creatinine is better. (2) Altered mental status ICD Codes: R41.82 - Altered mental status, unspecified Plan: Continue to monitor. (3) Edema ICD Codes: R60.9 - Edema, unspecified Plan: improving Elevate arms on pillows (4) NSTEMI (non-ST elevated myocardial infarction) ICD Codes: I21.4 - Non-ST elevation (NSTEMI) myocardial infarction Plan: Currently on medical management. If cardiac cath is planned, risk of [place] (assuming 50 ml of contrast is used) is about 14-15%. Recommend hydration and stopping Lasix if Cath is planned. Will leave the decision to hot dip tinning supervisor. (5) Diabetes Mellitus Plan: will monitor (6) NSTEMI (non-ST elevated myocardial infarction) ICD Codes: I21.4 - Non-ST elevation (NSTEMI) myocardial infarction Status: Acute Plan: Cardiology consulted Heparin gtt infusing Medical management. (7) Hypertension ICD Codes: I10 - Hypertension Status: Chronic Plan: Monitor Home medications continued (Olegario Brush MD) Madisyn Mehta Dec 31, 2017 10:29 Olegario Brush MD Dec 31, 2017 21:35
[2017-12-31 12:00] VITALS: BP 115/57; PULSE 58; RESP 15; TEMP 95.6; O2SAT 94
--- NOTE | 2017-12-31 13:54 | HHI.PR ---
Subjective Remarks Follow up diabetes, renal failure. Patient is nonverbal. No events reported by nursing. Objective Vitals Vital Signs Date Time Temp Pulse Resp B/P (MAP) Pulse Ox O2 Delivery O2 Flow Rate FiO2 12/31/17 12:00 95.6 58 15 115/57 (76) 94 12/31/17 08:00 97.6 62 18 132/76 (94) 93 12/31/17 04:00 97.8 61 18 126/62 (83) 99 12/31/17 00:00 57 12/31/17 00:00 97.9 59 18 124/59 (80) 99 12/30/17 20:00 67 12/30/17 20:00 98.4 67 18 152/66 (94) 96 12/30/17 20:00 Nasal Cannula 3.00 12/30/17 16:00 97.8 62 18 123/58 (79) 93 I/O 12/30/17 12/30/17 12/30/17 12/31/17 12/31/17 12/31/17 07:00 15:00 23:00 07:00 15:00 23:00 Intake Total 480 ml 480 ml 240 ml Output Total 2000 ml 1775 ml 1300 ml Balance -1520 ml -1295 ml -1060 ml Intake Oral 480 ml 480 ml 240 ml Output Urine Total 2000 ml 1775 ml 1300 ml # Bowel Movements 0 Result Diagram: 12/31/17 0545 12/31/17 0545 Imaging Last Impressions Chest X-Ray 12/26/17 0051 Signed Impressions: Service Date/Time: Tuesday, December 26, 2017 01:07 - CONCLUSION: No definite infiltrates seen. There is indistinctness and fullness of the central bronchopulmonary markings which may represent vascular engorgement, however, there is submaximal inspiration which may be contributing to the indistinctness. Héctor Gaspar MD Head CT 12/26/17 0000 Signed Impressions: Service Date/Time: Tuesday, December 26, 2017 01:34 - CONCLUSION: 1. No acute findings in the brain. 2. 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 Héctor Gaspar MD Objective Remarks General: No acute distress. Heart: Regular rate and rhythm. No murmur. Lungs: Clear to auscultation bilaterally. No wheezes, rales, or rhonchi. Breathing is nonlabored. Abdomen: Soft, nontender, nondistended. Extremities: No lower extremity edema. Psych: Sleeping. Procedures None Urinary Catheter: Yes Assessment to: Continue Culver insert reason: Obstruction/Retention Vascular Central Line Catheter: No A/P Assessment and Plan 1. Acute metabolic encephalopathy: Possibly secondary to uremia. Patient does have underlying chronic dementia. Patient's mental status is reportedly improved to his baseline. Appreciate neurology recommendations. EEG does not show any seizure activity. 2. Acute on chronic renal failure: Appreciate nephrology recommendations. Creatinine remains elevated, slightly better today. IV fluids discontinued. Monitor labs. 3. Diabetes mellitus type 2: Monitor Accu-Cheks and cover with sliding scale insulin. Diabetic diet. 4. Elevated troponin: Patient has not reported any chest pain. Appreciate cardiology recommendations. Patient's healthcare proxy refused cardiac catheterization. 5. COPD: Not in acute exacerbation. Continue home medications. 6. Chronic congestive heart failure: Monitor fluid status. Continue home medications. 7. Chronic anemia: Likely secondary to kidney disease. Monitor H&H. Discharge Planning Plan for discharge to SNF when cleared by nephrology. Shoaib Brody MD Dec 31, 2017 13:54
--- NOTE | 2017-12-31 14:22 | PD.CARD.PN ---
Subjective Subjective Remarks asleep in nad Objective Medications Current Medications Medications (Trade) Dose Ordered Sig/Martha Route Start Time Stop Time Status Last Admin (Lasix Inj) 40 mg BID@18 IV PUSH 12/26/17 09:00 12/31/17 07:59 (Proair Hfa Inh) 2 puff Q4H PRN INH 12/26/17 02:45 (Norvasc) 10 mg DAILY PO 12/26/17 09:00 12/31/17 07:59 (Aspirin Chew) 81 mg DAILY CHEW 12/26/17 09:00 12/31/17 08:00 (Aranesp Inj) 40 mcg Q30D SQ 12/27/17 08:00 Future Hold (Ferrous Sulfate) 325 mg DAILY PO 12/26/17 09:00 12/31/17 07:59 (Duoneb Neb) 1 ampule Q6HR NEB PRN INH 12/26/17 02:45 12/27/17 04:13 (Namenda) 10 mg BID PO 12/26/17 09:00 12/31/17 08:00 (Lopressor) 50 mg BID PO 12/26/17 09:00 12/31/17 08:00 (KCl) 10 meq DAILY PO 12/26/17 09:00 12/31/17 07:59 (Zoloft) 50 mg DAILY PO 12/26/17 09:00 12/31/17 08:00 (Flomax) 0.4 mg HS PO 12/26/17 21:00 12/30/17 21:32 (Ultram) 50 mg Q4H PRN PO 12/26/17 02:45 12/31/17 03:55 (Oscal) 1,000 mg DAILY PO 12/26/17 09:00 12/31/17 07:59 (Protonix) 40 mg DAILY PO 12/26/17 09:00 12/31/17 07:59 (NS Flush) 2 ml BID IV FLUSH 12/26/17 09:00 12/31/17 07:38 (NS Flush) 2 ml UNSCH PRN IV FLUSH 12/26/17 02:45 (Zofran Inj) 4 mg Q6H PRN IV PUSH 12/26/17 02:45 (NovoLOG SUPPLEMENTAL SCALE) 1 ACHS SLIDING SCALE SQ 12/26/17 13:30 12/31/17 12:36 (Lipitor) 10 mg HS PO 12/26/17 21:00 12/30/17 21:32 (Nitroglycerin 2% Oint) 2 inch Q6HR TOPICAL 12/26/17 18:00 12/31/17 11:53 (D50w (Vial) Inj) 50 ml UNSCH PRN IV PUSH 12/26/17 13:30 (Glucagon Inj) 1 mg UNSCH PRN OTHER 12/26/17 13:30 (Levemir Inj) 15 units DAILY SQ 01/01/18 09:00 Vital Signs / I&O Vital Signs Date Time Temp Pulse Resp B/P (MAP) Pulse Ox O2 Delivery O2 Flow Rate FiO2 12/31/17 12:00 95.6 58 15 115/57 (76) 94 12/31/17 08:00 97.6 62 18 132/76 (94) 93 12/31/17 04:00 97.8 61 18 126/62 (83) 99 12/31/17 00:00 57 12/31/17 00:00 97.9 59 18 124/59 (80) 99 12/30/17 20:00 67 12/30/17 20:00 98.4 67 18 152/66 (94) 96 12/30/17 20:00 Nasal Cannula 3.00 12/30/17 16:00 97.8 62 18 123/58 (79) 93 I/O 12/30/17 12/30/17 12/30/17 12/31/17 12/31/17 12/31/17 07:00 15:00 23:00 07:00 15:00 23:00 Intake Total 480 ml 480 ml 240 ml Output Total 2000 ml 1775 ml 1300 ml Balance -1520 ml -1295 ml -1060 ml Intake Oral 480 ml 480 ml 240 ml Output Urine Total 2000 ml 1775 ml 1300 ml # Bowel Movements 0 Physical Exam GENERAL: SKIN: Warm and dry. HEAD: Normocephalic. EYES: No scleral icterus. No injection or drainage. NECK: Supple, trachea midline. No JVD or lymphadenopathy. CARDIOVASCULAR: Regular rate and rhythm without murmurs, gallops, or rubs. RESPIRATORY: Breath sounds equal bilaterally. No accessory muscle use. GASTROINTESTINAL: Abdomen soft, non-tender, nondistended. MUSCULOSKELETAL: No cyanosis, or edema. BACK: Nontender without obvious deformity. No CVA tenderness. Laboratory Laboratory Tests Test 12/31/17 05:45 White Blood Count 6.7 TH/MM3 Red Blood Count 2.97 MIL/MM3 Hemoglobin 9.4 GM/DL Hematocrit 28.8 % Mean Corpuscular Volume 96.9 FL Mean Corpuscular Hemoglobin 31.7 PG Mean Corpuscular Hemoglobin Concent 32.7 % Red Cell Distribution Width 21.9 % Platelet Count 104 TH/MM3 Mean Platelet Volume 9.4 FL Neutrophils (%) (Auto) 76.6 % Lymphocytes (%) (Auto) 12.7 % Monocytes (%) (Auto) 8.1 % Eosinophils (%) (Auto) 2.2 % Basophils (%) (Auto) 0.4 % Neutrophils # (Auto) 5.1 TH/MM3 Lymphocytes # (Auto) 0.8 TH/MM3 Monocytes # (Auto) 0.5 TH/MM3 Eosinophils # (Auto) 0.1 TH/MM3 Basophils # (Auto) 0.0 TH/MM3 CBC Comment DIFF FINAL Differential Comment Activated Partial Thromboplast Time 28.1 SEC Blood Urea Nitrogen 69 MG/DL Creatinine 2.67 MG/DL Random Glucose 39 MG/DL Calcium Level 8.2 MG/DL Sodium Level 138 MEQ/L Potassium Level 4.2 MEQ/L Chloride Level 99 MEQ/L Carbon Dioxide Level 31.9 MEQ/L Anion Gap 7 MEQ/L Estimat Glomerular Filtration Rate 28 ML/MIN Assessment and Plan Problem List: (1) Tobacco abuse ICD Codes: Z72.0 - Tobacco abuse Status: Acute (2) Chronic kidney disease (CKD) ICD Codes: N18.9 - Chronic kidney disease, unspecified Status: Acute (3) Acute renal injury ICD Codes: N17.9 - Acute kidney injury Status: Acute (4) History of CVA (cerebrovascular accident) ICD Codes: Z86.73 - Personal history of transient ischemic attack (TIA), and cerebral infarction without residual deficits Status: Acute (5) Diabetes type 2, controlled ICD Codes: E11.9 - Type 2 diabetes mellitus without complications Status: Chronic (6) NSTEMI (non-ST elevated myocardial infarction) ICD Codes: I21.4 - Non-ST elevation (NSTEMI) myocardial infarction Status: Acute (7) ALISSON (acute kidney injury) ICD Codes: N17.9 - Acute kidney failure, unspecified Status: Resolved (8) Altered mental status ICD Codes: R41.82 - Altered mental status, unspecified (9) CORONARY ATHEROSCLEROSIS OF [place] CORONARY VESSEL Assessment and Plan 1.) NSTEMI - his power of dry roller has refused cardiac catheterization. continue medical management, suspect he has significant coronary ischemia, he is asymptomatic now, continue aspirin 81 mg qd, lipitor 10 mg hs, lopressor 50 mg bid, coleman held due to cri; ok to dc from cv standpoint, d/w patient, his sister, nurse @ bedside 12/28/17 2.) I am on vacation until january 13 2018, Dr Blevins covering me Salvatore Davidson MD Dec 31, 2017 14:22
[2017-12-31 16:00] VITALS: BP 121/63; PULSE 58; PULSE 60; RESP 16; TEMP 98.1; O2SAT 94
[2017-12-31 20:00] VITALS: BP 107/66; PULSE 62; RESP 18; TEMP 98; O2SAT 93
[2017-12-31] MEDS: ATORVASTATIN 10 MG TAB PO SCH (22:15)
[2017-12-31] MEDS: TAMSULOSIN HCL 0.4 MG CAP PO SCH (22:15)
[2018-01-01] VITALS: BP 120/57; PULSE 66; PULSE 67; RESP 18; TEMP 98.5; O2SAT 93
[2018-01-01] MEDS: NITROGLYCERIN 2% OINT 1 GM PACKET TOPICAL SCH ×5 (00:48→23:06)
[2018-01-01 04:00] VITALS: BP 124/60; PULSE 64; PULSE 66; RESP 18; TEMP 97.2; O2SAT 93
[2018-01-01 05:53] LABS: HEMATOCRIT 28.7 % (39.0-51.0); HEMOGLOBIN 9.4 GM/DL (13.0-17.0); MEAN CELL VOLUME 96.5 FL (80.0-100.0); MEAN CORPUSCULAR HEMOGLOBIN 31.7 PG (27.0-34.0); MEAN CORPUSCULAR HGB CONC 32.8 % (32.0-36.0); MEAN PLATELET VOLUME 8.9 FL (7.0-11.0); PLATELET COUNT 109 TH/MM3 (150-450); RED BLOOD COUNT 2.97 MIL/MM3 (4.50-5.90); RED CELL DISTRIBUTION WIDTH 21.9 % (11.6-17.2); WHITE BLOOD COUNT 6.6 TH/MM3 (4.0-11.0)
[2018-01-01 06:14] LABS: BICARBONATE 30.6 MEQ/L (21.0-32.0); CALCIUM 8.5 MG/DL (8.5-10.1); CREATININE 2.95 MG/DL (0.60-1.30)
[2018-01-01 08:00] VITALS: BP 123/59; PULSE 68; PULSE 69; RESP 18; TEMP 98.6; O2SAT 95
[2018-01-01] MEDS: INSULIN ASPART SUPPLEMENTAL SCALE SQ SCH ×4 (08:00→21:47)
[2018-01-01] MEDS: PANTOPRAZOLE SOD 40 MG DELAYED RELEASE TAB PO SCH (09:30)
[2018-01-01] MEDS: METOPROLOL TARTRATE 50 MG TAB PO SCH ×2 (09:30→21:46)
[2018-01-01] MEDS: SERTRALINE HCL 50 MG TAB PO SCH (09:30)
[2018-01-01] MEDS: FERROUS SULFATE 325 MG (65 MG ELEMENTAL IRON) TAB PO SCH (09:30)
[2018-01-01] MEDS: MEMANTINE HCL 10 MG TAB PO SCH ×2 (09:30→21:46)
[2018-01-01] MEDS: CALCIUM CARBONATE 1.25 GM (CA 500 MG) TAB PO SCH (09:30)
[2018-01-01] MEDS: ASPIRIN 81 MG CHEW TAB CHEW SCH (09:30)
[2018-01-01] MEDS: FUROSEMIDE 40 MG/4 ML VIAL IV PUSH SCH (09:30)
[2018-01-01] MEDS: POTASSIUM CHLORIDE 10 MEQ CAP PO SCH (09:31)
[2018-01-01] MEDS: INSULIN DETEMIR 100 UNITS/ML VIAL SQ SCH (09:31)
[2018-01-01] MEDS: SODIUM CHLORIDE 0.9% FLUSH 10 ML FLUSH IV FLUSH SCH ×2 (09:31→21:47)
--- NOTE | 2018-01-01 10:26 | HHI.NPPN ---
Subjective General Problems: Anemia Renal Failure: Chronic, Acute History of Present Illness Patient is a 77-year-old male with a history of type 2 diabetes, COPD, CHF, CVA , dementia, CAD, CKD, hyperlipidemia, hypertension, gastric ulcer, prostate cancer, nephrolithiasis, and arthritis. Presents to ED who presents with altered mental status and hyperglycemia with sugars in the 500s. Also noted in the ER troponin elevation up to 2.49, trending up to 4.62. History is limited as patient is very hard of hearing. Patient was discharged from hospital on the to a SNF. Nephrology is consulted for possible uremic encephalopathy. Patient mental status during exam is at baseline. Creatinine is 3.24 and patients baseline creatinine has been around 2.5 to 3.0. Additional Remarks Patient is resting comfortably. Edema is improving. (Madisyn Mehta) Objective Data Data Vital Signs Date Time Temp Pulse Resp B/P (MAP) Pulse Ox O2 Delivery O2 Flow Rate FiO2 01/01/18 08:00 98.6 68 18 123/59 (80) 95 01/01/18 04:00 Nasal Cannula 2.00 01/01/18 04:00 97.2 66 18 124/60 (81) 93 01/01/18 04:00 64 01/01/18 00:00 66 01/01/18 00:00 Nasal Cannula 2.00 01/01/18 00:00 98.5 67 18 120/57 (78) 93 12/31/17 20:00 Nasal Cannula 2.00 12/31/17 20:00 Nasal Cannula 2.00 12/31/17 20:00 62 12/31/17 20:00 98.0 62 18 107/66 (80) 93 12/31/17 16:00 98.1 58 16 121/63 (82) 94 12/31/17 16:00 60 12/31/17 12:00 58 12/31/17 12:00 95.6 58 15 115/57 (76) 94 (Madisyn Mehta) -: 01/01/18 0449 01/01/18 0449 Physical Exam General Appearance: Well Developed, No Acute Distress (Madisyn Mehta) Throat Throat Exam: Oral Mucosa [place] & Moist (Madisyn Mehta) Pulmonary Resp Exam: Clear Bilaterally, Breath Sounds Equal (Madisyn Mehta) Cardiology CV Exam: Regular (Madisyn Mehta) Gastrointestinal/Abdomen GI Exam: Soft, Non-Tender, Bowel Sounds Present (Madisyn Mehta) Integumentary Skin Exam: Intact (Madisyn Mehta) Assessment/Plan Problem List: (1) ALISOSN (acute kidney injury) ICD Codes: N17.9 - Acute kidney failure, unspecified Status: Resolved Plan: ALISSON on CKD patients new baseline maybe at 2.5 to 3.0. 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 Plan Creatinine slightly more elevated will reduce lasix to daily only Avoid nephrotoxins. Follow the urine out put and BMP. If creatinine unchanged or less may discharge from nephrology stand point. (2) Altered mental status ICD Codes: R41.82 - Altered mental status, unspecified Plan: Continue to monitor. (3) Edema ICD Codes: R60.9 - Edema, unspecified Plan: improving Elevate arms on pillows (4) NSTEMI (non-ST elevated myocardial infarction) ICD Codes: I21.4 - Non-ST elevation (NSTEMI) myocardial infarction Plan: Currently on medical management. If cardiac cath is planned, risk of ALISSON (assuming 50 ml of contrast is used) is about 14-15%. Recommend hydration and stopping Lasix if Cath is planned. Will leave the decision to bankruptcy manager. (5) Diabetes Mellitus Plan: will monitor (6) NSTEMI (non-ST elevated myocardial infarction) ICD Codes: I21.4 - Non-ST elevation (NSTEMI) myocardial infarction Status: Acute Plan: Cardiology consulted Heparin gtt infusing Medical management. (7) Hypertension ICD Codes: I10 - Hypertension Status: Chronic Plan: Monitor Home medications continued (Madisyn Mehta) Problem List: (1) ALISSON (acute kidney injury) ICD Codes: N17.9 - Acute kidney failure, unspecified Status: Resolved Plan: ALISSON on CKD patients new baseline maybe at 2.5 to 3.0. 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 Plan Creatinine slightly more elevated will reduce lasix to daily only Avoid nephrotoxins. Follow the urine out put and BMP. If creatinine unchanged or less may discharge from nephrology stand point. Patient seen and examined, agree with above. Encourage oral intake. (2) Altered mental status ICD Codes: R41.82 - Altered mental status, unspecified Plan: Continue to monitor. (3) Edema ICD Codes: R60.9 - Edema, unspecified Plan: improving Elevate arms on pillows (4) NSTEMI (non-ST elevated myocardial infarction) ICD Codes: I21.4 - Non-ST elevation (NSTEMI) myocardial infarction Plan: Currently on medical management. If cardiac cath is planned, risk of ALISSON (assuming 50 ml of contrast is used) is about 14-15%. Recommend hydration and stopping Lasix if Cath is planned. Will leave the decision to bankruptcy manager. (5) Diabetes Mellitus Plan: will monitor (6) NSTEMI (non-ST elevated myocardial infarction) ICD Codes: I21.4 - Non-ST elevation (NSTEMI) myocardial infarction Status: Acute Plan: Cardiology consulted Heparin gtt infusing Medical management. (7) Hypertension ICD Codes: I10 - Hypertension Status: Chronic Plan: Monitor Home medications continued (Olegario Brush MD) Madisyn Mehta Jan 01, 2018 10:26 Olegario Brush MD Jan 01, 2018 21:42
[2018-01-01 12:00] VITALS: BP 116/56; PULSE 59; RESP 18; TEMP 98.9; O2SAT 94
--- NOTE | 2018-01-01 13:45 | HHI.PR ---
Subjective Remarks Follow-up diabetes, renal failure. The patient is more alert today. He does answer some questions by nodding or pointing, but remains nonverbal. He indicates chest discomfort, but is unable to provide further details. Objective Vitals Vital Signs Date Time Temp Pulse Resp B/P (MAP) Pulse Ox O2 Delivery O2 Flow Rate FiO2 01/01/18 12:00 98.9 59 18 116/56 (76) 94 01/01/18 08:00 98.6 68 18 123/59 (80) 95 01/01/18 08:00 Nasal Cannula 2.00 01/01/18 08:00 69 01/01/18 04:00 Nasal Cannula 2.00 01/01/18 04:00 97.2 66 18 124/60 (81) 93 01/01/18 04:00 64 01/01/18 00:00 66 01/01/18 00:00 Nasal Cannula 2.00 01/01/18 00:00 98.5 67 18 120/57 (78) 93 12/31/17 20:00 Nasal Cannula 2.00 12/31/17 20:00 Nasal Cannula 2.00 12/31/17 20:00 62 12/31/17 20:00 98.0 62 18 107/66 (80) 93 12/31/17 16:00 98.1 58 16 121/63 (82) 94 12/31/17 16:00 60 I/O 12/31/17 12/31/17 12/31/17 01/01/18 01/01/18 01/01/18 07:00 15:00 23:00 07:00 15:00 23:00 Intake Total 240 ml 720 ml Output Total 1300 ml 800 ml 1100 ml Balance -1060 ml -80 ml -1100 ml Intake Oral 240 ml 720 ml Output Urine Total 1300 ml 800 ml 1100 ml # Bowel Movements 0 Result Diagram: 01/01/18 0449 01/01/18 0449 Imaging Last Impressions Chest X-Ray 12/26/17 0051 Signed Impressions: Service Date/Time: Tuesday, December 26, 2017 01:07 - CONCLUSION: No definite infiltrates seen. There is indistinctness and fullness of the central bronchopulmonary markings which may represent vascular engorgement, however, there is submaximal inspiration which may be contributing to the indistinctness. Héctor Gaspar MD Head CT 12/26/17 0000 Signed Impressions: Service Date/Time: Tuesday, December 26, 2017 01:34 - CONCLUSION: 1. No acute findings in the brain. 2. 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 Héctor Gaspar MD Objective Remarks General: No acute distress. Heart: Regular rate and rhythm. No murmur. Lungs: Clear to auscultation bilaterally. No wheezes, rales, or rhonchi. Breathing is nonlabored. Abdomen: Soft, nontender, nondistended. Extremities: No lower extremity edema. Psych: Alert. Nonverbal. Procedures None Urinary Catheter: Yes Assessment to: Remove Vascular Central Line Catheter: No A/P Assessment and Plan 1. Acute metabolic encephalopathy: Possibly secondary to uremia. Patient does have underlying chronic dementia. Patient's mental status is reportedly improved to his baseline. Appreciate neurology recommendations. EEG does not show any seizure activity. 2. Acute on chronic renal failure: Appreciate nephrology recommendations. Creatinine increased again today. IV fluids discontinued. Monitor labs. 3. Diabetes mellitus type 2: Monitor Accu-Cheks and cover with sliding scale insulin. Diabetic diet. 4. Elevated troponin: Patient is now indicating chest pain. Appreciate cardiology recommendations. Patient's healthcare proxy refused cardiac catheterization. Repeat cardiac enzymes, EKG ordered. 5. COPD: Not in acute exacerbation. Continue home medications. 6. Chronic congestive heart failure: Monitor fluid status. Continue home medications. 7. Chronic anemia: Likely secondary to kidney disease. Monitor H&H. Discharge Planning Plan for discharge to SNF when cleared by nephrology. Shoaib Brody MD Jan 01, 2018 13:45
[2018-01-01 15:52] LABS: TROPONIN I 0.13 NG/ML (0.02-0.05)
[2018-01-01 16:00] VITALS: BP 118/58; PULSE 61; PULSE 62; RESP 18; TEMP 98.5; O2SAT 95
[2018-01-01 20:00] VITALS: BP 114/57; PULSE 64; PULSE 65; RESP 19; TEMP 97.4; O2SAT 96
[2018-01-01] MEDS: TAMSULOSIN HCL 0.4 MG CAP PO SCH (21:47)
[2018-01-01] MEDS: ATORVASTATIN 10 MG TAB PO SCH (21:47)
--- NOTE | 2018-01-01 23:55 | EKG ---
Date Performed: 01/01/2018 Time Performed: 15:18:28 PTAGE: 77 years EKG: Sinus rhythm with 1st degree A-V block. Right ventricular hypertrophy Extensive ST-T changes are probably due to ventricular hypertrophy Abnormal ECG Since the prior tracing, there has been no significant change DOCTOR: Sony Glover Interpretating Date/Time 01/01/2018 23:54:11
[2018-01-02] VITALS (8 sets, daily range): BP systolic 113–131; BP diastolic 56–73; PULSE 58–68; RESP 15–20; TEMP 98.2–98.8; O2SAT 93–98
[2018-01-02] MEDS: NITROGLYCERIN 2% OINT 1 GM PACKET TOPICAL SCH ×4 (05:19→23:56)
[2018-01-02] MEDS: INSULIN ASPART SUPPLEMENTAL SCALE SQ SCH ×4 (08:00→20:51)
[2018-01-02] MEDS: MEMANTINE HCL 10 MG TAB PO SCH ×2 (09:25→20:50)
[2018-01-02] MEDS: METOPROLOL TARTRATE 50 MG TAB PO SCH ×2 (09:25→20:50)
[2018-01-02] MEDS: FERROUS SULFATE 325 MG (65 MG ELEMENTAL IRON) TAB PO SCH (09:25)
[2018-01-02] MEDS: FUROSEMIDE 40 MG TAB PO SCH (09:26)
[2018-01-02] MEDS: SODIUM CHLORIDE 0.9% FLUSH 10 ML FLUSH IV FLUSH SCH ×2 (09:26→20:49)
[2018-01-02] MEDS: ASPIRIN 81 MG CHEW TAB CHEW SCH (09:26)
[2018-01-02] MEDS: POTASSIUM CHLORIDE 10 MEQ CAP PO SCH (09:26)
[2018-01-02] MEDS: PANTOPRAZOLE SOD 40 MG DELAYED RELEASE TAB PO SCH (09:26)
[2018-01-02] MEDS: SERTRALINE HCL 50 MG TAB PO SCH (09:26)
[2018-01-02] MEDS: CALCIUM CARBONATE 1.25 GM (CA 500 MG) TAB PO SCH (09:26)
[2018-01-02] MEDS: INSULIN DETEMIR 100 UNITS/ML VIAL SQ SCH (09:26)
--- NOTE | 2018-01-02 09:53 | HHI.NPPN ---
Subjective General Problems: Anemia Renal Failure: Chronic, Acute History of Present Illness Patient is a 77-year-old male with a history of type 2 diabetes, COPD, CHF, CVA , dementia, CAD, CKD, hyperlipidemia, hypertension, gastric ulcer, prostate cancer, nephrolithiasis, and arthritis. Presents to ED who presents with altered mental status and hyperglycemia with sugars in the 500s. Also noted in the ER troponin elevation up to 2.49, trending up to 4.62. History is limited as patient is very hard of hearing. Patient was discharged from hospital on the to a SNF. Nephrology is consulted for possible uremic encephalopathy. Patient mental status during exam is at baseline. Creatinine is 3.24 and patients baseline creatinine has been around 2.5 to 3.0. Additional Remarks Patient is resting comfortably. Opens eyes to command only (Madisyn Mehta) Objective Data Data Vital Signs Date Time Temp Pulse Resp B/P (MAP) Pulse Ox O2 Delivery O2 Flow Rate FiO2 01/02/18 08:24 98.3 65 18 131/63 (85) 95 01/02/18 04:05 Nasal Cannula 2.00 01/02/18 04:00 98.8 68 20 123/68 (86) 93 01/02/18 04:00 65 01/02/18 00:00 Nasal Cannula 2.00 01/02/18 00:00 65 01/02/18 00:00 98.6 66 20 127/73 (91) 97 01/01/18 20:00 64 01/01/18 20:00 97.4 65 19 114/57 (76) 96 01/01/18 20:00 Nasal Cannula 2.00 01/01/18 16:00 98.5 61 18 118/58 (78) 95 01/01/18 16:00 62 01/01/18 12:00 59 01/01/18 12:00 98.9 59 18 116/56 (76) 94 (Madisyn Mehta) -: 01/01/18 0449 01/01/18 0449 Physical Exam General Appearance: Well Developed, No Acute Distress (Madisyn Mehta) Throat Throat Exam: Oral Mucosa [place] & Moist (Madisyn Mehta) Pulmonary Resp Exam: Clear Bilaterally, Breath Sounds Equal (Madisyn Mehta) Cardiology CV Exam: Regular (Madisyn Mehta) Gastrointestinal/Abdomen GI Exam: Soft, Non-Tender, Bowel Sounds Present (Madisyn Mehta) Integumentary Skin Exam: Intact (Madisyn Mehta) Assessment/Plan Problem List: (1) ALISSON (acute kidney injury) ICD Codes: N17.9 - Acute kidney failure, unspecified Status: Resolved Plan: ALISSON on CKD patients new baseline maybe at 2.5 to 3.0. 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 Plan Lasix has been reduced to daily only Avoid nephrotoxins. Encourage PO intake Follow the urine out put and BMP. Troponin noted to be mildly elevated but decreased from previous. If creatinine unchanged or less may discharge from nephrology stand point. (2) Altered mental status ICD Codes: R41.82 - Altered mental status, unspecified Plan: Continue to monitor. (3) Edema ICD Codes: R60.9 - Edema, unspecified Plan: improving Elevate arms on pillows (4) NSTEMI (non-ST elevated myocardial infarction) ICD Codes: I21.4 - Non-ST elevation (NSTEMI) myocardial infarction Plan: Currently on medical management. (5) Diabetes Mellitus Plan: will monitor (6) NSTEMI (non-ST elevated myocardial infarction) ICD Codes: I21.4 - Non-ST elevation (NSTEMI) myocardial infarction Status: Acute Plan: Medical management. (7) Hypertension ICD Codes: I10 - Hypertension Status: Chronic Plan: Monitor Home medications continued (Madisyn Mehta) Problem List: (1) ALISSON (acute kidney injury) ICD Codes: N17.9 - Acute kidney failure, unspecified Status: Resolved Plan: ALISSON on CKD patients new baseline maybe at 2.5 to 3.0. 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 Plan Lasix has been reduced to daily only Avoid nephrotoxins. Encourage PO intake Follow the urine out put and BMP. Troponin noted to be mildly elevated but decreased from previous. If creatinine unchanged or less may discharge from nephrology stand point. Patient seen and examined, agree with above. Encourage oral intake. (2) Altered mental status ICD Codes: R41.82 - Altered mental status, unspecified Plan: Continue to monitor. (3) Edema ICD Codes: R60.9 - Edema, unspecified Plan: improving Elevate arms on pillows (4) NSTEMI (non-ST elevated myocardial infarction) ICD Codes: I21.4 - Non-ST elevation (NSTEMI) myocardial infarction Plan: Currently on medical management. (5) Diabetes Mellitus Plan: will monitor (6) NSTEMI (non-ST elevated myocardial infarction) ICD Codes: I21.4 - Non-ST elevation (NSTEMI) myocardial infarction Status: Acute Plan: Medical management. (7) Hypertension ICD Codes: I10 - Hypertension Status: Chronic Plan: Monitor Home medications continued (Olegario Brush MD) Madisyn Mehta Jan 02, 2018 09:53 Olegario Brush MD Jan 03, 2018 09:26
--- NOTE | 2018-01-02 10:22 | HHI.PR ---
Subjective Remarks Follow up renal failure, diabetes. Patient's sister is present and states that the patient is "much better today". She feels that he is very close to his baseline. No events reported by nursing. Objective Vitals Vital Signs Date Time Temp Pulse Resp B/P (MAP) Pulse Ox O2 Delivery O2 Flow Rate FiO2 01/02/18 08:24 98.3 65 18 131/63 (85) 95 01/02/18 08:00 64 01/02/18 08:00 Nasal Cannula 2.00 01/02/18 04:05 Nasal Cannula 2.00 01/02/18 04:00 98.8 68 20 123/68 (86) 93 01/02/18 04:00 65 01/02/18 00:00 Nasal Cannula 2.00 01/02/18 00:00 65 01/02/18 00:00 98.6 66 20 127/73 (91) 97 01/01/18 20:00 64 01/01/18 20:00 97.4 65 19 114/57 (76) 96 01/01/18 20:00 Nasal Cannula 2.00 01/01/18 16:00 98.5 61 18 118/58 (78) 95 01/01/18 16:00 62 01/01/18 12:00 59 01/01/18 12:00 98.9 59 18 116/56 (76) 94 I/O 01/01/18 01/01/18 01/01/18 01/02/18 01/02/18 01/02/18 07:00 15:00 23:00 07:00 15:00 23:00 Intake Total 480 ml 200 ml Output Total 1100 ml 1000 ml 700 ml Balance -1100 ml -520 ml -500 ml Intake Oral 480 ml 200 ml Output Urine Total 1100 ml 1000 ml 700 ml # Bowel Movements 0 1 Result Diagram: 01/01/18 0449 01/01/18 0449 Imaging Last Impressions Chest X-Ray 12/26/17 0051 Signed Impressions: Service Date/Time: Tuesday, December 26, 2017 01:07 - CONCLUSION: No definite infiltrates seen. There is indistinctness and fullness of the central bronchopulmonary markings which may represent vascular engorgement, however, there is submaximal inspiration which may be contributing to the indistinctness. Héctor Gaspar MD Head CT 12/26/17 0000 Signed Impressions: Service Date/Time: Tuesday, December 26, 2017 01:34 - CONCLUSION: 1. No acute findings in the brain. 2. 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 Héctor Gaspar MD Objective Remarks General: No acute distress. Heart: Regular rate and rhythm. No murmur. Lungs: Clear to auscultation bilaterally. No wheezes, rales, or rhonchi. Breathing is nonlabored. Abdomen: Soft, nontender, nondistended. Extremities: No lower extremity edema. Psych: Alert. Nonverbal. Procedures None Urinary Catheter: No Vascular Central Line Catheter: No A/P Assessment and Plan 1. Acute metabolic encephalopathy: Possibly secondary to uremia. Patient does have underlying chronic dementia. Patient's mental status is reportedly improved to his baseline. Appreciate neurology recommendations. EEG does not show any seizure activity. 2. Acute on chronic renal failure: Appreciate nephrology recommendations. IV fluids discontinued. Labs are pending today. 3. Diabetes mellitus type 2: Monitor Accu-Cheks and cover with sliding scale insulin. Diabetic diet. 4. Elevated troponin: Patient is now indicating chest pain. Appreciate cardiology recommendations. Patient's healthcare proxy refused cardiac catheterization. Troponin trending down. Continue aspirin, statin. 5. COPD: Not in acute exacerbation. Continue home medications. 6. Chronic congestive heart failure: Monitor fluid status. Continue home medications. 7. Chronic anemia: Likely secondary to kidney disease. Monitor H&H. 8. DVT prophylaxis: Heparin. Discharge Planning Per nephrology, can discharge back to SNF if today's creatinine level is the same or less than yesterday. Shoaib Brody MD Jan 02, 2018 10:22
[2018-01-02] MEDS ORDERED: LIPI10TA PO (10:24)
--- NOTE | 2018-01-02 10:25 | HHI.DCPOC ---
Discharge Care Plan Diagnosis: (1) Diabetes Mellitus (2) Hyperlipidemia (3) NSTEMI (non-ST elevated myocardial infarction) (4) Acute renal injury (5) Diabetes type 2, controlled (6) CKD (chronic kidney disease), stage III Goals to Promote Your Health * To prevent worsening of your condition and complications * To maintain your health at the optimal level Directions to Meet Your Goals Take your medications as prescribed Follow your dietary instruction Follow activity as directed Keep your appointments as scheduled Take your immunizations and boosters as scheduled If your symptoms worsen call your PCP, if no PCP go to Urgent Care Center or Emergency Room Smoking is Dangerous to Your Health. Avoid second hand smoke Call the 24-hour hour crisis hotline for domestic abuse at Shoaib Brody MD Jan 02, 2018 10:25
[2018-01-02 11:44] LABS: BICARBONATE 29.5 MEQ/L (21.0-32.0); CALCIUM 8.3 MG/DL (8.5-10.1); CREATININE 3.23 MG/DL (0.60-1.30)
[2018-01-02] MEDS: HEPARIN SODIUM - SQ 10,000 UNITS/ML VIAL SQ SCH ×2 (12:33→20:50)
[2018-01-02] MEDS: TAMSULOSIN HCL 0.4 MG CAP PO SCH (20:50)
[2018-01-02] MEDS: ATORVASTATIN 10 MG TAB PO SCH (20:50)
[2018-01-03] VITALS (8 sets, daily range): BP systolic 127–160; BP diastolic 66–79; PULSE 52–70; RESP 16–18; TEMP 97.1–98.3; O2SAT 93–100
[2018-01-03] MEDS: NITROGLYCERIN 2% OINT 1 GM PACKET TOPICAL SCH ×3 (05:01→17:16)
[2018-01-03 07:58] LABS: BICARBONATE 31.9 MEQ/L (21.0-32.0); CALCIUM 8.9 MG/DL (8.5-10.1); CREATININE 3.22 MG/DL (0.60-1.30)
[2018-01-03] MEDS: INSULIN ASPART SUPPLEMENTAL SCALE SQ SCH ×4 (08:00→21:00)
[2018-01-03] MEDS: CALCIUM CARBONATE 1.25 GM (CA 500 MG) TAB PO SCH (08:41)
[2018-01-03] MEDS: FUROSEMIDE 40 MG TAB PO SCH (08:42)
[2018-01-03] MEDS: METOPROLOL TARTRATE 50 MG TAB PO SCH ×2 (08:42→21:27)
[2018-01-03] MEDS: PANTOPRAZOLE SOD 40 MG DELAYED RELEASE TAB PO SCH (08:42)
[2018-01-03] MEDS: MEMANTINE HCL 10 MG TAB PO SCH ×2 (08:42→21:27)
[2018-01-03] MEDS: SERTRALINE HCL 50 MG TAB PO SCH (08:42)
[2018-01-03] MEDS: ASPIRIN 81 MG CHEW TAB CHEW SCH (08:42)
[2018-01-03] MEDS: POTASSIUM CHLORIDE 10 MEQ CAP PO SCH (08:42)
[2018-01-03] MEDS: FERROUS SULFATE 325 MG (65 MG ELEMENTAL IRON) TAB PO SCH (08:42)
[2018-01-03] MEDS: HEPARIN SODIUM - SQ 10,000 UNITS/ML VIAL SQ SCH ×2 (08:43→21:32)
[2018-01-03] MEDS: INSULIN DETEMIR 100 UNITS/ML VIAL SQ SCH (08:43)
[2018-01-03] MEDS: SODIUM CHLORIDE 0.9% FLUSH 10 ML FLUSH IV FLUSH SCH ×2 (08:43→21:32)
--- NOTE | 2018-01-03 10:55 | HHI.PR ---
Subjective Remarks Follow up renal failure. No events reported overnight. Objective Vitals Vital Signs Date Time Temp Pulse Resp B/P (MAP) Pulse Ox O2 Delivery O2 Flow Rate FiO2 01/03/18 10:28 Nasal Cannula 2.00 01/03/18 08:00 97.3 64 18 153/72 (99) 96 01/03/18 04:00 61 01/03/18 04:00 Nasal Cannula 2.00 01/03/18 04:00 98.1 62 16 141/66 (91) 93 01/03/18 00:00 62 01/03/18 00:00 Nasal Cannula 2.00 01/03/18 00:00 98.3 63 16 127/78 (94) 98 01/02/18 20:00 Nasal Cannula 2.00 01/02/18 20:00 62 01/02/18 20:00 98.2 63 17 115/56 (75) 96 01/02/18 16:04 98.2 59 18 113/66 (82) 98 01/02/18 16:00 60 01/02/18 11:00 58 15 118/56 (76) 97 I/O 01/02/18 01/02/18 01/02/18 01/03/18 01/03/18 01/03/18 07:00 15:00 23:00 07:00 15:00 23:00 Intake Total 200 ml 600 ml 560 ml Output Total 700 ml 400 ml 550 ml Balance -500 ml 200 ml 10 ml Intake Oral 200 ml 600 ml 560 ml Output Urine Total 700 ml 400 ml 550 ml # Voids 0 # Bowel Movements 1 0 0 Result Diagram: 01/01/18 0449 01/03/18 0621 Imaging Last Impressions Chest X-Ray 12/26/17 0051 Signed Impressions: Service Date/Time: Tuesday, December 26, 2017 01:07 - CONCLUSION: No definite infiltrates seen. There is indistinctness and fullness of the central bronchopulmonary markings which may represent vascular engorgement, however, there is submaximal inspiration which may be contributing to the indistinctness. Héctor Gaspar MD Head CT 12/26/17 0000 Signed Impressions: Service Date/Time: Tuesday, December 26, 2017 01:34 - CONCLUSION: 1. No acute findings in the brain. 2. 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 Héctor Gaspar MD Objective Remarks General: No acute distress. Heart: Regular rate and rhythm. No murmur. Lungs: Clear to auscultation bilaterally. No wheezes, rales, or rhonchi. Breathing is nonlabored. Abdomen: Soft, nontender, nondistended. Extremities: No lower extremity edema. Psych: Sleeping. Procedures None Urinary Catheter: No Vascular Central Line Catheter: No A/P Assessment and Plan 1. Acute metabolic encephalopathy: Possibly secondary to uremia. Patient does have underlying chronic dementia. Patient's mental status is reportedly improved to his baseline. Appreciate neurology recommendations. EEG does not show any seizure activity. 2. Acute on chronic renal failure: Appreciate nephrology recommendations. IV fluids discontinued. Creatinine increased yesterday and remained elevated today. 3. Diabetes mellitus type 2: Monitor Accu-Cheks and cover with sliding scale insulin. Diabetic diet. 4. Elevated troponin: Patient is now indicating chest pain. Appreciate cardiology recommendations. Patient's healthcare proxy refused cardiac catheterization. Troponin trending down. Continue aspirin, statin. 5. COPD: Not in acute exacerbation. Continue home medications. 6. Chronic congestive heart failure: Monitor fluid status. Continue home medications. 7. Chronic anemia: Likely secondary to kidney disease. Monitor H&H. 8. DVT prophylaxis: Heparin. Discharge Planning Discharge to SNF when cleared by nephrology. Shoaib Brody MD Jan 03, 2018 10:55
--- NOTE | 2018-01-03 12:34 | HHI.NPPN ---
Subjective General Problems: Anemia Renal Failure: Chronic, Acute History of Present Illness Patient is a 77-year-old male with a history of type 2 diabetes, COPD, CHF, CVA , dementia, CAD, CKD, hyperlipidemia, hypertension, gastric ulcer, prostate cancer, nephrolithiasis, and arthritis. Presents to ED who presents with altered mental status and hyperglycemia with sugars in the 500s. Also noted in the ER troponin elevation up to 2.49, trending up to 4.62. History is limited as patient is very hard of hearing. Patient was discharged from hospital on the to a SNF. Nephrology is consulted for possible uremic encephalopathy. Patient mental status during exam is at baseline. Creatinine is 3.24 and patients baseline creatinine has been around 2.5 to 3.0. Additional Remarks Patient is resting comfortably. Opens eyes to command only Objective Data Data Vital Signs Date Time Temp Pulse Resp B/P (MAP) Pulse Ox O2 Delivery O2 Flow Rate FiO2 01/03/18 10:28 Nasal Cannula 2.00 01/03/18 08:00 63 01/03/18 08:00 97.3 64 18 153/72 (99) 96 01/03/18 04:00 61 01/03/18 04:00 Nasal Cannula 2.00 01/03/18 04:00 98.1 62 16 141/66 (91) 93 01/03/18 00:00 62 01/03/18 00:00 Nasal Cannula 2.00 01/03/18 00:00 98.3 63 16 127/78 (94) 98 01/02/18 20:00 Nasal Cannula 2.00 01/02/18 20:00 62 01/02/18 20:00 98.2 63 17 115/56 (75) 96 01/02/18 16:04 98.2 59 18 113/66 (82) 98 01/02/18 16:00 60 -: 01/01/18 0449 01/03/18 0621 Physical Exam General Appearance: Well Developed, No Acute Distress Throat Throat Exam: Oral Mucosa [place] & Moist Pulmonary Resp Exam: Clear Bilaterally, Breath Sounds Equal Cardiology CV Exam: Regular Gastrointestinal/Abdomen GI Exam: Soft, Non-Tender, Bowel Sounds Present Integumentary Skin Exam: Intact Assessment/Plan Problem List: (1) ALISSON (acute kidney injury) ICD Codes: N17.9 - Acute kidney failure, unspecified Status: Resolved Plan: ALISSON on CKD patients new baseline maybe at 2.5 to 3.0. 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 Plan Lasix has been reduced to daily only Avoid nephrotoxins. Encourage PO intake Follow the urine out put and BMP. Troponin noted to be mildly elevated but decreased from previous. If creatinine unchanged or less may discharge from nephrology stand point. Patient seen and examined, agree with above. Encourage oral intake. (2) Altered mental status ICD Codes: R41.82 - Altered mental status, unspecified Plan: Continue to monitor. (3) Edema ICD Codes: R60.9 - Edema, unspecified Plan: improving Elevate arms on pillows (4) NSTEMI (non-ST elevated myocardial infarction) ICD Codes: I21.4 - Non-ST elevation (NSTEMI) myocardial infarction Plan: Currently on medical management. (5) Diabetes Mellitus Plan: will monitor (6) NSTEMI (non-ST elevated myocardial infarction) ICD Codes: I21.4 - Non-ST elevation (NSTEMI) myocardial infarction Status: Acute Plan: Medical management. (7) Hypertension ICD Codes: I10 - Hypertension Status: Chronic Plan: Monitor Home medications continued Olegario Brush MD Jan 03, 2018 12:34
[2018-01-03] MEDS: ATORVASTATIN 10 MG TAB PO SCH (21:28)
[2018-01-03] MEDS: TAMSULOSIN HCL 0.4 MG CAP PO SCH (21:28)
[2018-01-04] VITALS: BP 124/73; PULSE 52; RESP 18; TEMP 97.4; O2SAT 100
[2018-01-04] MEDS: NITROGLYCERIN 2% OINT 1 GM PACKET TOPICAL SCH ×3 (00:51→12:00)
[2018-01-04 04:00] VITALS: BP 140/72; PULSE 52; PULSE 55; RESP 18; TEMP 98; O2SAT 98
[2018-01-04] MEDS: INSULIN ASPART SUPPLEMENTAL SCALE SQ SCH ×2 (07:55→12:00)
[2018-01-04 08:00] VITALS: BP 152/81; PULSE 61; PULSE 64; RESP 18; O2SAT 98
[2018-01-04 08:40] LABS: HEMATOCRIT 32.7 % (39.0-51.0); HEMOGLOBIN 10.6 GM/DL (13.0-17.0); MEAN CELL VOLUME 96.7 FL (80.0-100.0); MEAN CORPUSCULAR HEMOGLOBIN 31.3 PG (27.0-34.0); MEAN CORPUSCULAR HGB CONC 32.4 % (32.0-36.0); MEAN PLATELET VOLUME 8.5 FL (7.0-11.0); PLATELET COUNT 145 TH/MM3 (150-450); RED BLOOD COUNT 3.38 MIL/MM3 (4.50-5.90); RED CELL DISTRIBUTION WIDTH 20.6 % (11.6-17.2); WHITE BLOOD COUNT 6.6 TH/MM3 (4.0-11.0)
[2018-01-04] MEDS: INSULIN DETEMIR 100 UNITS/ML VIAL SQ SCH (09:00)
[2018-01-04] MEDS: SERTRALINE HCL 50 MG TAB PO SCH (09:05)
[2018-01-04] MEDS: FUROSEMIDE 40 MG TAB PO SCH (09:05)
[2018-01-04] MEDS: METOPROLOL TARTRATE 50 MG TAB PO SCH (09:05)
[2018-01-04] MEDS: FERROUS SULFATE 325 MG (65 MG ELEMENTAL IRON) TAB PO SCH (09:05)
[2018-01-04] MEDS: PANTOPRAZOLE SOD 40 MG DELAYED RELEASE TAB PO SCH (09:05)
[2018-01-04] MEDS: ASPIRIN 81 MG CHEW TAB CHEW SCH (09:05)
[2018-01-04] MEDS: MEMANTINE HCL 10 MG TAB PO SCH (09:05)
[2018-01-04] MEDS: CALCIUM CARBONATE 1.25 GM (CA 500 MG) TAB PO SCH (09:06)
[2018-01-04] MEDS: POTASSIUM CHLORIDE 10 MEQ CAP PO SCH (09:06)
[2018-01-04] MEDS: SODIUM CHLORIDE 0.9% FLUSH 10 ML FLUSH IV FLUSH SCH (09:06)
[2018-01-04] MEDS: HEPARIN SODIUM - SQ 10,000 UNITS/ML VIAL SQ SCH (09:06)
[2018-01-04 09:10] LABS: BICARBONATE 28.3 MEQ/L (21.0-32.0); CALCIUM 9.5 MG/DL (8.5-10.1); CREATININE 2.94 MG/DL (0.60-1.30)
--- NOTE | 2018-01-04 10:12 | HHI.PR ---
Subjective Remarks Follow up renal failure. No events reported by nursing. Patient is more alert today. Nonverbal. Objective Vitals Vital Signs Date Time Temp Pulse Resp B/P (MAP) Pulse Ox O2 Delivery O2 Flow Rate FiO2 01/04/18 04:00 98.0 55 18 140/72 (94) 98 01/04/18 04:00 52 01/04/18 00:00 97.4 52 18 124/73 (90) 100 01/03/18 23:45 52 01/03/18 21:30 Nasal Cannula 2.00 01/03/18 20:00 97.2 66 18 149/79 (102) 100 01/03/18 19:47 70 01/03/18 16:00 97.1 65 18 127/69 (88) 100 01/03/18 16:00 58 01/03/18 12:00 64 01/03/18 12:00 97.4 65 18 160/73 (102) 99 01/03/18 10:28 Nasal Cannula 2.00 I/O 01/03/18 01/03/18 01/03/18 01/04/18 01/04/18 01/04/18 07:00 15:00 23:00 07:00 15:00 23:00 Intake Total 560 ml 120 ml Output Total 550 ml Balance 10 ml 120 ml Intake Oral 560 ml 120 ml Output Urine Total 550 ml # Voids 0 0 3 # Bowel Movements 0 0 Result Diagram: 01/04/18 0745 01/04/18 0745 Imaging Last Impressions Chest X-Ray 12/26/17 0051 Signed Impressions: Service Date/Time: Tuesday, December 26, 2017 01:07 - CONCLUSION: No definite infiltrates seen. There is indistinctness and fullness of the central bronchopulmonary markings which may represent vascular engorgement, however, there is submaximal inspiration which may be contributing to the indistinctness. Héctor Gaspar MD Head CT 12/26/17 0000 Signed Impressions: Service Date/Time: Tuesday, December 26, 2017 01:34 - CONCLUSION: 1. No acute findings in the brain. 2. 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 Héctor Gaspar MD Objective Remarks General: No acute distress. Heart: Regular rate and rhythm. No murmur. Lungs: Clear to auscultation bilaterally. No wheezes, rales, or rhonchi. Breathing is nonlabored. Abdomen: Soft, nontender, nondistended. Extremities: No lower extremity edema. Psych: Sleeping, but awakens easily. Procedures None Urinary Catheter: No Vascular Central Line Catheter: No A/P Assessment and Plan 1. Acute metabolic encephalopathy: Possibly secondary to uremia. Patient does have underlying chronic dementia. Patient's mental status is reportedly improved to his baseline. Appreciate neurology recommendations. EEG does not show any seizure activity. 2. Acute on chronic renal failure: Appreciate nephrology recommendations. IV fluids discontinued. Creatinine is improved today. 3. Diabetes mellitus type 2: Monitor Accu-Cheks and cover with sliding scale insulin. Diabetic diet. 4. Elevated troponin: Patient is now indicating chest pain. Appreciate cardiology recommendations. Patient's healthcare proxy refused cardiac catheterization. Troponin trending down. Continue aspirin, statin. 5. COPD: Not in acute exacerbation. Continue home medications. 6. Chronic congestive heart failure: Monitor fluid status. Continue home medications. 7. Chronic anemia: Likely secondary to kidney disease. Monitor H&H. 8. DVT prophylaxis: Heparin. Discharge Planning Discharge to SNF when cleared by nephrology. Shoaib Brody MD Jan 04, 2018 10:12
--- NOTE | 2018-01-04 10:26 | HHI.NPPN ---
Subjective General Problems: Anemia Renal Failure: Chronic, Acute History of Present Illness Patient is a 77-year-old male with a history of type 2 diabetes, COPD, CHF, CVA , dementia, CAD, CKD, hyperlipidemia, hypertension, gastric ulcer, prostate cancer, nephrolithiasis, and arthritis. Presents to ED who presents with altered mental status and hyperglycemia with sugars in the 500s. Also noted in the ER troponin elevation up to 2.49, trending up to 4.62. History is limited as patient is very hard of hearing. Patient was discharged from hospital on the to a SNF. Nephrology is consulted for possible uremic encephalopathy. Patient mental status during exam is at baseline. Creatinine is 3.24 and patients baseline creatinine has been around 2.5 to 3.0. Additional Remarks Patient is resting comfortably eating breakfast. . Opens eyes more verbal today (Madisyn Mehta) Objective Data Data 01/04/18 01/05/18 19:00 07:00 # Voids 3 Vital Signs Date Time Temp Pulse Resp B/P (MAP) Pulse Ox O2 Delivery O2 Flow Rate FiO2 01/04/18 08:00 61 18 152/81 (104) 98 01/04/18 04:00 98.0 55 18 140/72 (94) 98 01/04/18 04:00 52 01/04/18 00:00 97.4 52 18 124/73 (90) 100 01/03/18 23:45 52 01/03/18 21:30 Nasal Cannula 2.00 01/03/18 20:00 97.2 66 18 149/79 (102) 100 01/03/18 19:47 70 01/03/18 16:00 97.1 65 18 127/69 (88) 100 01/03/18 16:00 58 01/03/18 12:00 64 01/03/18 12:00 97.4 65 18 160/73 (102) 99 01/03/18 10:28 Nasal Cannula 2.00 (Madisyn Mehta) -: 01/04/18 0745 01/04/18 0745 Physical Exam General Appearance: Well Developed, No Acute Distress (Madisyn Mehta) Throat Throat Exam: Oral Mucosa [place] & Moist (Madisyn Mehta) Pulmonary Resp Exam: Clear Bilaterally, Breath Sounds Equal (Madisyn Mehta) Cardiology CV Exam: Regular (Madisyn Mehta) Gastrointestinal/Abdomen GI Exam: Soft, Non-Tender, Bowel Sounds Present (Madisyn Mehta) Integumentary Skin Exam: Intact (Madisyn Mehta) Assessment/Plan Problem List: (1) ALISSON (acute kidney injury) ICD Codes: N17.9 - Acute kidney failure, unspecified Status: Resolved Plan: ALISSON on CKD patients new baseline maybe at 2.5 to 3.0. 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 Plan Lasix has been reduced to daily only Avoid nephrotoxins. Encourage PO intake Follow the urine out put and BMP. Mild hyperkalemia noted. On replacement has been now discontinued. Low K diet May discharge from nephrology stand point. (2) Altered mental status ICD Codes: R41.82 - Altered mental status, unspecified Plan: Continue to monitor. (3) Edema ICD Codes: R60.9 - Edema, unspecified Plan: improving Elevate arms on pillows (4) NSTEMI (non-ST elevated myocardial infarction) ICD Codes: I21.4 - Non-ST elevation (NSTEMI) myocardial infarction Plan: Currently on medical management. (5) Diabetes Mellitus Plan: will monitor (6) NSTEMI (non-ST elevated myocardial infarction) ICD Codes: I21.4 - Non-ST elevation (NSTEMI) myocardial infarction Status: Acute Plan: Medical management. (7) Hypertension ICD Codes: I10 - Hypertension Status: Chronic Plan: Monitor Home medications continued (Madisyn Mehta) Problem List: (1) ALISSON (acute kidney injury) ICD Codes: N17.9 - Acute kidney failure, unspecified Status: Resolved Plan: ALISSON on CKD patients new baseline maybe at 2.5 to 3.0. 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 Plan Lasix has been reduced to daily only Avoid nephrotoxins. Encourage PO intake Follow the urine out put and BMP. Mild hyperkalemia noted. On replacement has been now discontinued. Low K diet May discharge from nephrology stand point. Patient seen and examined, agree with above. Will need out patient follow up if discharged. (2) Altered mental status ICD Codes: R41.82 - Altered mental status, unspecified Plan: Continue to monitor. (3) Edema ICD Codes: R60.9 - Edema, unspecified Plan: improving Elevate arms on pillows (4) NSTEMI (non-ST elevated myocardial infarction) ICD Codes: I21.4 - Non-ST elevation (NSTEMI) myocardial infarction Plan: Currently on medical management. (5) Diabetes Mellitus Plan: will monitor (6) NSTEMI (non-ST elevated myocardial infarction) ICD Codes: I21.4 - Non-ST elevation (NSTEMI) myocardial infarction Status: Acute Plan: Medical management. (7) Hypertension ICD Codes: I10 - Hypertension Status: Chronic Plan: Monitor Home medications continued (Olegario Brush MD) Madisyn Mehta Jan 04, 2018 10:26 Olegario Brush MD Jan 04, 2018 22:48
--- NOTE | 2018-01-04 11:30 | HHI.DS ---
Discharge Summary Admission Date Dec 26, 2017 at 02:41 Discharge Date: Jan 04, 2018 Admitting Diagnosis NSTEMI, AMS (1) Diabetes Mellitus (2) NSTEMI (non-ST elevated myocardial infarction) ICD Code: I21.4 - Non-ST elevation (NSTEMI) myocardial infarction (3) CKD (chronic kidney disease), stage III ICD Code: N18.3 - Chronic kidney disease, stage 3 (moderate) Status: Chronic Procedures None Brief History - From Admission 77-year-old male with a history of type 2 diabetes, COPD, CHF, CVA, dementia, CAD, hyperlipidemia, hypertension, gastric ulcer, prostate cancer, nephrolithiasis, arthritis who presents with 2 day history of altered mental status, hyperglycemia with sugars in the 500s. Also noted in the ER troponin elevation up to 2.49, trending up to 4.62. CT head performed with no acute findings. Patient himself denies any pain. Has no acute complaints. History is limited as patient is very hard of hearing. Daughter at bedside, reports that patient was experiencing hallucinations over the past day at SNF. Patient was previously admitted with CHF exacerbation, healthcare associated pneumonia, COPD exacerbation, acute kidney injury CBC/BMP: 01/04/18 0745 01/04/18 0745 Significant Findings Laboratory Tests Test 01/01/18 15:17 01/02/18 10:32 01/03/18 06:21 01/04/18 07:45 Total Creatine Kinase 37 U/L (39-308) Troponin I 0.13 NG/ML (0.02-0.05) Blood Urea Nitrogen 72 MG/DL (7-18) 76 MG/DL (7-18) 71 MG/DL (7-18) Creatinine 3.23 MG/DL (0.60-1.30) 3.22 MG/DL (0.60-1.30) 2.94 MG/DL (0.60-1.30) Random Glucose 141 MG/DL (74-106) 53 MG/DL (74-106) Calcium Level 8.3 MG/DL (8.5-10.1) Estimat Glomerular Filtration Rate 23 ML/MIN (>89) 23 ML/MIN (>89) 25 ML/MIN (>89) Red Blood Count 3.38 MIL/MM3 (4.50-5.90) Hemoglobin 10.6 GM/DL (13.0-17.0) Hematocrit 32.7 % (39.0-51.0) Red Cell Distribution Width 20.6 % (11.6-17.2) Platelet Count 145 TH/MM3 (150-450) Potassium Level 5.3 MEQ/L (3.5-5.1) Imaging Last Impressions Chest X-Ray 12/26/17 0051 Signed Impressions: Service Date/Time: Tuesday, December 26, 2017 01:07 - CONCLUSION: No definite infiltrates seen. There is indistinctness and fullness of the central bronchopulmonary markings which may represent vascular engorgement, however, there is submaximal inspiration which may be contributing to the indistinctness. Héctor Gaspar MD Head CT 12/26/17 0000 Signed Impressions: Service Date/Time: Tuesday, December 26, 2017 01:34 - CONCLUSION: 1. No acute findings in the brain. 2. 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 Héctor Gaspar MD PE at Discharge General: No acute distress. Heart: Regular rate and rhythm. No murmur. Lungs: Clear to auscultation bilaterally. No wheezes, rales, or rhonchi. Breathing is nonlabored. Abdomen: Soft, nontender, nondistended. Extremities: No lower extremity edema. Psych: Sleeping, but awakens easily. Hospital Course The patient was admitted for management of encephalopathy. Nephrology was consulted for further evaluation of acute kidney injury superimposed on chronic kidney disease. Patient's troponin increased. Cardiology was consulted for evaluation and management of non-ST elevation CA, congestive heart failure. The patient's family chose medical management of the coronary artery disease rather than pursue cardiac catheterization. Neurology was consulted for evaluation of encephalopathy. EEG was consistent with dementia versus mild encephalopathy. There is no epileptic activity noted. Patient was cleared for discharge by cardiology, neurology. His creatinine was monitored. It did increase, but then improved. He was cleared for discharge back to SNF by nephrology. Pt Condition on Discharge: Stable Discharge Disposition: Discharge to SNF Discharge Time: > 30 minutes Discharge Instructions DIET: Follow Instructions for: Diabetic Diet Additional Diet Instructions: 40mEq potassium daily. Activities you can perform: Regular-No Restrictions Follow up Referrals: Cardiology - 2 Weeks with Salvatore Davidson MD Nephrology - 1 Week with Olegario Brush MD PCP Follow-up - 1 Week New Medications: Atorvastatin (Lipitor) 10 Mg Tab 10 MG PO HS for Cholesterol Management, #30 TAB 0 Refills Continued Medications: Acetaminophen (Tylenol) 325 Mg Tab 650 MG PO Q4H PRN for PAIN LESS THAN 5 ON SCALE, TAB 0 Refills Albuterol 18 GM Inh (Ventolin Hfa 18 GM Inh) 90 Mcg/Act Aer 2 PUFF INH Q4H PRN for SHORTNESS OF BREATH, #1 INHALER 0 Refills Amlodipine (Amlodipine) 10 Mg Tab 10 MG PO DAILY for Blood Pressure Management, #30 TAB 0 Refills Ascorbic Acid ER (Vitamin C ER) 500 Mg Brooks 500 MG PO DAILY for Nutritional Supplement, TAB 0 Refills Aspirin (Aspirin Low Dose) 81 Mg Chew 81 MG CHEW DAILY, TAB 0 Refills Bisacodyl Supp (Biscolax Supp) 10 Mg Supp 10 MG RECTAL DAILY PRN for CONSTIPATION, SUPP 0 Refills Calcitriol (Calcitriol) 0.25 Mcg Cap 0.25 MCG PO MoWeFr for Calcium Supplement, #30 CAP 0 Refills Take 1 capsule (0.25mcg) daily on Friday,Friday and Friday Calcium Carbonate (Calcium 600) 600 Mg Calcium (1500 Mg) Tab 1200 MG PO DAILY for Nutritional Supplement, TAB Cholecalciferol (D 1000) 1,000 Unit Cap 1000 UNIT PO DAILY Cyanocobalamin (B-12) 1,000 Mcg Subl 1000 MCG SL DAILY for Nutritional Supplement, TAB.SL 0 Refills Darbepoetin Xavier Inj (Aranesp (Albumin Free) Inj) 40 Mcg/0.4 Ml Inj 40 MCG SQ MONTHLY for Anemia, INJECTION 0 Refills Dextrose Gel (Glucose Gel) 40 % Gel 1 TUBE PO DIRECTED PRN for Per Hypoglycemic Protocol, #3 TUBE 0 Refills Ferrous Sulfate (Ferrous Sulfate) 325 Mg (65 Mg Iron) Tablet 325 MG PO DAILY for Nutritional Supplement, #30 TAB 0 Refills Furosemide (Lasix) 40 Mg Tab 40 MG PO DAILY, #30 TAB 0 Refills Glucagon (Rdna) Inj Kit (Glucagon Emergency Inj Kit) 1 Mg Kit 1 MG IM ONCE PRN for Blood Sugar Management, #1 KIT 0 Refills Insulin Detemir Inj (Levemir Inj) 1,000 unit/ 10 ML Vial 15 UNITS SQ BID for Blood Sugar Management, #1 VIAL Do not mix with any other Insulin. Ipratropium-Albuterol Neb (Duoneb) 0.5-2.5 Mg/3 Ml Neb 1 NEBULE INH Q6HR NEB PRN for SHORTNESS OF BREATH, #120 NEBULE 0 Refills Ipratropium-Albuterol Neb (Duoneb) 0.5-2.5 Mg/3 Ml Neb 1 NEBULE INH HS for Breathing Treatment, #30 NEBULE 0 Refills Magnesium Hydroxide Liq (Milk of Magnesia Liq) 400 Mg/5 Ml Susp 30 ML PO Q6H PRN for CONSTIPATION, #1 BOTTLE 0 Refills Memantine (Memantine) 10 Mg Tab 10 MG PO BID for Alzheimer's Dementia, TAB 0 Refills Metoprolol Tartrate (Lopressor) 50 Mg Tab 50 MG PO BID for Blood Pressure Management, #60 TAB Nitroglycerin SL (Nitroglycerin SL) 0.4 Mg Subl 0.4 MG SL DIRECTED PRN for CHEST PAIN, #100 TAB.SL 0 Refills ONE TABLET UNDER THE TONGUE NEEDED FOR CHEST PAIN, MAY REPEAT EVERY FIVE MINUTES FOR A TOTAL OF 3 DOSES OR CALL 911 IF NO RELIEF Omeprazole (Omeprazole) 40 Mg Cap 40 MG PO DAILY, #30 CAP 0 Refills Ondansetron HCl/Pf (Ondansetron 4 mg/2 ml Isecure) 4 Mg/2 Ml Syringe 4 MG IM Q8HR PRN for NAUSEA Sennosides-Docusate Sodium (Senna S) 8.6-50 Mg Tab 2 TAB PO BID PRN for CONSTIPATION Sertraline (Sertraline) 50 Mg Tab 50 MG PO DAILY, #30 TAB 0 Refills Tamsulosin (Tamsulosin) 0.4 Mg Cap 0.4 MG PO HS for Manage Prostate Problems, #30 CAP 0 Refills Tramadol (Tramadol) 50 Mg Tab 50 MG PO Q4H PRN for PAIN, TAB 0 Refills Discontinued Medications: Atorvastatin (Atorvastatin) 40 Mg Tab 40 MG PO HS for Cholesterol Management, #30 TAB 0 Refills Chlorothiazide (Chlorothiazide) 250 Mg Tab 250 MG PO DAILY for chf, #30 TAB Levofloxacin (Levaquin) 500 Mg Tablet 500 MG PO Q48H for Infection, #5 TAB Potassium Chloride ER (Potassium Chloride ER) 10 Meq Cap 10 MEQ PO DAILY for Electrolyte Replacement, #30 CAP 0 Refills Prednisone (Prednisone) 20 Mg Tab 20 MG PO DIRECTED for Inflammation, #11 TAB 0 Refills 20 MG twice a day x 3 days, then 20 MG daily x 3 days, then 10 MG daily x 3 days Shoaib Brody MD Jan 04, 2018 11:30
[2018-01-04 12:00] VITALS: BP 163/86; PULSE 60; RESP 18; TEMP 97.1; O2SAT 93
== END 2018-01-04 15:56 | DRG 682 ==
LOC: NEPE 00:38 → NEDA 02:41 → NEDH 06:43 → HCIS 14:06 → N04B 12-29 15:28
PROVIDERS: ADMIT Family Medicine; ATTEND Family Medicine
DX: N17.9 Acute kidney failure, unspecified (principal); I21.4 Non-ST elevation (NSTEMI) myocardial infarction; G93.41 Metabolic encephalopathy; I13.0 Hypertensive heart and chronic kidney disease with heart failure and stage 1 through stage 4 chronic kidney disease, or unspecified chronic kidney disease; I50.9 Heart failure, unspecified; N18.3 Chronic kidney disease, stage 3 (moderate); E11.21 Type 2 diabetes mellitus with diabetic nephropathy; E11.65 Type 2 diabetes mellitus with hyperglycemia; Z79.4 Long term (current) use of insulin; F03.90 Unspecified dementia, unspecified severity, without behavioral disturbance, psychotic disturbance, mood disturbance, and anxiety; J44.9 Chronic obstructive pulmonary disease, unspecified; N40.1 Benign prostatic hyperplasia with lower urinary tract symptoms; R33.8 Other retention of urine; D63.1 Anemia in chronic kidney disease; Z79.82 Long term (current) use of aspirin; E78.5 Hyperlipidemia, unspecified; Z86.73 Personal history of transient ischemic attack (TIA), and cerebral infarction without residual deficits; I25.10 Atherosclerotic heart disease of native coronary artery without angina pectoris; Z95.1 Presence of aortocoronary bypass graft; H91.90 Unspecified hearing loss, unspecified ear; Z87.01 Personal history of pneumonia (recurrent); M19.90 Unspecified osteoarthritis, unspecified site; Z66 Do not resuscitate; R29.6 Repeated falls; Z87.891 Personal history of nicotine dependence; Z85.46 Personal history of malignant neoplasm of prostate; Z87.11 Personal history of peptic ulcer disease
CPT/HCPCS: 36600; 70450; 71045; 80048; 80053; 80069; 81001; 82140; 82550; 82805; 82948; 83735; 83880; 84484; 85007; 85025; 85027; 85610; 85730; 87086; 87804; 93005; 94640; 94664; 95819; J1644; J1815; J1940; J2060; J7030; P9612